=== PATIENT | female | born 1935 | race Caucasian/White ===

== ENCOUNTER 2017-11-23 08:30 | Emergency (ER) | payer OTHER ==
[2017-11-23] MEDS ORDERED: IBUPROFEN 400 MG TAB ONE (09:14)
[2017-11-23] MEDS ORDERED: ACETAMINOPHEN 500 MG TAB ONE (09:14)
[2017-11-23] MEDS ORDERED: DIAZEPAM 10 MG/2 ML INJ SYRINGE ONE (09:15)
--- NOTE | 2017-11-23 09:54 | RAD REPORT ---
EXAM DESCRIPTION: RAD - Lumbar Spine 3 Views - 11/23/2017 9:43 am CLINICAL HISTORY: Back pain FINDINGS: The alignment of the lumbar spine is satisfactory. No fracture or dislocation is seen. Mild scoliosis involves the spine. The bones are osteoporotic. Moderate disc space narrowing involves L4-5 and L5-S1 with small osteophy bhavana.
[2017-11-23 10:24] LABS: Urine Blood NEGATIVE (NEG); Urine Glucose TRACE (NEG); Urine Protein NEGATIVE (NEG); Urine Specific Gravity 1.025 (1.005-1.030)
[2017-11-23 10:32] LABS: Urine Amorphous Sediment 3+ /HPF (NONE SEEN); Urine Bacteria <20 /HPF (<20); Urine RBC <5 /HPF (NONE SEEN)
[2017-11-23 10:33] LABS: Urine Culture Reflex Order NOT NEEDED
--- NOTE | 2017-11-23 10:45 | EDPHYS ---
Physician Documentation [facility] Name: Trinh Severino Age: 82 yrs Sex: Female : 1935 Arrival Date: 11/23/2017 Time: 08:32 Bed 7 Private MD: Chiara Dumont C ED Physician Nicola Vasques HPI: 11/23 09:55 This 82 yrs old Female presents to ER via Wheelchair with complaints of Back wa Pain. 09:55 The patient presents with pain that is acute, with no known mechanism of injury. The wa symptoms are located in the low back. Onset: The symptoms/episode began/occurred 2 day(s) ago. The pain does not radiate. Associated signs and symptoms: Pertinent negatives: abdominal pain, dysuria, fever, hematuria, nausea, numbness, tingling, urinary retention, vomiting, weakness. The problem was sustained from unknown cause. Modifying factors: The patient symptoms are alleviated by nothing, the patient symptoms are aggravated by bending, movement. Severity of symptoms: At their worst the symptoms were moderate, in the emergency department the symptoms are unchanged. The patient has experienced similar episodes in the past, a few times. The patient has not recently seen a physician. Historical: - Allergies: 08:39 Codeine; sg - Home Meds: 08:39 allopurinol 300 mg Oral tab 1 tab once daily [Active]; alprazolam 0.5 mg Oral Tb24 1 sg tab once daily [Active]; amitriptyline 50 mg Oral tab 1 tab once daily [Active]; aspirin 81 mg Oral TbEC 1 tab once daily [Active]; lansoprazole 30 mg Oral cpDR 1 cap once daily [Active]; levothyroxine 100 mcg tab 1 tab once daily [Active]; Pentasa 500 mg Oral cpER twice a day [Active]; verapamil 240 mg Oral C24P 1 cap once daily [Active]; Vytorin 10-40 10-40 mg Oral tab 1 tab once daily [Active]; - PMHx: 08:39 Colitis; Hypertension; Hypothyroidism; mitral valve prolapse; sg - PSHx: 08:39 Hysterectomy; Cataracts; sg - Immunization history:: Adult Immunizations up to date. - Social history:: Smoking status: Patient/guardian denies using tobacco. - Family history:: not pertinent. - Hospitalizations: : No recent hospitalization is reported. ROS: 09:58 Constitutional: Negative for fever, chills, and weight loss, Eyes: Negative for injury, wa pain, redness, and discharge, ENT: Negative for injury, pain, and discharge, Neck: Negative for injury, pain, and swelling, Cardiovascular: Negative for chest pain, palpitations, and edema, Respiratory: Negative for shortness of breath, cough, wheezing, and pleuritic chest pain, Abdomen/GI: Negative for abdominal pain, nausea, vomiting, diarrhea, and constipation, : Negative for injury, bleeding, discharge, and swelling, MS/Extremity: Negative for injury and deformity, Skin: Negative for injury, rash, and discoloration, Neuro: Negative for headache, weakness, numbness, tingling, and seizure. 09:58 Back: Positive for pain with movement, of the lumbar area, left low back and right low back. 09:58 All other systems are negative. Exam: 09:58 Constitutional: This is a well developed, well nourished patient who is awake, alert, wa and in no acute distress. Head/Face: Normocephalic, atraumatic. Eyes: Pupils equal round and reactive to light, extra-ocular motions intact. Lids and lashes normal. Conjunctiva and sclera are non-icteric and not injected. Cornea within normal limits. Periorbital areas with no swelling, redness, or edema. ENT: Nares patent. No nasal discharge, no septal abnormalities noted. Tympanic membranes are normal and external auditory canals are clear. Oropharynx with no redness, swelling, or masses, exudates, or evidence of obstruction, uvula midline. Mucous membranes moist. Neck: Trachea midline, no thyromegaly or masses palpated, and no cervical lymphadenopathy. Supple, full range of motion without nuchal rigidity, or vertebral point tenderness. No Meningismus. Cardiovascular: Regular rate and rhythm with a normal S1 and S2. No gallops, murmurs, or rubs. Normal PMI, no JVD. No pulse deficits. Respiratory: Lungs have equal breath sounds bilaterally, clear to auscultation and percussion. No rales, rhonchi or wheezes noted. No increased work of breathing, no retractions or nasal flaring. Abdomen/GI: Soft, non-tender, with normal bowel sounds. No distension or tympany. No guarding or rebound. No evidence of tenderness throughout. Skin: Warm, dry with normal turgor. Normal color with no rashes, no lesions, and no evidence of cellulitis. MS/ Extremity: Pulses equal, no cyanosis. Neurovascular intact. Full, normal range of motion. Neuro: Awake and alert, GCS 15, oriented to person, place, time, and situation. Cranial nerves II-XII grossly intact. Motor strength 5/5 in all extremities. Sensory grossly intact. Cerebellar exam normal. Normal gait. Psych: Awake, alert, with orientation to person, place and time. Behavior, mood, and affect are within normal limits. 09:58 Back: pain, that is moderate, of the lumbar area, left low back and right low back. Vital Signs: 08:43 Pulse 85; Resp 18 S; Pulse Ox 98% on R/A; Pain 10/10; sg 08:55 BP 148 / 89; sg 08:55 Pulse Ox 98.0% ; sg 10:50 BP 138 / 72; Pulse 88; Resp 18 S; Temp 98.0; Pulse Ox 99% on R/A; Pain 3/10; sg MDM: 08:45 Patient medically screened. ky 09:59 Differential diagnosis: low back pain. reproducible with no warning flags. pain wa control. X-rays. UA. Data reviewed: vital signs, nurses notes. 10:41 Test interpretation: by ED physician or midlevel provider: lumbar x-ray: no acute fx. ky UA negative for pyuria. Response to treatment: the patient's symptoms have markedly improved after treatment. ED course: improved. will d/c with pain meds and advise close f/u. 11/23 09:04 Order name: Urine Microscopic Only; Complete Time: 10:37 ky 11/23 10:17 Order name: Urine Dipstick--Ancillary (enter results); Complete Time: 10:31 [facility] 11/23 09:04 Order name: Lumbar Spine (3 Views) XRAY; Complete Time: 09:55 ky 11/23 09:04 Order name: Urine Dipstick-Ancillary (obtain specimen); Complete Time: 10:23 ky Administered Medications: 09:45 Drug: Motrin 400 mg Route: PO; sg 09:50 Drug: Tylenol 1000 mg Route: PO; sg 09:53 Drug: Valium 5 mg Route: IM; Site: right deltoid; sg Disposition: 11/23/17 10:44 Discharged to Home. Impression: Low back pain. - Condition is Stable. - Discharge Instructions: Back Pain, Adult, [id number]. - Prescriptions for Valium 5 mg Oral Tablet - take 1 tablet by ORAL route Every night As needed; 3 tablet. - Medication Reconciliation Form, Thank You Letter, Antibiotic Education, Prescription Opioid Use form. - Follow up: Private Physician; When: 2 - 3 days; Reason: Recheck today's complaints. - Problem is new. - Symptoms have improved. - Notes: take 2 extra-strength tylenol in the morning and evening for your pain for 2 to 3 days. take a valium at night just before bed. do so for 3 days. see your doctor within 3 days if your pain does not improve on this regimen Signatures: Dispatcher [employer] Stefan Berry RN RN Nicola Vasques MD MD wa [place], Sharyn mw2
--- NOTE | 2017-11-23 10:45 | ER ---
Nurse's Notes [facility] Name: Trinh Severino Age: 82 yrs Sex: Female : 1935 Arrival Date: 11/23/2017 Time: 08:32 Bed 7 Private MD: Chiara Dumont C Diagnosis: Low back pain Presentation: 11/23 08:40 Presenting complaint: Patient states: lower back pain that started yesterday, radiates sg down into her legs pt reports a history of gout but this pain is different, pt denies trauma or recent injury, reports normal bowel and bladder habits. Transition of care: patient was not received from another setting of care. Onset of symptoms was November 23, 2017. Care prior to arrival: None. pt reports not taking any of her normal daily medications today, pt states unsure if she should have taken them d/t the pain. 08:40 Method Of Arrival: Wheelchair sg 08:40 Acuity: JONNIE 4 sg Historical: - Allergies: 08:39 Codeine; sg - Home Meds: 08:39 allopurinol 300 mg Oral tab 1 tab once daily [Active]; alprazolam 0.5 mg Oral Tb24 1 sg tab once daily [Active]; amitriptyline 50 mg Oral tab 1 tab once daily [Active]; aspirin 81 mg Oral TbEC 1 tab once daily [Active]; lansoprazole 30 mg Oral cpDR 1 cap once daily [Active]; levothyroxine 100 mcg tab 1 tab once daily [Active]; Pentasa 500 mg Oral cpER twice a day [Active]; verapamil 240 mg Oral C24P 1 cap once daily [Active]; Vytorin 10-40 10-40 mg Oral tab 1 tab once daily [Active]; - PMHx: 08:39 Colitis; Hypertension; Hypothyroidism; mitral valve prolapse; sg - PSHx: 08:39 Hysterectomy; Cataracts; sg - Immunization history:: Adult Immunizations up to date. - Social history:: Smoking status: Patient/guardian denies using tobacco. - Family history:: not pertinent. - Hospitalizations: : No recent hospitalization is reported. Screenin:45 Abuse screen: Denies threats or abuse. Denies injuries from another. Nutritional sg screening: No deficits noted. Tuberculosis screening: No symptoms or risk factors identified. Never had TB. Fall Risk None identified. Assessment: 08:45 Reassessment: pt taking her medications from home upon me walking into the room. sg 08:46 General: Appears in no apparent distress. comfortable, well groomed, well developed, sg well nourished, Behavior is calm, cooperative, appropriate for age. Pain: Complains of pain in back, right leg and left leg Pain currently is 10 out of 10 on a pain scale. Quality of pain is described as aching, sharp. Neuro: Level of Consciousness is awake, alert, obeys commands, Oriented to person, place, time, Business Management Manager are equal bilaterally Moves all extremities. Full function Speech is normal, Facial symmetry appears normal. Cardiovascular: Heart tones S1 S2 present Capillary refill is brisk in bilateral fingers toes Patient's skin is warm and dry. Chest pain is denied. Respiratory: Airway is patent Respiratory effort is even, unlabored, Respiratory pattern is regular, symmetrical, Breath sounds are clear. GI: No signs and/or symptoms were reported involving the gastrointestinal system. : No signs and/or symptoms were reported regarding the genitourinary system. EENT: No signs and/or symptoms were reported regarding the EENT system. Derm: Skin is pink, warm \T\ dry. Musculoskeletal: Circulation, motion, and sensation intact. Range of motion: intact in all extremities, Swelling absent Reports pain in back. Vital Signs: 08:43 Pulse 85; Resp 18 S; Pulse Ox 98% on R/A; Pain 10/10; sg 08:55 BP 148 / 89; sg 08:55 Pulse Ox 98.0% ; sg 10:50 BP 138 / 72; Pulse 88; Resp 18 S; Temp 98.0; Pulse Ox 99% on R/A; Pain 3/10; sg ED Course: 08:32 Patient arrived in ED. as 08:33 Chiara Dumont MD is Private Physician. as 08:36 Stefan Romo, NICHOL is Primary Nurse. sg 08:40 Arm band placed on. sg 08:43 Triage completed. sg 08:45 Nicola Vasques MD is Attending Physician. wa 08:45 Patient has correct armband on for positive identification. Bed in low position. Call sg light in reach. Pulse ox on. NIBP on. 09:16 Patient moved to radiology via wheelchair. sw 09:38 Lumbar Spine (3 Views) XRAY In Process Unspecified. EDMS 12:44 No provider procedures requiring assistance completed. Patient did not have IV access sg during this emergency room visit. Administered Medications: 09:45 Drug: Motrin 400 mg Route: PO; sg 09:50 Drug: Tylenol 1000 mg Route: PO; sg 09:53 Drug: Valium 5 mg Route: IM; Site: right deltoid; sg Outcome: 10:44 Discharge ordered by . estuardo 10:50 Discharged to home via wheelchair, with family. sg 10:50 Condition: good 10:50 Discharge instructions given to patient, Instructed on discharge instructions, follow up and referral plans. no drinking with medication, no driving heavy equipment, medication usage, safety practices, Demonstrated understanding of instructions, follow-up care, medications, Prescriptions given X 1. 10:59 Patient left the ED. mw2 Signatures: Dispatcher [employer] EDMS Stefan Romo, Lorin Lambert RN, Shannon sw Appiah, William, MD MD wa [place], MyKena mw2
[2017-11-23 11:03] VITALS: O2SAT 98
[2017-11-23 11:04] VITALS: BP 148/89
== END 2017-11-23 10:59 | disposition home or self-care (01) ==
LOC: ER 08:30
DX: M54.5 Low back pain (principal); I10 Essential (primary) hypertension; E03.9 Hypothyroidism, unspecified; I34.1 Nonrheumatic mitral (valve) prolapse; Z79.82 Long term (current) use of aspirin; Z88.5 Allergy status to narcotic agent
CPT/HCPCS: 72100; 96372; 99284; J3360; 81003; 81015

== ENCOUNTER 2017-12-27 09:00 | Inpatient (IN) | payer OTHER ==
[2017-12-27] MEDS ORDERED: NA CHLORIDE 0.9% 500 ML ONE (09:35)
[2017-12-27 09:54] LABS: Absolute Lymphocytes (CBC) 1.6 K/uL (0.7-4.9); Absolute Neutrophil 12.8 K/uL (1.8-8.0); Basophils % 1.4 % (0-1.3); Eosinophils % 1.2 % (0-4.4); Hematocrit 39.9 % (36.0-45.0); Lymphocytes % 10.2 % (15.3-44.8); MCH 30.7 pg (27.0-35.0); MCV 94.8 fL (80-100); Monocytes % 6.5 % (3.3-12.3); RBC Red Blood Cell Count 4.21 M/uL (3.86-4.86)
[2017-12-27 10:04] LABS: Potassium 3.9 mEq/L (3.6-5.0)
[2017-12-27 10:10] LABS: Albumin 3.7 g/dL (3.2-5.5); Bilirubin Direct 0.1 mg/dL (0-0.2); Bilirubin Total 0.4 mg/dL (0.3-1.2); Protein, Total 6.8 g/dL (6.0-8.3)
[2017-12-27 10:46] LABS: Urine Bacteria <20 /HPF (<20); Urine RBC <5 /HPF (NONE SEEN)
[2017-12-27 10:47] LABS: Urine Blood NEGATIVE (NEG); Urine Glucose NEGATIVE (NEG); Urine Protein NEGATIVE (NEG)
[2017-12-27 10:47] LABS: Urine Culture Reflex Order NOT NEEDED; Urine Mucus 1+ /HPF (NONE SEEN)
--- NOTE | 2017-12-27 10:55 | RAD REPORT ---
EXAM DESCRIPTION: CT - Abdomen Pelvis W Contrast - 12/27/2017 10:33 am CLINICAL HISTORY: Abdominal pain, diarrhea, blood in stool, history of colon infection COMPARISON: CT study November 2016 TECHNIQUE: Biphasic, helical CT imaging of the abdomen and pelvis was performed following 100 ml non -ionic IV contrast. No oral contrast. All CT scans are performed using dose optimization technique as appropriate and may include automated exposure control or mA/KV adjustment according to patient size. FINDINGS: No suspicious findings in the lung bases. No pericardial thickening or effusion. The liver, spleen, and pancreas show no suspicious findings. Gallbladder and biliary tree are also wi thout suspicious finding. Symmetric renal function is seen with no hydronephrosis or suspicious renal mass. No pyelonephritis o r acute renal parenchymal process. No urinary bladder abnormality. Uterus is absent. Ovaries are abse nt or atrophic. No gastric dilatation or wall thickening. No small bowel abnormality. From cecum to the left-side tra nsverse colon no significant findings seen. There is circumferential wall thickening and edema from t he splenic flexure to the proximal sigmoid colon. There is stranding in the adjacent fat. No air or e xtravasation of contrast. No free air or pneumatosis. No free fluid seen. No other area of inflammat ory stranding. No hernia, mass or bulky lymphadenopathy. The urinary bladder is without significant finding. Single punctate focus of air is present in the bladder presumed to be from a catheterization . No adrenal abnormality. No suspicious bony findings. IMPRESSION: Colitis pattern seen as prominent circumferential wall thickening and edema extending fr om splenic flexure of the colon to the proximal sigmoid colon. Colitis pattern is very similar to the November 2016 study. No abscess, free air or surgically emergent component.
[2017-12-27] MEDS ORDERED: ONDANSETRON 4 MG/2 ML VIAL IV PRN (11:33)
--- NOTE | 2017-12-27 11:39 | EDPHYS ---
Physician Documentation [facility] Name: Trinh Severino Age: 82 yrs Sex: Female : 1935 Arrival Date: 12/27/2017 Time: 09:03 Bed 5 Private MD: Chiara Dumont C ED Physician Lang Zamorano HPI: 12/27 10:14 This 82 yrs old Female presents to ER via Ambulatory with complaints of kdr Abdominal pain, Diarrhea, Bloody Stools, Abdominal Pain. 10:14 The patient presents to the emergency department with diarrhea, that is intermittent, kdr abdominal pain, of the right lower quadrant and left lower quadrant, described as achy, crampy, intermittent, vague,\E\ waxing and waning. Onset: The symptoms/episode began/occurred last night. Possible causes: flare up of bowel problem, colitis. The symptoms are aggravated by nothing. The symptoms are alleviated by nothing. Associated signs and symptoms: Pertinent positives: abdominal pain, diarrhea, GI bleeding, Pertinent negatives: anorexia, constipation, dysuria, fever, hematuria, nausea, vaginal discharge, vomiting. Severity of symptoms: At their worst the symptoms were mild moderate last night, in the emergency department the symptoms have improved moderately. The patient has experienced a previous episode, last year. The patient has not recently seen a physician. Historical: - Allergies: 09:18 Codeine; iw - Home Meds: 09:18 Pentasa 500 mg Oral cpER twice a day [Active]; levothyroxine 100 mcg tab 1 tab once iw daily [Active]; allopurinol 300 mg Oral tab 1 tab once daily [Active]; Vytorin 10-40 10-40 mg Oral tab 1 tab once daily [Active]; alprazolam 0.5 mg Oral Tb24 1 tab once daily [Active]; amitriptyline 50 mg Oral tab 1 tab once daily [Active]; aspirin oral once daily [Active]; verapamil 240 mg Oral C24P 1 cap once daily [Active]; valsartan 160 mg oral tab 1 tab once daily [Active]; 09:20 Fiorinal 50-325-40 mg oral cap as needed [Active]; iw - PMHx: 09:18 Colitis; Hypertension; Hypothyroidism; mitral valve prolapse; iw 09:20 hiatal hernia; iw - PSHx: 09:18 Hysterectomy; Cataracts; iw - Immunization history:: Flu vaccine is up to date. - Social history:: Smoking status: Patient/guardian denies using tobacco, never smoked. ROS: 10:14 Constitutional: Negative for fever, chills, and weight loss, Eyes: Negative for injury, kdr pain, redness, and discharge, ENT: Negative for injury, pain, and discharge, Neck: Negative for injury, pain, and swelling, Cardiovascular: Negative for chest pain, palpitations, and edema, Respiratory: Negative for shortness of breath, cough, wheezing, and pleuritic chest pain, Back: Negative for injury and pain, : Negative for injury, bleeding, discharge, and swelling, MS/Extremity: Negative for injury and deformity, Skin: Negative for injury, rash, and discoloration, Neuro: Negative for headache, weakness, numbness, tingling, and seizure activity. Psych: Negative for depression, anxiety, suicide ideation, homicidal ideation, and hallucinations, Allergy/Immunology: Negative for hives, rash, and allergies, Endocrine: Negative for neck swelling, polydipsia, polyuria, polyphagia, and marked weight changes, Hematologic/Lymphatic: Negative for swollen nodes, abnormal bleeding, and unusual bruising. 10:14 Abdomen/GI: Positive for abdominal pain, diarrhea, rectal bleeding, Negative for nausea and vomiting, abdominal distension, dysphagia, hematemesis, black/tarry stool, rectal pain, bowel incontinence. Exam: 10:14 Constitutional: This is a well developed, well nourished patient who is awake, alert, kdr and in no acute distress. Head/Face: Normocephalic, atraumatic. Eyes: Pupils equal round and reactive to light, extra-ocular motions intact. Lids and lashes normal. Conjunctiva and sclera are non-icteric and not injected. Cornea within normal limits. Periorbital areas with no swelling, redness, or edema. Neck: Trachea midline, no thyromegaly or masses palpated, and no cervical lymphadenopathy. Supple, full range of motion without nuchal rigidity, or vertebral point tenderness. No Meningismus. Chest/axilla: Normal chest wall appearance and motion. Nontender with no deformity. No lesions are appreciated. Cardiovascular: Regular rate and rhythm with a normal S1 and S2. No gallops, murmurs, or rubs. Normal PMI, no JVD. No pulse deficits. Respiratory: Lungs have equal breath sounds bilaterally, clear to auscultation and percussion. No rales, rhonchi or wheezes noted. No increased work of breathing, no retractions or nasal flaring. Back: No spinal tenderness. No costovertebral tenderness. Full range of motion. Skin: Warm, dry with normal turgor. Normal color with no rashes, no lesions, and no evidence of cellulitis. MS/ Extremity: Pulses equal, no cyanosis. Neurovascular intact. Full, normal range of motion. Neuro: Awake and alert, GCS 15, oriented to person, place, time, and situation. Cranial nerves II-XII grossly intact. Motor strength 5/5 in all extremities. Sensory grossly intact. Cerebellar exam normal. Normal gait. Psych: Awake, alert, with orientation to person, place and time. Behavior, mood, and affect are within normal limits. 10:14 Abdomen/GI: Inspection: abdomen appears normal, Bowel sounds: active, all quadrants, diminished, Palpation: soft, mild abdominal tenderness, in the right lower quadrant and left lower quadrant, Rectal exam: rectal tone normal, Stool: brown, guaiac positive, hemorrhoid(s), are not appreciated, mass, is not appreciated, swelling, is not appreciated, tenderness, is not appreciated, the exam is chaperoned by the nurse. Vital Signs: 09:20 BP 126 / 64; Pulse 93; Resp 18 S; Temp 98.2; Pulse Ox 97% ; Pain 0/10; iw 09:41 Weight 85.28 kg (R); ae1 09:56 BP 118 / 54; Pulse 71; Resp 17; Pulse Ox 96% on R/A; ae1 11:06 BP 142 / 51; Pulse 72; Resp 17; Pulse Ox 97% on R/A; ae1 12:15 BP 159 / 94; Pulse 75; Resp 19; Pulse Ox 97% on R/A; ae1 MDM: 10:14 Data reviewed: vital signs, nurses notes, lab test result(s), radiologic studies. kdr Counseling: I had a detailed discussion with the patient and/or guardian regarding: the historical points, exam findings, and any diagnostic results supporting the discharge/admit diagnosis, lab results, radiology results, the need for outpatient follow up. 11:38 Patient medically screened. kdr 12/27 09:27 Order name: Type And Screen; Complete Time: 10:47 [facility] 12/27 09:27 Order name: Basic Metabolic Panel; Complete Time: 10:47 [facility] 12/27 09:27 Order name: CBC with Diff; Complete Time: 10:47 [facility] 12/27 09:27 Order name: Creatinine for Radiology; Complete Time: 10:47 [facility] 12/27 09:27 Order name: Hepatic Function; Complete Time: 10:47 [facility] 12/27 09:27 Order name: Lipase; Complete Time: 10:47 [facility] 12/27 09:27 Order name: Urine Microscopic Only; Complete Time: 11:21 kdr 12/27 09:27 Order name: IV Saline Lock; Complete Time: 09:32 [facility] 12/27 09:27 Order name: CT Abd/Pelvis - W/Contrast; Complete Time: 11:21 [facility] 12/27 10:30 Order name: Urine Dipstick--Ancillary (enter results); Complete Time: 11:21 [facility] 12/27 11:03 Order name: EKG Electrocardiogram [facility] 12/27 09:27 Order name: Labs collected and sent; Complete Time: 09:41 [facility] 12/27 09:27 Order name: Urine Dipstick-Ancillary (obtain specimen); Complete Time: 10:29 kdr Administered Medications: 09:35 Drug: NS 0.9% 500 ml Route: IV; Rate: bolus; Site: right antecubital; ae1 10:19 Follow up: IV Status: Completed infusion ae1 12:06 Drug: Flagyl 500 mg Route: PO; ae1 12:06 Drug: LevaQUIN 500 mg Route: PO; ae1 Disposition: 18 11:38 Hospitalization ordered by Chiaar Dumont for Inpatient Admission. Preliminary diagnosis are Left sided colitis, Left sided colitis with rectal bleeding. - Bed requested for Telemetry/MedSurg (Inpatient). - Status is Inpatient Admission. ae1 - Condition is Fair. - Problem is an acute exacerbation. - Symptoms have improved. UTI on Admission? No Signatures: Dispatcher [employer] EDLA Lang Zamorano MD MD kdr Marlene Coello RN Marck Roberson em1 Durga Panda RN RN ae1 Corrections: (The following items were deleted from the chart) 14:17 11:38 Hospitalization Ordered by Chiara Dumont MD for Inpatient Admission. Preliminary em1 diagnosis is Left sided colitis; Left sided colitis with rectal bleeding. Bed requested for Telemetry/MedSurg (Inpatient). Status is Inpatient Admission. Condition is Fair. Problem is an acute exacerbation. Symptoms have improved. UTI on Admission? No. kdr 14:54 14:17 12/27/2017 11:38 Hospitalization Ordered by A Tim RIOS for Inpatient Admission. ae1 Preliminary diagnosis is Left sided colitis; Left sided colitis with rectal bleeding. Bed requested for Telemetry/MedSurg (Inpatient). Status is Inpatient Admission. Condition is Fair. Problem is an acute exacerbation. Symptoms have improved. UTI on Admission? No. em1
--- NOTE | 2017-12-27 11:39 | ER ---
Nurse's Notes [facility] Name: Trinh Severino Age: 82 yrs Sex: Female : 1935 Arrival Date: 12/27/2017 Time: 09:03 Bed 5 Private MD: Chiara Dumont C Diagnosis: Left sided colitis;Left sided colitis with rectal bleeding Presentation: 12/27 09:12 Presenting complaint: Patient states: had bad abd cramps at 7pm last night, then iw started having diarrhea at 8pm, then at 10 pm started having bright red blood in stool, was diagnosed with colon infection X 1 year ago, had same symptoms at that time, last BM was around 7 this morning with bright red blood. Transition of care: patient was not received from another setting of care. Onset of symptoms was December 26, 2017. Initial Sepsis Screen: Does the patient meet any 2 criteria? No. Patient's initial sepsis screen is negative. Does the patient have a suspected source of infection? No. Patient's initial sepsis screen is negative. Care prior to arrival: None. 09:12 Method Of Arrival: Ambulatory iw 09:12 Acuity: JONNIE 3 iw Historical: - Allergies: 09:18 Codeine; iw - Home Meds: 09:18 Pentasa 500 mg Oral cpER twice a day [Active]; levothyroxine 100 mcg tab 1 tab once iw daily [Active]; allopurinol 300 mg Oral tab 1 tab once daily [Active]; Vytorin 10-40 10-40 mg Oral tab 1 tab once daily [Active]; alprazolam 0.5 mg Oral Tb24 1 tab once daily [Active]; amitriptyline 50 mg Oral tab 1 tab once daily [Active]; aspirin oral once daily [Active]; verapamil 240 mg Oral C24P 1 cap once daily [Active]; valsartan 160 mg oral tab 1 tab once daily [Active]; 09:20 Fiorinal 50-325-40 mg oral cap as needed [Active]; iw - PMHx: 09:18 Colitis; Hypertension; Hypothyroidism; mitral valve prolapse; iw 09:20 hiatal hernia; iw - PSHx: 09:18 Hysterectomy; Cataracts; iw - Immunization history:: Flu vaccine is up to date. - Social history:: Smoking status: Patient/guardian denies using tobacco, never smoked. Screenin:31 Abuse screen: Denies threats or abuse. Nutritional screening: No deficits noted. ae1 Tuberculosis screening: No symptoms or risk factors identified. Fall Risk None identified. Assessment: 09:28 Reassessment: currently denies abdominal mariya but had abdominal pain yesterday and ae1 today. General: Appears in no apparent distress. comfortable, well groomed, Behavior is calm, cooperative. Pain: Complains of pain in abdomen. Neuro: Level of Consciousness is awake, alert, obeys commands, Oriented to person, place, time, situation. Cardiovascular: Heart tones S1 S2 present Patient's skin is warm and dry. Rhythm is regular. Respiratory: Airway is patent Respiratory effort is even, unlabored, Breath sounds are clear bilaterally. GI: Abdomen is round Bowel sounds present X 4 quads. Abd is soft Abdomen is tender to palpation in right upper quadrant, left upper quadrant, right lower quadrant and left lower quadrant Reports diarrhea, bloody stool, Patient currently denies nausea, vomiting. : No signs and/or symptoms were reported regarding the genitourinary system. Denies burning with urination. EENT: wears glasses. Derm: Skin is pink, warm \T\ dry. Musculoskeletal: No signs and/or symptoms reported regarding the musculoskeletal system. 09:56 Reassessment: Patient appears in no apparent distress at this time. No changes from ae1 previously documented assessment. Patient and/or family updated on plan of care and expected duration. Pain level reassessed. 12:05 Reassessment: Patient ambulated with a steady gait to the restroom to urinate. ae1 12:14 Reassessment: Patient appears in no apparent distress at this time. Patient and/or ae1 family updated on plan of care and expected duration. Pain level reassessed. Pillow provided. Patient denies pain at this time. 14:29 Reassessment: called 4th floor to give report to receiving report, spoke to carolina Valdez nurse just received a new patient and she will return call. Will continue to monitor. 14:39 Reassessment: called report to NICHOL Frances, via telephone. ae1 Vital Signs: 09:20 BP 126 / 64; Pulse 93; Resp 18 S; Temp 98.2; Pulse Ox 97% ; Pain 0/10; iw 09:41 Weight 85.28 kg (R); ae1 09:56 BP 118 / 54; Pulse 71; Resp 17; Pulse Ox 96% on R/A; ae1 11:06 BP 142 / 51; Pulse 72; Resp 17; Pulse Ox 97% on R/A; ae1 12:15 BP 159 / 94; Pulse 75; Resp 19; Pulse Ox 97% on R/A; ae1 ED Course: 09:03 Patient arrived in ED. mr 09:04 Chiara Dumont MD is Private Physician. mr 09:07 Durga Panda, NICHOL is Primary Nurse. ae1 09:12 Lang Zamorano MD is Attending Physician. kdr 09:15 Triage completed. iw 09:15 Served as a executive manager during rectal exam. ae1 09:20 Arm band placed on. iw 09:28 Inserted saline lock: 20 gauge in left antecubital area, using aseptic technique. Blood ae1 collected. 09:31 Placed in gown. Bed in low position. Call light in reach. Side rails up X 1. Cardiac ae1 monitor on. Pulse ox on. NIBP on. Warm blanket given. 09:37 EKG done, by cvt tech. reviewed by Lang Zamorano MD. tc 10:[address] vm2 10:33 CT Abd/Pelvis - W/Contrast In Process Unspecified. EDMS 11:38 Chiara Dumont MD is Hospitalizing Provider. kdr 14:43 Patient admitted, IV remains in place. ae1 Administered Medications: 09:35 Drug: NS 0.9% 500 ml Route: IV; Rate: bolus; Site: right antecubital; ae1 10:19 Follow up: IV Status: Completed infusion ae1 12:06 Drug: Flagyl 500 mg Route: PO; ae1 12:06 Drug: LevaQUIN 500 mg Route: PO; ae1 Outcome: 11:38 Decision to Hospitalize by Provider. kdr 14:40 Admitted to Tele accompanied by tech, family with patient, via wheelchair, room 411, ae1 with chart, Report called to NICHOL Frances 14:40 Condition: stable 14:40 Instructed on the need for admit, Demonstrated understanding of instructions. 14:54 Patient left the ED. ae1 Signatures: Dispatcher [employer] EDMS Lang Zamorano MD MD [facility] Huma Fernando Irene, NICHOL RN iw Birgit Gray, fitness centre manager EKG Ttc Durga Panda, RN RN ae1 [place], [place] [id number]
[2017-12-27] MEDS: Levofloxacin500mg IV 500 MG/100 ML BAG IV SCH (12:00)
[2017-12-27] MEDS: METRONIDAZOLE 500mg IVPB 500 MG/100 ML BAG IV SCH ×3 (12:00→23:51)
[2017-12-27] MEDS ORDERED: metroNIDAZOLE 500 MG TABLET ONE (12:02)
[2017-12-27] MEDS ORDERED: levoFLOXacin 500 MG TAB ONE (12:02)
--- NOTE | 2017-12-27 12:18 | EKG ---
Test Date: 2017-12-27 Test Time: 09:32:19 Billing Specialist: JOSE FRANCISCO MEASUREMENT RESULTS: Intervals: Rate: 80 NJ: 172 QRSD: 94 QT: 396 QTc: 456 [place]: P: 52 NJ: 172 QRS: 35 T: 82 INTERPRETIVE STATEMENTS: Normal sinus rhythm Normal ECG Compared to ECG 06/16/2015 09:43:09 No significant changes Electronically Signed On 12-27-17 12:17:53 CDT by Marcio Tatum
[2017-12-27 16:33] VITALS: BMI 28.1
[2017-12-27] MEDS: METHYLPREDNISOLONE 125 MG INJ IV SCH ×3 (17:57→23:51)
[2017-12-27] MEDS: D5 0.45 NS 1,000 ML IV SCH ×3 (17:59→23:51)
[2017-12-27] MEDS: ACETAMINOPHEN 500 MG TAB PO PRN (21:23)
[2017-12-28 04:17] LABS: Absolute Lymphocytes (CBC) 0.7 K/uL (0.7-4.9); Absolute Monocytes 0.1 K/uL (0.1-1.3); Absolute Neutrophil 10.6 K/uL (1.8-8.0); Basophils % 0.2 % (0-1.3); Hematocrit 37.6 % (36.0-45.0); Lymphocytes % 5.9 % (15.3-44.8); MCH 30.9 pg (27.0-35.0); MCV 93.2 fL (80-100); MPV 8.8 fL (7.6-11.3); Monocytes % 0.5 % (3.3-12.3); RBC Red Blood Cell Count 4.03 M/uL (3.86-4.86)
[2017-12-28 04:46] LABS: Albumin 3.4 g/dL (3.2-5.5); Bilirubin Direct 0.1 mg/dL (0-0.2); Bilirubin Total 0.5 mg/dL (0.3-1.2); Potassium 4.6 mEq/L (3.6-5.0); Protein, Total 6.5 g/dL (6.0-8.3)
[2017-12-28] MEDS: METRONIDAZOLE 500mg IVPB 500 MG/100 ML BAG IV SCH ×3 (05:16→17:42)
[2017-12-28] MEDS: METHYLPREDNISOLONE 125 MG INJ IV SCH ×3 (05:16→17:42)
[2017-12-28] MEDS: PANTOPRAZOLE 40MG TABLET PO SCH (05:17)
[2017-12-28] MEDS: LEVOTHYROXINE SOD 0.1 MG TAB PO SCH (05:17)
--- NOTE | 2017-12-28 06:27 | HP ---
Date of Admission: 12/27/2017 Chief Complaint: Diarrhea and bleeding. History Of Present Illness: An 82-year-old female patient who was doing fine until yesterday evening started to have some abdominal cramps then diarrhea and had multiple episodes of diarrhea last night and then started bright red blood per rectum last night. She came into the emergency room this morn ing. Denies any fever, chills, nausea, vomiting. After she was evaluated, she was admitted to the [facility]. I saw her this evening in the hospital. She also is having some neck pain, which is worse with any movement and better with heating pad. No fall, no injury. Allergies: HER ALLERGY TO AMOXICILLIN, CAUSING STOMACH UPSET; CODEINE, CAUSING HALLUCINATION; FENOFI BRATE, CAUSING MUSCLE SPASM; LEVAQUIN, CAUSING NAUSEA AND VOMITING; PROPOXYPHENE AND SULFA. Medications: List reviewed. Review of Systems: GI: As mentioned above. All other systems reviewed and negative. Past Medical History: Significant for hypertension, mild intermittent asthma, mixed hyperlipidemia, diverticulosis, NIDDM, gout, hypothyroidism, osteoarthritis at multiple sites, gastroesophageal reflu x disease, allergic rhinitis. Past Surgical History: Breast biopsy, hysterectomy. Family History: Significant for hypertension, breast cancer, emphysema. Social History: Negative for smoking and alcohol use. Physical Examination: Vital Signs: Height 5 feet 8 inches, weight 188 pounds. Last vital signs; temperature 98.2, pulse 8 4, respiratory rate 18, blood pressure 156/77. General: Awake, alert, oriented, not in distress. HEENT: Head atraumatic, normocephalic. Conjunctivae nonerythematous. Sclerae white. Mouth, no thr ush or edema noted. Ears/Nose, no mass, lesion, discharge noted. Neck: Supple. No JVD, lymph nodes, bruit, thyromegaly noted. Lungs: Bilateral good equal air entry. Clear to auscultation. No rhonchi. No rales. Heart: Normal heart sounds, no murmur or gallop. Abdomen: Soft, bowel sounds normal. No guarding, rigidity, tenderness, mass, hepatosplenomegaly, dis tention, or bruit noted. Extremities: No leg edema. No calf tenderness. Skin: No rash, ulcer, cellulitis. Lymphatics: No lymph node enlargement in neck, supraclavicular, infraclavicular region. Neuro: No focal neurological deficit. Chest: Unremarkable. External Genitalia: Deferred. Rectal: Deferred. Laboratory Data: White count 15.8, hemoglobin 12.9, platelets 211. Sodium 137, potassium 3.95, chlo ride 104, bicarb 24, BUN 19, creatinine 1.03. Glucose 163. Liver function tests unremarkable. Lipa se 18. Urinalysis unremarkable. CAT scan of abdomen and pelvis done in emergency room shows changes of colitis extending from splenic flexure of the colon to proximal sigmoid colon. No abscess or jenae e air. Impression: 1.Colitis. 2.Hypertension. 3.Mixed hyperlipidemia. 4.Mild intermittent asthma. 5.Type 2 diabetes mellitus. 6.Gastroesophageal reflux disease. 7.Diverticulosis. 8.Hypothyroidism. 9.Osteoarthritis, multiple sites. Plan: Admit the patient to hospital for further evaluation and management of this problem. The [place] [facility] is appropriate for inpatient and is expected to spend 2 midnights in hospital. We will continue home medications per order. Give Tylenol and clear liquid diet per order. SCD will be ordered for D VT prophylaxis. Consult organizational development consultant. We will go ahead and give her IV antibiotics. Order IV steroid and follow up with organizational development consultant. The patient was advised to continue to use heating p ad for her neck pain and Tylenol as needed. Steroid that we are going to use for colitis should help . We will get stool test for her. I will see her tomorrow for followup. SHARONDA/MARIELENA Voice ID: [id number]
[2017-12-28 07:08] LABS: Blood Morphology Comment NOT SEEN (NOT SEEN); Platelet Estimate ADEQ
[2017-12-28] MEDS ORDERED: D50W 25 GM/50 ML SYRINGE IV PRN (08:17)
[2017-12-28] MEDS ORDERED: GLUCAGON 1 MG/VIAL IM PRN (08:17)
[2017-12-28] MEDS: VALSARTAN 160 MG TAB PO SCH (09:00)
[2017-12-28] MEDS ORDERED: ALPRAZOLAM 0.5 MG TABLET PO SCH ×2 (09:00→21:00)
[2017-12-28] MEDS: ALLOPURINOL 300 MG TAB PO SCH (09:00)
[2017-12-28] MEDS ORDERED: EZETIMIBE PO SCH (09:00)
[2017-12-28] MEDS ORDERED: AMITRIPTYLINE 50 MG TAB PO SCH ×2 (09:00→21:00)
[2017-12-28] MEDS ORDERED: VERAPAMIL SR 240 MG TABLET PO SCH ×2 (09:00→21:00)
[2017-12-28] MEDS ORDERED: SIMVASTATIN PO SCH (09:00)
[2017-12-28] MEDS ORDERED: EZETIMIBE 10 MG TAB PO SCH ×2 (09:00→21:00)
[2017-12-28] MEDS: MESALAMINE 500 MG CAPSULE.ER PO SCH ×2 (09:59→21:46)
[2017-12-28] MEDS: ACETAMINOPHEN 500 MG TAB PO PRN ×2 (10:41→21:45)
[2017-12-28] MEDS: Levofloxacin500mg IV 500 MG/100 ML BAG IV SCH (11:55)
[2017-12-28] MEDS: INSULIN -REGULAR HUMAN 50 UNIT/0.5 ML ML SQ SCH ×3 (12:34→21:47)
[2017-12-28 14:53] VITALS: O2SAT 94
[2017-12-28] MEDS ORDERED: ATORVASTATIN 20 MG TAB PO SCH (21:00)
--- NOTE | 2017-12-29 01:00 | PN ---
Date of Progress Note: 12/28/2017 Subjective: The patient was seen this morning for followup. No new complaints or problems reported by the patient. Lying in bed, not in any distress. No bleeding problem reported overnight. No abdo tamara pain. No nausea. No vomiting. Objective: Vital signs: Reviewed. Neck: Her neck pain was much better this morning. HEENT: Examination unremarkable. Lungs: Clear to auscultation. Heart: Heart sounds are normal. Abdomen: Soft. Bowel sounds are normal. No guarding, rigidity, tenderness, or distention. Extremities: No leg edema. Laboratory Data: White count 11.4, hemoglobin 12.4, and platelet count 185. Sodium 136, potassium 4 .6, chloride 105, bicarb 24, BUN 13, creatinine 0.85, and glucose 278. Liver function tests unremark able. Impression: 1.Colitis. 2.Rectal bleeding. 3.Hypertension. 4.Type 2 diabetes mellitus. Plan: We will go ahead and consult chemical detection expert. Continue IV antibiotics and IV steroid. Dis continue IV fluid. Diet was advanced, and I will see her tomorrow for followup. Possible discharge to go home tomorrow depending on the patient's condition. Ambulation was encouraged. SHARONDA/MODL Voice ID: [id number] Report ID: [id number]
[2017-12-29] MEDS: METHYLPREDNISOLONE 125 MG INJ IV SCH ×2 (01:20→06:16)
[2017-12-29] MEDS: METRONIDAZOLE 500mg IVPB 500 MG/100 ML BAG IV SCH ×2 (01:21→06:16)
[2017-12-29] MEDS: PANTOPRAZOLE 40MG TABLET PO SCH (06:16)
[2017-12-29] MEDS: LEVOTHYROXINE SOD 0.1 MG TAB PO SCH (06:16)
[2017-12-29] MEDS: INSULIN -REGULAR HUMAN 50 UNIT/0.5 ML ML SQ SCH (08:48)
[2017-12-29] MEDS: VALSARTAN 160 MG TAB PO SCH (08:49)
[2017-12-29] MEDS: ALLOPURINOL 300 MG TAB PO SCH (08:50)
[2017-12-29 08:54] VITALS: BP 139/65
[2017-12-29] MEDS: MESALAMINE 500 MG CAPSULE.ER PO SCH (08:54)
[2017-12-29 12:40] VITALS: TEMP 97.1
--- NOTE | 2017-12-30 03:23 | DS ---
Date of Discharge: 12/29/2017 Disposition: Discharged to go home. Physical Examination: HEENT: Unremarkable. Lungs: Clear to auscultation. Heart: Sounds normal. Abdomen: Soft. Bowel sounds normal. No guarding, rigidity, tenderness, or distention. Extremities: No leg edema. Hospital Course: This is an 82-year-old female patient admitted to the hospital with complaints of d iarrhea and bleeding. Please see dictated H and P for more information. The patient started to have diarrhea and bright red blood per rectum the night before she was admitted to the hospital. After s he presented to emergency room, she was evaluated and admitted to the hospital. Her initial white co unt was 15.8. CAT scan of the abdomen and pelvis done in emergency room shows changes of colitis. N o perforation. No free air under diaphragm. The patient was admitted to the hospital. Initially, s he was started on clear liquid diet and subsequently advanced her diet as she tolerated. She was sta rted on Levaquin and metronidazole as well as IV Solu-Medrol 60 mg every 6 hours. Her blood sugar we nt up because of the steroid in range of 200 to 300 range and this was managed with sliding scale ins ulin. At home, she does not take any diabetes medication and I expect that her blood sugar should im prove once we taper off her steroid. GI consultation was obtained from Dr. Kowalski and he will plan to do outpatient elective colonoscopy in few weeks and the patient is aware of that. She is tolerat ing diet very well, ambulating well without any problem, and does not have any more bleeding problems since her admission to the hospital. She has not had any diarrhea also. We did order stool test bu t because of the fact that she has not had any diarrhea or any bleeding, we were not able to collect any stool specimen. She is being discharged in stable condition with following discharge medication and instructions. Final Diagnoses: 1.Colitis. 2.Hypertension. 3.Mixed hyperlipidemia. 4.Type 2 diabetes mellitus. 5.Mild intermittent asthma. 6.Gastroesophageal reflux disease. 7.Diverticulosis. 8.Hypothyroidism. 9.Osteoarthritis, multiple sites. Discharge Medications And Instructions: 1.Continue all prior home medications. 2.Levaquin 500 mg p.o. daily for 10 days, metronidazole 500 mg 3 times a day for 10 days. 3.Prednisone 10 mg tablet, the patient to take 2 tablets daily for 4 days, then 1 tablet daily for 4 days, then half tablet daily for 4 days, then stop. 4.Follow up with Dr. Hdez/Dr. Kowalski and follow up at my office in 2 weeks. SHARONDA/MARIELENA Voice ID: [id number] Report ID: [id number]
== END 2017-12-29 11:05 | disposition home or self-care (01) | DRG 392 ==
LOC: ER 09:00 → ERHOLD 11:29 → 4TH 14:48
PROVIDERS: ADMIT Internal Medicine; ATTEND Internal Medicine
DX: K52.9 Noninfective gastroenteritis and colitis, unspecified (principal); K62.5 Hemorrhage of anus and rectum; I10 Essential (primary) hypertension; E78.2 Mixed hyperlipidemia; E11.9 Type 2 diabetes mellitus without complications; J45.20 Mild intermittent asthma, uncomplicated; K21.9 Gastro-esophageal reflux disease without esophagitis; K57.90 Diverticulosis of intestine, part unspecified, without perforation or abscess without bleeding; E03.9 Hypothyroidism, unspecified; M19.90 Unspecified osteoarthritis, unspecified site; M10.9 Gout, unspecified; Z88.0 Allergy status to penicillin; Z88.2 Allergy status to sulfonamides
CPT/HCPCS: 36415; 74177; 80048; 80076; 81003; 81015; 82962; 83690; 85025; 86850; 86900; 86901; 93005; 96360; 99285; J2930; Q9967

== ENCOUNTER 2018-01-04 17:49 | Emergency (ER) | payer OTHER ==
--- NOTE | 2018-01-04 18:01 | ER ---
Nurse's Notes [facility] Name: Trinh Severino Age: 82 yrs Sex: Female : 1935 Arrival Date: 01/04/2018 Time: 17:52 Bed Waiting Private MD: Chiara Dumont C Diagnosis: Presentation: 01/04 17:59 Note "I feel better, I know my blood pressure has come up. I am going to go home and I aj will come back if it I need to." Ambulated with nayak, steady gait to triage. Vital Signs: 17:59 BP 139 / 97; Pulse 100; Resp 20; Temp 97.6; Pulse Ox 97% on R/A; aj ED Course: 17:52 Patient arrived in ED. mr 17:52 Chiara Dumont MD is Private Physician. mr 18:00 Lang Zamorano MD is Attending Physician. aj Administered Medications: No medications were administered Outcome: 18:00 Patient left the ED. aj Signatures: Michelle Toledo RN RN Huma Ragsdale mr Corrections: (The following items were deleted from the chart) 18:00 17:59 Note "I feel better, I know my blood pressure has come up. I am going to go home aj and I will come back if it I need to." aj
[2018-01-04 18:08] VITALS: BP 139/97; TEMP 97.6; O2SAT 97
== END 2018-01-04 18:00 | disposition left against medical advice (07) ==
LOC: ER 17:49
DX: Z02.9 Encounter for administrative examinations, unspecified (principal)
CPT/HCPCS: 99281

== ENCOUNTER 2018-02-27 17:43 | Inpatient (IN) | payer OTHER ==
[2018-02-27] MEDS ORDERED: ONDANSETRON 4 MG/2 ML VIAL IV PRN (18:24)
[2018-02-27] MEDS ORDERED: ALPRAZOLAM 0.25 MG TABLET PO PRN (18:27)
[2018-02-27] MEDS: MORPHINE 4 MG/ML SYR IV PRN ×2 (18:46→22:40)
[2018-02-27] MEDS: NA CHLORIDE 0.9% 1,000 ML IV SCH (18:46)
[2018-02-27 19:00] LABS: Absolute Lymphocytes (CBC) 1.2 K/uL (0.7-4.9); Absolute Monocytes 1.4 K/uL (0.1-1.3); Absolute Neutrophil 9.3 K/uL (1.8-8.0); Basophils % 0.6 % (0-1.3); Eosinophils % 0.1 % (0-4.4); Hematocrit 36.9 % (36.0-45.0); Lymphocytes % 10.1 % (15.3-44.8); MCH 30.7 pg (27.0-35.0); MCV 93.4 fL (80-100); MPV 8.8 fL (7.6-11.3); Monocytes % 11.4 % (3.3-12.3); RBC Red Blood Cell Count 3.95 M/uL (3.86-4.86)
[2018-02-27 19:15] LABS: Albumin 3.4 g/dL (3.4-5.0); Bilirubin Total 0.5 mg/dL (0.2-1.0); Potassium 3.9 mmol/L (3.5-5.1); Protein, Total 6.8 g/dL (6.4-8.2)
[2018-02-27 20:05] LABS: Urine Appearance CLEAR; Urine Bilirubin NEGATIVE (NEG); Urine Blood NEGATIVE (NEG); Urine Color YELLOW; Urine Glucose NEGATIVE (NEG); Urine Protein NEGATIVE (NEG); Urine Specific Gravity 1.015 (1.005-1.030); Urine Urobilinogen 0.2 mg/dL (0.2-1.0)
[2018-02-27 20:41] LABS: Urine Bacteria <20 /HPF (<20); Urine Culture Reflex Order NOT NEEDED; Urine RBC <5 /HPF (NONE SEEN)
--- NOTE | 2018-02-27 21:08 | RAD REPORT ---
EXAM DESCRIPTION: CT - Abdomen Pelvis W Contrast - 02/27/2018 9:00 pm CLINICAL HISTORY: Abdominal pain, back pain, fever COMPARISON: CT December 19, 2017 TECHNIQUE: Biphasic, helical CT imaging of the abdomen and pelvis was performed following 100 ml non -ionic IV contrast. Oral contrast was given. All CT scans are performed using dose optimization technique as appropriate and may include automated exposure control or mA/KV adjustment according to patient size. FINDINGS: No suspicious findings in the lung bases. The liver, spleen, and pancreas show no suspicious findings. The liver does demonstrate a mild diffus e fatty infiltration. No acute gallbladder finding. Biliary tree is normal size. Symmetric renal function is seen with no hydronephrosis or suspicious renal mass. No pyelonephritis o r acute renal parenchymal process. No urinary bladder abnormality seen. There is significant pelvic f andra laxity present. Uterus is absent. No ovarian or adnexal finding. No dilated bowel loops or bowel wall thickening. No acute GI process identifiable. No free air, free fluid or inflammatory stranding. No mass or bulky lymphadenopathy. The patient has a very small fat only umbilical hernia. No adrenal abnormality. No suspicious bony findings. Vascular calcifications are present. IMPRESSION: CT abdomen and pelvis imaging shows no abnormality to explain fever. Disc and bony degenerative changes are present. No acute findings seen to explain back pain symptoms. Mild fatty infiltration of the liver.
--- NOTE | 2018-02-27 21:27 | RAD REPORT ---
EXAM DESCRIPTION: RAD - Chest Pa And Lat (2 Views) - 02/27/2018 9:08 pm CLINICAL HISTORY: Fever COMPARISON: June 2015 TECHNIQUE: PA and lateral views of the chest were obtained. FINDINGS: The lungs are clear of infiltrate, mass or failure finding. Scattered fibrotic lung change s are present similar to comparison. Heart size is normal and central vasculature is within normal limits. No pleural effusion or pneumothorax seen. Bones are osteopenic. No acute bone findings seen . No aortic abnormality. IMPRESSION: No acute cardiopulmonary process. No significant change from comparison.
[2018-02-27] MEDS ORDERED: CEFTRIAXONE 1 GM/NS 50 ML 1 GM/50 ML BAG IV SCH (22:00)
[2018-02-27] MEDS ORDERED: CEFTRIAXONE/SWI 1gm 1 GM/10 ML SYR ONE (22:28)
[2018-02-28] MEDS: ACETAMINOPHEN 500 MG TAB PO PRN ×4 (02:07→18:48)
[2018-02-28] MEDS: MORPHINE 4 MG/ML SYR IV PRN ×5 (02:45→22:05)
--- NOTE | 2018-02-28 06:04 | HP ---
Date of Admission: 02/27/2018 Chief Complaint: Back pain. History Of Present Illness: This is an 82-year-old female patient, who came into office today with 3-day history of lower back pain. The patient says that her pain is continuous and is progressively getting worse. Denies any fall or injury. She describes her pain as very sharp and stabbing type of pain in nature, localized to lower back. No radiation. Pain is constant and gets worse with any change of positioning. As of today, she says that the pain is probably radiating from her back towards the right lower quadrant region. Denies any urinary complaints. No constipation. No diarrhea. No bleeding. The patient denies any fever, chills, but she was febrile when she came into office and her temperature was checked 3 different times including oral temperature 2 times and it was 101.5 degrees Fahrenheit. The patient did not know that she was having fever. After I evaluated her, decision was made to admit her to the hospital. She describes her back pain as 25/10 on pain scale. Allergies: SHE IS ALLERGIC TO AMOXICILLIN CAUSING STOMACH UPSET, CODEINE CAUSING HALLUCINATION, FENOFIBRATE CAUSING MUSCLE SPASM, LEVAQUIN CAUSING NAUSEA AND VOMITING, PROPOXYPHENE, AND SULFA. SHE IS ALLERGIC TO BETASONE. Medications: List reviewed. Review of Systems: Constitutional: As mentioned above. Musculoskeletal: As mentioned above. All other systems reviewed and negative. Past Medical History: Significant for hypertension, mild intermittent asthma, mixed hyperlipidemia, diverticulosis, NIDDM, gout, hypothyroidism, osteoarthritis at multiple sites, gastroesophageal reflux disease, and allergic rhinitis. Past Surgical History: Significant for breast biopsy and hysterectomy. Family History: Significant for hypertension, breast cancer, and emphysema. Social History: Negative for smoking or alcohol use. Physical Examination: Vital Signs: Height 5 feet 8 inches, weight 187 pounds, temperature 101.5 at office, at hospital it is 98.2, pulse 93, respiratory rate 20, blood pressure 165/64. General: The patient appears very uncomfortable, not in any respiratory distress. HEENT: Head atraumatic, normocephalic. Conjunctivae nonerythematous. Sclerae white. Mouth, no thrush or edema noted. Ears/Nose, no mass, lesion, discharge noted. Neck: Supple. No JVD, lymph nodes, bruit, thyromegaly noted. Lungs: Bilateral good equal air entry. Clear to auscultation. No rhonchi. No rales. Heart: Normal heart sounds, no murmur or gallop. Abdomen: Soft, bowel sounds normal. No guarding, rigidity, tenderness, mass, hepatosplenomegaly, distention, or bruit noted. Extremities: No leg edema. No calf tenderness. Skin: No rash, ulcer, cellulitis. Lymphatics: No lymph node enlargement in neck, supraclavicular, infraclavicular region. Neuro: No focal neurological deficit. Chest: Unremarkable. External Genitalia: Deferred. Rectal: Deferred. Laboratory Data: White count 11.9, hemoglobin 12.2, platelets 241. Sodium 139 , potassium 3.9, chloride 105, bicarb 26, BUN 15, creatinine 0.90, glucose 155. Liver function tests unremarkable. CAT scan of abdomen is pending. Chest x- ray pending. Urinalysis pending. Impression: 1. Fever. 2. Back pain. 3. Rule out diskitis. 4. Hypertension. 5. Mixed hyperlipidemia. 6. Type 2 diabetes mellitus. 7. Mild intermittent asthma. 8. Gastroesophageal reflux disease. 9. Diverticulosis. 10. Hypothyroidism. 11. Osteoarthritis, multiple sites. Plan: We will admit the patient to hospital for further evaluation and management of this problem. The patient is appropriate for inpatient and is expected to spend 2 midnights in hospital. We will go ahead and start her on an SCD for DVT prophylaxis. We will go ahead and follow up on urinalysis results and CAT scan, and then we will decide about empiric antibiotic. My biggest concern is if we are dealing with any diskitis problem or not. Blood culture has been ordered. Urine culture has been ordered and tomorrow after I see her in the morning we will go ahead and order MRI of the lumbosacral spine which will be done tomorrow. We will keep her n.p.o. after midnight and IV fluid will be given per order as well. Details and plan of treatment discussed with her. Home medications will be continued for her blood pressure. Diabetes management per order. Monitor fingerstick blood sugar with mild sliding scale and monitor blood pressure and adjust antihypertensive medication as it becomes necessary. Details and plan of treatment discussed with the patient. SHARONDA/MODJosefina Voice ID: [id number] ALLA
[2018-02-28] MEDS ORDERED: D50W 25 GM/50 ML SYRINGE IV PRN (08:06)
[2018-02-28] MEDS ORDERED: GLUCAGON 1 MG/VIAL IM PRN (08:06)
[2018-02-28] MEDS: CEFTRIAXONE/SWI 1gm 1 GM/10 ML SYR IV SCH ×2 (08:29→22:08)
[2018-02-28] MEDS: NA CHLORIDE 0.9% 1,000 ML IV SCH ×2 (08:29→22:08)
[2018-02-28] MEDS ORDERED: LEVOTHYROXINE SODIUM PO SCH (09:00)
[2018-02-28] MEDS ORDERED: [UNRECOGNIZED DRUG - REMARK] PO SCH (09:00)
[2018-02-28] MEDS ORDERED: BECLOMETHASONE DIPROPIONATE 10.6 GM IH SCH (09:00)
[2018-02-28] MEDS ORDERED: MESALAMINE PO SCH (09:00)
[2018-02-28] MEDS ORDERED: ALLOPURINOL PO SCH (09:00)
[2018-02-28] MEDS ORDERED: HOME MED 1 EA UNK (Dexlansoprazole [Dexilant] 60 MG) PO SCH (09:00)
[2018-02-28] MEDS: INSULIN -REGULAR HUMAN 50 UNIT/0.5 ML ML SQ SCH ×3 (11:30→21:00)
--- NOTE | 2018-02-28 14:40 | RAD REPORT ---
EXAM DESCRIPTION: MRI - Spine Lumbar W/Wo Cont - 02/28/2018 11:41 am CLINICAL HISTORY: Back pain, fever, possible diskitis COMPARISON: Lumbar spine plain films November 23, CT imaging February 27, 2018 TECHNIQUE: Sagittal T1-weighted, T2-weighted and T2-STIR weighted sequences were obtained. Axial T1- weighted and heavily T2-weighted sequences were obtained through the lumbar disc levels. Sagittal and axial post-contrast. T1-weighted images were obtained following 19ml on Gd contrast material. FINDINGS: Lumbar bodies are normal in height. Scattered fatty marrow degenerative changes are presen t. No marrow edema or marrow replacing process identifiable. There is slight retrolisthesis of L5 on S1, L3 on L4 and L2 on L3 all believed to be secondary to degenerative change. Disc desiccation is present throughout the lumbar spine. No edema signal in any of the disc spaces. P ostcontrast images show no evidence for disc enhancement or signal abnormality. No MRI findings for d iscitis or osteomyelitis. Conus is normal with no clumping or thickening of the cauda equina. T12-L1 level: No significant findings. L1-2 level: Minimal disc bulge. No canal or foramen stenosis. No significant facet degenerative boone e. L2-3 level: Disc is desiccated with minimal loss in disc height. Mild bulging of disc material in the central canal. Moderate foraminal disc bulge changes are present. No significant right foraminal enc roachment. Moderate left foraminal stenosis is present. Approximately 12 millimeter focal mass is pre sent along the anterior superior margin of the left facet joint at this level. This causes significan t mass effect on the left side thecal sac and causes stenosis of the left exit foramen. The mass is p redominantly hypointense along the periphery. There is the central T1/T2 hyperintensity. This is rela tively low in signal intensity on T2 stir sequencing. Post-contrast imaging shows some in enhancement along the periphery. On the February 27 CT study this mass appears partially mineralized. This may be an unusual presentation of degenerative facet joint hypertrophy. A partially mineralized synovial cyst would be a primary consideration. Enhancement related to an infectious process is not likely. Right-s ided facet joint at this level shows only mild degenerative change. L3-4 level: Disc is desiccated without loss in disc height. Minimal disc bulge in the central canal a nd exit foramina. Facet degenerative changes are mild. No central spinal stenosis or significant fora tamara encroachment. Midline canal is 10-11 mm L4-5 level: Disc is significantly thinned and desiccated. Mild broad-based bulging of disc material i s present along with endplate spurring. Mild facet degenerative change present. No central spinal nacho nosis. No significant foraminal encroachment. L5-S1 level: Disc is thinned and desiccated. Bulging of disc material across the central canal and in to each exit foramen noted. Facet degenerative change relatively moderate and contributes to moderate bilateral foraminal stenosis. No central spinal stenosis. Mildly prominent soft tissue surrounds the posterior margin of the spinous process at L3 and L4. This soft tissue does not enhance. Mild enhancement is seen in the surrounding soft tissues on the postco ntrast imaging. No abscess or drainable fluid collection. This is believed to be reactive degenerativ e change. Infectious etiology is not suspected. No aggressive or worrisome marrow pattern within the spinous processes. IMPRESSION: No discitis or osteomyelitis. No epidural abscess. No abnormality seen that is suspiciou s for an infectious process. Mass along the anterior superior margin of the left L2-3 facet joint causes significant mass effect o n the thecal sac and left exit foramen at this level. This creates spinal stenosis and significant le ft foraminal encroachment. The left L2-3 facet abnormality is favored to be a partially mineralized synovial cyst. Atypical face t joint hypertrophy is a lesser consideration. Infectious process is not suspected. Advanced disc degenerative change L4-5 and L5-S1. Disc, endplate and facet degenerative changes resul t in moderate foraminal stenosis at L5-S1.
[2018-02-28] MEDS ORDERED: VALSARTAN PO SCH (21:00)
[2018-02-28] MEDS: INDOMETHACIN 25 MG CAP PO SCH (21:00)
[2018-02-28] MEDS ORDERED: AMITRIPTYLINE HCL PO SCH (21:00)
--- NOTE | 2018-02-28 23:00 | PN ---
Date of Progress Note: 02/28/2018 Subjective: The patient was seen this morning for followup. Her back pain is not any better compare d to yesterday and she is also complaining of pain in her both thighs posteriorly. No nausea or vomi ting. She received morphine 2 mg dose which really did not help her pain at all. Objective: Vital Signs: Reviewed. HEENT Examination: Unremarkable. Lungs: Clear to auscultation. Heart: Heart sounds normal. Abdomen: Soft. Bowel sounds normal. No guarding, rigidity, tenderness, or distention. Extremities: No leg edema. Back Examination: No evidence of any rash or redness. Left paraspinal region lateral to the lumbar spine area has very minimum soft tissue swelling and that is the area where she has some tenderness t erika. Laboratory Data: The patient had MRI done today on lumbosacral spine and results reviewed with radio logist, Dr. Simmons, and he informed me there was no evidence of any diskitis but upon further revie w he does notice that the patient has evidence of myositis involving paraspinal muscles in the lumbar spine region. There is presence of synovial cyst and also there are myositis changes involving ilio psoas muscles. There was no evidence of any abscess or fluid collection. Impression: 1.Myositis. 2.Hypertension. 3.Type 2 diabetes mellitus. 4.Hypothyroidism. 5.Hyperlipidemia. Plan: We will go ahead and continue antibiotics IV per order. Follow up on culture results. Morphi ne dose was increased from 2 mg to 4 mg. ambulation was encouraged. Continue SCD for DVT prophylaxis. I will see her tomorrow for followup. SHARONDA/MODL Voice ID: [id number] Report ID: [id number]
[2018-03-01] MEDS: ACETAMINOPHEN 500 MG TAB PO PRN (00:16)
[2018-03-01] MEDS: MORPHINE 4 MG/ML SYR IV PRN ×3 (02:04→17:47)
[2018-03-01 05:12] LABS: Absolute Lymphocytes (CBC) 1.2 K/uL (0.7-4.9); Absolute Monocytes 1.7 K/uL (0.1-1.3); Absolute Neutrophil 7.8 K/uL (1.8-8.0); Basophils % 0.8 % (0-1.3); Eosinophils % 0.3 % (0-4.4); Hematocrit 33.1 % (36.0-45.0); Lymphocytes % 11.1 % (15.3-44.8); MCH 32.5 pg (27.0-35.0); MCV 93.4 fL (80-100); MPV 8.7 fL (7.6-11.3); RBC Red Blood Cell Count 3.54 M/uL (3.86-4.86)
[2018-03-01 05:35] LABS: Potassium 3.5 mmol/L (3.5-5.1); Uric Acid 2.1 mg/dL (2.6-6.0)
[2018-03-01 05:42] VITALS: BMI 28.4
[2018-03-01] MEDS: INSULIN -REGULAR HUMAN 50 UNIT/0.5 ML ML SQ SCH ×4 (07:30→21:00)
[2018-03-01] MEDS: INDOMETHACIN 25 MG CAP PO SCH ×2 (08:24→21:00)
[2018-03-01] MEDS: CEFTRIAXONE/SWI 1gm 1 GM/10 ML SYR IV SCH ×2 (08:25→21:00)
[2018-03-01] MEDS: ENOXAPARIN 40 MG/0.4 ML SQ SCH (08:25)
[2018-03-01 08:39] LABS: Potassium 3.6 mmol/L (3.5-5.1)
[2018-03-01 08:45] LABS: Platelet Estimate ADEQ
[2018-03-01 08:46] LABS: Blood Morphology Comment NOT SEEN (NOT SEEN)
[2018-03-01] MEDS ORDERED: POTASSIUM CL SA 10 MEQ TAB PO SCH (09:00)
[2018-03-01] MEDS ORDERED: POTASSIUM CL SA 10 MEQ TAB PO ONE (09:00)
--- NOTE | 2018-03-02 03:16 | PN ---
Date of Progress Note: 03/01/2018 Subjective: The patient was seen this morning for followup. No new complaints or problems reported by patient. Lying in bed, not in any distress. Her back pain is somewhat better after we started he r on indomethacin. Vital signs reviewed. She has some pain in her left knee and the pain from bilat eral posterior thigh has improved. Objective: HEENT: Unremarkable. Lungs: Clear to auscultation. Heart: Heart sounds normal. Abdomen: Soft. Bowel sounds normal. No guarding, rigidity, tenderness, or distention. Extremities: No leg edema. Neck Examination: Tenderness that she had in the left paraspinal region is better today. No redness , no rash. Laboratory Data: White count 10.8, hemoglobin 11.5, platelets 225, sodium 140, potassium 3.5, chlor mundo 106, bicarb 26, BUN 13, creatinine 0.80, glucose 171, magnesium 2. Impression: 1.Myositis. 2.Anemia. 3.Hypertension. 4.Type 2 diabetes mellitus. Plan: We will continue current medications. Uric acid level is normal. We will continue IV Rocephi n and oral indomethacin. Consult Physical Therapy to help ambulate the patient. Blood culture remai ns negative so far. Home medications will be continued per order. DVT prophylaxis using Lovenox. The patient will not require any neurosurgical intervention after looking at the MRI result. SHARONDA/MODL Voice ID: [id number] Report ID: [id number]
[2018-03-02] MEDS: INSULIN -REGULAR HUMAN 50 UNIT/0.5 ML ML SQ SCH ×4 (07:30→20:40)
[2018-03-02] MEDS: INDOMETHACIN 25 MG CAP PO SCH ×2 (09:00→20:27)
[2018-03-02] MEDS: ENOXAPARIN 40 MG/0.4 ML SQ SCH (09:23)
[2018-03-02] MEDS: COLCHICINE 0.6 MG TAB PO SCH ×2 (09:23→20:27)
[2018-03-02] MEDS: CEFTRIAXONE/SWI 1gm 1 GM/10 ML SYR IV SCH ×2 (09:24→20:28)
[2018-03-02] MEDS: MORPHINE 4 MG/ML SYR IV PRN ×2 (09:26→22:08)
--- NOTE | 2018-03-02 21:20 | PN ---
Date of Progress Note: 03/02/2018 Subjective: The patient was seen this morning for followup. No new complaints or problems reported by her. The patient reported her back pain is little better today than yesterday or more better comp ared to day before yesterday. She still has significant pain that limits her activity. She is able to turn in the bed from side to side, but she does have difficulty doing so. She did work with physi jatin therapy. Did not walk outside the room, but she was able to walk and take few steps in the room yesterday. Objective: Vital Signs: Reviewed. HEENT: Unremarkable. Lungs: clear to auscultation. Heart: Heart sounds normal. Abdomen: Soft, bowel sounds normal. No guarding, rigidity, tenderness, or distention. Extremities: No leg edema. Back: No evidence of any swelling or redness, rash. No tenderness today. Her bilateral buttocks an d posterior thigh examination are unremarkable. The patient has mild swelling in the left superior l ateral aspect of the left knee and this is the area where she has lot of pain also and she is concern ed about gout flare up causing this pain. Impression: 1.Myositis, infectious. 2.Hypertension. 3.Type 2 diabetes mellitus. Plan: We will go ahead and continue current medications, which is current antibiotic ceftriaxone. We will repeat blood work tomorrow. We will increase dose of indomethacin from 25 mg 2 times a day to 50 mg 2 times a day and add colchicine. I will see her tomorrow for followup. Physical therapy to cont inue to work with her. SHARONDA/MODL Voice ID: [id number] Report ID: [id number]
[2018-03-03 05:38] LABS: Potassium 3.6 mmol/L (3.5-5.1)
[2018-03-03] MEDS ORDERED: POTASSIUM CL SA 10 MEQ TAB PO ONE (07:00)
[2018-03-03] MEDS: INSULIN -REGULAR HUMAN 50 UNIT/0.5 ML ML SQ SCH ×4 (07:30→21:00)
[2018-03-03] MEDS: INDOMETHACIN 25 MG CAP PO SCH ×2 (09:48→21:21)
[2018-03-03] MEDS: COLCHICINE 0.6 MG TAB PO SCH ×2 (09:48→21:20)
[2018-03-03] MEDS: ENOXAPARIN 40 MG/0.4 ML SQ SCH (09:48)
[2018-03-03] MEDS: CEFTRIAXONE/SWI 1gm 1 GM/10 ML SYR IV SCH ×2 (09:49→21:21)
[2018-03-03] MEDS ORDERED: VANCOMYCIN/NS 1 gm 1 GM/250 ML BAG IVPB SCH (10:00)
[2018-03-03] MEDS: VANCOMYCIN 1.25 GM in NA CHLORIDE 0.9% 250 ML IVPB SCH (10:59)
--- NOTE | 2018-03-03 16:17 | PN ---
Date of Progress Note: 03/03/2018 Subjective: The patient was seen this morning for followup. She was lying in bed, not in distress. Reported that her back pain is better compared to yesterday. Left knee pain is better compared to yesterday, but now she has left ankle pain. No fall, no injury. The patient still has quite a bit difficulty getting out of bed and going to the bathroom. She uses walker and with walker, she is able to independently get to the bathroom. She still has difficulty turning in the bed because of the back pain, but she is able to do so and able to change positions. Little better compared to last 2-3 days. She started to have diarrhea today. So far, she had 2 loose bowel movement for today. No nausea, no vomiting. No abdominal pain. Objective: Vital Signs: Reviewed. She remains afebrile. HEENT: Unremarkable. Lungs: Clear to auscultation. Heart: Heart sounds normal. Abdomen: Soft, bowel sounds normal. No guarding, rigidity, tenderness, or distention. Extremities: No leg edema. Laboratory Data: Potassium 3.6, BUN 20, and creatinine 0.80. Assessment: 1. Myositis, infectious. 2. Probable gout with acute exacerbation. 3. Hypertension. 4. Diabetes mellitus. 5. Diarrhea. 6. Urinary tract infection. Plan: We will go ahead and continue ceftriaxone. Urine culture is growing Enterococcus sensitive to ampicillin, but the patient is listed as allergic to amoxicillin, so we will not use that. We will start her on vancomycin. Continue ceftriaxone. Pharmacy consult requested. We will order Imodium for p.r.n. use for diarrhea, which could be due to colchicine that was started yesterday and antibiotics. Ambulation was encouraged. We will continue current indomethacin and I have informed the patient that possible discharge might happen by Monday or very likely Monday of coming week. SHARONDA/MODL Voice ID: [id number] Report ID: [id number] ALLA
[2018-03-03] MEDS: MORPHINE 4 MG/ML SYR IV PRN (21:24)
[2018-03-04 05:04] LABS: Absolute Lymphocytes (CBC) 1.4 K/uL (0.7-4.9); Absolute Monocytes 0.5 K/uL (0.1-1.3); Absolute Neutrophil 1.5 K/uL (1.8-8.0); Eosinophils % 11.4 % (0-4.4); Hematocrit 32.7 % (36.0-45.0); Lymphocytes % 36.2 % (15.3-44.8); MCH 32.1 pg (27.0-35.0); MCV 92.3 fL (80-100); MPV 7.9 fL (7.6-11.3); Monocytes % 12.1 % (3.3-12.3); RBC Red Blood Cell Count 3.54 M/uL (3.86-4.86)
[2018-03-04 05:19] LABS: Magnesium 2.2 mg/dL (1.8-2.4); Potassium 4.1 mmol/L (3.5-5.1)
[2018-03-04] MEDS: INSULIN -REGULAR HUMAN 50 UNIT/0.5 ML ML SQ SCH ×4 (07:30→20:53)
[2018-03-04] MEDS: INDOMETHACIN 25 MG CAP PO SCH ×2 (11:11→20:53)
[2018-03-04] MEDS: COLCHICINE 0.6 MG TAB PO SCH ×2 (11:11→20:52)
[2018-03-04] MEDS: ENOXAPARIN 40 MG/0.4 ML SQ SCH (11:12)
[2018-03-04] MEDS: CEFTRIAXONE/SWI 1gm 1 GM/10 ML SYR IV SCH ×2 (11:12→20:52)
[2018-03-04] MEDS ORDERED: NA CHLORIDE 0.9% 100 ML ONE (11:58)
[2018-03-04] MEDS: VANCOMYCIN 1.25 GM in NA CHLORIDE 0.9% 250 ML IVPB SCH (12:31)
[2018-03-04] MEDS: LOPERAMIDE HCL 2 MG CAPSULE PO PRN ×2 (15:35→20:52)
--- NOTE | 2018-03-04 16:49 | PN ---
Date of Progress Note: 03/04/2018 Subjective: The patient was seen this morning for followup. She was sitting in chair, fixing her he ad. This morning when I saw her, was overall feeling much better, reported that her back pain, left knee and left ankle pain everything is much better. She still has pain. She is not back to her norm al self, but overall she is improving on a day-to-day basis. She still has difficulty getting out of bed, but she is able to do so independently and able to ambulate also in her room from bed to the [facility]. Her diarrhea stopped without using any Imodium yesterday. Objective: Vital Signs: Reviewed. HEENT: Unremarkable. Lungs: Clear to auscultation. No rhonchi or rales. Heart: Heart sounds normal. Abdomen: Soft. Bowel sounds normal. No guarding, rigidity, tenderness, or distention. Extremities: No leg edema. Laboratory Data: White count 3.9, hemoglobin 11.4, platelets 282. Sodium 142, potassium 4.1, chlori de 107, bicarb 29, BUN 19, creatinine 0.80, glucose 109, magnesium 2.2. Impression: 1.Myositis, infectious. 2.Urinary tract infection. 3.Hypertension. 4.Type 2 diabetes mellitus. 5.Anemia. Plan: We will continue current medications. Continue ceftriaxone and vancomycin, and she was encour aged to ambulate. We will continue indomethacin and colchicine and current diabetes and hypertension management. Possible discharge on Monday, which is day after tomorrow provided her condition contin ues to improve. SHARONDA/MODL Voice ID: [id number] Report ID: [id number]
[2018-03-04] MEDS: MORPHINE 4 MG/ML SYR IV PRN (21:51)
[2018-03-05] MEDS: INSULIN -REGULAR HUMAN 50 UNIT/0.5 ML ML SQ SCH ×4 (07:30→21:00)
[2018-03-05] MEDS: CEFTRIAXONE/SWI 1gm 1 GM/10 ML SYR IV SCH ×2 (10:08→22:00)
[2018-03-05] MEDS: ENOXAPARIN 40 MG/0.4 ML SQ SCH (10:08)
[2018-03-05] MEDS: COLCHICINE 0.6 MG TAB PO SCH ×2 (10:09→21:00)
[2018-03-05] MEDS: INDOMETHACIN 25 MG CAP PO SCH ×2 (10:09→21:00)
[2018-03-05] MEDS ORDERED: VANCOMYCIN 1.5 GM in NA CHLORIDE 0.9% 500 ML IVPB SCH (11:00)
[2018-03-05] MEDS: LOPERAMIDE HCL 2 MG CAPSULE PO PRN ×2 (16:59→22:12)
--- NOTE | 2018-03-05 20:46 | PN ---
Date of Progress Note: 03/05/2018 Subjective: The patient was seen this morning for followup. No new complaints or problems reported by the patient. Overall, her back pain, knee pain, and ankle pain is much better. She is ambulating very well and difficulty with ambulation is improving in the last 24-48 hours. She has not walked o utside her room and today I did advice her to start walking outside her room to start with using walk er and then if she is stable enough to walk without walker, then she should ambulate without walker. Objective: Vital signs: Reviewed. She is afebrile. HEENT: Unremarkable. Lungs: Clear to auscultation. Heart: Heart sounds normal. Abdomen: Soft. Bowel sounds normal. No guarding, rigidity, tenderness, or distention. Extremities: No leg edema. Swelling from the left knee area has improved. Laboratory Data: Potassium 4.1, chloride 107, bicarb 29, BUN 19, creatinine 0.80, and glucose 109. Fingerstick blood sugar readings reviewed. Impression: 1.Myositis, infectious. 2.Urinary tract infection. 3.Hypertension. 4.Type 2 diabetes mellitus. 5.Anemia, unspecified. 6.Gout. Plan: We will continue current medications, which are indomethacin, colchicine, Rocephin, and vancom ycin. Ambulation was encouraged. Possible discharge to go home tomorrow after I see her in the [facility]. If her condition is stable, we will plan to discharge her with oral antibiotic, which will be c efuroxime. Details and plan of treatment discussed with her. We will also discharge her with indomethacin and c olchicine. SHARONDA/MODL Voice ID: [id number] Report ID: [id number]
[2018-03-05] MEDS ORDERED: ATORVASTATIN 20 MG TAB PO SCH (21:00)
[2018-03-05] MEDS ORDERED: EZETIMIBE 10 MG TAB PO SCH (21:00)
[2018-03-05] MEDS: MORPHINE 4 MG/ML SYR IV PRN (22:24)
[2018-03-06 02:15] VITALS: O2SAT 95
[2018-03-06] MEDS: INSULIN -REGULAR HUMAN 50 UNIT/0.5 ML ML SQ SCH (07:30)
[2018-03-06] MEDS: INDOMETHACIN 25 MG CAP PO SCH (08:23)
[2018-03-06] MEDS: COLCHICINE 0.6 MG TAB PO SCH (08:23)
[2018-03-06] MEDS: ENOXAPARIN 40 MG/0.4 ML SQ SCH (08:23)
[2018-03-06] MEDS: CEFTRIAXONE/SWI 1gm 1 GM/10 ML SYR IV SCH (08:24)
[2018-03-06] MEDS ORDERED: ASPIRIN EC 81 MG TAB PO SCH (09:00)
[2018-03-06] MEDS ORDERED: VANCOMYCIN 1.5 GM in NA CHLORIDE 0.9% 500 ML IVPB SCH ×4 (10:00)
[2018-03-06 10:39] VITALS: BP 159/72; TEMP 96.9
--- NOTE | 2018-03-07 03:55 | DS ---
Date of Discharge: 03/06/2018 Disposition: Discharged to go home. Physical Examination: HEENT: Unremarkable. Lungs: Clear to auscultation. Heart: Sounds normal. Abdomen: Soft. Bowel sounds normoactive. No guarding, rigidity, tenderness, or distention. Extremities: No leg edema. Discharge Medications And Instructions: 1. Continue all prior home medications. 2. Cefuroxime 500 mg p.o. b.i.d. Patient to take both of these medications with food. She was also instructed to use Imodium 1 tablet p.o. q.i.d. p.r.n. for diarrhea. 3. Follow up with my office in 1 week. Hospital Course: An 82-year-old female patient, who was admitted to the hospital after she came into office with back pain and fever. Please see dictated H and P for more information. After the patient came into office, she was evaluated. I was concerned about possibility of diskitis and she was admitted to the hospital. Further evaluation revealed initially white count was 15.8, hemoglobin 12.9, platelets 211. Chemistry was unremarkable. BUN 19, creatinine 1.03. Liver function test was unremarkable. CAT scan of the abdomen done upon admission was negative for any acute changes. Chest x-ray was negative for pneumonia. The patient was started on empiric antibiotic, ceftriaxone. Blood culture was done which was negative. Day after admission, we did MRI of her lumbosacral spine and it did not show any evidence of diskitis , but it did show evidence of myositis involving her paraspinal muscles and iliopsoas muscles. Her IV antibiotics were continued. Urine culture grew Enterococcus and according to sensitivity result vancomycin was added. We also started her on anti-inflammatory medication, indomethacin, and slowly her condition was improving. Then, she had left knee pain and left ankle pain. She was concerned about possibility of this joint pain due to gout flare up. Uric acid level was normal but considering she was not improving with indomethacin we added colchicine. With combination of indomethacin and colchicine, her knee and ankle problem has improved significantly. Back pain has improved significantly with antibiotics and anti-inflammatory medication. Initially, she had lot of difficulty even turning in the bed from side to side and as she continued to improve she was able to easily turn in the bed and was able to get in and out of bed without much difficulty and started ambulating well without any problem. The patient was discharged to go home in stable condition with above-mentioned medication and instructions. She did have some diarrhea and responded well to Imodium on a p.r.n. basis. Final Diagnoses: 1. Myositis, infectious. 2. Urinary tract infection. 3. Anemia, unspecified. 4. Hypertension. 5. Mixed hyperlipidemia. 6. Type 2 diabetes mellitus. 7. Mild intermittent asthma. 8. Gastroesophageal reflux disease. 9. Diverticulosis. 10. Hypothyroidism. 11. Osteoarthritis, multiple sites. SHARONDA/MODL Voice ID: [id number] Report ID: [id number] ALLA
== END 2018-03-06 10:17 | disposition home or self-care (01) | DRG 558 ==
LOC: 2ND 17:58
PROVIDERS: ADMIT Internal Medicine; ATTEND Internal Medicine
DX: M60.08 Infective myositis, other site (principal); N39.0 Urinary tract infection, site not specified; J45.20 Mild intermittent asthma, uncomplicated; E78.2 Mixed hyperlipidemia; K57.90 Diverticulosis of intestine, part unspecified, without perforation or abscess without bleeding; E11.9 Type 2 diabetes mellitus without complications; M10.9 Gout, unspecified; E03.9 Hypothyroidism, unspecified; M60.88 Other myositis, other site; K21.9 Gastro-esophageal reflux disease without esophagitis; M15.9 Polyosteoarthritis, unspecified; R19.7 Diarrhea, unspecified; D64.9 Anemia, unspecified; B95.2 Enterococcus as the cause of diseases classified elsewhere; I10 Essential (primary) hypertension; Z88.1 Allergy status to other antibiotic agents; Z88.5 Allergy status to narcotic agent; Z88.2 Allergy status to sulfonamides; Z88.8 Allergy status to other drugs, medicaments and biological substances
CPT/HCPCS: 36415; 71046; 72158; 74177; 80048; 80053; 80202; 81001; 82962; 83605; 83735; 84145; 84550; 85025; 87040; 87077; 87086; 87088; 87186; 87493; 97163; A9577; J0696; J1650; J7030; Q9967

== ENCOUNTER 2018-04-16 09:49 | Emergency (ER) | payer OTHER ==
--- OUTSIDE RECORDS SUMMARY | 2018-04-16 09:51 | XMS REPORT ---
:1935 Author Organization [employer] Care Team Providers Name Role Phone Castaneda Lewis Provider Role Unavailable Allergies, Adverse Reactions, Alerts Substance Reaction Event Type codeine Info Not Available Drug Allergy Problems Problem Type Condition Code Onset Dates Condition Status Assessment Pain, joint, knee, left M25.562 Active Assessment Pain, joint, knee, right M25.561 Active Assessment History of acute gouty arthritis Z87.39 Active Medications Medication Code Code Instructions Start End Status Dosage System Date Date Alprazolam [facility] 58302610249 0.5 MG Oral Active (Schedule IV Drug) TAKE 1 TABLET BY MOUTH EVERYDAY AT BEDTIME aspirin NDC 0 Active not defined Verapamil HCl ER ND 90346553044 240 MG Orally Active 1 capsule Once a day Levothyroxine ND 13803980855 100 MCG Orally Active 1 tablet on Sodium Once a day an empty stomach in the morning Pentasa ND 68552228831 500 MG Orally Active 2 capsules Four times a day Amitriptyline ND 69545896633 50 MG Orally Active 1 tablet HCl Once a day Xyzal NDC 0 Active not defined Losartan ND 86607685459 100 MG Orally Active 1 tablet Potassium Once a day Allopurinol ND 84575694319 300 MG Orally Active 1 tablet Once a day Results No Known Results Summary Purpose [employer] Submission
[2018-04-16] MEDS ORDERED: COLCHICINE 0.6 MG TAB ONE ×2 (10:29)
[2018-04-16] MEDS ORDERED: KETOROLAC 30 MG/ML INJ ONE (10:29)
--- NOTE | 2018-04-16 11:24 | RAD REPORT ---
EXAM DESCRIPTION: RAD - Knee Right 3 View - 04/16/2018 10:51 am CLINICAL HISTORY: PAIN<Reason For Exam>PAIN COMPARISON: No comparisons<Comparisons> FINDINGS: No fracture, dislocation or periosteal reaction.Moderately large joint effusion is present . Slight narrowing of the medial compartment seen with large marginal spurs. There is extensive degen erative meniscal calcification present. Supra patella linear calcifications could be from tendon trau ma or possibly capsule calcification. There are mild spurring changes along the articular margin of t he patella. No foreign body seen. IMPRESSION: Advanced knee joint degenerative change as detailed with moderate joint effusion. No fracture or acute bone process.
--- NOTE | 2018-04-16 11:36 | EDPHYS ---
Physician Documentation [facility] Name: Trinh Severino Age: 82 yrs Sex: Female : 1935 Arrival Date: 04/16/2018 Time: 09:52 Bed 25 Private MD: Hamlet Dumont; Chiara Dumont C ED Physician Mikey Alicia HPI: 04/16 10:21 This 82 yrs old Female presents to ER via Ambulatory with complaints of GOUT. valeriy 10:21 The patient presents with pain, swelling. The complaints affect the posterior aspect of valeriy right knee. Context: The problem was sustained at an unknown site. Onset: The symptoms/episode began/occurred 2 day(s) ago. Modifying factors: The symptoms are alleviated by elevating leg, remaining still, the symptoms are aggravated by movement, weight bearing, bending knee. Associated signs and symptoms: The patient has no apparent associated signs or symptoms. Treatment prior to arrival includes: no previous treatment. Severity of symptoms: At their worst the symptoms were moderate, in the emergency department the symptoms are unchanged. The patient has experienced similar episodes in the past, several times. Historical: - Allergies: 10:02 Codeine; hj - Home Meds: 10:02 allopurinol 300 mg Oral tab 1 tab once daily [Active]; alprazolam 0.5 mg Oral Tb24 1 hj tab once daily [Active]; amitriptyline 50 mg Oral tab 1 tab once daily [Active]; Aspirin Oral once daily [Active]; Fiorinal 50-325-40 mg Oral cap as needed [Active]; levothyroxine 100 mcg tab 1 tab once daily [Active]; Pentasa 500 mg Oral cpER twice a day [Active]; valsartan 160 mg Oral tab 1 tab once daily [Active]; verapamil 240 mg Oral C24P 1 cap once daily [Active]; Vytorin 10-40 10-40 mg Oral tab 1 tab once daily [Active]; - PMHx: 10:02 Colitis; hiatal hernia; Hypertension; Hypothyroidism; mitral valve prolapse; hj - PSHx: 10:02 None; hj - Immunization history:: Adult Immunizations up to date. - Social history:: Smoking status: Patient/guardian denies using tobacco, Patient/guardian denies using alcohol. - Ebola Screening: : Patient negative for fever greater than or equal to 101.5 degrees Fahrenheit, and additional compatible Ebola Virus Disease symptoms Patient denies exposure to infectious person Patient denies travel to an Ebola-affected area in the 21 days before illness onset. - Family history:: not pertinent. ROS: 10:21 Constitutional: Negative for fever, chills, and weight loss, Eyes: Negative for injury, valeriy pain, redness, and discharge, ENT: Negative for injury, pain, and discharge, Neck: Negative for injury, pain, and swelling, Cardiovascular: Negative for chest pain, palpitations, and edema, Respiratory: Negative for shortness of breath, cough, wheezing, and pleuritic chest pain, Abdomen/GI: Negative for abdominal pain, nausea, vomiting, diarrhea, and constipation, Back: Negative for injury and pain, : Negative for injury, bleeding, discharge, and swelling, Skin: Negative for injury, rash, and discoloration, Neuro: Negative for headache, weakness, numbness, tingling, and seizure, Psych: Negative for depression, anxiety, suicide ideation, homicidal ideation, and hallucinations, Allergy/Immunology: Negative for hives, rash, and allergies, Endocrine: Negative for neck swelling, polydipsia, polyuria, polyphagia, and marked weight changes, Hematologic/Lymphatic: Negative for swollen nodes, abnormal bleeding, and unusual bruising. 10:21 MS/extremity: Positive for pain, swelling, of the posterior aspect of right knee. Exam: 10:21 Constitutional: This is a well developed, well nourished patient who is awake, alert, valeriy and in no acute distress. Head/Face: Normocephalic, atraumatic. Eyes: Pupils equal round and reactive to light, extra-ocular motions intact. Lids and lashes normal. Conjunctiva and sclera are non-icteric and not injected. Cornea within normal limits. Periorbital areas with no swelling, redness, or edema. ENT: Nares patent. No nasal discharge, no septal abnormalities noted. Tympanic membranes are normal and external auditory canals are clear. Oropharynx with no redness, swelling, or masses, exudates, or evidence of obstruction, uvula midline. Mucous membranes moist. Neck: Trachea midline, no thyromegaly or masses palpated, and no cervical lymphadenopathy. Supple, full range of motion without nuchal rigidity, or vertebral point tenderness. No Meningismus. Chest/axilla: Normal chest wall appearance and motion. Nontender with no deformity. No lesions are appreciated. Cardiovascular: Regular rate and rhythm with a normal S1 and S2. No gallops, murmurs, or rubs. Normal PMI, no JVD. No pulse deficits. Respiratory: Lungs have equal breath sounds bilaterally, clear to auscultation and percussion. No rales, rhonchi or wheezes noted. No increased work of breathing, no retractions or nasal flaring. Abdomen/GI: Soft, non-tender, with normal bowel sounds. No distension or tympany. No guarding or rebound. No evidence of tenderness throughout. Back: No spinal tenderness. No costovertebral tenderness. Full range of motion. Female : Normal external genitalia. Skin: Warm, dry with normal turgor. Normal color with no rashes, no lesions, and no evidence of cellulitis. Neuro: Awake and alert, GCS 15, oriented to person, place, time, and situation. Cranial nerves II-XII grossly intact. Motor strength 5/5 in all extremities. Sensory grossly intact. Cerebellar exam normal. Normal gait. Psych: Awake, alert, with orientation to person, place and time. Behavior, mood, and affect are within normal limits. 10:21 Musculoskeletal/extremity: ROM: limited active range of motion due to pain, limited passive range of motion due to pain, Circulation is intact in all extremities. Sensation intact. Compartment Syndrome exam of affected extremity: is normal. Joints: All joints are normal except the right knee displays limited range of motion, swelling, tenderness, DVT Exam: negative Homans' sign noted on exam, no appreciated bluish discoloration, no erythema, no increased warmth, pain, swelling, tenderness. Vital Signs: 10:03 BP 121 / 58; Pulse 88; Resp 18; Temp 98.1(TE); Pulse Ox 98% on R/A; Weight 80.74 kg; Height 5 ft. 8 in. (172.72 cm); Pain 1010; 11:32 BP 125 / 62; Pulse 76; Resp 18; Pulse Ox 96% on R/A; aj1 10:03 Body Mass Index 27.06 (80.74 kg, 172.72 cm) MDM: 10:06 Patient medically screened. [facility] 10:26 Data reviewed: vital signs, nurses notes, radiologic studies, plain films, ultrasound. [facility] 04/16 11:29 Order name: Urine Microscopic Only [facility] 04/16 11:29 Order name: Urine Dipstick--Ancillary (enter results) em1 04/16 11:31 Order name: Urine Culture [facility] 04/16 10:21 Order name: US Extremity Venous Unilateral Ltd [facility] 04/16 10:26 Order name: Knee Right 3 View XRAY; Complete Time: 11:29 [facility] 04/16 11:30 Order name: Knee Immobilizer; Complete Time: 11:50 [facility] 04/16 11:33 Order name: Urine Dipstick-Ancillary (obtain specimen); Complete Time: 11:34 em Administered Medications: 10:30 Drug: Colcrys 1.2 mg Route: PO; aj1 11:20 Follow up: Response: No adverse reaction aj1 10:30 Drug: TORadol 60 mg Route: IM; Site: left gluteus; aj1 11:20 Follow up: Response: No adverse reaction aj1 11:32 Drug: Colcrys 0.6 mg Route: PO; aj1 11:51 Follow up: Response: No adverse reaction aj1 11:39 Drug: Bactrim (160 mg-800 mg (DS) 1 tablet Route: PO; aj1 11:50 Follow up: Response: No adverse reaction aj1 Disposition: 04/16/18 11:35 Discharged to Home. Impression: Effusion, right knee, Osteoarthritis of knee, Gout, Synovial cyst of popliteal space [James], right knee. - Condition is Stable. - Discharge Instructions: James Cyst, Gout, Knee Effusion, Knee Effusion, [id number], Gout, [id number]. - Prescriptions for indomethacin 25 mg Oral capsule - take 1 capsule by ORAL route 3 times per day with food; 21 capsule. Tramadol 50 mg Oral Tablet - take 1 tablet by ORAL route every 8 hours as needed; 20 tablet. Bactrim DS 800- 160 mg Oral Tablet - take 1 tablet by ORAL route every 12 hours for 5 days; 10 tablet. - Medication Reconciliation Form, Thank You Letter, Antibiotic Education, Prescription Opioid Use form. - Follow up: Chiara Dumont MD; When: 2 - 3 days; Reason: Recheck today's complaints, Continuance of care, Re-evaluation by your physician. Follow up: Lewis Castnaeda MD; When: 2 - 3 days; Reason: Recheck today's complaints, Re-evaluation by your physician. - Problem is new. - Symptoms have improved. Signatures: Dispatcher [employer] EDBárbara Cho RN RN aj1 Mikey Alicia MD MD cha Martinez, Marck em1 Kamron Sandhu RN RN hj Corrections: (The following items were deleted from the chart) 11:59 11:35 04/16/2018 11:35 Discharged to Home. Impression: Effusion, right knee; aj1 Osteoarthritis of knee; Gout; Synovial cyst of popliteal space [James], right knee. Condition is Stable. Forms are Medication Reconciliation Form, Thank You Letter, Antibiotic Education, Prescription Opioid Use. Follow up: Chiara Dumont; When: 2 - 3 days; Reason: Recheck today's complaints, Continuance of care, Re-evaluation by your physician. Follow up: Lewis Castaneda; When: 2 - 3 days; Reason: Recheck today's complaints, Re-evaluation by your physician. Problem is new. Symptoms have improved. valeriy
--- NOTE | 2018-04-16 11:36 | ER ---
Nurse's Notes [facility] Name: Trinh Severino Age: 82 yrs Sex: Female : 1935 Arrival Date: 04/16/2018 Time: 09:52 Bed 25 Private MD: Hamlet Simpson; Chiara Simpson C Diagnosis: Effusion, right knee;Osteoarthritis of knee;Gout;Synovial cyst of popliteal space [James], right knee Presentation: 04/16 09:59 Presenting complaint: Patient states: it started behind the back of my R knee, hj pain of 05/23; denies numbness and tingling on the area; took allopurinol 300 mg once a day but not helping;. Transition of care: patient was not received from another setting of care. Onset of symptoms was April 16, 2018. Risk Assessment: Do you want to hurt yourself or someone else? Patient reports no desire to harm self or others. Initial Sepsis Screen: Does the patient meet any 2 criteria? No. Patient's initial sepsis screen is negative. Does the patient have a suspected source of infection? No. Patient's initial sepsis screen is negative. Care prior to arrival: None. 09:59 Method Of Arrival: Ambulatory 09:59 Acuity: JONNIE 4 hj Triage Assessment: 10:02 General: Appears in no apparent distress. uncomfortable, Behavior is calm, cooperative, hj appropriate for age. Pain: Complains of pain in posterior aspect of right knee. Historical: - Allergies: 10:02 Codeine; hj - Home Meds: 10:02 allopurinol 300 mg Oral tab 1 tab once daily [Active]; alprazolam 0.5 mg Oral Tb24 1 hj tab once daily [Active]; amitriptyline 50 mg Oral tab 1 tab once daily [Active]; Aspirin Oral once daily [Active]; Fiorinal 50-325-40 mg Oral cap as needed [Active]; levothyroxine 100 mcg tab 1 tab once daily [Active]; Pentasa 500 mg Oral cpER twice a day [Active]; valsartan 160 mg Oral tab 1 tab once daily [Active]; verapamil 240 mg Oral C24P 1 cap once daily [Active]; Vytorin 10-40 10-40 mg Oral tab 1 tab once daily [Active]; - PMHx: 10:02 Colitis; hiatal hernia; Hypertension; Hypothyroidism; mitral valve prolapse; hj - PSHx: 10:02 None; hj - Immunization history:: Adult Immunizations up to date. - Social history:: Smoking status: Patient/guardian denies using tobacco, Patient/guardian denies using alcohol. - Ebola Screening: : Patient negative for fever greater than or equal to 101.5 degrees Fahrenheit, and additional compatible Ebola Virus Disease symptoms Patient denies exposure to infectious person Patient denies travel to an Ebola-affected area in the 21 days before illness onset. - Family history:: not pertinent. Screenin:03 Abuse screen: Denies threats or abuse. Denies injuries from another. Nutritional hj screening: No deficits noted. Tuberculosis screening: No symptoms or risk factors identified. Fall Risk None identified. Assessment: 10:16 General: Appears in no apparent distress. uncomfortable, Behavior is calm, cooperative, aj1 appropriate for age. Pain: Complains of pain in posterior aspect of right knee Pain does not radiate. Pain currently is 10 out of 10 on a pain scale. Quality of pain is described as throbbing, Pain began 5 days Is continuous. Neuro: Level of Consciousness is awake, alert, obeys commands, Speech is normal, Facial symmetry appears normal. Cardiovascular: Patient's skin is warm and dry. Respiratory: Airway is patent Respiratory effort is even, unlabored, Respiratory pattern is regular, symmetrical. GI: No signs and/or symptoms were reported involving the gastrointestinal system. : No signs and/or symptoms were reported regarding the genitourinary system. EENT: No signs and/or symptoms were reported regarding the EENT system. Derm: Skin is pink, warm \T\ dry. normal. Musculoskeletal: Range of motion: limited in right knee. 11:32 Reassessment: Patient appears in no apparent distress at this time. No changes from aj1 previously documented assessment. Patient and/or family updated on plan of care and expected duration. Pain level reassessed. Patient is alert, oriented x 3, equal unlabored respirations, skin warm/dry/pink. Vital Signs: 10:03 BP 121 / 58; Pulse 88; Resp 18; Temp 98.1(TE); Pulse Ox 98% on R/A; Weight 80.74 kg; hj Height 5 ft. 8 in. (172.72 cm); Pain 10/10; 11:32 BP 125 / 62; Pulse 76; Resp 18; Pulse Ox 96% on R/A; aj1 10:03 Body Mass Index 27.06 (80.74 kg, 172.72 cm) hj ED Course: 09:52 Patient arrived in ED. sb2 09:52 Chiara Simpson MD is Private Physician. sb2 09:52 Hamlet Simpson MD is Private Physician. sb2 10:00 Triage completed. hj 10:03 Arm band placed on left wrist. hj 10:03 Patient has correct armband on for positive identification. Bed in low position. Call hj light in reach. Side rails up X 1. Adult w/ patient. 10:06 Mikey Alicia MD is Attending Physician. valeriy 10:06 Bárbara Black RN is Primary Nurse. aj1 10:16 No provider procedures requiring assistance completed. aj1 10:50 X-ray completed. Portable x-ray completed in exam room. Patient tolerated procedure la2 well. 10:51 Knee Right 3 View XRAY In Process Unspecified. EDMS 11:11 US Extremity Venous Unilateral Ltd In Process Unspecified. EDMS 11:12 Ultrasound completed. Patient tolerated well. Note: us done bedside in er. lc3 11:34 Chiara Simpson MD is Referral Physician. valeriy 11:34 Lewis Castaneda MD is Referral Physician. valeriy 11:45 Knee immobilizer applied on right knee. jp3 11:59 Patient did not have IV access during this emergency room visit. aj1 Administered Medications: 10:30 Drug: Colcrys 1.2 mg Route: PO; aj1 11:20 Follow up: Response: No adverse reaction aj1 10:30 Drug: TORadol 60 mg Route: IM; Site: left gluteus; aj1 11:20 Follow up: Response: No adverse reaction aj1 11:32 Drug: Colcrys 0.6 mg Route: PO; aj1 11:51 Follow up: Response: No adverse reaction aj1 11:39 Drug: Bactrim (160 mg-800 mg (DS) 1 tablet Route: PO; aj1 11:50 Follow up: Response: No adverse reaction aj1 Outcome: 11:35 Discharge ordered by . valeriy 11:58 Discharged to home ambulatory, with family. aj1 11:58 Condition: good 11:58 Discharge instructions given to patient, family, Instructed on discharge instructions, follow up and referral plans. medication usage, Demonstrated understanding of instructions, follow-up care, medications, Prescriptions given X 2. 11:59 Patient left the ED. aj1 Addendum: 04/21/2018 12:28 Addendum: Culture Results: Positive urine culture. Bacteria is resistant to, has i w intermediate sensitivity, or is not tested against prescribed antibiotics. Report given to LOLIS for further evaluation and then to cna pct for follow up with patient. Phone call Attempt #1 pt asymptomatic, has followed up with Dr. simpson. Signatures: Dispatcher [employer] EDMS Bárbara Black, RN RN aj1 Mikey Alicia MD MD cha Williams, Irene RN RN iw Kamron Sandhu, RN RN Nicole Padron Leslie la2 Billeau, Sheri sb2 Onel Santos jp3
[2018-04-16] MEDS ORDERED: SMZ./TMP. 800/160 MG TABLET ONE (11:39)
[2018-04-16 11:40] LABS: Urine Blood NEGATIVE (NEG); Urine Glucose NEGATIVE (NEG); Urine Specific Gravity 1.015 (1.005-1.030)
[2018-04-16 11:41] LABS: Urine Protein NEGATIVE (NEG)
[2018-04-16 11:57] LABS: Urine Bacteria >50 /HPF (<20); Urine Culture Reflex Order NOT NEEDED; Urine RBC <5 /HPF (NONE SEEN)
--- NOTE | 2018-04-16 12:02 | RAD REPORT ---
EXAM DESCRIPTION: US - Extremity Venous Uni Ltd - 04/16/2018 11:12 am CLINICAL HISTORY: PAIN<Reason For Exam>PAIN COMPARISON: EXT VENOUS W COMPRESSION SAILAJA dated 11/28/2014<Comparisons> None. TECHNIQUE: Real-time sonographic evaluation of the right lower extremity deep venous systems was per formed. FINDINGS: Normal compressibility, flow augmentation, phasic flow and spontaneous flow are identified in the right lower extremity common femoral, superficial femoral, popliteal and posterior tibial vei ns. No intraluminal filling defects seen. A large 7.5 centimeter long complex right popliteal fossa cyst is present extending into the upper ca lf. No sonographic findings to suspect cyst rupture or hemorrhage. IMPRESSION: No DVT in the right lower extremity. Large 7.5 cm popliteal fossa cyst. No cyst rupture or hemorrhage findings.
[2018-04-16 12:07] VITALS: TEMP 98.1
[2018-04-16 12:09] VITALS: BP 125/62; O2SAT 96
== END 2018-04-16 11:59 | disposition home or self-care (01) ==
LOC: ER 09:49
DX: M25.461 Effusion, right knee (principal); M10.9 Gout, unspecified; M17.0 Bilateral primary osteoarthritis of knee; M71.21 Synovial cyst of popliteal space [Baker], right knee; I34.1 Nonrheumatic mitral (valve) prolapse; I10 Essential (primary) hypertension; E03.9 Hypothyroidism, unspecified; K44.9 Diaphragmatic hernia without obstruction or gangrene; Z88.5 Allergy status to narcotic agent; Z79.82 Long term (current) use of aspirin
CPT/HCPCS: 81003; 81015; 87077; 87086; 87088; 87186; 93971; 96372; 99284

== ENCOUNTER 2020-12-24 11:58 | Inpatient (IN) | payer OTHER ==
--- OUTSIDE RECORDS SUMMARY | 2020-12-24 12:09 | XMS REPORT | Continuity of Care Document ---
:1935 Author Organization [facility] t Address [address] [place] [address] [address] [place] [address] Care Team Providers Name Role Phone POLO Primary Care Physician Unavailable Chidi CAMPA Attending Clinician Unavailable Payers Payer Name Policy Type Policy Number Effective Date Expiration Date S radha MEDICARE PART A [id number] 2002 AND B 00:00:00 GENERIC [id number] 2017 00:00:00 Problems Condition Condition Condition Status Onset Resolution Last Treating Co mments Source Name Details Category Date Date Treatment Clinician Date Pain, Pain, Diagnosis Active [facility] History of History of Diagnosis Active [facility] acute acute [facility] Allergies, Adverse Reactions, Alerts Allergy Allergy Status Severity Reaction(s) Onset Inactive Treating Comm ents Source Name Type Date Date Clinician codeine Adverse Active Info Not [facility] Reaction Available [facility] Medications Ordered Filled Start Stop Current Ordering Indication Dosage Frequency Signature Comments Components Source Medication Medication Date Date Medication? Clinician (SIG) Name Name Tramadol Tramadol Yes Lewis [address] [facility] HCl HCl 04-20 Castaneda as needed [facility] Indomethaci Indomethaci 2018- No Lewis [address] [facility] n ER n ER 04-20 Castaneda with food [facility] 00:[facility]: [facility]:00 or milk [facility] :[facility] Alprazolam Alprazolam Yes Lewis (Schedule [facility] Castaneda IV Drug) [facility] - TAKE 1 [facility] TABLET BY l MOUTH Outpati EVERYDAY ent AT BEDTIME Clinics aspirin aspirin Yes Lewis not [facility]aneda defined [facility] Verapamil Verapamil Yes Lewis [address] [facility] HCl ER HCl ER [facility] Levothyroxi Levothyroxi Yes Lewis [address] [facility] ne Sodium ne Sodium Castaneda on an Melanie kes - empty [facility] stomach in l the Outpati morning ent Clinics Pentasa Pentasa Yes Lewis [address] [facility]aneda [facility] Amitriptyli Amitriptyli Yes Lewis [address] [facility] ne HCl ne HCl [facility]aneda [facility] Xyzal Xyzal Yes Lewis not [facility] Castaneda defined [facility] Losartan Losartan Yes Lewis [address] [facility] Potassium Potassium [facility] Allopurinol Allopurinol Yes Lewis [address] [facility]aneda [facility] Vital Signs Vital Name Observation Time Observation Value Comments Source WEIGHT 2020-11-13 13:40:44 85 kg HEIGHT 2020-11-13 13:40:44 173 cm Procedures This patient has no known procedures. Encounters Start End Encounter Admission Attending Care Care Encounter Source Date/Time Date/Time Type Type Clinicians Facility Department ID 2020-11-13 2020-11-13 Outpatient ALEJANDRO CAMPA MDA MDA [id number] 13:06:17 14:29:34 RODRIGUEZ sandhu 2020-11-13 2020-11-13 Outpatient ALEJANDRO CAMPA MDA MDA [id number] 11:48:05 11:48:05 RODRIGUEZ sandhu 2020-06-22 2020-06-22 Outpatient ALEJANDRO CAMPA MDA MDA [id number] 00:00:00 00:00:00 RODRIGUEZ sandhu 2020-05-22 2020-05-22 Outpatient ALEJANDRO CAMPA MDA MDA [id number] 00:00:00 00:00:00 RODRIGUEZ sandhu 2018-05-01 2018-05-01 [facility] [id number] [facility] 14:00:00 14:[facility] 2018-04-20 2018-04-20 [facility] [id number] [facility] [address] 08:30:00 08:30:00 t [facility] 2018-04-05 2018-04-05 Outpatient Roselia Garza [id number] [facility] 09:00:00 09:00:00 t [facility] ent [facility] Results This patient has no known results.
[2020-12-24 12:31] VITALS: BMI 28.3
[2020-12-24 13:48] LABS: Absolute Lymphocytes (CBC) 1.5 K/uL (0.7-4.9); Basophils % 0.7 % (0-1.3); Hematocrit 38.4 % (36.0-45.0); Lymphocytes % 11.6 % (15.3-44.8); RBC Red Blood Cell Count 4.11 M/uL (3.86-4.86)
[2020-12-24 14:01] LABS: Albumin 3.6 g/dL (3.4-5.0); Bilirubin Total 0.4 mg/dL (0.2-1.0); Magnesium 1.9 mg/dL (1.8-2.4); Potassium 4.7 mmol/L (3.5-5.1); Protein, Total 6.5 g/dL (6.4-8.2)
[2020-12-24] MEDS: NA CHLORIDE 0.9% 1,000 ML IV SCH (14:23)
--- NOTE | 2020-12-24 14:27 | RAD REPORT ---
EXAM DESCRIPTION: RAD - Chest Pa And Lat (2 Views) - 12/24/2020 2:12 pm CLINICAL HISTORY: asthma Chest pain. COMPARISON: Chest Pa And Lat (2 Views) dated 05/14/2020; Chest Pa And Lat (2 Views) dated 11/04/2019; Chest Pa And Lat (2 Views) dated 10/14/2018; Chest Pa And Lat (2 Views) dated 10/12/2018 FINDINGS: The lungs are clear. The heart is normal in size. No displaced fractures. IMPRESSION: No acute or concerning finding suspected.
--- NOTE | 2020-12-24 15:41 | RAD REPORT ---
EXAM DESCRIPTION: CT - Abdomen Pelvis Wo Contrast - 12/24/2020 3:28 pm CLINICAL HISTORY: Abdominal pain. abd pain, bleeding, diarrhea COMPARISON: Abdomen Pelvis W Contrast dated 02/27/2018 TECHNIQUE: CT imaging of the abdomen and pelvis was performed without contrast. Solid organ and vasc ular assessment is limited due to lack of IV contrast. All CT scans are performed using dose optimization technique as appropriate and may include automated exposure control or mA/KV adjustment according to patient size. FINDINGS: The lower lung ken are clear.Small hiatal hernia. The liver, spleen, pancreas, adrenal glands and kidneys are within normal limits for a limited non-co ntrast examination. No bowel obstruction, free air, free fluid or abscess. Mild inflammation is seen splenic flexure desc ending colon which could indicate mild colitis. This colonic diverticulosis small fat containing umbi lical hernia. The appendix is not identified as a discrete structure, however, no secondary findings of appendicitis are identified. Moderate lumbar degenerative changes. Aortic atherosclerosis. IMPRESSION: A mild left-sided colitis pattern suspected. A limited non-contrast examination was performed as detailed.
[2020-12-24] MEDS: METRONIDAZOLE 500mg IVPB 500 MG/100 ML BAG IV SCH (18:38)
[2020-12-24] MEDS: CIPROFLOXACIN 400mg IV 400 MG/200 ML BAG IV SCH (18:38)
[2020-12-24] MEDS: ALPRAZOLAM 0.5 MG TABLET PO SCH (22:31)
[2020-12-25] MEDS: NA CHLORIDE 0.9% 1,000 ML IV SCH ×2 (03:20→05:46)
[2020-12-25] MEDS: PANTOPRAZOLE 40MG TABLET PO SCH (05:46)
[2020-12-25] MEDS ORDERED: D50W 25 GM/50 ML SYRINGE IV PRN (06:51)
[2020-12-25] MEDS ORDERED: GLUCAGON 1 MG/VIAL IM PRN (06:51)
--- NOTE | 2020-12-25 07:07 | HP ---
Date of Admission: 12/24/2020 Chief Complaint: Abdominal cramps, diarrhea and bleeding. History Of Present Illness: This is an 85-year-old very pleasant female patient who contacted my off ice today with above-mentioned problems and she was asked to come in to see me, soon after she was ev aluated, decision was made to admit her to the hospital for this problem. The patient reported that she was doing fine in her normal usual state of health until yesterday she started to have abdominal pain, describing as more like cramps associated with some diarrhea. She had about 4 bowel movement y esterday and bowel movement was described as loose watery stool and as of early this morning, she sta rted to have bleeding per rectum and she had 3 episodes of bleeding. Denies any fever, chills, nause a, vomiting. After she was evaluated, decision was made to admit her to the hospital. Allergies: TO CODEINE CAUSING HALLUCINATION AND HYDRALAZINE CAUSING RASH. Medications: List reviewed. Review of Systems: GI: As mentioned above Respiratory: Chronic cough. All other systems reviewed and negative. Past Medical History: Significant for hypothyroidism, type 2 diabetes mellitus, asthma, hypertension , hyperlipidemia, gastroesophageal reflux disease, diverticulosis, osteoarthritis, gout, anemia. Past Surgical History: Cataract surgery and hysterectomy. Family History: Father of emphysema. Mother , had a myocardial infarction, hypertension an d breast cancer. Sister , had aneurysm and CT. Social History: Negative for smoking and alcohol use. Physical Examination: Vital Signs: When she came into office, blood pressure was 130/77, pulse 96, respiratory rate 18, te mperature 96.8. Weight 187.2 pounds, height 68.5 inches. General: Awake, alert, oriented, not in distress. HEENT: Head atraumatic, normocephalic. Conjunctivae nonerythematous. Sclerae white. Mouth, no thr ush or edema noted. Ears/Nose, no mass, lesion, discharge noted. Neck: Supple. No JVD, lymph nodes, bruit, thyromegaly noted. Lungs: Bilateral good equal air entry. Clear to auscultation. No rhonchi. No rales. Heart: Normal heart sounds, no murmur or gallop. Abdomen: Presence of mild tenderness in left lower quadrant of abdomen. Otherwise, abdominal exam w as unremarkable. Abdomen was soft, bowel sounds normal active. No guarding, rigidity, distention. No hepatosplenomegaly. No bruit. Extremities: No leg edema. No calf tenderness. Skin: No rash, ulcer, cellulitis. Lymphatics: No lymph node enlargement in neck, supraclavicular, infraclavicular region. Neuro: No focal neurological deficit. Chest: Unremarkable. External Genitalia: Deferred. Rectal: Deferred. Laboratory Data: White count 12.5, hemoglobin 12.5, platelets 208. Sodium 139, potassium 4.7, chlor mundo 108, bicarb 27, BUN 20, creatinine 1, glucose 125. Liver function tests unremarkable. Chest x-r ay, no acute cardiopulmonary changes. CAT scan of the abdomen shows evidence of colitis. Impression: 1.Abdominal pain. 2.Rectal bleeding. 3.Colitis. 4.Type 2 diabetes mellitus. 5.Hypothyroidism. 6.Asthma. 7.Hypertension. 8.Hyperlipidemia. 9.Diverticulosis. 10.Gastroesophageal reflux disease. 11.Osteoarthritis, multiple sites. 12.Gout. Plan: Admit patient to hospital for further evaluation and management of this problem. The patient is appropriate for inpatient and is expected to spend 2 midnights in hospital. We will go ahead and continue home medications per order. SCD will be ordered for DVT prophylaxis. Empiric antibiotic, C ipro and Flagyl will be started. Stool culture and stool for C diff toxin was ordered. We will foll ow up on those results. We will consider possibly using a steroid medication depending on how she re sponds and depending on the stool test results. The patient did use some antibiotic and Medrol Dosep ak which [facility] within last 10-14 days. SHARONDA/MODL Voice ID: [id number]
[2020-12-25] MEDS: INSULIN -REGULAR HUMAN 50 UNIT/0.5 ML ML SQ SCH ×4 (07:30→20:23)
[2020-12-25] MEDS: VERAPAMIL SR 240 MG TABLET PO SCH ×3 (09:00→20:21)
[2020-12-25] MEDS: allopurinoL 300 MG TAB PO SCH (09:00)
[2020-12-25] MEDS: HOME MED 1 EA UNK (Umeclidinium Brm/Vilanterol Tr [Anoro Ellipta 62.5-25 Mcg Inh] Blst.W.D IH SCH (09:00)
[2020-12-25] MEDS: METFORMIN ER 500 MG TAB PO SCH (09:12)
[2020-12-25] MEDS: LEVOTHYROXINE SOD 0.1 MG TAB PO SCH (09:12)
[2020-12-25] MEDS: METHYLPREDNISOLONE 40 MG INJ IV SCH ×3 (09:12→20:21)
[2020-12-25] MEDS: METRONIDAZOLE 500mg IVPB 500 MG/100 ML BAG IV SCH ×2 (09:13→16:09)
[2020-12-25] MEDS: IRBESARTAN 150 MG TAB PO SCH (09:13)
[2020-12-25] MEDS: MONTELUKAST 10 MG TAB PO SCH (09:13)
[2020-12-25] MEDS: CIPROFLOXACIN 400mg IV 400 MG/200 ML BAG IV SCH ×2 (10:14→20:20)
[2020-12-25] MEDS: MESALAMINE 500 MG CAPSULE.ER PO SCH ×2 (10:14→20:21)
[2020-12-25 13:07] LABS: C.diff Antigen/Toxin Ag neg : Tox neg (NEG : NEG)
[2020-12-25] MEDS: ATORVASTATIN 20 MG TAB PO SCH (20:22)
[2020-12-25] MEDS: EZETIMIBE 10 MG TAB PO SCH (20:22)
[2020-12-25] MEDS ORDERED: EZETIMIBE PO SCH (21:00)
[2020-12-25] MEDS ORDERED: SIMVASTATIN PO SCH (21:00)
[2020-12-25] MEDS: ALPRAZOLAM 0.5 MG TABLET PO SCH (21:00)
[2020-12-26] MEDS: NA CHLORIDE 0.9% 1,000 ML IV SCH ×2 (00:30→19:20)
[2020-12-26] MEDS: METRONIDAZOLE 500mg IVPB 500 MG/100 ML BAG IV SCH ×3 (01:00→16:32)
[2020-12-26] MEDS: METHYLPREDNISOLONE 40 MG INJ IV SCH ×4 (02:19→20:44)
[2020-12-26 05:41] LABS: Absolute Lymphocytes (CBC) 1.2 K/uL (0.7-4.9); Basophils % 0.4 % (0-1.3); Hematocrit 36.1 % (36.0-45.0); Lymphocytes % 6.9 % (15.3-44.8); RBC Red Blood Cell Count 3.86 M/uL (3.86-4.86)
[2020-12-26 05:57] LABS: Potassium 4.6 mmol/L (3.5-5.1)
[2020-12-26] MEDS: PANTOPRAZOLE 40MG TABLET PO SCH (06:27)
[2020-12-26] MEDS: LEVOTHYROXINE SOD 0.1 MG TAB PO SCH (07:30)
[2020-12-26] MEDS: INSULIN -REGULAR HUMAN 50 UNIT/0.5 ML ML SQ SCH ×4 (07:30→20:44)
[2020-12-26] MEDS: IRBESARTAN 150 MG TAB PO SCH (08:32)
[2020-12-26] MEDS: CIPROFLOXACIN 400mg IV 400 MG/200 ML BAG IV SCH ×2 (08:33→20:42)
[2020-12-26] MEDS: MESALAMINE 500 MG CAPSULE.ER PO SCH ×2 (08:33→20:43)
[2020-12-26] MEDS: METFORMIN ER 500 MG TAB PO SCH (08:33)
[2020-12-26] MEDS: MONTELUKAST 10 MG TAB PO SCH (08:33)
[2020-12-26] MEDS: HOME MED 1 EA UNK (Umeclidinium Brm/Vilanterol Tr [Anoro Ellipta 62.5-25 Mcg Inh] Blst.W.D IH SCH (08:34)
[2020-12-26] MEDS: allopurinoL 300 MG TAB PO SCH (08:35)
[2020-12-26 09:56] LABS: Blood Morphology Comment NOT SEEN (NOT SEEN); Platelet Estimate ADEQ; White Blood Cell Scan OK (OK)
--- NOTE | 2020-12-26 13:05 | PN ---
Date of Progress Note: 12/25/2020 Subjective: The patient was seen this morning for followup, lying in bed, not in distress. She stil sammy continues to have bleeding per rectum and some abdominal cramps. No nausea, no vomiting. Objective: Vital Signs: Reviewed. HEENT: Unremarkable. Lungs: Clear to auscultation. Heart: Sounds normal. Abdomen: Soft. Bowel sounds normal. No guarding, rigidity, tenderness, or distention. Extremities: No leg edema. Impression: 1.Colitis. 2.Diabetes mellitus, type 2. 3.Hypertension. Plan: We will go ahead and continue on IV antibiotic, which is Cipro and metronidazole. We will go ahead and add IV steroid, Solu-Medrol per order. Monitor fingerstick blood sugar with sliding scale insulin for diabetes control and we will see her tomorrow for followup. We will go ahead and advance her diet from clear liquid diet to soft diet. Stool test is pending. SHARONDA/MODL Voice ID: [id number] Report ID: [id number]
--- NOTE | 2020-12-26 14:59 | PN ---
Date of Progress Note: 12/26/2020 SHARONDA/MODL Voice ID: [id number] Report ID: [id number] MTDShen
--- NOTE | 2020-12-26 15:07 | PN ---
Date of Progress Note: 12/26/2020 Subjective: The patient was seen this morning for followup. She is feeling better today than yester day. Last time she had episode of bleeding and diarrhea was yesterday around 1 p.m. After that, no more problems reported. No nausea, no vomiting. Abdominal pain has improved. She is tolerating sof t diet very well. Objective: Vital Signs: Reviewed. HEENT: Unremarkable. Lungs: Clear to auscultation. Heart: Sounds normal. Abdomen: Soft. Bowel sounds normal. No guarding, rigidity, tenderness, or distention. Extremities: No leg edema. Laboratory Data: White count 17.6, hemoglobin 11.7, platelets 191. Sodium 140, potassium 4.6, chlor mundo 109, bicarb 24, BUN 22, creatinine 0.88, glucose 193, magnesium 2. Impression: 1.Colitis. 2.Leukocytosis secondary to steroids. 3.Hypertension. 4.Type 2 diabetes mellitus. Plan: We will go ahead and continue current IV steroid. The patient's leukocytosis is due to IV nacho roid. We will continue on IV antibiotics. She has improved since steroid was started. Stool C diff came back negative. We will continue soft diet and continue sliding scale insulin for diabetes management. I will see her tomorrow for followup. Possible disch arge to go home tomorrow. SHARONDA/MODL Voice ID: [id number] Report ID: [id number]
[2020-12-26] MEDS: VERAPAMIL SR 240 MG TABLET PO SCH (20:43)
[2020-12-26] MEDS: EZETIMIBE 10 MG TAB PO SCH (20:43)
[2020-12-26] MEDS: ATORVASTATIN 20 MG TAB PO SCH (20:43)
[2020-12-26] MEDS: ALPRAZOLAM 0.5 MG TABLET PO SCH (22:06)
[2020-12-27 00:18] VITALS: O2SAT 97
[2020-12-27] MEDS: METHYLPREDNISOLONE 40 MG INJ IV SCH ×2 (02:23→08:40)
[2020-12-27] MEDS: METRONIDAZOLE 500mg IVPB 500 MG/100 ML BAG IV SCH ×2 (02:23→08:40)
[2020-12-27] MEDS: PANTOPRAZOLE 40MG TABLET PO SCH (06:02)
[2020-12-27] MEDS: INSULIN -REGULAR HUMAN 50 UNIT/0.5 ML ML SQ SCH (07:30)
[2020-12-27 08:26] VITALS: BP 135/61; TEMP 98.2
[2020-12-27] MEDS: MESALAMINE 500 MG CAPSULE.ER PO SCH (08:40)
[2020-12-27] MEDS: MONTELUKAST 10 MG TAB PO SCH (08:40)
[2020-12-27] MEDS: LEVOTHYROXINE SOD 0.1 MG TAB PO SCH (08:40)
[2020-12-27] MEDS: CIPROFLOXACIN 400mg IV 400 MG/200 ML BAG IV SCH (08:40)
[2020-12-27] MEDS: allopurinoL 300 MG TAB PO SCH (08:41)
[2020-12-27] MEDS: METFORMIN ER 500 MG TAB PO SCH (08:41)
[2020-12-27] MEDS: IRBESARTAN 150 MG TAB PO SCH (08:41)
[2020-12-27] MEDS: HOME MED 1 EA UNK (Umeclidinium Brm/Vilanterol Tr [Anoro Ellipta 62.5-25 Mcg Inh] Blst.W.D IH SCH (09:00)
--- NOTE | 2020-12-27 19:57 | DS ---
Date of Discharge: 12/27/2020 Disposition: Discharged to go home. Physical Examination: HEENT: Unremarkable. Lungs: Clear to auscultation. Heart: Sounds normal. Abdomen: Soft. Bowel sounds normal. No guarding, rigidity, tenderness, or distention. Extremity: No leg edema. Laboratory Data: Upon admission on 12/24/2020; white count 12.5, hemoglobin 12.5, platelets 208. Yesterday; white count 17.6 which is due to IV steroid use, hemoglobin 11.7, platelets 190. Yesterday; sodium 140, potassium 4.6, chloride 109, bicarb 24, BUN 22, creatinine 0.88, glucose 193. Her stool for C diff came back negative. COVID-19 test was negative. Discharge Medications And Instructions: Continue all prior home medications and the patient to start following medication as of tomorrow. 1. Cipro 500 mg 2 times a day for 1 week. 2. Metronidazole 500 mg 3 times a day for 1 week. 3. Prednisone 10 mg, take 2 tablets daily for 4 days, then 1 tablet daily for 4 days, then 1/2 tablet daily for 4 days, then stop, take it with food. 4. Follow up at my office on 12/31/2020 at 9 a.m. 5. Follow up with Dr. Hdez/Dex 2-3 weeks. Hospital Course: This is an 85-year-old female patient, admitted to the hospital with abdominal cramps, diarrhea and bleeding per rectum. Please see dictated H and P for more information. After the patient was evaluated in the office, she was admitted to the hospital and after she was admitted, she was started on IV fluid, IV antibiotic which was Cipro and metronidazole. CAT scan of the abdomen revealed presence of changes of colitis, there was no complication noted. Her stool C diff was sent which came back negative and the patient was started on IV steroid. With combination of treatment, she has improved. Her diarrhea problem has resolved. She has not had any more bleeding per rectum. Last episode of blood in stool was day before yesterday. She has not had any diarrhea in almost 2 days. Initially, she was on clear liquid diet and subsequently we advanced it to soft diet. She is tolerating that very well. She is ambulating well. Overall, she feels a lot better. She has been discharged in stable condition with outpatient followup instruction as outlined above. The patient was instructed to follow up with her stave cutter to see what changes that they would suggest since she is taking Pentasa and now having this flare-up with her colitis. She will need to sit down and talk to her stave cutter regarding different treatment plan. Final Diagnoses: 1. Colitis. 2. Type 2 diabetes mellitus. 3. Anemia, unspecified. 4. Hypothyroidism. 5. Hypertension. 6. Hyperlipidemia. 7. Diverticulosis. 8. Asthma. 9. Gastroesophageal reflux disease. 10. Osteoarthritis, multiple sites. 11. Gout. SHARONDA/MODL Voice ID: [id number] Report ID: [id number] MTDD
== END 2020-12-27 11:14 | disposition home or self-care (01) | DRG 392 ==
LOC: 2ND 12:07
PROVIDERS: ADMIT Internal Medicine; ATTEND Internal Medicine
DX: K52.9 Noninfective gastroenteritis and colitis, unspecified (principal); K62.5 Hemorrhage of anus and rectum; E11.9 Type 2 diabetes mellitus without complications; I10 Essential (primary) hypertension; E78.5 Hyperlipidemia, unspecified; K21.9 Gastro-esophageal reflux disease without esophagitis; M10.9 Gout, unspecified; D64.9 Anemia, unspecified; E03.9 Hypothyroidism, unspecified; K57.90 Diverticulosis of intestine, part unspecified, without perforation or abscess without bleeding; M19.90 Unspecified osteoarthritis, unspecified site; J45.909 Unspecified asthma, uncomplicated; D72.829 Elevated white blood cell count, unspecified; T38.0X5A Adverse effect of glucocorticoids and synthetic analogues, initial encounter; Z90.710 Acquired absence of both cervix and uterus; Z88.5 Allergy status to narcotic agent; Z20.822 Contact with and (suspected) exposure to COVID-19
CPT/HCPCS: 36415; 71046; 74176; 80048; 80053; 82947; 83735; 85025; 87324; 87449; J0744; J2920; J7030; U0003

== ENCOUNTER 2021-04-15 04:19 | Emergency (ER) | payer OTHER ==
--- OUTSIDE RECORDS SUMMARY | 2021-04-15 04:21 | XMS REPORT | Continuity of Care Document ---
:1935 Author Organization [facility] t Address [address] [place] [address] [address] [place] [address] Care Team Providers Name Role Phone POLO Primary Care Physician Unavailable Chidi CAMPA Attending Clinician Unavailable Payers Payer Name Policy Type Policy Number Effective Date Expiration Date S radha MEDICARE PART A [id number] 2002 AND B 00:00:00 GENERIC [id number] 2017 00:00:00 Problems Condition Condition Condition Status [...] tablet [facility] ne HCl ne HCl [facility] [...] 2020-11-13 2020-11-13 Outpatient ALEJANDRO CAMPA MDA MDA [id number] 13:06:17 14:29:34 RODRIGUEZ sandhu 2020-11-13 2020-11-13 Outpatient ALEJANDRO CAMPA MDA MDA [id number] 11:48:05 11:48:05 RODRIGUEZ sandhu 2020-06-22 2020-06-22 Outpatient ALEJANDRO CAMPA MDA MDA [id number] 00:00:00 00:00:00 RODRIGUEZ sandhu 2020-05-22 2020-05-22 Outpatient ALEJANDRO CAMPA MDA MDA [id number] 00:00:00 00:00:00 RODRIGUEZ sandhu 2018-05-01 2018-05-01 [facility] [id number] [facility] 14:00:00 14:00:00 [facility] 2018-04-20 2018-04-20 [facility] [id number] [facility] [address] 08:30:00 08:30:00 [facility] 2018-04-05 2018-04-05 Outpatient Roselia Garza [id number] [facility] 09:00:00 09:00:00 [facility] [place] [facility] Results This patient has no known results.
[2021-04-15 04:47] LABS: Absolute Lymphocytes (CBC) 2.4 K/uL (0.7-4.9); Basophils % 0.7 % (0-1.3); Hematocrit 34.5 % (36.0-45.0); Lymphocytes % 28.3 % (15.3-44.8); MPV 8.5 fL (7.6-11.3); RBC Red Blood Cell Count 3.66 M/uL (3.86-4.86)
[2021-04-15] MEDS ORDERED: FENTANYL CITR 100 MCG/2 ML ONE ×5 (04:51→09:23)
[2021-04-15] MEDS ORDERED: ONDANSETRON 4 MG/2 ML VIAL ONE (04:51)
[2021-04-15 05:03] LABS: Protime INR 1.05
--- NOTE | 2021-04-15 05:03 | ER ---
Nurse's Notes [facility] Name: Trinh Severino Age: 85 yrs Sex: Female : 1935 Arrival Date: 04/15/2021 Time: 04:20 Bed 4 Private MD: Diagnosis: Fall (on)(from) incline;Displaced intertrochanteric fracture of right femur Presentation: 04/15 04:21 Chief complaint: Patient states: fell while walking dog. denies LOC. pain to right hip. ch4 Coronavirus screen: At this time, the client does not indicate any symptoms associated with coronavirus-19. Ebola Screen: No symptoms or risks identified at this time. Onset of symptoms was April 15, 2021. 04:21 Method Of Arrival: EMS: [facility] 04:21 Acuity: JONNIE 3 ch4 04:22 Ebola Screen: No symptoms or risks identified at this time. ea 04:38 Care prior to arrival: None. Mechanism of Injury: No Mechanism of Injury. Trauma event ea details: Injury occurred in the [facility], Injury occurred: at home. Injury occurred: April 15, 2021. 04:39 Initial Sepsis Screen: Does the patient meet any 2 criteria? No. Patient's initial ea sepsis screen is negative. Does the patient have a suspected source of infection? No. Patient's initial sepsis screen is negative. Risk Assessment: Do you want to hurt yourself or someone else? Patient reports no desire to harm self or others. Triage Assessment: 04:21 General: Appears uncomfortable, Behavior is cooperative. Pain: Complains of pain in ch4 pelvis. EENT: No deficits noted. Neuro: No deficits noted. Cardiovascular: No deficits noted. Respiratory: No deficits noted. GI: No deficits noted. : No deficits noted. Derm: No deficits noted. Musculoskeletal: Reports weakness in pelvis and right leg. Trauma Activation: Alert Physician: ED Physician; Name: ; Notified At: ; Arrived At: Physician: General Surgeon; Name: ; Notified At: ; Arrived At: Physician: Radiology; Name: ; Notified At: ; Arrived At: Physician: Respiratory; Name: ; Notified At: ; Arrived At: Physician: Lab; Name: ; Notified At: ; Arrived At: Historical: - Allergies: 04:23 Codeine; ea - Home Meds: 04:23 Vytorin 10-40 10-40 mg Oral tab 1 tab once daily [Active]; verapamil 240 mg Oral C24P 1 ea cap once daily [Active]; Pentasa 500 mg Oral cpER twice a day [Active]; levothyroxine 100 mcg tab 1 tab once daily [Active]; allopurinol 300 mg Oral tab 1 tab once daily [Active]; 04:37 alprazolam 1 mg oral tab 1 tab daily [Active]; ch4 04:39 Metformin Oral [Active]; Dexilant 60 mg oral CpDB once daily [Active]; montelukast 10 ch4 mg oral tab once daily [Active]; Irvesartan 300mg daily [Active]; anoro ellipta 1 puff daily [Active]; - PMHx: 04:23 mitral valve prolapse; Hypothyroidism; Hypertension; hiatal hernia; Colitis; ea - Immunization history:: Adult Immunizations up to date, Adult Immunizations up to date. - Social history:: Smoking status: unknown Smoking status: Patient denies any tobacco usage or history of. - Immunization history: Last tetanus immunization: unknown. Screenin:20 Abuse screen: Denies threats or abuse. Nutritional screening: No deficits noted. ea Tuberculosis screening: No symptoms or risk factors identified. Fall Risk Fall in past 12 months (25 points). Primary Survey: 04:21 NO uncontrolled hemorrhage observed. A: The patient is alert. Airway: patent. ea Breathing/Chest: Respiratory pattern: regular, Respiratory effort: spontaneous, unlabored. Circulation: Skin color: pink, Skin temperature: warm. Disability Alert. Exposure/Environment: Obvious injury(ies) are noted at this time: right hip pain A warming method has been applied: A warm blanket has been provided to the patient. 04:48 Reassessment Breathing/Chest Respiratory pattern Regular Respiratory effort Spontaneous ch4 Unlabored Breath sounds Clear Chest inspection Symmetrical Circulation Heart rhythm Sinus rhythm Heart tones Present Pulses Palpable Color [place] Temperature Warm Dry. 07:10 Reassessment Airway Airway Patent Oxygen No O2 Oral cavity Clear Trachea Midline sv Breathing/Chest Respiratory pattern Regular Respiratory effort Spontaneous Unlabored Chest inspection Symmetrical Circulation Heart tones Present Pulses Palpable Color [place] Temperature Warm Dry Disability Alert. Secondary Survey: 05:37 HEENT: No deficits noted. Gastrointestinal: No deficits noted. : No deficits noted. ch4 Musculoskeletal: Range of motion: limited in right hip and right leg Tenderness present in pelvis and right leg and right inner thigh and right hip Reports pain in right inner thigh and right hip and right leg. Injury Description: fall from standing. pain to right hip. Assessment: 04:25 General: Appears uncomfortable. ch4 05:24 General: Behavior is calm, appropriate for age. Pain: Complains of pain in right hip. ch4 Neuro: No deficits noted. EENT: No deficits noted. Cardiovascular: No deficits noted. Respiratory: No deficits noted. Breath sounds are clear bilaterally. GI: No deficits noted. : No deficits noted. Derm: No deficits noted. Musculoskeletal: Tenderness present in pelvis and right leg and right inner thigh and right hip Reports pain in pelvis and right hip. Injury Description: fall from standing. 05:38 Reassessment: Patient and/or family updated on plan of care and expected duration. Pain ch4 level reassessed. Patient is alert, oriented x 3, equal unlabored respirations, skin warm/dry/pink. Patient states feeling better. 07:05 Reassessment: Attempted to call report, nurse to call back. sv 07:10 General: Appears in no apparent distress. uncomfortable, Behavior is calm, cooperative, sv appropriate for age. Pain: Complains of pain in right leg. Neuro: Level of Consciousness is awake, alert, obeys commands, Oriented to person, place, time, situation. Respiratory: Airway is patent Respiratory effort is even, unlabored, Respiratory pattern is regular, symmetrical. Derm: Skin is normal. 08:04 Reassessment: Patient appears in no apparent distress at this time. Patient and/or sv family updated on plan of care and expected duration. Pain level reassessed. Patient is alert, oriented x 3, equal unlabored respirations, skin warm/dry/pink. 08:48 Reassessment: Patient appears in no apparent distress at this time. Patient and/or sv family updated on plan of care and expected duration. Pain level reassessed. Patient is alert, oriented x 3, equal unlabored respirations, skin warm/dry/pink. 09:02 Reassessment: Patient appears in no apparent distress at this time. Patient and/or sv family updated on plan of care and expected duration. Pain level reassessed. Patient is alert, oriented x 3, equal unlabored respirations, skin warm/dry/pink. 09:44 Reassessment: Report given to [facility]. sv Vital Signs: 04:21 BP 122 / 57; Pulse 81; Resp 19; Temp 97.2; Pulse Ox 96% on R/A; ch4 05:24 BP 118 / 59; Pulse 76; Resp 16; Temp 97.4; Pulse Ox 100% on 2 lpm NC; ch4 05:44 BP 119 / 57; Pulse 66; Resp 10; Pulse Ox 100% on 2 lpm NC; ch4 06:32 BP 141 / 66; Pulse 65; Resp 17; Temp 97.6; Pulse Ox 100% on R/A; ch4 06:47 BP 134 / 62; Pulse 65; Resp 15; Pulse Ox 99% on 2 lpm NC; ch4 07:24 BP 126 / 66; Pulse 64; Resp 16; Temp 97.8; Pulse Ox 100% ; sv 08:00 BP 117 / 63; Pulse 70; Resp 16; Temp 98; Pulse Ox 100% ; sv 09:00 BP 125 / 63; Pulse 72; Resp 18; Temp 98; Pulse Ox 100% on R/A; sv Vitals: 06:32 Cardiac Rhythm Assessment Regular. ch4 [place] Coma Score: 04:23 Eye Response: spontaneous(4). Verbal Response: oriented(5). Motor Response: obeys ea commands(6). Total: 15. Trauma Score (Adult): 04:23 Eye Response: spontaneous(1); Verbal Response: oriented(1); Motor Response: obeys ea commands(2); Systolic BP: > 89 mm Hg(4); Respiratory Rate: 10 to 29 per min(4); Sara Score: 15; Trauma Score: 12 07:24 Eye Response: spontaneous(1); Verbal Response: oriented(1); Motor Response: obeys sv commands(2); Systolic BP: > 89 mm Hg(4); Respiratory Rate: 10 to 29 per min(4); Sara Score: 15; Trauma Score: 12 08:00 Eye Response: spontaneous(1); Verbal Response: oriented(1); Motor Response: obeys sv commands(2); Systolic BP: > 89 mm Hg(4); Respiratory Rate: 10 to 29 per min(4); Sara Score: 15; Trauma Score: 12 09:00 Eye Response: spontaneous(1); Verbal Response: oriented(1); Motor Response: obeys sv commands(2); Systolic BP: > 89 mm Hg(4); Respiratory Rate: 10 to 29 per min(4); Sara Score: 15; Trauma Score: 12 ED Course: 04:20 Patient arrived in ED. ea 04:21 Kiara Talley, NICHOL is Primary Nurse. ch4 04:22 Patient has correct armband on for positive identification. Placed in gown. Bed in low ea position. Call light in reach. Side rails up X2. multimedia specialist on. Pulse ox on. NIBP on. 04:23 Triage completed. ch4 04:26 Patient maintains SpO2 saturation greater than 95% on room air. Thermoregulation: warm ea blanket given to patient. 04:37 Mikey Alicia MD is Attending Physician. valeriy 04:38 Arm band placed on right wrist. Patient placed in an exam room, on a stretcher, on ea pulse oximetry. 04:47 Inserted saline lock: 18 gauge in right antecubital area, using aseptic technique. ch4 04:55 XRAY Pelvis In Process Unspecified. EDMS 04:55 XRAY Hip RIGHT 2 view In Process Unspecified. EDMS 05:05 XRAY Chest (1 view) In Process Unspecified. EDMS 05:05 initiated a transfer with Simran Frances from [facility]. mw2 05:10 Radha Severino [phone] patients daughter. mw2 05:14 [facility] will need the covid test result before proceeding. mw2 05:26 Oxygen administration via nasal cannula \T\ 2L/min. ch4 05:26 Assist provider with fracture care of pelvis and right hip Immobilized with preformed ch4 splint. 06:[address] Alicia with Dr. Chappell from [facility]. mw2 06:19 Orthoglass splint: Posterior Long Leg. tt3 06:43 informed Simran Frances of patients covid test result. mw2 06:48 administrative approval given by Simran Frances/ patient has been accepted to [place] [id number] bed 1650/ Dr. Chappell accepted the patient in transfer/ report to be called to [phone]. 07:25 Patient transferred, IV remains in place. intact. sv Administered Medications: 04:30 Drug: fentaNYL (PF) 25 mcg Route: IVP; Site: right antecubital; bs2 04:33 Drug: Zofran (Ondansetron) 4 mg Route: IVP; Site: right antecubital; ch4 04:34 Drug: fentaNYL (PF) 50 mcg Route: IVP; Site: right antecubital; ch4 05:12 Drug: NS 0.9% 1000 ml Route: IV; Rate: 125 ml/hr; Site: right antecubital; ch4 05:50 Drug: fentaNYL (PF) 50 mcg Route: IVP; Site: right antecubital; bs2 07:00 Follow up: Response: Medication administered at discharge. hb 08:04 Drug: fentaNYL (PF) 25 mcg {Note: rass2.} Route: IVP; Site: right antecubital; sv 08:54 Follow up: Response: No adverse reaction; RASS: Agitated (+2) sv 08:48 Drug: Valium (diazepam) 2 mg Route: IVP; Site: right antecubital; sv 09:04 Follow up: Response: No adverse reaction sv 09:02 Drug: fentaNYL (PF) 50 mcg Route: IVP; Site: right antecubital; hb 09:48 Follow up: Response: No adverse reaction; No change in condition; RASS: Agitated (+2) sv 09:46 Drug: fentaNYL (PF) 50 mcg Route: IVP; Site: right antecubital; hb 09:48 Follow up: Response: Medication administered at discharge. sv Intake: 05:23 PO: 0ml; Total: 0ml. ch4 07:24 PO: 0ml; Total: 0ml. sv 08:00 PO: 0ml; Total: 0ml. sv 09:00 PO: 0ml; Total: 0ml. sv Output: 05:23 Urine: 800ml (Sheth); Total: 800ml. ch4 05:43 Urine: 600ml (Sheth); Total: 1400ml. ch4 07:24 Urine: 0ml; Total: 1400ml. sv 08:00 Urine: 0ml; Total: 1400ml. sv 09:00 Urine: 0ml; Total: 1400ml. sv Outcome: 05:03 ER care complete, transfer ordered by . valeriy 05:23 Condition: stable ch4 05:23 Instructed on the need for transfer, Demonstrated understanding of splint care. 07:25 d/t receiving facility unable to take report.Patient's length of stay extended due to sv 08:58 Transferred by ground EMS to [facility], Transfer form completed. sv X-rays sent w/ patient. Note: Report given to Caryn GANDARA. 09:58 Patient left the ED. sv Signatures: Dispatcher [employer] Autumn Keith, RN RN Mikey Patel MD MD cha Baxter, Heather, RN RN Maegan Queen RN RN ea [place] [employer]etta mw2 Samuel, Dalton tt3 Indigo Munoz RN RN bs2 Kiara Talley RN RN ch4 Corrections: (The following items were deleted from the chart) 04:46 04:23 Home Meds: valsartan 160 mg Oral tab 1 tab once daily; ea ch4 46 04:23 Home Meds: Fiorinal 50-325-40 mg Oral cap as needed; ea ch4 04:23 Home Meds: Aspirin Oral once daily; ea ch4 04:23 Home Meds: amitriptyline 50 mg Oral tab 1 tab once daily; ea ch4 46 04:23 Home Meds: alprazolam 0.5 mg Oral Tb24 1 tab once daily; ea ch4
--- NOTE | 2021-04-15 05:03 | EDPHYS ---
Physician Documentation [facility] Name: Trinh Severino Age: 85 yrs Sex: Female : 1935 Arrival Date: 04/15/2021 Time: 04:20 Bed 4 Private MD: ED Physician Mikey Alicia HPI: 04/15 04:56 This 85 yrs old Female presents to ER via EMS with complaints of Fall Injury. valeriy 04:56 Details of fall: The patient fell from an upright position, while walking. Onset: The valeriy symptoms/episode began/occurred this morning. Associated injuries: The patient sustained right hip and right upper thigh, decreased range of motion. Severity of symptoms: At their worst the symptoms were moderate, in the emergency department the symptoms are unchanged. The patient has not experienced similar symptoms in the past. Historical: - Allergies: 04:23 Codeine; ea - Home Meds: 04:23 Vytorin 10-40 10-40 mg Oral tab 1 tab once daily [Active]; verapamil 240 mg Oral C24P 1 ea cap once daily [Active]; Pentasa 500 mg Oral cpER twice a day [Active]; levothyroxine 100 mcg tab 1 tab once daily [Active]; allopurinol 300 mg Oral tab 1 tab once daily [Active]; 04:37 alprazolam 1 mg oral tab 1 tab daily [Active]; ch4 04:39 Metformin Oral [Active]; Dexilant 60 mg oral CpDB once daily [Active]; montelukast 10 ch4 mg oral tab once daily [Active]; Irvesartan 300mg daily [Active]; anoro ellipta 1 puff daily [Active]; - PMHx: 04:23 mitral valve prolapse; Hypothyroidism; Hypertension; hiatal hernia; Colitis; ea - Immunization history:: Adult Immunizations up to date, Adult Immunizations up to date. - Social history:: Smoking status: unknown Smoking status: Patient denies any tobacco usage or history of. - Immunization history: Last tetanus immunization: unknown. ROS: 04:58 Constitutional: Negative for fever, chills, and weight loss, Eyes: Negative for injury, valeriy pain, redness, and discharge, ENT: Negative for injury, pain, and discharge, Neck: Negative for injury, pain, and swelling, Cardiovascular: Negative for chest pain, palpitations, and edema, Respiratory: Negative for shortness of breath, cough, wheezing, and pleuritic chest pain, Abdomen/GI: Negative for abdominal pain, nausea, vomiting, diarrhea, and constipation, Back: Negative for injury and pain, : Negative for injury, bleeding, discharge, and swelling, Skin: Negative for injury, rash, and discoloration, Neuro: Negative for headache, weakness, numbness, tingling, and seizure, Psych: Negative for depression, anxiety, suicide ideation, homicidal ideation, and hallucinations, Allergy/Immunology: Negative for hives, rash, and allergies, Endocrine: Negative for neck swelling, polydipsia, polyuria, polyphagia, and marked weight changes, Hematologic/Lymphatic: Negative for swollen nodes, abnormal bleeding, and unusual bruising. 04:58 MS/extremity: Positive for decreased range of motion, pain, of the right hip and right upper thigh. Exam: 04:58 Constitutional: This is a well developed, well nourished patient who is awake, alert, valeriy and in no acute distress. Head/Face: Normocephalic, atraumatic. Eyes: Pupils equal round and reactive to light, extra-ocular motions intact. Lids and lashes normal. Conjunctiva and sclera are non-icteric and not injected. Cornea within normal limits. Periorbital areas with no swelling, redness, or edema. ENT: Nares patent. No nasal discharge, no septal abnormalities noted. Tympanic membranes are normal and external auditory canals are clear. Oropharynx with no redness, swelling, or masses, exudates, or evidence of obstruction, uvula midline. Mucous membranes moist. Neck: Trachea midline, no thyromegaly or masses palpated, and no cervical lymphadenopathy. Supple, full range of motion without nuchal rigidity, or vertebral point tenderness. No Meningismus. Chest/axilla: Normal chest wall appearance and motion. Nontender with no deformity. No lesions are appreciated. Cardiovascular: Regular rate and rhythm with a normal S1 and S2. No gallops, murmurs, or rubs. Normal PMI, no JVD. No pulse deficits. Respiratory: Lungs have equal breath sounds bilaterally, clear to auscultation and percussion. No rales, rhonchi or wheezes noted. No increased work of breathing, no retractions or nasal flaring. Abdomen/GI: Soft, non-tender, with normal bowel sounds. No distension or tympany. No guarding or rebound. No evidence of tenderness throughout. Back: No spinal tenderness. No costovertebral tenderness. Full range of motion. Female : Normal external genitalia. Skin: Warm, dry with normal turgor. Normal color with no rashes, no lesions, and no evidence of cellulitis. Neuro: Awake and alert, GCS 15, oriented to person, place, time, and situation. Cranial nerves II-XII grossly intact. Motor strength 5/5 in all extremities. Sensory grossly intact. Cerebellar exam normal. Normal gait. Psych: Awake, alert, with orientation to person, place and time. Behavior, mood, and affect are within normal limits. 04:58 Musculoskeletal/extremity: ROM: limited active range of motion, limited passive range of motion, in the right hip, right gluteal fold, right inner thigh and right upper thigh, limited active range of motion due to pain, limited passive range of motion due to pain, Circulation is intact in all extremities. 05:26 ECG was reviewed by the Attending Physician. valeriy Vital Signs: 04:21 BP 122 / 57; Pulse 81; Resp 19; Temp 97.2; Pulse Ox 96% on R/A; ch4 05:24 BP 118 / 59; Pulse 76; Resp 16; Temp 97.4; Pulse Ox 100% on 2 lpm NC; ch4 05:44 BP 119 / 57; Pulse 66; Resp 10; Pulse Ox 100% on 2 lpm NC; ch4 06:32 BP 141 / 66; Pulse 65; Resp 17; Temp 97.6; Pulse Ox 100% on R/A; ch4 06:47 BP 134 / 62; Pulse 65; Resp 15; Pulse Ox 99% on 2 lpm NC; ch4 07:24 BP 126 / 66; Pulse 64; Resp 16; Temp 97.8; Pulse Ox 100% ; sv 08:00 BP 117 / 63; Pulse 70; Resp 16; Temp 98; Pulse Ox 100% ; sv 09:00 BP 125 / 63; Pulse 72; Resp 18; Temp 98; Pulse Ox 100% on R/A; sv Sara Coma Score: 04:23 Eye Response: spontaneous(4). Verbal Response: oriented(5). Motor Response: obeys ea commands(6). Total: 15. Trauma Score (Adult): 04:23 Eye Response: spontaneous(1); Verbal Response: oriented(1); Motor Response: obeys ea commands(2); Systolic BP: > 89 mm Hg(4); Respiratory Rate: 10 to 29 per min(4); Sara Score: 15; Trauma Score: 12 07:24 Eye Response: spontaneous(1); Verbal Response: oriented(1); Motor Response: obeys sv commands(2); Systolic BP: > 89 mm Hg(4); Respiratory Rate: 10 to 29 per min(4); [place] Score: 15; Trauma Score: 12 08:00 Eye Response: spontaneous(1); Verbal Response: oriented(1); Motor Response: obeys sv commands(2); Systolic BP: > 89 mm Hg(4); Respiratory Rate: 10 to 29 per min(4); [place] Score: 15; Trauma Score: 12 09:00 Eye Response: spontaneous(1); Verbal Response: oriented(1); Motor Response: obeys sv commands(2); Systolic BP: > 89 mm Hg(4); Respiratory Rate: 10 to 29 per min(4); Sara Score: 15; Trauma Score: 12 MDM: 04:38 Patient medically screened. valeriy 04:58 Differential diagnosis: hip fracture, intertrochanteric fracture, femoral neck valeriy fracture, femoral shaft fracture. Differential diagnosis: contusion, fracture, multiple trauma, sprain, strain. Data reviewed: vital signs, nurses notes, lab test result(s), EKG, radiologic studies, plain films. Data interpreted: campus monitor: rate is 81 beats/min, rhythm is regular, Pulse oximetry: on room air is 96 %. Test interpretation: by ED physician or midlevel provider: ECG, plain radiologic studies. Counseling: I had a detailed discussion with the patient and/or guardian regarding: the historical points, exam findings, and any diagnostic results supporting the discharge/admit diagnosis, radiology results, the need to transfer to another facility, for higher level of care, [facility] does not immediately have the required specialist. 04/15 04:24 Order name: Basic Metabolic Panel; Complete Time: 05:25 ea 04/15 04:24 Order name: CBC with Diff; Complete Time: 05:25 04/15 04:24 Order name: Type And Screen 04/15 04:54 Order name: PT-INR; Complete Time: 05:25 [facility] [place] [facility] 04/15 04:58 Order name: Liver (Hepatic) Function; Complete Time: 05:25 EDMS 04/15 04:58 Order name: Troponin (Emerg Dept Use Only); Complete Time: 05:25 EDMS 04/15 04:58 Order name: NT PRO-BNP; Complete Time: 05:25 EDMS 04/15 04:58 Order name: Magnesium; Complete Time: 05:25 EDCO 04/15 06:40 Order name: SARS-COV-2 RT PCR; Complete Time: 07:32 EDCO 04/15 04:24 Order name: XRAY Pelvis 04/15 04:24 Order name: Labs collected and sent; Complete Time: 04:34 04/15 04:26 Order name: XRAY Hip RIGHT 2 view 04/15 04:54 Order name: XRAY Chest (1 view) [facility] [place] [facility] 04/15 04:54 Order name: EKG; Complete Time: 04:54 [facility] 04/15 04:54 Order name: Cardiac monitoring; Complete Time: 04:55 [facility] 04/15 04:54 Order name: EKG - Nurse/Tech; Complete Time: 05:22 [facility] 04/15 04:54 Order name: IV Saline Lock; Complete Time: 04:54 [facility] 04/15 04:54 Order name: O2 Per Protocol; Complete Time: 04:54 [facility] 04/15 04:54 Order name: O2 Sat Monitoring; Complete Time: 04:55 [facility] 04/15 04:54 Order name: Sheth; Complete Time: 04:59 [facility] 04/15 05:03 Order name: Splint - Posterior Leg; Complete Time: 05:55 [facility] EC:26 Rate is 64 beats/min. Rhythm is regular. QRS [place] is Normal. LA interval is normal. QRS valeriy interval is normal. QT interval is normal. No Q waves. T waves are Normal. No ST changes noted. Clinical impression: NSR w/ Non-specific ST/T Changes and No evidence of ischemia. Interpreted by me. Reviewed by me. Administered Medications: 04:30 Drug: fentaNYL (PF) 25 mcg Route: IVP; Site: right antecubital; bs2 04:33 Drug: Zofran (Ondansetron) 4 mg Route: IVP; Site: right antecubital; ch4 04:34 Drug: fentaNYL (PF) 50 mcg Route: IVP; Site: right antecubital; ch4 05:12 Drug: NS 0.9% 1000 ml Route: IV; Rate: 125 ml/hr; Site: right antecubital; ch4 05:50 Drug: fentaNYL (PF) 50 mcg Route: IVP; Site: right antecubital; bs2 07:00 Follow up: Response: Medication administered at discharge. hb 08:04 Drug: fentaNYL (PF) 25 mcg {Note: rass2.} Route: IVP; Site: right antecubital; sv 08:54 Follow up: Response: No adverse reaction; RASS: Agitated (+2) sv 08:48 Drug: Valium (diazepam) 2 mg Route: IVP; Site: right antecubital; sv 09:04 Follow up: Response: No adverse reaction sv 09:02 Drug: fentaNYL (PF) 50 mcg Route: IVP; Site: right antecubital; hb 09:48 Follow up: Response: No adverse reaction; No change in condition; RASS: Agitated (+2) sv 09:46 Drug: fentaNYL (PF) 50 mcg Route: IVP; Site: right antecubital; hb 09:48 Follow up: Response: Medication administered at discharge. sv Disposition Summary: 04/15/21 05:03 Transfer Ordered Transfer Location: [facility] valeriy Reason: Higher level of care valeriy Condition: Stable valeriy Problem: new valeriy Symptoms: have improved valeriy Accepting Physician: to [facility](04/15/21 09:58) sv Diagnosis - Fall (on)(from) incline valeriy - Displaced intertrochanteric fracture of right femur valeriy Forms: - Medication Reconciliation Form valeriy - SBAR form valeriy Signatures: Dispatcher [employer] Autumn Keith RN RN Mikey Patel MD MD cha Baxter, Heather RN RN Maegan Estrada RN RN ea Smith, Bridget RN RN bs2 Kiara Talley RN RN ch4 Corrections: (The following items were deleted from the chart) 04:46 04:23 Home Meds: valsartan 160 mg Oral tab 1 tab once daily; ea ch4 04:46 04:23 Home Meds: Fiorinal 50-325-40 mg Oral cap as needed; ea ch4 04:46 04:23 Home Meds: Aspirin Oral once daily; ea ch4 04:46 04:23 Home Meds: amitriptyline 50 mg Oral tab 1 tab once daily; ch4 04:46 04:23 Home Meds: alprazolam 0.5 mg Oral Tb24 1 tab once daily; ch4 04:58 04:54 HEPATIC FUNCTION+C.LAB.BRZ ordered. EDMS EDMS 04:58 04:54 MAGNESIUM+C.LAB.BRZ ordered. EDMS EDMS 04:58 04:54 PROBNP+C.LAB.BRZ ordered. EDMS EDMS 04:58 04:54 TROPONIN (EMERG DEPT USE ONLY)+C.LAB.BRZ ordered. EDMS EDMS 05:46 04:55 CORONAVIRUS+MR.LAB.BRZ ordered. EDMS EDMS 09:58 05:03 to [facility] valeriy acosta
[2021-04-15 05:16] LABS: ALT/SGPT 21 U/L (12-78); AST/SGOT 14 U/L (15-37); Albumin 3.2 g/dL (3.4-5.0); Alkaline Phosphatase 89 U/L (45-117); BUN Blood Urea Nitrogen 23 mg/dL (7-18); Bicarbonate 26 mmol/L (21-32); Bilirubin Direct 0.1 mg/dL (0-0.2); Bilirubin Total 0.4 mg/dL (0.2-1.0); Glucose Level 134 mg/dL (74-106); Magnesium 1.9 mg/dL (1.8-2.4); NT PRO-BNP 402 pg/mL (<450); Protein, Total 6.6 g/dL (6.4-8.2); Sodium Level 139 mmol/L (136-145); Troponin (Emerg Dept Use Only) < 0.02 ng/mL (0.0-0.045)
[2021-04-15] MEDS ORDERED: NA CHLORIDE 0.9% 1,000 ML ONE (05:34)
--- NOTE | 2021-04-15 08:26 | RAD REPORT ---
EXAM DESCRIPTION: RAD - Chest Single View - 04/15/2021 5:05 am CLINICAL HISTORY: COUGH COMPARISON: Chest Pa And Lat (2 Views) dated 12/24/2020; Chest Pa And Lat (2 Views) dated 05/14/2020; Chest Pa And Lat (2 Views) dated 11/04/2019; Chest Pa And Lat (2 Views) dated 10/14/2018 FINDINGS: Lines: None. Lungs: No evidence of edema or pneumonia. Pleural: No significant pleural effusions or pneumothorax. Cardiac: The heart size is within normal limits. Bones: No acute fractures. Other: IMPRESSION: No acute cardiopulmonary disease.
--- NOTE | 2021-04-15 08:29 | RAD REPORT ---
EXAM DESCRIPTION: RAD - Hip Right 2 View - 04/15/2021 4:55 am CLINICAL HISTORY: PAIN COMPARISON: Hip Right 2 View dated 11/07/2017; Pelvis dated 04/15/2021 FINDINGS: Displaced right proximal femur fracture which is difficult to completely characterize as t he fragments override each other. There is probably intertrochanteric. IMPRESSION: Right hip fracture, difficult to classify, but probably an intertrochanteric hip fractur e. CT could better delineate the fracture pattern. No dislocation.
--- NOTE | 2021-04-15 08:31 | RAD REPORT ---
EXAM DESCRIPTION: RAD - Pelvis - 04/15/2021 4:55 am CLINICAL HISTORY: PAIN COMPARISON: HIP BILATERAL WITH PEL dated 12/11/2008 FINDINGS: Right proximal femur fracture. There does appear to be fracture involving the neck of the right femur as well as the subtrochanteric portion with involvement into the lesser trochanter. No ot her pelvic fracture is seen. Moderate bilateral acetabular degenerative changes. No IMPRESSION: Right hip fracture which is difficult to characterize but that involves the subtrochante anna region, lesser trochanter, and femoral neck.
[2021-04-15] MEDS ORDERED: DIAZEPAM 10 MG/2 ML INJ SYRINGE ONE (09:05)
[2021-04-15 10:12] VITALS: O2SAT 100
[2021-04-15 10:14] VITALS: TEMP 98
[2021-04-15 10:15] VITALS: BP 125/63
== END 2021-04-15 09:58 | disposition short-term general hospital (02) ==
LOC: ER 04:19
PROC: 2W3LX1Z Immobilization of Right Lower Extremity using Splint (ICD-10-PCS; principal; 2021-04-15)
DX: S72.141A Displaced intertrochanteric fracture of right femur, initial encounter for closed fracture (principal); W19.XXXA Unspecified fall, initial encounter; Y93.01 Activity, walking, marching and hiking; I10 Essential (primary) hypertension; E03.9 Hypothyroidism, unspecified; Z88.5 Allergy status to narcotic agent; Z20.822 Contact with and (suspected) exposure to COVID-19
CPT/HCPCS: 93005; 85025; 80048; 36415; 86900; 83735; 86850; 85610; 86901; 80076; 84484; 83880; 71045; 72170; 73502; 96375; 96374; 99285; 29505; U0003; J3360; J3010 ×5; J7030; J2405; G0390

== ENCOUNTER 2021-04-20 12:00 | Inpatient (IN) | payer OTHER ==
--- NOTE | 2021-04-20 14:51 | R.PREADM ---
PRE-ADMISSION SCREENING FORM SCREENING DATE AND TIME 04/20/2021 12:20 (CDT) ANTICIPATED REHAB ADMISSION DATE 04/22/[address] [facility] REFERRAL DATE AND TIME 04/20/2021 12:21 (CDT) REFERRAL OFFICE PHONE [phone] ACUTE ADMIT DATE 04/15/2021 Previous Rehabilitation(s): No. ACUTE CENTRAL OFFICE EQUIPMENT INSTALLER/DC CHEESE MAKER Guy Armas ATTENDING PHYSICIAN Ruchi Milton MD REFERRING PHYSICIAN Ruchi Milton MD REHAB FACILITY [facility] CLINICAL LIAISON DIONNE HERNANDEZ PHYSICIAN REVIEWER Dr. Brennan Potter M.D. MR# [id number] NAME SAEID SEVERINO ADDRESS [address] [facility] [id number] DATE OF 1935 AGE 85 SSN# [id number] GENDER female MARITAL STATUS PREF. LANGUAGE (IF NON-SETSWANA) Macedonian ADMIT FROM 02 - [facility] PRE-HOSPITAL LIVING SETTING 01 - Home (private home/apt. board/care, assisted living, penitentiary, transitional living) HOME TYPE AND DETAILS Type of home: single family house # of steps within the residence: 0 # of steps to enter the residence: 0 PRE-HOSPITAL LIVING WITH Family/Relatives FAMILY SUPPORT Yes PRIMARY FAMILY CONTACT NAME Jose Francisco Severino PRIMARY FAMILY CONTACT PHONE PRIMARY FAMILY CONTACT RELATIONSHIP Son PHONE PRIMARY FAMILY CONTACT ON ADM.? no IS PRIMARY FAMILY CONTACT AUTH. REP.? no 1ST EMERGENCY CONTACT Jose Francisco Severino 1ST CONTACT PHONE 1ST CONTACT RELATIONSHIP Son PHONE 1ST CONTACT ON ADM. no IS 1ST CONTACT AUTH. REP.? no 2ND EMERGENCY CONTACT Stna Severino 2ND CONTACT PHONE 2ND CONTACT RELATIONSHIP Spouse PHONE 2ND CONTACT ON ADM.? no PATIENT EMPLOYMENT STATUS Retired (for age) PATIENT EMPLOYER No Employer PAYOR INFORMATION: 1ST PAYOR NAME Medicare 1ST PAYOR PHONE 1ST PAYOR INJURY/ILLNESS DUE TO ACCIDENT? No ANOTHER [employer] RESPONSIBLE? No PRIMARY REHAB/ACUTE DIAGNOSIS: R Intertrochanteric Femur fx ONSET DATE 04/15/2021 REHAB IMPAIRMENT CATEGORY (GIOVANNA): 07 Fracture of LE (FracLE) MEETS 60% rule AFFECTED EXTREMITIES: RLE PRIMARY DIAGNOSIS-RELATED SURGERIES: Osteosynthesis of Right Intertrochanteric hip fracture using a long cephalomedullary nail RISK FOR COMPLICATIONS: - Fx R foot fx sustained a week ago. No surgical intervention recommended - Asthma Hypoxia - Diabetes Diabetes - Hypothyroid Hypothyroid Normocytic Anemia - Hypertension Hypertension - N/A Fall Risk Pneumonia Skin Breakdown DVT - Wound Complications Wound Complications SUMMARY OF ACUTE HOSPITALIZATION: Pt. is a 85 yo Right-handed female. On 04/15/[address] to [facility] with diagnosis R Intertrochanteric Femur fx. Her impairment category is Orthopaedic Disorders 08 - Unilateral Hip Fracture (08.11). Pre-morbidly, Pt. was independent/mod-I in Locomotion, Safety Awareness, Balance, and Social Cognitio n; and she had good Transfers Control, Sphincter Control, Self-Care, Communication, and Endurance. Currently, she has deficits of Locomotion, Safety Awareness, Transfers Control, Self-Care, Endurance, Sphincter Control, and Balance. Pt. is now referred to [facility] for acute in-patient rehabilitation in order to maximize patient's functional independence in activities of daily living, strength, ROM, and mobi lity. Patient has realistic goal of being discharged at assistance level 7-Ind to reside at Home with Fami ly/Relatives. PAST MEDICAL HISTORY HTN Hypothyroidism, unspecified (E03.9) Type 2 diabetes mellitus with unspecified complications (E11.8) Chronic respiratory failure with hypoxia (J96.11) Normocytic Anemia anxiety disorder falls Dizziness and giddiness (R42) chest pain mvp HIATAL HERNIA PAST SURGICAL HISTORY: HYSTERECTOMY 1967 MEDICATION ALLERGIES: CODEINE ENVIRONMENTAL ALLERGIES: - Substance Allergies None Known - Other Allergies None Known CODE STATUS: Full code WEIGHT/HEIGHT/BMI: WEIGHT 185 lbs HEIGHT 5' 8" BMI 28.1 DIET: - Diet Type Regular - Diet - Solid Texture Regular - Diet - Liquid Texture Regular - Tube Feed N/A SKIN DIAGRAM: Aching Right hip pain; level - 1. Aching Right upper leg pain; level - 1. Aching Right foot pain; level - 1. REVIEW OF SYSTEMS: - Gen Alert and awake Lying in bed No apparent distress Oriented to: person, time, and place - Vital Signs Temperature: 98.7 F SBP/DBP: 139/65 Pulse: 92 Resp: 18 Vital signs stable, afebrile - Skin No open wound or evidence of breakdown. Edamatous R leg, leg held in external rotation and midly shor tened - CVS RRR VITAL SIGNS Temperature: 97 F (Oral) Resp: 18 SBP/DBP: 139/65 Pulse: 92 Vital signs stable, afebrile MEDICATIONS/TREATMENT: Other- See attached MAR (Medication Administration Record). CURRENT SPHINCTER CONTROL: Pre-hospital bladder status: unspecified # of bladder accidents in the last 7 days prior to screenin Pre-hospital bowel status: unspecified # of bowel accidents in the last 7 days prior to screenin Last Bowel Movement Date: 04/20/2021 CURRENT LOCOMOTION STATUS: distance walked 30 feet with RW DETAILED CURRENT FUNCTIONAL STATUS: - Bladder accident frequency: 7-Ind - No accidents in the past 7 days - Bowel accident frequency: 7-Ind - No accidents in the past 7 days - Walking score based on distance walked: 0(N/A) score based on distance walked: 1(<=50ft) - Wheelchair score based on distance traveled: 0(N/A) QI SCORES: - Self-Care A. Eating 05-Setup or clean-up assistance B. Oral hygiene 03-Partial/moderate assistance C. Toileting hygiene 03-Partial/moderate assistance E. Shower/bathe self 03-Partial/moderate assistance F. Upper body dressing 03-Partial/moderate assistance G. Lower body dressing 03-Partial/moderate assistance H. Putting on/taking off footwear 03-Partial/moderate assistance - Mobility A. Roll left and right 03-Partial/moderate assistance B. Sit to lying 03-Partial/moderate assistance C. Lying to sitting on side of bed 03-Partial/moderate assistance D. Sit to stand 03-Partial/moderate assistance E. Chair/fkz-ru-sfrve transfer 03-Partial/moderate assistance F. Toilet transfer 03-Partial/moderate assistance G. Car transfer 88-Not attempted due to medical condition or safety concerns I. Walk 10 feet 04-Supervision or touching assistance J. Walk 50 feet with two turns 88-Not attempted due to medical condition or safety concerns K. Walk 150 feet 88-Not attempted due to medical condition or safety concerns L. Walking 10 feet on uneven surfaces 88-Not attempted due to medical condition or safety concerns N. 4 steps 88-Not attempted due to medical condition or safety concerns O. 12 steps 88-Not attempted due to medical condition or safety concerns P. Picking up object 88-Not attempted due to medical condition or safety concerns R. Wheel 50 feet with two turns 88-Not attempted due to medical condition or safety concerns S. Wheel 150 feet 88-Not attempted due to medical condition or safety concerns - Bladder and Bowel Bladder continence Bowel continence - Endurance Fair - Balance Fair - Safety Awareness Fair CURRENT FUNC. DEFICITS: Self-Care, Mobility, Endurance, Balance, and Safety Awareness CURRENT / PREVIOUS ASSISTIVE DEVICES: Rolling Walker Shower Chair CURRENT USE ASSISTIVE DEVICES: SCDs TEDs HISTORY OF FALLS. HAS THE PATIENT HAD TWO OR MORE FALLS IN THE PAST YEAR OR ANY FALL WITH INJURY IN T HE PAST YEAR?: Yes PRIOR SURGERY. DID THE PATIENT HAVE MAJOR SURGERY DURING THE 100 DAYS PRIOR TO ADMISSION?: No THERAPY NOTES FROM ACUTE CARE: Attached. SPECIAL NEEDS: - Safety Concerns Skin breakdown precautions needed due to skin breakdown risk PRECAUTIONS: - Weight Bearing Precaution WBAT right LE WITH THE SHOE PATIENT NEEDS ACTIVE AND ONGOING THERAPEUTIC INTERVENTION OF MULTIPLE THERAPY DISCIPLINES, INCLUDING: - Dietary and Nutrition Adequate Nutrition. Nutritional Education. Nutritional Supplements. - Occupational Therapy Cognitive Retraining. Evaluate and Treat. Visual Perceptual Training. Adaptive Equipment. ADL Trainin g. Transfer Training. UE Strengthening. Safety Awareness. - Speech Therapy Cognitive Training. Expressive Language Skills. Memory Strategies. Receptive Language Skills. Speech Intelligibility Training. - Physical Therapy Gait Training. Transfer Training. Balance Training. Evaluate and Treat. Mobility Training. LE Strengt hening. LE ROM. Safety Awareness. PATIENT NEEDS CLOSE MEDICAL SUPERVISION BY A REHABILITATION PHYSICIAN FOR: Coordination of Treatment Team Wound Care Diabetes Management Medical and Co-Morbidity Management PATIENT REQUIRES 24X7 REHAB NURSING FOR MEDICAL AND FUNCTIONAL MGT. OF THE FOLLOWING DEFICITS: Disease Management Medication Management Patient/Family Education Providing Safe Environment Skin Integrity PATIENT REQUIRES INTENSIVE, COORDINATED INTERDISCIPLINARY APPROACH TO REHAB: Arranging Home Equipment/Services Discharge Planning Family Intervention/Training Manager Federal/Case Management PATIENT REHAB POTENTIAL: Luci SEVERINO is able and expected to receive 3 hours of individualized therapy daily on at least 5 of ev manuel 7 days Luci SEVERINO's prognosis for significant practical improvement within a reasonable period of time appear s Good Expected level of measurable improvement will be of a practical value to Luci SEVERINO's functional capac ity or adaptations to impairments Has a viable Discharge Plan Medically appropriate; condition is sufficiently stable to participate in intensive rehab program DISCHARGE PLAN: - Estimated Length of Stay (days) 14. - Consensus on plan Discharge plan has been discussed with primary caregiver. Patient/Family is in agreement with the bina n. Primary caregiver is in agreement with the plan. - Patient/Family Goals Return home independently. - Planned Living Setting Upon Discharge Home, to live with Family/Relatives. Transitional Living. RECOMMENDED CARE LEVEL: IRF RECOMMENDATION DETAILS: Recommended Admission to Comprehensive Rehabilitation Program to Increase Functional Cass SCREENER'S COMPLETENESS CONFIRMATION: - Screening Confirmation The patient data collection on this preadmission screening form is finished PHYSICIANS REVIEW AND ADMISSION DETERMINATION Admit - Based on my review of the Pre-Admission Screening results, in my medical judgment and experie nce, I concur with the findings and recommend admission to [facility], as this patient requires an IRF level of care. SIGNATURE PANEL: Pool Lifeguard - [electronically] signed by Bella Miller on 04/20/2021 at 14:11 (CDT) Pool Lifeguard - [electronically] signed by Jonathan Lopez PT on 04/20/2021 at 14:37 (CDT) Physician Reviewer - [electronically] signed by Dr. Brennan Potter M.D. on 04/20/2021 at 14:51 (CDT )
--- OUTSIDE RECORDS SUMMARY | 2021-04-21 14:55 | XMS REPORT | Continuity of Care Document ---
:1935 Author Organization [facility] t Address [address] [place] [address] [address]. [address] [place] [address] Care Team Providers Name Role Phone EVERETT Primary Care Physician Unavailable Wendy Chappell MD Attending Clinician Yoan RIOS Attending Clinician Thi Aburto MD Attending Clinician Fatmata Mccabe MD Attending Clinician Anthony Gudino MD Attending Clinician Tiara QUIROZ Attending Clinician Tommy Page MD Attending Clinician WENDY CHAPPELL Attending Clinician Unavailable Chidi CAMPA Attending Clinician Unavailable YOAN Admitting Clinician Unavailable Payers Payer Name Policy Type Policy Number Effective Date Expiration Date S [facility] MEDICARE PART A [id number] 2002 AND B 00:00:00 GENERIC [id number] 2017 00:00:00 Problems Condition Condition Condition Status Onset Resolution Last Treating Co mments Source Name Details Category Date Date Treatment Clinician Date Leg Leg Disease Active [facility] Closed Closed Disease Active [facility] right hip right hip 04-15 [facility] - fracture fracture 00:00: Medica l 00 Center Pain, Pain, Diagnosis Active [facility] joint, joint, [facility] - knee, knee, [facility] right right l [facility] ent Clinics History of History of Diagnosis Active [facility] acute acute [facility] - gouty gouty [facility] arthritis arthritis l [facility] ent [facility] Allergies, Adverse Reactions, Alerts Allergy Allergy Status Severity Reaction(s) Onset Inactive Treating Comm ents Source Name Type Date Date Clinician Angelo Drug Active [facility] Allergy 04-15 [facility]: Medical 00 Center codeine Adverse Active Info Not [facility] Reaction Available [facility] ent [facility] Social History Social Habit Start Date Stop Date Quantity Comments Source Sex Assigned At [facility] Exposure to Not sure [facility] SARS-CoV-2 (event) Medica [facility] Tobacco use and 2021-04-20 2021-04-20 Never used [facility] - exposure 00:00:00 00:00:00 [facility] Smoking Status Start Date Stop Date Source Never smoker [facility] Medications Ordered Filled Start Stop Current Ordering Indication Dosage Frequency Signature Comments Components Source Medication Medication Date Date Medication? Clinician (SIG) Name Name mesalamine Yes 250mg Q.5D Take [address] (PENTASA) 9-08 mg by [facility] - 250 mg CR 13:38: mouth 2 Medic al capsule 24 (two) Center times daily. levothyroxi Yes 100ug Take [address] ne 9-08 mcg by [facility] - (SYNTHROID, 13:38: mouth Medic al LEVOTHROID) 24 Every Center 100 MCG morning on tablet an empty stomach. allopurinoL Yes 300mg QD Take [address] (ZYLOPRIM) 9-08 mg by [facility] - 300 MG 13:38: mouth Medical tablet 24 daily. [place] ezetimibe-s Yes 1{tbl} QD Take [address] imvastatin 9-08 tablet by Luke s - (VYTORIN) 13:38: mouth Medical 10-40 mg 24 nightly. [place] per tablet ALPRAZolam Yes 1mg QD Take [address] (XANAX XR) 9-08 by mouth [facility] - 1 MG 24 hr 13:38: every Medica l tablet 24 morning. [place] dexlansopra Yes 60mg QD Take [address] zole 60 mg 9-08 by mouth [facility] - capsule 13:38: daily. Medical 24 [place] irbesartan Yes 300mg QD Take [address] (AVAPRO) 9-08 mg by [facility] - 300 MG 13:38: mouth Medical tablet 24 daily. [place] metFORMIN Yes 500mg QD Take [address] (GLUCOPHAGE 9-08 mg by [facility] - ) 500 MG 13:38: mouth Medical tablet 24 daily. [place] verapamiL Yes 240mg QD Take [address] (VERELAN 9-08 mg by [facility] - PM) 240 MG 13:38: mouth Medica l 24 hr 24 daily. [place] capsule montelukast Yes 10mg QD Take [address] [address] (SINGULAIR) 9-08 by mouth Luke s - 10 mg 13:38: daily. Medical tablet 24 [place] butalbital- Yes 1{tbl} Take [address] acetaminoph 9-08 tablet by Rhett es - en-caffeine 13:38: mouth Medic al (FIORICET, 24 every 6 Center ESGIC) (six) 50-325-40 hours as mg per needed for tablet Headaches. oxyCODONE Yes 1-[address] [address] (ROXICODONE -08 every 4hrs Melanie kes - ) 5 MG 00:00: as needed Medica l immediate 00 for pain. Cente r release tablet senna-docus 2021- Yes 1{tbl} Q.5D Take [address] ate 04-21 tablet by [facility] - (SENOKOT S) 00:00: 23:59 mouth 2 Me dical 8.6-50 mg 00 :00 (two) Center per tablet times daily. acetaminoph 2020- Yes 1000mg Q.[id number] Take [address] en 04-21- [id number] tablets [facility] - (TYLENOL) 00:00: 23:59 3D (1,000 mg Me dical 500 MG 00 :00 total) by Center tablet mouth 3 (three) times daily for 10 days. methocarbam 2020- Yes 750mg Take [address] oL 04-21 tablet [facility] - (ROBAXIN) 00:00: 23:59 (750 mg Medi jatin 750 MG 00 :00 total) by Center tablet mouth 4 (four) times daily as needed for up to 10 days. polyethylen 2020- Yes 17g Take [address] e glycol 04-21 by mouth 2 Luke s - (GLYCOLAX) 00:00: 23:59 (two) Medic al 17 gram 00 :00 times Center packet daily as needed (constipat ion) for up to 3 days. Tramadol Tramadol Yes Lewis [address] [facility] HCl HCl 04-20 Castaneda as needed [facility] - 00:00: Memoria 00 l [facility]pat[facility] ent Clinics Indomethaci Indomethaci 2017- No Lewis [address] n [...] 85 kg HEIGHT 2020-11-13 13:40:44 173 cm Systolic blood 2021-04-21 11:05:00 95 mm[Hg] [facility] Diastolic blood 2021-04-21 11:05:00 50 mm[Hg] [facility] Heart rate 2021-04-21 11:05:00 86 /min [facility] Body temperature 2021-04-21 11:05:00 35.72 Lauren [facility] Respiratory rate 2021-04-21 11:05:00 18 /min [facility] Oxygen saturation in 2021-04-21 11:05:00 93 /min [facility] Arterial blood by Medical Ce nter Pulse oximetry Body height 2021-04-15 11:32:00 174 cm [facility] Body weight 2021-04-15 11:32:00 83.915 kg [facility] BMI 2021-04-15 11:32:00 27.72 kg/m2 [facility] Procedures Procedure Date / Time Performed Performing Clinician [facility] e POCT-GLUCOSE METER 2021-04-21 11:39:00 Lulu Mccabe [facility] POCT-GLUCOSE METER 2021-04-21 07:57:00 Lulu Mccabe [facility] POCT-GLUCOSE METER 2021-04-20 21:46:[address] [facility] POCT-GLUCOSE METER 2021-04-20 16:33:[address] [facility] SARS-COV2/RT-PCR ([facility] & 2021-04-20 14:10:00 Criselda, [facility] - REF LABS) [facility] POCT-GLUCOSE METER 2021-04-20 11:30:[address] [facility] POCT-GLUCOSE METER 2021-04-20 07:57:00 Criselda, [facility] POCT-GLUCOSE METER 2021-04-19 21:10:[address] [facility] POCT-GLUCOSE METER 2021-04-19 16:28:00 Criselda, [facility] POCT-GLUCOSE METER 2021-04-19 11:02:00 Criselda, [facility] POCT-GLUCOSE METER 2021-04-19 07:12:00 Criselda, [facility] POCT-GLUCOSE METER 2021-04-18 21:38:00 Criselda, [facility] POCT-GLUCOSE METER 2021-04-18 15:55:00 Criselda, [facility] POCT-GLUCOSE METER 2021-04-18 11:39:00 Criselda, [facility] POCT-GLUCOSE METER 2021-04-18 08:12:00 Criselda, [facility] POCT-GLUCOSE METER 2021-04-17 21:19:00 Criselda, [facility] POCT-GLUCOSE METER 2021-04-17 15:49:00 Criselda, [facility] POCT-GLUCOSE METER 2021-04-17 11:26:00 Criselda, [facility] POCT-GLUCOSE METER 2021-04-17 07:21:00 Criselda, [facility] BASIC METABOLIC PANEL 2021-04-17 03:24:00 Piponov Justin Alexy [address] CBC W/PLT COUNT & AUTO 2021-04-17 03:24:00 Piponov, Justin Ivano v [facility] POCT-GLUCOSE METER 2021-04-16 21:34:00 Criselda, [facility] POCT-GLUCOSE METER 2021-04-16 17:06:00 Criselda, [facility] FL FLUORO NON-SPECIFIC 2021-04-16 15:55:00 Damaris Page [facility] UP TO 1 HOUR [facility] BLOOD GAS, ARTERIAL 2021-04-16 15:10:15 Shahab [facility] CALCIUM, IONIZED 2021-04-16 15:10:15 Shahab [facility] SODIUM NA-STAT LAB 2021-04-16 15:10:15 Shahab [facility] POTASSIUM-STAT LAB 2021-04-16 15:10:15 Shahab [facility] GLUCOSE-STAT LAB 2021-04-16 15:10:15 Shahab [facility] HGB/HCT (H&H) - STAT LAB 2021-04-16 15:10:15 Shahab [facility] IM RODDING,FEMUR 2021-04-16 13:17:00 [facility] PROCEDURE W/ C-ARM 2021-04-16 13:17:00 [facility] POCT-GLUCOSE METER 2021-04-16 11:42:00 Kong Aburto [facility] POCT-GLUCOSE METER 2021-04-16 06:33:00 [facility] BASIC METABOLIC PANEL 2021-04-16 04:34:00 Piponov, Justin Alexy [facility] () [facility] CBC W/PLT COUNT & AUTO 2021-04-16 04:33:00 Piponov, Justin Ivano v [facility] POCT-GLUCOSE METER 2021-04-15 21:08:00 [facility] TYPE AND SCREEN, 2021-04-15 20:21:00 [facility] TSH/FREE T4 IF INDICATED 2021-04-15 17:43:00 [facility] IRON, TIBC, % SAT. 2021-04-15 17:43:00 [facility] (WITHOUT FERRITIN) [facility] FERRITIN 2021-04-15 17:43:00 [facility] VITAMIN B12 AND FOLATE 2021-04-15 17:43:00 [facility] ABORH, MANUAL 2021-04-15 17:43:00 Rola Alex [facility] POCT-GLUCOSE METER 2021-04-15 16:46:00 [facility] XR FEMUR 2 VIEWS RIGHT 2021-04-15 15:48:00 [facility] XR FOOT 3 VIEWS RIGHT 2021-04-15 15:48:00 [facility] XR HIP 2 VIEWS RIGHT 2021-04-15 15:48:00 [facility] 2D ECHO MODE W/O DOPPLER 2021-04-15 14:06:00 [facility] ECG 12-LEAD 2021-04-15 13:33:37 [facility] BASIC METABOLIC PANEL 2021-04-15 12:32:00 Piponov, Justin Alexy [facility] () [facility] CBC W/PLT COUNT & AUTO 2021-04-15 12:32:00 Piponov, Justin Ivano v [facility] HEMOGLOBIN A1C 2021-04-15 12:32:00 [facility] MAGNESIUM 2021-04-15 12:32:00 [facility] PROTHROMBIN TIME/INR 2021-04-15 12:32:00 [facility] ALBUMIN 2021-04-15 12:32:00 [facility] LIPID PANEL 2021-04-15 12:32:[address] [facility] TYPE AND SCREEN, 2021-04-15 12:32:[address] [facility] - AUTOMATED [facility] Plan of Care Planned Activity Planned Date Details Comments Source Future Scheduled 2021-04-14 INFLUENZA VACCINE (#1) [facility] 00:00:00 [code = INFLUENZA Medical Ce nter VACCINE (#1)] Future Scheduled 2020-08-[address] [facility] - Test 00:00:00 (12+) [code = Medical Center DEPRESSION SCREENING (12+)] Future Scheduled 2020-08-14 FALLS RISK SCREENING [facility] - Test 00:00:00 [code = FALLS RISK Medical C enter SCREENING] Future Scheduled 2003-07-[address] [facility] - Test 00:00:00 WELLNESS (YEAR 2 or Medical Center FIRST YEAR if no IPPE) [code = MEDICARE ANNUAL WELLNESS (YEAR 2 or FIRST YEAR if no IPPE)] Future Scheduled 2002 PNEUMOCOCCAL 65+ YRS [facility] - Test 00:00:00 (1 of 1 - [facility] [id number] PCV13) [code = PNEUMOCOCCAL 65+ YRS (1 of 1 - [id number] PCV13)] Future Scheduled 1987 SHINGLES VACCINES ([address] [facility] - Test 00:00:00 of 2) [code = SHINGLES Medic sd Center VACCINES (1 of 2)] Future Scheduled 1956 DTAP/TDAP/TD VACCINES [facility] Test 00:00:00 (1 - Tdap) [code = Medical C enter DTAP/TDAP/TD VACCINES (1 - Tdap)] Medication 2021-04-22 fluticasone propionate [facility] (FLONASE) [address] [place] [address] mcg/actuation nasal spray [code = 8969079] Encounters Start End Encounter Admission Attending Care Care Encounter Source Date/Time Date/Time Type Type Clinicians Facility Department ID 2021-04-15 2021-04-21 [facility]ina Chapp[facility] [id number] [facility] 11:06:00 13:38:00 Encounter Ruchi Milton - [facility] 2021-04-16 2021-04-[address] [facility] [id number] [facility] [facility] 13:27:00 16:40:00 Event Stefan Menjivar [facility] 2021-04-16 2021-04-16 Surgery Camilo, [facility] [id number] 13:00:00 16:20:00 Damaris [facility] 2021-04-15 2021-04-15 Travel [facility] [id number] [facility] 00[facility]00 [facility] 2020-11-13 2020-11-13 Outpatient ALEJANDRO CAMPA MDA MDA [id number] 13:06:17 14:29:34 RODRIGUEZ sandhu 2020-11-13 2020-11-13 Outpatient ALEJANDRO CAMPA MDA MDA [id number] 11:48:05 11:48:05 RODRIGUEZ sandhu 2020-06-22 2020-06-22 Outpatient ALEJANDRO CAMPA MDA MDA [id number] 00:00:00 00:00:00 RODRIGUEZ sandhu 2020-05-22 2020-05-22 Outpatient ALEJANDRO CAMPA MDA MDA [id number] 00:00:00 00:00:00 RODRIGUEZ sandhu 2018-05-01 2018-05-01 [facility] [id number] [facility] 14:00:00 14:00:00 [facility] ent Clinics 2018-04-20 2018-04-20 [facility] [id number] 08:30:00 08:30:00 [facility] 2018-04-05 2018-04-05 [facility] [id number] 09:00:00 09:00:00 [facility] Results Test Description Test Time Test Comments Results Result Comments Source POC-Glucose meter 2021-04-21 11:51:00 Test Item Value Reference Range Interpretation Comme nts POC-Glucose Meter (test code = 162 mg/dL 70-110 H : TESTED AT [facility] [address] [facility] 1538) [place], [address]: [employer] Chief/Techni ac ID = [id number] for Susy Landa Lab Interpretation (test code = Abnormal 66252-5) [facility] [id number] 11:51:00 Test Item Value Reference Range Interpretation Comments POC-GLUCOSE METER 162 mg/dL 70-110 H : TESTED A T [facility] [address] (BEAKER) (test code = [facility], 1538) [address]: [employer] Chief/Techni ac ID = [id number] for Susy Elena POCT-GLUCOSE [id number] 08:09:00 Test Item Value Reference Range Interpretation Comments POC-GLUCOSE METER 104 mg/dL 70-110 : TESTED A T [facility] [address] (BEAKER) (test code = [facility], 1538) [address]: [employer] Chief/Techni ac ID = [id number] for ELBA PEREIRA SARS-CoV2/RT-PCR (Asymptomatic ONLY)2021-04-20 23:44:00 Test Item Value Reference Range Interpretation Comments SARS-COV2/RT-PCR (test Negative Negative code = 71608-5) CHUYITA (test code = CHUYITA) Negative result for this test determines that SARS-CoV-2 RNA was not present in the specimen above the Limit of Detection (LOD). However, Negative results do not preclude SARS-CoV-2 infection and should not be used as the sole basis for treatment or patient management decisions. Negative results must be combined with clinical observations, patient history, and epidemiological information. A false negative result may occur if a specimen is improperly collected, transported, or handled. A false negative result should be considered if patient's recent exposures or clinical presentation indicate that COVID-19 (SARS-CoV-2) is likely and diagnostic tests for other causes of illness are negative. Re-testing should be considered in cases of suspected false negatives. The limit of detection for this assay is 100 copies/mL. This SARS-CoV-2 test is a real-time RT_PCR test intended for the qualitative detection of nucleic acid from SARS-CoV-2 in a nasopharyngeal swab specimen collected from individuals suspected of COVID-19 by their healthcare provider. This test has not been Food and Drug Administration (FDA) cleared or approved. This is a modified version of an approved Emergency Use Authorization (EUA) and is in the process of review by the FDA. Once authorized by the FDA, the issued EUA will be effective until the declaration that circumstances exist justifying the authorization of the emergency use of in vitro diagnostic tests for detection and/or diagnosis of COVID-19 is terminated under Section 564(b)(2) of the Act or the EUA is revoked under Section 564(g) of the Act. Testing was performed using the [employer] SARS-CoV-2 assay. Fact Sheet for Healthcare Providers:https://www.dinah barone[employer]ents [employer]eugenio/RT SARS-CoV-2 HCP Fact Sheet 51-576695.pdf Fact Sheet for Healthcare Patients:https://www.madeline josueBenefitter/eugenio/RT SARS-CoV-2 Patient Fact Sheet EN 51-925622B6.pdf Lab Interpretation Normal (test code = 48676-3) [facility] ([facility] & REF LABS)2021-04-20 23:44:00 Test Item Value Reference Range Interpretation Comments SARS-COV2/RT-PCR (test code = Negative Negative [id number]) Negative result for this test determines that SARS-CoV-2 RNA was not present in the specimen above the Limit of Detection (LOD). However, Negative results do not preclude SARS-CoV-2 infection and should not be used as the sole basis for treatment or patient management decisions. Negative results must be combined with clinical observations, patient history, and epidemiological information. A false negative result may occur if a specimen is improperly collected, transported, or handled. A false negative result should be considered if patient's recent exposures or clinical presentation indicate that COVID-19 (SARS-CoV-2) is likely and diagnostic tests for other causes of illness are negative. Re-testing should be considered in cases of suspected false negatives.The limit of detection for this assay is 100 copies/mL.This SARS-CoV-2 test is a real-time RT_PCR test intended for the qualitative detection of nucleic acid from SARS-CoV-2 in a nasopharyngeal swab specimen collected from individuals suspected of COVID-19 by their healthcare provider.This test has not been Food and Drug Administration (FDA) cleared or approved. This is a modified version of an approved Emergency Use Authorization (EUA) and is in the process of review by the FDA. Once authorized by the FDA, the issued EUA will be e ffective until the declaration that circumstances exist justifying the authorization of the emergency use of in vitro diagnostic tests for detection and/or diagnosis of COVID-19 is terminated under Section 564(b)(2) of the Act or the EUA is revoked under Section 564(g) of the Act.Testing was performedusing the [employer] SARS-CoV-2 assay.Fact Sheet for Healthcare Providers:https://www.molecular.guerrero/eugenio/RT SARS-CoV-2 HCP Fact Sheet 51- 291425.pdfFact Sheet for Healthcare Patients:https://www.Wowboard.[employer]eugenio/RT SARS-CoV-2 Patient Fact Sheet EN 51-450294G0.pdfPOCT-GLUCOSE [id number] 21:58:00 Test Item Value Reference Range Interpretation Comments POC-GLUCOSE METER 134 mg/dL 70-110 H : TESTED A T [facility] [address] (BEAKER) (test code = [facility], 1538) [address]: [employer] Chief/Techni ac ID = [id number] for ON UOHA, LUIS POCT-GLUCOSE [id number] 16:44:00 Test Item Value Reference Range Interpretation Comments POC-GLUCOSE METER 120 mg/dL 70-110 H : TESTED A T [facility] [address] (BEAKER) (test code = [facility], 1538) [address]: [employer] Chief/Techni ac ID = [id number] for ME PAUL SEOREUNKA JENNIFE R POCT-GLUCOSE [id number] 11:44:00 Test Item Value Reference Range Interpretation Comments POC-GLUCOSE METER 152 mg/dL 70-110 H : TESTED A T [facility] [address] (BEAKER) (test code = [facility], 1538) [address]: [employer] Chief/Techni ac ID = [id number] for ME TINOEZ BAEZ, JENNIFE R POCT-GLUCOSE [id number] 08:11:00 Test Item Value Reference Range Interpretation Comments POC-GLUCOSE METER 133 mg/dL 70-110 H : TESTED A T [facility] [address] (BEAKER) (test code = [facility], 153) [address]: [employer] Chief/Techni ac ID = [id number] for KRIS ALBARRANFE R POCT-GLUCOSE [id number] 21:22:00 Test Item Value Reference Range Interpretation Comments POC-GLUCOSE METER 109 mg/dL 70-110 : TESTED A T [facility] [address] (BEAKER) (test code = [facility], 153) [address]: [employer] Chief/Techni ac ID = [id number] for ON UOHA, LUIS POCT-GLUCOSE [id number] 16:40:00 Test Item Value Reference Range Interpretation Comments POC-GLUCOSE METER 110 mg/dL 70-110 : TESTED A T [facility] [address] (BEAKER) (test code = [facility], 153) [address]: [employer] Chief/Techni ac ID = [id number] for KRIS ALBARRANFE R POCT-GLUCOSE [id number] 11:18:00 Test Item Value Reference Range Interpretation Comments POC-GLUCOSE METER 91 mg/dL 70-110 : TESTED A T [facility] [address] (BEAKER) (test code = [facility], 153) [address]: [employer] Battalion Chief/Techni ac ID = [id number] for CHARLES PSON, KEN POCT-GLUCOSE [id number] 07:45:00 Test Item Value Reference Range Interpretation Comments POC-GLUCOSE METER 93 mg/dL 70-110 : TESTED A T [facility] [address] (BEAKER) (test code = [facility], 153) [address]: [employer] Chief/Techni ac ID = [id number] for CHARLES PSON, KEN POCT-GLUCOSE [id number] 21:49:00 Test Item Value Reference Range Interpretation Comments POC-GLUCOSE METER 138 mg/dL 70-110 H : TESTED A T [facility] [address] (BEAKER) (test code = [facility], 153) [address]: [employer] Chief/Techni ac ID = [id number] for Xochilt Burrows POCT-GLUCOSE [id number] 16:16:00 Test Item Value Reference Range Interpretation Comments POC-GLUCOSE METER 151 mg/dL 70-110 H : TESTED A T [facility] [address] (BEAKER) (test code = [facility], 1538) [address]127: [employer] Chief/Techni ac ID = [id number] for SE MIEN, HENRY POCT-GLUCOSE [id number] 12:04:00 Test Item Value Reference Range Interpretation Comments POC-GLUCOSE METER 108 mg/dL 70-110 : TESTED A T [facility] [address] (BEAKER) (test code = [facility], 1538) [address]: Fire Battalion Chief/Techni ac ID = [id number] for SE MIEN, HENRY POCT-GLUCOSE [id number] 08:44:00 Test Item Value Reference Range Interpretation Comments POC-GLUCOSE METER 132 mg/dL 70-110 H : TESTED A T [facility] [address] (BEAKER) (test code = [facility], 1538) [address]: [employer] Chief/Techni ac ID = [id number] for SE MITERESA, HENRY POCT-GLUCOSE [id number] 21:30:00 Test Item Value Reference Range Interpretation Comments POC-GLUCOSE METER 153 mg/dL 70-110 H : TESTED A T [facility] [address] (BEAKER) (test code = [facility], 1538) [address]: [employer] Chief/Techni ac ID = [id number] for Sue olvera Xochilt POCT-GLUCOSE [id number] 16:16:00 Test Item Value Reference Range Interpretation Comments POC-GLUCOSE METER 151 mg/dL 70-110 H : TESTED A T [facility] [address] (BEAKER) (test code = [facility], 1538) 78[address]: [employer] Chief/Techni ac ID = [id number] for SE HANNA, HENRY POCT-GLUCOSE [id number] 11:38:00 Test Item Value Reference Range Interpretation Comments POC-GLUCOSE METER 179 mg/dL 70-110 H : TESTED A T [facility] [address] (BEAKER) (test code = [facility], 1538) 165[address]: [employer] Chief/Techni ac ID = [id number] for SE MITERESA, HENRY POCT-GLUCOSE [id number] 07:49:00 Test Item Value Reference Range Interpretation Comments POC-GLUCOSE METER 160 mg/dL 70-110 H : TESTED A T [facility] [address]20 (BEAKER) (test code = [facility], 1538) [address]: Fire Battalion Chief/Techni ac ID = [id number] for HENRY HILL Basic metabolic [id number] 04:44:00 Test Item Value Reference Range Interpretation Comments Sodium (test code = 136 meq/L 025-649 6862-2) Potassium (test code = 4.9 meq/L 3.5-5.1 2823-3) Chloride (test code = 106 meq/L 98-107 2075-0) CO2 (test code = 23 meq/L 22-29 2028-9) BUN (test code = 23 mg/dL 7-21 H 3094-0) Creatinine (test code 0.81 mg/dL 0.57-1.25 = 2160-0) Glucose (test code = 184 mg/dL 70-105 H 2345-7) Calcium (test code = 7.7 mg/dL 8.4-10.2 L 98178-3) EGFR (test code = 68 mL/min/1.73 [place] [address]-4) NOT ACCURATE CREATININE CLEARANCE IN PREDICTING GLOMERULAR FILTRATION RATE . ESTIMATED GFR I S NOT APPLICABLE FOR DIALYSIS PATIENTS. CHUYITA (test code = CHUYITA) Fire Battalion Chief ID - RENUKA M Lab Interpretation Abnormal (test code = 99660-1) [facility] METABOLIC [id number] 04:44:00 Test Item Value Reference Range Interpretation Comments SODIUM (BEAKER) 136 meq/L 136-145 (test code = 381) POTASSIUM (BEAKER) 4.9 meq/L 3.5-5.1 (test code = 379) CHLORIDE (BEAKER) 106 meq/L 98-107 (test code = 382) CO2 (BEAKER) (test 23 meq/L 22-29 code = 355) BLOOD UREA NITROGEN 23 mg/dL 7-21 H (BEAKER) (test code = 354) CREATININE (BEAKER) 0.81 mg/dL 0.57-1.25 (test code = 358) GLUCOSE RANDOM 184 mg/dL 70-105 H (BEAKER) (test code = 652) CALCIUM (BEAKER) 7.7 mg/dL 8.4-10.2 L (test code = 697) EGFR (BEAKER) (test 68 mL/min/1.73 ESTIMA JASVIR GFR IS code = 1092) sq m NOT ACCURATE CREATININE CLEARANCE IN PREDICTING GLOMERULAR FILTRATION RATE . ESTIMATED GFR I S NOT APPLICABLE FOR DIALYSIS PATIEN TS. Fire Battalion Chief ID - RENUKA MCBC with platelet count + automated [id number] 04:12:00 Test Item Value Reference Range Interpretation Comments WBC (test code = 6690-2) 10.6 See_Comment H [A utomated message] The system [employer] generated this result transmitted ref erence range: 3.5 - 10 .5 K/L. The refe rence range was not u sed to interpret this result as normal/abnor mal. RBC (test code = 789-8) 2.78 See_Comment L [Au tomated message] The system [employer] generated this result transmitted ref erence range: 3.93 - 5 .22 M/L. The refe rence range was not u sed to interpret this result as normal/abnor mal. MCHC (test code = 786-4) 31.4 See_Comment L [A utomated message] The system [employer] generated this result transmitted ref erence range: 32.2 - 3 5.5 GM/DL. The refe rence range was not u sed to interpret this result as normal/abnor mal. Hematocrit (test code = 27.1 % 34.1-44.9 L 4544-3) MCV (test code = 787-2) 97.5 fL 79.4-94.8 H MCH (test code = 785-6) 30.6 pg 25.6-32.2 RDW (test code = 788-0) 13.7 % 11.7-14.4 Platelets (test code = 189 See_Comment [Aut omated message] 777-3) The system [employer] generated this result transmitted ref erence range: 150 - 45 0 K/CU MM. The referen ce range was not u sed to interpret this result as normal/abnor mal. MPV (test code = 10.1 fL 9.4-12.3 11940-3) nRBC (test code = 413) 0 See_Comment [Aut omated message] The system [employer] generated this result transmitted ref erence range: 0 - 0 /1 00 WBC. The refere nce range was not u sed to interpret this result as normal/abnor mal. % Neutros (test code = 87 % 429) % Lymphs (test code = 5 % 430) % Monos (test code = 8 % 431) % Eos (test code = 432) 0 % % Baso (test code = 437) 0 % # Neutros (test code = 9.18 See_Comment H [Aut omated message] 670) The system [employer] generated this result transmitted ref erence range: 1.56 - 6 .13 K/L. The refe rence range was not u sed to interpret this result as normal/abnor mal. # Lymphs (test code = 0.47 See_Comment L [Auto mated message] 414) The system [employer] generated this result transmitted ref erence range: 1.18 - 3 .74 K/L. The refe rence range was not u sed to interpret this result as normal/abnor mal. # Monos (test code = 0.86 See_Comment H [Autom ated message] 415) The system [employer] generated this result transmitted ref erence range: 0.24 - 0 .36 K/L. The refe rence range was not u sed to interpret this result as normal/abnor mal. # Eos (test code = 416) 0.00 See_Comment L [Au tomated message] The system [employer] generated this result transmitted ref erence range: 0.04 - 0 .36 K/L. The refe rence range was not u sed to interpret this result as normal/abnor mal. # Baso (test code = 417) 0.01 See_Comment [A utomated message] The system [employer] generated this result transmitted ref erence range: 0.01 - 0 .08 K/L. The refe rence range was not u sed to interpret this result as normal/abnor mal. Immature 0 % 0-1 Granulocytes-Relative (test code = 2801) Lab Interpretation (test Abnormal code = 93210-6) [facility] W/PLT COUNT & AUTO [id number] 04:12:00 Test Item Value Reference Range Interpretation Comments WHITE BLOOD CELL COUNT (BEAKER) 10.6 K/ L 3.5-10.5 H (test code = 775) RED BLOOD CELL COUNT (BEAKER) 2.78 M/ L 3.93-5.22 L (test code = 761) HEMOGLOBIN (BEAKER) (test code = 8.5 GM/DL 11.2-15.7 L 410) HEMATOCRIT (BEAKER) (test code = 27.1 % 34.1-44.9 L 411) MEAN CORPUSCULAR VOLUME (BEAKER) 97.5 fL 79.4-94.8 H (test code = 753) MEAN CORPUSCULAR HEMOGLOBIN 30.6 pg 25.6-32.2 (BEAKER) (test code = 751) MEAN CORPUSCULAR HEMOGLOBIN CONC 31.4 GM/DL 32.2-35.5 L (BEAKER) (test code = 752) RED CELL DISTRIBUTION WIDTH 13.7 % 11.7-14.4 (BEAKER) (test code = 412) PLATELET COUNT (BEAKER) (test 189 K/CU MM 150-450 code = 756) MEAN PLATELET VOLUME (BEAKER) 10.1 fL 9.4-12.3 (test code = 754) NUCLEATED RED BLOOD CELLS 0 /100 WBC 0-0 (BEAKER) (test code = 413) NEUTROPHILS RELATIVE PERCENT 87 % (BEAKER) (test code = 429) LYMPHOCYTES RELATIVE PERCENT 5 % (BEAKER) (test code = 430) MONOCYTES RELATIVE PERCENT 8 % (BEAKER) (test code = 431) EOSINOPHILS RELATIVE PERCENT 0 % (BEAKER) (test code = 432) BASOPHILS RELATIVE PERCENT 0 % (BEAKER) (test code = 437) NEUTROPHILS ABSOLUTE COUNT 9.18 K/ L 1.56-6.13 H (BEAKER) (test code = 670) LYMPHOCYTES ABSOLUTE COUNT 0.47 K/ L 1.18-3.74 L (BEAKER) (test code = 414) MONOCYTES ABSOLUTE COUNT (BEAKER) 0.86 K/ L 0.24-0.36 H (test code = 415) EOSINOPHILS ABSOLUTE COUNT 0.00 K/ L 0.04-0.36 L (BEAKER) (test code = 416) BASOPHILS ABSOLUTE COUNT (BEAKER) 0.01 K/ L 0.01-0.08 (test code = 417) IMMATURE GRANULOCYTES-RELATIVE 0 % 0-1 PERCENT (BEAKER) (test code = 2801) POCT-GLUCOSE [id number] 21:45:00 Test Item Value Reference Range Interpretation Comments POC-GLUCOSE METER 188 mg/dL 70-110 H : TESTED A T [facility] 6720 (SALVADOR) (test code = VIELKA Perez [facility], 1538) [address]: Fire Battalion Chief/Techni ac ID = [id number] for Xochilt Burrows POCT-GLUCOSE [id number] 17:17:00 Test Item Value Reference Range Interpretation Comments POC-GLUCOSE METER 129 mg/dL 70-110 H : Notified RN/MD: (SALVADOR) (test code = TESTED AT [facility] 6720 1538) [place] [facility], [address]: Fire Battalion Chief/Techni ac ID = [id number] for Lucy Arredondo [place], FLUORO, NON-SPECIFIC, UP TO 1 [id number] 15:55:00Reason for exam:- >RIGHT HIP IM NAIL PLACEMENT VS HIP REPL[facility] : 1935 Sex: FFluoroscopic unit utilized for a procedure performed in the OR. No interpretation was requested. Refer to the operative report for findings. Refer to PACS for patient radiation dose information.FL fluoro non-specific up to 1 [id number] 15:55:00 Interface, External Ris In - 04/16/2021 5:29 PM CDTFluoroscopic unit utilized for a procedure performed in the OR. No interpretation was requested. Refer to the operative report for findings. Referto PACS for patient radiation dose information.[facility] HospitalCalcium, [id number] 15:23:00 Test Item Value Reference Range Interpretation Comments Calcium, Ion (test code = 1993-3) 1.03 mmol/L 1.12-1.27 L pH, Blood (test code = 51147-6) 7.43 Lab Interpretation (test code = Abnormal 90970-2) [facility] HospitalHGB/HCT (H&H)-Stat [id number] 15:23:00 Test Item Value Reference Range Interpretation Comments Hemoglobin (test code = 9.9 See_Comment L [Au tomated message] 786-4) The system [employer] generated this result transmitted ref erence range: 12.0 - 1 5.0 GM/DL. The refe rence range was not u sed to interpret this result as normal/abnor mal. Hematocrit (test code = 29.0 % 36-45 L 4544-3) Lab Interpretation (test Abnormal code = 29483-6) [facility] HospitalGlucose-Stat [id number] 15:23:00 Test Item Value Reference Range Interpretation Comments Glucose (test code = 2345-7) 130 mg/dL 70-110 H Lab Interpretation (test code = Abnormal 14933-2) [facility] Na[facility]Stat [id number] 15:23:00 Test Item Value Reference Range Interpretation Comments Sodium (test code = 2951-2) 134 meq/L 136-145 L Lab Interpretation (test code = Abnormal 13496-8) [facility] HospitalBlood gas, [id number] 15:23:00 Test Item Value Reference Range Interpretation Comments pH, Arterial (test code 7.43 7.35-7.45 = 2744-1) pCO2, Arterial (test 33 See_Comment L [Autom ated code = 2019-8) message] The system which generated this result transmitted reference range : 35 - 45 mm Hg. The reference range was not used to interpret this result as normal/abnormal . pO2, Arterial (test 123 See_Comment H [Automa jasvir code = 2703-7) message] The system which generated this result transmitted reference range : 80 - 90 mm Hg. The reference range was not used to interpret this result as normal/abnormal . O2 Sat, Arterial (test 98.5 % 96-97 H code = 2708-6) HCO3, Arterial (test 22 mmol/L 21-29 code = 1960-4) Base Excess, Arterial -2.2 mmol/L -2-3 L (test code = 1925-7) Patient Temperature 37.1 (test code = 8310-5) FIO2 (test code = 1819) 50 Lab Interpretation Abnormal (test code = 93503-6) [facility] HospitalCALCIUM, [id number] 15:23:00 Test Item Value Reference Range Interpretation Comments CALCIUM IONIZED (BEAKER) (test 1.03 mmol/L 1.12-1.27 L code = 698) PH, BLOOD (BEAKER) (test code = 7.43 1810) BLOOD GAS, [id number] 15:23:00 Test Item Value Reference Range Interpretation Comments PH ARTERIAL (BEAKER) (test code = 7.43 7.35-7.45 383) PCO2 ARTERIAL (BEAKER) (test code 33 mm Hg 35-45 L = 384) PO2 ARTERIAL (BEAKER) (test code 123 mm Hg 80-90 H = 385) O2 SATURATION ARTERIAL (BEAKER) 98.5 % 96.0-97.0 H (test code = 386) HCO3 ARTERIAL (BEAKER) (test code 22 mmol/L 21-29 = 388) BASE EXCESS ARTERIAL (BEAKER) -2.2 mmol/L -2.0-3.0 L (test code = 387) PATIENT TEMPERATURE (BEAKER) 37.1 (test code = 1818) FIO2 (BEAKER) (test code = 1819) 50.0 SODIUM NA-STAT [id number] 15:23:00 Test Item Value Reference Range Interpretation Comments SODIUM (BEAKER) (test code = 381) 134 meq/L 136-145 L GLUCOSE-STAT [id number] 15:23:00 Test Item Value Reference Range Interpretation Comments GLUCOSE RANDOM (BEAKER) (test code 130 mg/dL 70-110 H = 652) HGB/HCT (H&H) - STAT [id number] 15:23:00 Test Item Value Reference Range Interpretation Comments HEMOGLOBIN (BEAKER) (test code = 9.9 GM/DL 12.0-15.0 L 410) HEMATOCRIT (BEAKER) (test code = 29.0 % 36.0-45.0 L 411) Potassium-Stat [id number] 15:21:00 Test Item Value Reference Range Interpretation Comments Potassium (test code = 2823-3) 3.9 meq/L 3.6-5.5 Lab Interpretation (test code = Normal 93605-8) [facility] HospitalPOTASSIUM-STAT [id number] 15:21:00 Test Item Value Reference Range Interpretation Comments POTASSIUM (BEAKER) (test code = 3.9 meq/L 3.6-5.5 379) POCT-GLUCOSE [id number] 11:53:00 Test Item Value Reference Range Interpretation Comments POC-GLUCOSE METER 90 mg/dL 70-110 : TESTED A T [facility] 6720 (BEAKER) (test code = [facility], 1538) [address]: Fire Battalion Chief/Techni ac ID = [id number] for Dianna Jimenez POCT-GLUCOSE [id number] 06:45:00 Test Item Value Reference Range Interpretation Comments POC-GLUCOSE METER 127 mg/dL 70-110 H : TESTED A T [facility] 6720 (BEAKER) (test code = [facility], 1538) [address]: Fire Battalion Chief/Techni ac ID = [id number] for Odessa Gutierrez BASIC METABOLIC [id number] 05:36:00 Test Item Value Reference Range Interpretation Comments SODIUM (BEAKER) (test 134 meq/L 136-145 L code = 381) POTASSIUM (BEAKER) 4.4 meq/L 3.5-5.1 (test code = 379) CHLORIDE (BEAKER) 101 meq/L 98-107 (test code = 382) CO2 (BEAKER) (test 26 meq/L 22-29 code = 355) BLOOD UREA NITROGEN 20 mg/dL 7-21 (BEAKER) (test code = 354) CREATININE (BEAKER) 0.89 mg/dL 0.57-1.25 (test code = 358) GLUCOSE RANDOM 133 mg/dL 70-105 H (BEAKER) (test code = 652) CALCIUM (BEAKER) 8.8 mg/dL 8.4-10.2 (test code = 697) EGFR (BEAKER) (test INSUFFIC IENT CLINICAL code = 1092) DATA TO CALCULA TE ESTIMATED GFR. Fire Battalion Chief ID - DBCBC W/PLT COUNT & AUTO [id number] 05:08:00 Test Item Value Reference Range Interpretation Comments WHITE BLOOD CELL COUNT (BEAKER) 9.8 K/ L 3.5-10.5 (test code = 775) RED BLOOD CELL COUNT (BEAKER) 3.39 M/ L 3.93-5.22 L (test code = 761) HEMOGLOBIN (BEAKER) (test code = 10.6 GM/DL 11.2-15.7 L 410) HEMATOCRIT (BEAKER) (test code = 32.3 % 34.1-44.9 L 411) MEAN CORPUSCULAR VOLUME (BEAKER) 95.3 fL 79.4-94.8 H (test code = 753) MEAN CORPUSCULAR HEMOGLOBIN 31.3 pg 25.6-32.2 (BEAKER) (test code = 751) MEAN CORPUSCULAR HEMOGLOBIN CONC 32.8 GM/DL 32.2-35.5 (BEAKER) (test code = 752) RED CELL DISTRIBUTION WIDTH 13.9 % 11.7-14.4 (BEAKER) (test code = 412) PLATELET COUNT (BEAKER) (test 211 K/CU MM 150-450 code = 756) MEAN PLATELET VOLUME (BEAKER) 10.2 fL 9.4-12.3 (test code = 754) NUCLEATED RED BLOOD CELLS 0 /100 WBC 0-0 (BEAKER) (test code = 413) NEUTROPHILS RELATIVE PERCENT 73 % (BEAKER) (test code = 429) LYMPHOCYTES RELATIVE PERCENT 13 % (BEAKER) (test code = 430) MONOCYTES RELATIVE PERCENT 12 % (BEAKER) (test code = 431) EOSINOPHILS RELATIVE PERCENT 1 % (BEAKER) (test code = 432) BASOPHILS RELATIVE PERCENT 0 % (BEAKER) (test code = 437) NEUTROPHILS ABSOLUTE COUNT 7.11 K/ L 1.56-6.13 H (BEAKER) (test code = 670) LYMPHOCYTES ABSOLUTE COUNT 1.31 K/ L 1.18-3.74 (BEAKER) (test code = 414) MONOCYTES ABSOLUTE COUNT (BEAKER) 1.22 K/ L 0.24-0.36 H (test code = 415) EOSINOPHILS ABSOLUTE COUNT 0.11 K/ L 0.04-0.36 (BEAKER) (test code = 416) BASOPHILS ABSOLUTE COUNT (BEAKER) 0.02 K/ L 0.01-0.08 (test code = 417) IMMATURE GRANULOCYTES-RELATIVE 0 % 0-1 PERCENT (BEAKER) (test code = 2801) Type and screen, [id number] 21:58:00 Test Item Value Reference Range Interpretation Comments ABO/RH AUTOMATED (BEAKER) (test O POSITIVE code = 2260) Ab Scrn (test code = 890-4) NEGATIVE [facility] HospitalPOCT-GLUCOSE [id number] 21:20:00 Test Item Value Reference Range Interpretation Comments POC-GLUCOSE METER 142 mg/dL 70-110 H : TESTED A T [facility] 6720 (BEAKER) (test code = VIELKA nAa [facility], 1538) [address]: Fire Battalion Chief/Techni ac ID = [id number] for GR AHAM, LINH TSH/Free T4 If [id number] 18:48:00 Test Item Value Reference Range Interpretation Comments TSH (test code = 1.577 See_Comment [Automated 74191-3) message] The system which generated this result transmit jasvir reference range : 0.350 - 4.940 uIU/mL. The reference range was not used to interpret this result as normal/abnormal . CHUYITA (test code = CHUYITA) Fire Battalion Chief ID - DB Lab Interpretation Normal (test code = 68387-1) [facility] HospitalVitamin B12 and [id number] 18:48:00 Test Item Value Reference Range Interpretation Comments Vitamin B12 (test 202 pg/mL 213-816 L code = 2132-9) Folate (test code = 14.20 ng/mL See_Comment [Automa jasvir 2284-8) message] The system which generated this result transmit jasvir reference range : >=7.00. The reference range was not used to interpret this result as normal/abnormal . CHUYITA (test code = CHUYITA) Fire Battalion Chief ID - DB Lab Interpretation Abnormal (test code = 22996-7) [facility] HospitalFerritin2021-09-02 18:48:00 Test Item Value Reference Range Interpretation Comments Ferritin (test code = 141.85 ng/mL 5-275 2276-4) CHUYITA (test code = CHUYITA) Fire Battalion Chief ID - DB Lab Interpretation (test Normal code = 25359-8) [facility] HospitalFERRITIN2021-09-02 18:48:00 Test Item Value Reference Range Interpretation Comments FERRITIN (BEAKER) (test code = 141.85 ng/mL 5.00-275.00 361) Fire Battalion Chief ID - DBTSH/FREE T4 IF [id number] 18:48:00 Test Item Value Reference Range Interpretation Comments THYROID STIMULATING HORMONE 1.577 uIU/mL 0.350-4.940 (BEAKER) (test code = 772) Fire Battalion Chief ID - DBVITAMIN B12 AND [id number] 18:48:00 Test Item Value Reference Range Interpretation Comments VITAMIN B12 202 pg/mL 213-816 L (BEAKER) (test code = 774) FOLATE (BEAKER) 14.20 ng/mL See_Comment [Automated message] (test code = 362) The system which generated this result transmitted ref erence range: >=7.00. The reference range was not used to interpr et this result as normal/abnormal . Fire Battalion Chief ID - DBIron, TIBC, % sat. (without ferritin)2021-04-15 18:12:00 Test Item Value Reference Range Interpretation Comments Iron (test code = 2498-4) 15.0 ug/dL 40-160 L TIBC (test code = 2500-7) 301 ug/dL 250-450 Iron % Saturation (test code 5 % 20-55 L = 2502-3) CHUYITA (test code = CHUYITA) Fire Battalion Chief ID - DB Lab Interpretation (test Abnormal code = 38579-7) [facility] HospitalIRON, TIBC, % SAT. (WITHOUT FERRITIN)2021-04-15 18:12:00 Test Item Value Reference Range Interpretation Comments IRON (BEAKER) (test code = 547) 15.0 ug/dL 40.0-160.0 L TOTAL IRON BINDING CAPACITY 301 ug/dL 250-450 (BEAKER) (test code = 769) IRON % SATURATION (2) (BEAKER) 5 % 20-55 L (test code = 2590) Fire Battalion Chief ID - DBABORH, [id number] 18:09:00 Test Item Value Reference Range Interpretation Comments ABO Grouping (test code = 2588) O Rh Factor (test code = 2589) POS [facility]2D Echo W/O Doppler(No Doppler)2021-04-15 18:05:37 Ejection FractionSLEH ECHO HEARTLAB MKCKESSON CPACSInterface, External Ris In - 04/15/2021 6:05 PM TTransthoraclinton [facility] Echocardi[facility] Report (TTE) Demographics Patient Name SAEID LAST Date ofStudy 04/15/2021 MARGO Gender Female Visit Number [id number] Race Number [id number] Number Date of 1935 Referring Ruchi Milton MD Physician Age 85 year(s) 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 Normal left ventricular chamber size. Normal wall thickness, except for mild basal septal hypertrophy. No apparent segmental wall motion abnormalities. LVEF by Rinaldi's method of disk assessment is normal (>60%) . Grade 1 diastolic dysfunction (impaired relaxation and low-normal LA pressure). LA size is normal . 2. The right ventricular cavity size is normal . Normal right ventricular systolic function. RA size is normal. Estimated peak systolic PA pressure is 25-30 mmHg (normal range) . 3. Mild tricuspid regurgitation. Previous Study No prior studies available for comparison. Signature Findings Left Ventricle Normal left ventricular chamber size. Normal wall thickness. No apparent segmental wall motion abnormalities. LVEF by Rinaldi's method of disk assessment is normal (>60%) . Grade 1 diastolic dysfunction (impaired relaxation and low-normal LA pressure). Left Atrium LA size is normal . Right Ventricle The right ventricular cavity size is normal . Normal right ventricular systolic function. Right Atrium RA size is normal. Atrial Septum Normal intera trial septum by available views. Aortic Valve Mild AoV cusp thickening. There is trace aortic regurgitation. Mitral Valve Mild MV leaflet thickening. Trace mitral regurgitation. Tricuspid Valve Mild tricuspid regurgitation. Estimated peak systolic PA pressure is 25-30 mmHg (normal range) . Pulmonic Valve Normal PV structure and function by limited views and Doppler. Aorta Aortic root size (SInus of Valsalva diameter) is normal . Pericardium No pericardial effusion is visualized. IVC/SVC/PA/PV/Pleural The estimated RA pressure by IVC dynamics 0-5mmHg . Chambers/Structures Left Atrium LA Dimen clint: 3.4 cm LA Area: 19.94 cm^2 LA Volume: 47.58 ml LA Vol. Index: 24 ml/m^2 Left Ventricle LVIDd: 4.86 cm LVEDV:115 ml LV Septum Diastolic: 0.78 cm LV PW Diastolic: 1.01 cm LVEDV Rinaldi's:77.34 ml LVESV Rinaldi's:30.2 ml LVEF Rinaldi's: 67 % LVEDVI: 39 ml/m^2 LVESVI: 15 ml/m^2 LVOT Diameter: 1.95 cm Right Atrium RA Area: 15.52 cm^2 Right Ventricle RV Diast Dim.: 2.86 cm TAPSE: 2.48 cm RVOT VTI: 17.4 cm Aorta AoRoot S of Ysabel.: 3.01 cm Doppler/Quantitative Measurements Mitral Valve MV Peak E-Wave: 0.45 m/s MV Peak A-Wave: 0.65 m/s P1/2t: 55 msec E/A Ratio: 0.69 Peak Gradient: 0.8 mmHg Deceleration Time: 195.8 msec MV Area (PHT): 4 cm^2 MV Mika. Peak: Tissue Doppler E' Septal Velocity: 0.06 m/s E/E': 7.44 E' Lateral Velocity: 0.07 m/s Aortic Valve Peak Velocity: 1.3 m/s Mean Velocity: 0.94 m/s Peak Gradient: 6.74 mmHg Mean Gradient: 3.98 mmHg AV Area (continuity): 3.27 cm^2 AV VTI: 26.5 cm AV DVI: 1.09 LVOT Peak Velocity: 1.2 m/s Peak Gradient: 6 mmHg Mean Velocity: 0.88 m/s Mean Gradient: 3 mmHg LVOT Diameter: 1.95 cm LVOT VTI: 29 cm LVOT Area: 2.99 cm^2 LVOT SV:86.56 ml LVOT CO: 6.75 l/min LVOT CI: 3.39 l/min/m^2 RVOT RVOT VTI (PW): 15.07 cm Tricuspid Valve TR Velocity: 2.48 m/s TR Gradient: 24.69 mmHgCHI Children'S Hospital And Health CenterPOCT- GLUCOSE [id number] 16:58:00 Test Item Value Reference Range Interpretation Comments POC-GLUCOSE METER 144 mg/dL 70-110 H : TESTED A T [facility] 6720 (SALVADOR) (test code = VIELKA DANG [place], 1538) [address]: Fire Battalion Chief/Techni ac ID = [id number] for CA PAUL BAEZ, KRISNOBLE R RAD, FEMUR, MIN. 2 VIEWS, [id number] 16:42:00AP and lateral of right femurReason for exam:->righrt femur fracture [facility] 1935 Sex: FFINAL REPORT History: Right foot and hip pain. FINDINGS: Right foot series, three views: Multiple views of the right foot show mildly displaced obliquely oriented fracture through the fifth metatarsal. Other visible bones appear intact without fractures. Moderate degenerative changes of the first metatarsal-phalangeal joint are present. Mild metatarsus primus varus hallux valgus deformity of the great toe is present. Bones are diffusely osteopenic. Moderate soft tissue swelling is seen dorsally and surrounding the fracture site. Right hip series, two views: AP and lateral views of the right hip show moderately displaced intertrochanteric fracture of the proximal right femur with varus angulation. Bones are diffusely osteopenic. Surrounding soft tissues are swollen but otherwise unremarkable. Pelvis, single view: Single AP view of the pelvis shows the moderately displaced and angulated intertrochanteric fracture the proximal right femur. Other visible bones of the pelvis including the left hip appear intact. Mild degenerative changes of the hip joints are noted. Surrounding soft tissues are unremarkable. Right femur series, two views: AP and lateral views of the right femur show moderately displaced angulated trochanteric fracture of the proximal right femur.There are no other visible fractures or acute bone abnormalities. No lytic or blastic bone lesions. Bones are diffusely osteopenic. Alignment appears normal. 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 Surrounding soft tissues are unremarkable. IMPRESSION: 1. Moderately displaced and angulated intertrochanteric fracture of the proximal right femur. 2. Diffuse osteopenia. 3. Mildly displaced obliquely oriented fracture of the right fifth metatarsal. 4. Moderate degenerative changes of the first metatarsal-phalangeal joint with a mild metatarsus primus varus/hallux valgus deformity of the right great toe. Signed: Azael Isaac MDReport Verified Date/Time: 04/15/2021 16:42:38 Reading Location: [facility] Diagnostic Imaging Reading Room [place] [address] 1.310.12 Electronicallysigned by: AZAEL ISAAC M.D. on 04/15/2021 04:42 PMRAD, FOOT, MIN 3 VIEWS, [id number] 16:42:00Reason for exam:->right foot fracture [facility]ST : 1935 Sex: FFINAL REPORT History: Right foot and hip pain. FINDINGS: Right foot series, three views: Multiple views of the right foot show mildly displaced obliquely oriented fracture through the fifth metatarsal. Other visible bones appear intact without fractures. Moderate degenerative changes of the first metatarsal-phalangeal joint are present. Mild metatarsus primus varus hallux valgus deformity of the great toe is present. Bones are diffusely osteopenic. Moderate soft tissue swelling is seen dorsally and surrounding the fracture site. Right hip series, two views: AP and lateral views of the right hip show moderately displaced intertrochanteric fracture of the proximal right femur with varus angulation. Bones are diffusely osteopenic. Surrounding soft tissues are swollen but otherwise unremarkable. Pelvis, single view: Single AP view of the pelvis shows the moderately displaced and angulated intertrochanteric fracture the proximal right femur. Other visible bones of the pelvis including the left hip appear intact. Mild degenerative changes of the hip joints are noted. Surrounding soft tissues are unremarkable. Right femur series, two views: AP and lateral views of the right femur show moderately displaced angulated trochanteric fracture of the proximal right femur.There are no other visible fractures or acute bone abnormalities. No lytic or blastic bone lesions. Bones are diffusely osteopenic. Alignment appears normal. 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 Surrounding soft tissues are unremarkable. IMPRESSION: 1. Moderately displaced and angulated intertrochanteric fracture of the proximal right femur. 2. Diffuse osteopenia. 3. Mildly displaced obliquely oriented fracture of the right fifth metatarsal. 4. Moderate degenerative changes of the first metatarsal-phalangeal joint with a mild metatarsus primus varus/hallux valgus deformity of the right great toe. Signed: Azael Isaac MDReport Verified Date/Time: 04/15/2021 16:42:38 Reading Location: [facility] Diagnostic Imaging [place] [address] 1.310.12 Electronicallysigned by: AZAEL ISAAC M.D. on 04/15/2021 04:42 PMRAD, HIP, 2- 3 VIEWS, RIGHT, TO INCL PELVIS WHEN [id number] 16:42:00AP and cross lateral of right hipReason for exam:->right femur fracture [facility] 1935 Sex: FFINAL REPORT History: Right foot and hip pain. FINDINGS: Right foot series, three views: Multiple views of the right foot show mildly displaced obliquely oriented fracture through the fifth metatarsal. Other visible bones appear intact without fractures. Moderate degenerative changes of the first metatarsal-phalangeal joint are present. Mild metatarsus primus varus hallux valgus deformity of the great toe is present. Bones are diffusely osteopenic. Moderate soft tissue swelling is seen dorsally and surrounding the fracture site. Right hip series, two views: AP and lateral views of the right hip show moderately displaced intertrochanteric fracture of the proximal right femur with varus angulation. Bones are diffusely osteopenic. Surrounding soft tissues are swollen but otherwise unremarkable. Pelvis, single view: Single AP view of the pelvis shows the moderately displaced and angulated intertrochanteric fracture the proximal right femur. Other visible bones of the pelvis including the left hip appear intact. Mild degenerative changes of the hip joints are noted. Surrounding soft tissues are unremarkable. Right femur series, two views: AP and lateral views of the right femur show moderately displaced angulated trochanteric fracture of the proximal right femur.There are no other visible fractures or acute bone abnormalities. No lytic or blastic bone lesions. Bones are diffusely osteopenic. Alignment appears normal. 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 Surrounding soft tissues are unremarkable. IMPRESSION: 1. Moderately displaced and angulated intertrochanteric fracture of the proximal right femur. 2. Diffuse osteopenia. 3. Mildly displaced obliquely oriented fracture of the right fifth metatarsal. 4. Moderate degenerative changes of the first metatarsal-phalangeal joint with a mild metatarsus primus varus/hallux valgus deformity of the right great toe. Signed: Azael Isaac MDReport Verified Date/Time: 04/15/2021 16:42:38 Reading Location: [facility] Diagnostic Imaging Reading Room - [facility] 1.310.12 Electronicallysigned by: AZAEL ISAAC M.D. on 04/15/2021 04:42 PMXR hip 2 views [id number] 16:42:00Interface, External Ris In - 04/15/2021 4:44 PM CDTFINAL REPORT History: Right foot and hip pain. FINDINGS: Right foot series, three views: Multiple views of the right foot show mildly displaced obliquely oriented fracture through the fifth metatarsal. Other visible bones appear intact without fractures. Moderate degenerative changes of the first metatarsal-phalangeal joint are present. Mild metatarsus primus varus hallux valgus deformity of the great toe is present. Bones are diffusely osteopenic. Moderate soft tissue swelling is seen dorsally and surrounding the fracture site. Right hip series, two views: AP and lateral views of the right hip show moderately displaced intertrochanteric fracture of the proximal right femur with varus angulation. Bones are diffusely osteopenic. Surrounding soft tissues are swollen but otherwise unremarkable. Pelvis, single view: Single AP view of the pelvis shows the moderately displaced and angulated intertrochanteric fracture the proximal right femur. Other visible bones of the pelvis including the left hip appear intact. Mild degenerative changes of the hip joints are noted. Surrounding soft tissues are unremarkable. Right femur series, two views: AP and lateral views of the right femur show moderately displaced angulated trochanteric fracture of the proximal right femur. There are no other visible fractures or acute bone abnormalities. No lytic or blastic bone lesions. Bones are diffusely osteopenic. Alignment appears normal. Moderate degenerative osteoarthritis of the right knee joint is also seen. Surrounding soft tissues areunremarkable. IMPRESSION: 1. Moderately displaced and angulated intertrochanteric fracture of the proximal right femur. 2. Diffuse osteopenia. 3. Mildly displaced obliquely oriented fracture of the right fifth metatarsal. 4. Moderate degenerative changes of the first metatarsal-phalangeal joint with a mild metatarsus primus varus/hallux valgus deformity of the right great toe. Signed: Azael Isaaceport Verified Date/Time: 04/15/2021 16:42:38 Reading Location: [facility] Diagnostic Imaging Reading Room - [facility] 1.310.12 [facility] [id number] 16:42:00Interface, External Ris In - 04/15/2021 4:44 PM CDTFINAL REPORT History: Right foot and hip pain. FINDINGS: Right foot series, three views: Multiple views of the right foot showmildly displaced obliquely oriented fracture through the fifth metatarsal. Other visible bones appear intact without fractures. Moderate degenerative changes of the first metatarsal-phalangeal joint are present. Mild metatarsus primus varus hallux valgus deformity of the great toe is present. Bones are diffusely osteopenic. Moderate soft tissue swelling is seen dorsally and surrounding the fracture site. Right hip series, two views: AP and lateral views of the right hip show moderately displaced inte rtrochanteric fracture of the proximal right femur with varus angulation. Bones are diffusely osteopenic. Surrounding soft tissues are swollen but otherwise unremarkable. Pelvis, single view: Single APview of the pelvis shows the moderately displaced and angulated intertrochanteric fracture the proximal right femur. Other visible bones of the pelvis including the left hip appear intact. Mild degenerative changes of the hip joints are noted. Surrounding soft tissues are unremarkable. Right femur series, two views: AP and lateral views of the right femur show moderately displaced angulated trochanteric fracture of the proximal right femur. There are no other visible fractures or acute bone abnormalities. No lytic or blastic bone lesions. Bones are diffusely osteopenic. Alignment appears normal. Moderate degenerative osteoarthritis of the right knee joint is also seen. Surrounding soft tissues areunremarkable. IMPRESSION: 1. Moderately displaced and angulated intertrochanteric fracture of the proximal right femur. 2. Diffuse osteopenia. 3. Mildly displaced obliquely oriented fracture of the right fifth metatarsal. 4. Moderate degenerative changes of the first metatarsal-phalangeal joint with amild metatarsus primus varus/hallux valgus deformity of the right great toe. Signed: Azael Isaacluz Verified Date/Time: 04/15/2021 16:42:38 Reading Location: [facility] Diagnostic Imaging Reading Room - [facility] 1.310.12 [facility] right 2021-04-15 16:42:00Interface, External Ris In - 04/15/2021 4:44 PM CDTFINAL REPORT History: Right foot and hip pain. FINDINGS: Right foot series, three views: Multiple views of the right foot showmildly displaced obliquely oriented fracture through the fifth metatarsal. Other visible bones appear intact without fractures. Moderate degenerative changes of the first metatarsal-phalangeal joint are present. Mild metatarsus primus varus hallux valgus deformity of the great toe is present. Bones are diffusely osteopenic. Moderate soft tissue swelling is seen dorsally and surrounding the fracture si te. Right hip series, two views: AP and lateral views of the right hip show moderately displaced intertrochanteric fracture of the proximal right femur with varus angulation. Bones are diffusely osteopenic. Surrounding soft tissues are swollen but otherwise unremarkable. Pelvis, single view: Single APview of the pelvis shows the moderately displaced and angulated intertrochanteric fracture the proximal right femur. Other visible bones of the pelvis including the left hip appear intact. Mild degenerative changes of the hip joints are noted. Surrounding soft tissues are unremarkable. Right femur series, two views: AP and lateral views of the right femur show moderately displaced angulated trochanter ic fracture of the proximal right femur. There are no other visible fractures or acute bone abnormalities. No lytic or blastic bone lesions. Bones are diffusely osteopenic. Alignment appears normal. Moderate degenerative osteoarthritis of the right knee joint is also seen. Surrounding soft tissues areunremarkable. IMPRESSION: 1. Moderately displaced and angulated intertrochanteric fracture of the proximal right femur. 2. Diffuse osteopenia. 3. Mildly displaced obliquely oriented fracture of the right fifth metatarsal. 4. Moderate degenerative changes of the first metatarsal-phalangeal joint with amild metatarsus primus varus/hallux valgus deformity of the right great toe. Signed: Azael Isaac MD Report Verified Date/Time: 04/15/2021 16:42:38 Reading Location: [facility] Diagnostic Imaging Reading Room - [facility] 1.310.12 [facility]EC[facility] [id number] 16:02:22Interface, External Ris In - 04/15/2021 4:02 PM CDTVentricular Rate 77 BPMAtrial Rate 77 BPMP-R Interval 182 msQRS Duration 92 msQ-T Interval 400 msQTC Calculation(Bazett) 452 msP [place] 69 degreesR [place] 25 degreesT [place] 75 degreesNormal sinus rhythmNormal ECGNo previous ECGs availableConfirmed by MD Gillespie Roberto ([id number]) on 04/15/2021 4:02:19 PM [facility] HospitalLipid [id number] 13:28:00 Test Item Value Reference Range Interpretation Comments Triglycerides (test 67 mg/dL code = 2571-8) Cholesterol (test code 130 mg/dL = 2093-3) HDL (test code = 63 mg/dL 5-9) LDL Calculated (test 54 mg/dL code = 36795-1) CHUYITA (test code = CHUYITA) Triglyceride Reference Range: Low Risk <150 Borderline 150-199 High Risk 200-499 Very High Risk >=500 Cholesterol Reference Range: Low Risk <200 Borderline 200-239 High Risk >240 HDL Cholesterol Reference Range: Low Risk >=60 High Risk <40 LDL Cholesterol Reference Range: Optimal <100 Near Optimal 100-129 Borderline 130-159 High 160-189 Very High >=190 [employer] ID - AAHAMID [facility] HospitalLIPID [id number] 13:28:00 Test Item Value Reference Range Interpretation Comments TRIGLYCERIDES (BEAKER) (test code = 67 mg/dL 540) CHOLESTEROL (BEAKER) (test code = 130 mg/dL 631) HDL CHOLESTEROL (BEAKER) (test code 63 mg/dL = 976) LDL CHOLESTEROL CALCULATED (BEAKER) 54 mg/dL (test code = 633) Triglyceride Reference Range: Low Risk <150 Borderline 150-199 High Risk 200-499 Very High Risk >=500Cholesterol Reference Range: Low Risk <200 Borderline 200-239 High Risk >240HDL Cholesterol Reference Range: Low Risk >=60 High Risk <40LDL Cholesterol Reference Range: Optimal <100 Near Optimal 100-129 Borderline 130-159 High 160-189 Very High >=190 [employer] Chief ID - AAHAMIDHemoglobin [id number] 13:19:00 Test Item Value Reference Range Interpretation Comments Hemoglobin A1C (test code = 4548-4) 6.2 % 4.3-6.1 H Lab Interpretation (test code = Abnormal 03029-6) [facility] HospitalHEMOGLOBIN [id number] 13:19:00 Test Item Value Reference Range Interpretation Comments HEMOGLOBIN A1C (BEAKER) (test code = 6.2 % 4.3-6.1 H 368) BASIC METABOLIC [id number] 13:08:00 Test Item Value Reference Range Interpretation Comments SODIUM (BEAKER) (test 135 meq/L 136-145 L code = 381) POTASSIUM (BEAKER) 4.6 meq/L 3.5-5.1 (test code = 379) CHLORIDE (BEAKER) 102 meq/L 98-107 (test code = 382) CO2 (BEAKER) (test 25 meq/L 22-29 code = 355) BLOOD UREA NITROGEN 20 mg/dL 7-21 (BEAKER) (test code = 354) CREATININE (BEAKER) 0.85 mg/dL 0.57-1.25 (test code = 358) GLUCOSE RANDOM 161 mg/dL 70-105 H (BEAKER) (test code = 652) CALCIUM (BEAKER) 8.8 mg/dL 8.4-10.2 (test code = 697) EGFR (BEAKER) (test INSUFFIC IENT CLINICAL code = 1092) DATA TO CALCULA TE ESTIMATED GFR. [employer] Chief ID - [id number] 13:06:00 Test Item Value Reference Range Interpretation Comments Magnesium (test code = 1.5 mg/dL 1.6-2.6 L 66102-1) CHUYITA (test code = CHUYITA) [employer] Chief ID - AAMAYID Lab Interpretation (test Abnormal code = 41685-5) [facility] HospitalAlbumin2021-09-02 13:06:00 Test Item Value Reference Range Interpretation Comments Albumin (test code = 3.6 g/dL 3.5-5 13239-8) CHUYITA (test code = CHUYITA) [employer] Chief ID - NEDA Lab Interpretation (test Normal code = 83475-1) [facility] HospitalMAGNESIUM2021-09-02 13:06:00 Test Item Value Reference Range Interpretation Comments MAGNESIUM (BEAKER) (test code = 1.5 mg/dL 1.6-2.6 L 627) [employer] Chief ID - [id number] 13:06:00 Test Item Value Reference Range Interpretation Comments ALBUMIN (BEAKER) (test code = 1145) 3.6 g/dL 3.5-5.0 [employer] Chief ID - NEDAProthrombin time/[id number] 12:49:00 Test Item Value Reference Interpretation Comments Range Protime (test code = 13.6 See_Comment [Autom ated 6140-2) message] The system which generated this result transmitted reference range : 11.9 - 14.2 seconds. The reference range was not used to interpret this result as normal/abnormal . INR (test code = 1.06 See_Comment [Automated 8600-6) message] The system which generated this result transmitted reference range : <=5.90. The reference range was not used to interpret this result as normal/abnormal . CHUYITA (test code = RECOMMENDED CHUYITA) COUMADIN/WARFARIN INR THERAPY RANGESSTANDARD DOSE: 2.0 - 3.0 Includes: PROPHYLAXIS for venous thrombosis, systemic embolization; TREATMENT for venous thrombosis and/or pulmonary embolus.HIGH RISK: Target INR is 2.5-3.5 for patients with mechanical heart valves. Lab Interpretation Normal (test code = 20887-8) [facility] HospitalPROTHROMBIN TIME/[id number] 12:49:00 Test Item Value Reference Range Interpretation Comments PROTIME (BEAKER) 13.6 seconds 11.9-14.2 (test code = 759) INR (BEAKER) (test 1.06 See_Comment [Automat ed message] code = 370) The system [employer] h generated this result transmitted ref erence range: <=5.90. The reference range was not used to int erpret this result as normal/abnormal . RECOMMENDED COUMADIN/WARFARIN INR THERAPY RANGESSTANDARD DOSE: 2.0 - 3.0 Includes: PROPHYLAXIS forvenous thrombosis, systemic embolization; TREATMENT for venous thrombosis and/or pulmonary embolus.HIGH RISK: Target INR is 2.5-3.5 for patients with mechanical heart valves.CBC W/PLT COUNT & AUTO DIFFERENTIAL 2021-04-15 12:49:00 Test Item Value Reference Range Interpretation Comments WHITE BLOOD CELL COUNT (BEAKER) 10.0 K/ L 3.5-10.5 (test code = 775) RED BLOOD CELL COUNT (BEAKER) 3.51 M/ L 3.93-5.22 L (test code = 761) HEMOGLOBIN (BEAKER) (test code = 10.8 GM/DL 11.2-15.7 L 410) HEMATOCRIT (BEAKER) (test code = 33.9 % 34.1-44.9 L 411) MEAN CORPUSCULAR VOLUME (BEAKER) 96.6 fL 79.4-94.8 H (test code = 753) MEAN CORPUSCULAR HEMOGLOBIN 30.8 pg 25.6-32.2 (BEAKER) (test code = 751) MEAN CORPUSCULAR HEMOGLOBIN CONC 31.9 GM/DL 32.2-35.5 L (BEAKER) (test code = 752) RED CELL DISTRIBUTION WIDTH 13.8 % 11.7-14.4 (BEAKER) (test code = 412) PLATELET COUNT (BEAKER) (test 193 K/CU MM 150-450 code = 756) MEAN PLATELET VOLUME (BEAKER) 10.2 fL 9.4-12.3 (test code = 754) NUCLEATED RED BLOOD CELLS 0 /100 WBC 0-0 (BEAKER) (test code = 413) NEUTROPHILS RELATIVE PERCENT 86 % (BEAKER) (test code = 429) LYMPHOCYTES RELATIVE PERCENT 5 % (BEAKER) (test code = 430) MONOCYTES RELATIVE PERCENT 9 % (BEAKER) (test code = 431) EOSINOPHILS RELATIVE PERCENT 0 % (BEAKER) (test code = 432) BASOPHILS RELATIVE PERCENT 0 % (BEAKER) (test code = 437) NEUTROPHILS ABSOLUTE COUNT 8.55 K/ L 1.56-6.13 H (BEAKER) (test code = 670) LYMPHOCYTES ABSOLUTE COUNT 0.50 K/ L 1.18-3.74 L (BEAKER) (test code = 414) MONOCYTES ABSOLUTE COUNT (BEAKER) 0.86 K/ L 0.24-0.36 H (test code = 415) EOSINOPHILS ABSOLUTE COUNT 0.01 K/ L 0.04-0.36 L (BEAKER) (test code = 416) BASOPHILS ABSOLUTE COUNT (BEAKER) 0.01 K/ L 0.01-0.08 (test code = 417) IMMATURE GRANULOCYTES-RELATIVE 0 % 0-1 PERCENT (BEAKER) (test code = 2801)
[2021-04-21] MEDS ORDERED: POLYETHYL GLY 3350 17 GM/DOSE PO PRN (15:14)
[2021-04-21] MEDS ORDERED: ACETAMIN/CAFFEINE/BUTALB TAB PO PRN (15:19)
[2021-04-21] MEDS ORDERED: D50W 25 GM/50 ML SYRINGE IV PRN (15:33)
[2021-04-21] MEDS ORDERED: GLUCAGON 1 MG/VIAL IM PRN (15:33)
[2021-04-21] MEDS: OXYCODONE HCL 5 MG TAB PO PRN ×2 (15:59→22:15)
[2021-04-21] MEDS: INSULIN -REGULAR HUMAN 50 UNIT/0.5 ML ML SQ SCH ×2 (16:30→19:37)
[2021-04-21] MEDS: methocarbamoL 750 MG TAB PO PRN (18:52)
[2021-04-21] MEDS: ACETAMINOPHEN 500 MG TAB PO SCH (18:53)
[2021-04-21] MEDS: DOCUSATE NA/SENNA CONC 1 TAB PO SCH (18:56)
[2021-04-21] MEDS: APIXABAN 2.5 MG TABLET PO SCH (19:24)
[2021-04-21] MEDS: MESALAMINE 500 MG CAPSULE.ER PO SCH (19:25)
[2021-04-21] MEDS: MELATONIN 3 MG TABLET PO PRN (19:36)
[2021-04-21] MEDS: EZETIMIBE 10 MG TAB PO SCH (19:36)
[2021-04-21] MEDS: ATORVASTATIN 20 MG TAB PO SCH (19:37)
[2021-04-21] MEDS: VERAPAMIL SR 240 MG TABLET PO SCH (20:01)
[2021-04-21 22:42] LABS: Urine Appearance CLOUDY (Clear); Urine Bilirubin NEGATIVE (Negative); Urine Blood NEGATIVE (Negative); Urine Color YELLOW (Yellow); Urine Glucose NEGATIVE (Negative); Urine Protein NEGATIVE (Negative); Urine Specific Gravity 1.015 (1.005-1.030); Urine Urobilinogen 0.2 mg/dL (0.2-1.0)
--- NOTE | 2021-04-21 23:13 | CON ---
Date of consultation: 04/21/2021 Reason For Consultation: Medical management. History Of Present Illness: Ms. Severino is a very pleasant 85-year-old patient of mine who fell down at home and was brought into emergency room, had fracture of the right femur and we did not have any orthopedic surgeon on-call, so she was transferred to [facility] in [place] past week on . Patient had surgery done and postoperatively she did very well. No complications reported and she was brought in to our inpatient rehab for rehab therapy and was admitted under care of Dr. Potter and I was consulted for medical management. I saw her this evening. Allergies: CODEINE, CAUSING HALLUCINATION AND HYDRALAZINE, CAUSING RASH. Medications: Current medication list reviewed. Outpatient medication list includes ProAir inhaler 2 puffs 4 times a day as needed, albuterol/Atrovent nebulizer treatment 4 times a day as needed, allopurinol 300 mg daily, alprazolam 1 mg at bedtime as needed for sleep, amitriptyline 50 mg at bedtime, azelastine nasal spray, diclofenac 50 mg daily with food as needed for arthritis pain, indomethacin 75 mg daily as needed for gout, Vytorin 10/40 mg 1 tablet by mouth daily, irbesartan 300 mg p.o. daily, lansoprazole 30 mg p.o. daily, levothyroxine 112 mcg p.o. daily, Xyzal 5 mg p.o. daily, Pentasa 500 mg extended release capsule 2 times a day, metformin 500 mg extended release tablet daily in evening with evening meal, montelukast 10 mg p.o. daily, tramadol 50 mg 4 times a day as needed for pain, Anoro Ellipta inhaler 1 puff daily, and verapamil 240 mg extended release tablet daily. Review of Systems: Musculoskeletal: Right hip pain, right knee pain, and right foot pain. All other systems reviewed and negative. Past Medical History: Significant for type 2 diabetes mellitus, mild persistent asthma, hypertension, hyperlipidemia, gastroesophageal reflux disease, diverticulosis, osteoarthritis at multiple sites, gout, and anemia. Past Surgical History: Cataract surgery, hysterectomy, and recent surgery for right femur fracture. Family History: Father , had emphysema. Mother , had myocardial infarction, hypertension, and breast cancer. Sister , had DE and aneurysm. Social History: Negative for smoking, alcohol use. Physical Examination: Vital Signs: Upon admission, temperature 97.2, pulse 75, respiratory rate 16, blood pressure 136/52, oxygen saturation 99%, height 5 feet 8 inches, weight 187 pounds. General: Awake, alert, oriented, not in distress. HEENT: Head atraumatic, normocephalic. Conjunctivae nonerythematous. Sclerae white. Mouth, no thrush or edema noted. Ears/Nose, no mass, lesion, discharge noted. Neck: Supple. No JVD, lymph nodes, bruit, thyromegaly noted. Lungs: Bilateral good equal air entry. Clear to auscultation. No rhonchi. No rales. Heart: Normal heart sounds, no murmur or gallop. Abdomen: Soft, bowel sounds normal. No guarding, rigidity, tenderness, mass, hepatosplenomegaly, distention, or bruit noted. Extremities: Right lower extremity has grade 1 pedal edema and surgical dressing present over the right lateral hip. Skin: No rash, ulcer, cellulitis. Lymphatics: No lymph node enlargement in neck, supraclavicular, infraclavicular region. Neuro: No focal neurological deficit. Chest: Unremarkable. External Genitalia: Deferred. Rectal: Deferred. Laboratory Data: Available lab results from outside hospital reviewed. Impression: 1. Right hip intertrochanteric fracture, s/p surgery. 2. Acute blood loss anemia. 3. Mild persistent asthma. 4. Hypertension. 5. Type 2 diabetes mellitus. 6. Hyperlipidemia. 7. Osteoarthritis, multiple sites. 8. Gastroesophageal reflux disease. 9. Diverticulosis. Plan: Patient was admitted to rehab floor today and she will receive physical therapy under guidance of Dr. Potter. I have reviewed her current medications. She is on DVT prophylaxis with Eliquis. We will continue that. Home medications will be continued per order. Will order venous doppler of lower extremity to be done tomorrow. Patient will have fasting blood work tomorrow morning and I will see her tomorrow for followup. Stool softener will be continued per order. Plan of treatment discussed with her. We will continue her inhaler per order for asthma. SHARONDA/MODL Voice ID: [id number] Report ID: [id number] MTDD
[2021-04-22 00:36] LABS: Urine Bacteria >50 /HPF (<20); Urine RBC NONE SEEN /HPF (NONE SEEN)
[2021-04-22 04:49] LABS: Basophils % 1.1 % (0-1.3); Hematocrit 25.7 % (36.0-45.0); Lymphocytes % 25.4 % (15.3-44.8); MPV 7.8 fL (7.6-11.3); RBC Red Blood Cell Count 2.75 M/uL (3.86-4.86)
[2021-04-22 05:12] LABS: Albumin 2.2 g/dL (3.4-5.0); Magnesium 1.8 mg/dL (1.8-2.4); Potassium 4.6 mmol/L (3.5-5.1); Prealbumin 11.4 mg/dL (20-40)
[2021-04-22] MEDS ORDERED: PANTOPRAZOLE 40MG TABLET PO SCH (06:30)
[2021-04-22] MEDS: LEVOTHYROXINE SOD 0.1 MG TAB PO SCH (06:30)
[2021-04-22] MEDS: INSULIN -REGULAR HUMAN 50 UNIT/0.5 ML ML SQ SCH ×4 (07:22→19:37)
[2021-04-22] MEDS: FLUTICASONE 50MCG NASAL SPRAY NAS SCH (07:59)
[2021-04-22] MEDS ORDERED: VERAPAMIL SR 240 MG TABLET PO SCH (08:00)
[2021-04-22] MEDS: MESALAMINE 500 MG CAPSULE.ER PO SCH (08:00)
[2021-04-22] MEDS ORDERED: DEXLANSOPRAZOLE 60 MG PO SCH (08:00)
[2021-04-22] MEDS: allopurinoL 300 MG TAB PO SCH (08:00)
[2021-04-22] MEDS: METFORMIN HCL 500 MG TAB PO SCH (08:01)
[2021-04-22] MEDS: DOCUSATE NA/SENNA CONC 1 TAB PO SCH ×2 (08:01→19:36)
[2021-04-22] MEDS: MONTELUKAST 10 MG TAB PO SCH (08:02)
[2021-04-22] MEDS: IRBESARTAN 150 MG TAB PO SCH (08:02)
[2021-04-22] MEDS: ACETAMINOPHEN 500 MG TAB PO SCH ×3 (08:02→19:35)
[2021-04-22] MEDS: APIXABAN 2.5 MG TABLET PO SCH ×2 (08:03→19:36)
[2021-04-22] MEDS: ALPRAZOLAM 1 MG TABLET PO SCH (08:03)
[2021-04-22] MEDS: OXYCODONE HCL 5 MG TAB PO PRN ×3 (08:03→15:49)
[2021-04-22] MEDS ORDERED: MESALAMINE 250 MG PO SCH (09:00)
[2021-04-22] MEDS: methocarbamoL 750 MG TAB PO PRN (10:24)
[2021-04-22] MEDS: LIDOCAINE 4% PATCH TOP SCH (14:13)
[2021-04-22] MEDS: MAGNESIUM OXIDE 400 MG TAB PO SCH ×2 (14:15→19:37)
[2021-04-22] MEDS: GABAPENTIN 100 MG CAP PO SCH (14:15)
[2021-04-22] MEDS: CRANBERRY FRUIT EXTRACT 400 MG CAP PO SCH ×2 (15:42→19:33)
[2021-04-22] MEDS ORDERED: ACETAMIN/CAFFEINE/BUTALB TAB PO PRN (15:59)
--- NOTE | 2021-04-22 17:22 | R.HP ---
HISTORY AND PHYSICAL FACILITY: [facility] ENCOUNTER DATE AND TIME: 04/22/2021 17:13 (CDT) MR#: [id number] NAME SAEID LAST ADDRESS: [address] [place] [address]: [place] STATE: [place] ZIP [id number] PHONE: DATE OF : 1935 AGE: 85 SSN# [id number] GENDER: Female MARITAL STATUS PRE-HOSPITAL LIVING SETTING 01 - Home (private home/apt. board/care, assisted living, alf, transitional living) PRE-HOSPITAL LIVING WITH Family/Relatives ENCOUNTER PHYSICIAN: Dr. Brennan Potter M.D. REFERRING DOCTOR: Ruchi Milton MD DATE OF ADMISSION: 04/21/2021 14:51 (CDT) REFERRING FACILITY [facility] HOME TYPE AND DETAILS: Type of home: single family house # of steps within the residence: 0 # of steps to enter the residence: 0 ONSET DATE: 04/15/2021 PRIMARY DIAGNOSIS-RELATED SURGERIES: Osteosynthesis of Right Intertrochanteric hip fracture using a long cephalomedullary nail HISTORY OF PRESENT ILLNESS (HPI): Pt. is a 85 yo Right-handed female. On 04/15/2021 she was admitted to [facility] with diagnosis R Intertrochanteric Femur fx. Her impairment category is Orthopaedic Disorders 08 - Unilateral Hip Fracture (08.11). Pre-morbidly, Pt. was independent/mod-I in Locomotion, Safety Awareness, Balance, and Social Cognitio n; and she had good Transfers Control, Sphincter Control, Self-Care, Communication, and Endurance. Currently, she has deficits of Locomotion, Safety Awareness, Transfers Control, Self-Care, Endurance, Sphincter Control, and Balance. Pt. is now referred to [facility] for acute in-patient rehabilitation in order to maximize patient's functional independence in activities of daily living, strength, ROM, and mobi lity. Patient has realistic goal of being discharged at assistance level 7-Ind to reside at Home with Fami ly/Relatives. MEDICATION ALLERGIES: CODEINE ENVIRONMENTAL ALLERGIES: - Substance Allergies None Known - Other Allergies None Known PAST MEDICAL HISTORY: HTN Hypothyroidism, unspecified (E03.9) Type 2 diabetes mellitus with unspecified complications (E11.8) Chronic respiratory failure with hypoxia (J96.11) Normocytic Anemia anxiety disorder falls Dizziness and giddiness (R42) chest pain mvp HIATAL HERNIA PAST SURGICAL HISTORY: HYSTERECTOMY 1967 SOCIAL HISTORY: - Home Living Family/Relatives REVIEW OF SYSTEMS: - Gen No Chills No Fatigue No Fever - Eyes No Double Vision No itchiness - ENMT No Difficulty Swallowing - CVS No Chest Discomfort No Chest Pain No Fatigue No Weight Gain - Resp No Cough No Shortness of Breath - GI Continent No Abdominal Pain No Constipation No Diarrhea - Continent No Kidney Pain No Painful Urination No Urinary Urgency - MSK No Joint Pain Muscle Cramps Stiffness - Skin No Itching No Rash No Suspicious Lesions - Neuro Coordination Difficulty No Difficulty with Concentration No Memory Loss No Seizures Weakness - Psych No Anxiety No Depression No HIV Exposure No Persistent Infections No Seasonal Allergies - Endo No Cold/Heat Intolerance No Excessive Hunger No Excessive Thirst No Excessive Urination PHYSICAL EXAM - Gen Alert and awake Lying in bed No apparent distress Oriented to: person, time, and place - Skin No open wound or evidence of breakdown. Edamatous R leg, leg held in external rotation and midly shor tened Normacephalic - Eyes No abnormalities - ENMT No abnormalities - Neck No abnormalities - CVS RRR - Chest No abnormalities - Abd Soft - No abnormalities - Ext Right hip surgical site has good hemostasis. - MSK 4+/5 weakness in right lower extremity - Neuro 4/5 strength right lower extremity. - Psych No abnormalities VITAL SIGNS Temperature: 97.0 F (Oral) Resp: 16 SBP/DBP: 147/54 Pulse: 67 NURSING: - Shower allowing shower - Skin care per protocol PRECAUTIONS: - Weight Bearing Precaution WBAT right LE WITH THE SHOE ACTIVITIES OOB only with supervision QI SCORES: - Self-Care A. Eating 05-Setup or clean-up assistance B. Oral hygiene 03-Partial/moderate assistance C. Toileting hygiene 03-Partial/moderate assistance E. Shower/bathe self 03-Partial/moderate assistance F. Upper body dressing 03-Partial/moderate assistance G. Lower body dressing 03-Partial/moderate assistance H. Putting on/taking off footwear 03-Partial/moderate assistance - Mobility A. Roll left and right 03-Partial/moderate assistance B. Sit to lying 03-Partial/moderate assistance C. Lying to sitting on side of bed 03-Partial/moderate assistance D. Sit to stand 03-Partial/moderate assistance E. Chair/mgi-bv-usryt transfer 03-Partial/moderate assistance F. Toilet transfer 03-Partial/moderate assistance G. Car transfer 88-Not attempted due to medical condition or safety concerns I. Walk 10 feet 04-Supervision or touching assistance J. Walk 50 feet with two turns 88-Not attempted due to medical condition or safety concerns K. Walk 150 feet 88-Not attempted due to medical condition or safety concerns L. Walking 10 feet on uneven surfaces 88-Not attempted due to medical condition or safety concerns N. 4 steps 88-Not attempted due to medical condition or safety concerns O. 12 steps 88-Not attempted due to medical condition or safety concerns P. Picking up object 88-Not attempted due to medical condition or safety concerns R. Wheel 50 feet with two turns 88-Not attempted due to medical condition or safety concerns S. Wheel 150 feet 88-Not attempted due to medical condition or safety concerns - Bladder and Bowel Bladder continence Bowel continence - Endurance Fair - Balance Fair - Safety Awareness Fair CURRENT FUNC. DEFICITS: Self-Care, Mobility, Endurance, Balance, and Safety Awareness MEDICATIONS: - Other See attached MAR (Medication Administration Record) ASSESSMENT: Pt. is a 85 yo Right-handed female.On 04/15/2021 she was admitted to [facility] with diagnosis R Inte rtrochanteric Femur fx.Her impairment category is Orthopaedic Disorders 08 - Unilateral Hip Fracture (08.11).Pre-morbidly, Pt. was independent/mod-I in Locomotion, Safety Awareness, Balance, and Social Cognition; and she had good Transfers Control, Sphincter Control, Self-Care, Communication, and Endu guilherme.Currently, she has deficits of Locomotion, Safety Awareness, Transfers Control, Self-Care, Endu guilherme, Sphincter Control, and Balance.Pt. is now referred to [facility] for the rehabilitation institutee in-patient rehabilitation in order to maximize patient's functional independence in activities of daily living, strength, ROM, and mobility.- Rehab Goal Patient has realistic goal of being discharged at assistance level 7-Ind to reside at Home with Fami ly/Relatives. - Physical Therapy Decreased range of motion - to improve, our physical therapists will perform initial evaluation of pt 's status upon admission and devise an individualized program for increasing patient's Range of Motio n. Gait dysfunction - to improve, our physical therapists will perform initial evaluation of pt's status upon admission and devise an individualized program for Gait Training, and Wheel Chair mobility Having wound - to improve, our physical therapists will perform initial evaluation of pt's status upo n admission and devise an individualized program for Wound Care Inability to transfer - to improve, our physical therapists will perform initial evaluation of pt's s tatus upon admission and devise an individualized program for Bed mobility Need for home safety evaluation - to improve, our physical therapists will perform initial evaluation of pt's status upon admission and devise an individualized program for Home Evaluation Need in caregiver upon discharge - to improve, our physical therapists will perform initial evaluatio n of pt's status upon admission and devise an individualized program for Caregiver Training New precaution - to improve, our physical therapists will perform initial evaluation of pt's status u luis alberto admission and devise an individualized program for Patient precaution education Poor balance - to improve, our physical therapists will perform initial evaluation of pt's status upo n admission and devise an individualized program for Balance Training Poor endurance - to improve, our physical therapists will perform initial evaluation of pt's status u luis alberto admission and devise an individualized program for Endurance Training Weakness - to improve, our physical therapists will perform initial evaluation of pt's status upon ad mission and devise an individualized program for Aquatic Therapy, Neuromuscular Reeducation, and Stre ngthening Achieving independence - to improve, our physical therapists will perform initial evaluation of pt's status upon admission and devise an individualized program for Community Reintegration Activities - Occupational Therapy ADL deficits - to improve, our occupation therapists will perform initial evaluation of pt's status u luis alberto admission and devise an individualized program for Bathing, Bed mobility, Community Reintegration , Cooking, Dressing, Eating, Fine Motor Skills, Grooming, Homemaking, Kitchen Mobility, Laundry, Elizabeth ent Education, Safety Awareness, Splinting - Positioning, Transfers(Toilet, Tub, Shower), and Wheel C hair Management Need for skin care instructor - to improve, our occupation therapists will perform initial evaluation of pt's s tatus upon admission and devise an individualized program for Caregiver Training Weakness - to improve, our occupation therapists will perform initial evaluation of pt's status upon admission and devise an individualized program for Aquatic Therapy, Balance, Endurance, UE ROM, and U E strengthening MEDICAL PLAN: - Anterior Hip Precaution No abduction No active extension No adduction across midline No external rotation No hip flexion >90 degrees No internal rotation - Diet - Liquid Texture Start Regular - Tube Feed Start N/A - Diet Type Start Regular - Posterior Hip Precaution No adduction across midline No external rotation No hip flexion >90 degrees No internal rotation No wheel chair propulsion - Weight Bearing Precaution WBAT right LE WITH THE SHOE - Skin care per protocol - Other See attached MAR (Medication Administration Record) - Diet - Solid Texture Regular - Shower shower DISCHARGE PLAN: - Estimated Length of Stay (days) 14. - Consensus on plan Discharge plan has been discussed with primary caregiver. Patient/Family is in agreement with the bina n. Primary caregiver is in agreement with the plan. - Patient/Family Goals Return home independently. - Planned Living Setting Upon Discharge Home, to live with Family/Relatives. Transitional Living. SIGNATURE PANEL: (CDT)
--- NOTE | 2021-04-22 17:23 | PAPE ---
POST ADMISSION PHYSICIAN EVALUATION PATIENT: [facility] MR# [id number] REFERRING DOCTOR Ruchi Milton MD EVALUATION DATE AND TIME 04/22/2021 17:22 (CDT) NAME SAEID LAST DATE OF 1935 AGE 85 PHONE N# [id number] GENDER female EVALUATING PHYSICIAN Dr. Brennan Potter M.D. ADMISSION DIAGNOSIS: R Intertrochanteric Femur fx ONSET DATE 04/15/2021 POST-ADMISSION FUNCTIONAL/MEDICAL STATUS: - Bladder Same accident frequency: 7-Ind - No accidents in the past 7 days - Bowel Same accident frequency: 7-Ind - No accidents in the past 7 days - Walking Same score based on distance walked: 0(N/A) Same score based on distance walked: 1(<=50ft) - Wheelchair Same score based on distance traveled: 0(N/A) STATUS CHANGE EVALUATION: No change in Functional or Medical Status is identified compared with Pre-Admission screening. PATIENT NEEDS CLOSE MEDICAL SUPERVISION BY A REHABILITATION PHYSICIAN FOR: Coordination of Treatment Team Wound Care Diabetes Management Medical and Co-Morbidity Management PATIENT REQUIRES 24X7 REHAB NURSING FOR MEDICAL AND FUNCTIONAL MGT. OF THE FOLLOWING DEFICITS: Disease Management Medication Management Patient/Family Education Providing Safe Environment Skin Integrity PATIENT REQUIRES INTENSIVE, COORDINATED INTERDISCIPLINARY APPROACH TO REHAB: Arranging Home Equipment/Services Discharge Planning Family Intervention/Training [employer]achute [employer] Supervisor/Case Management LIST OF IDENTIFIED AND POTENTIAL PROBLEMS: Alteration in leisure activities Bladder, Incontinence Bowel, Incontinence Infection, Actual or Potential Mobility Impaired Pain, Alteration in Comfort Self Care Deficit Skin Integrity, Actual or Potential Urinary Tract Infection (UTI), Actual or Potential RISK FOR COMPLICATIONS - Fx R foot fx sustained a week ago. No surgical intervention recommended. - Asthma Hypoxia. - Diabetes Diabetes. - Hypothyroid Hypothyroid. Normocytic Anemia. - Hypertension Hypertension. - N/A Fall Risk. Pneumonia. Skin Breakdown. DVT. - Wound Complications Wound Complications. PATIENT COULD BE AT RISK FOR COMPLICATIONS FROM ADVERSE MEDICAL CONDITIONS DUE TO HIS/HER COMORBIDITI ES AND THE RIGORS OF THE INTENSIVE REHABILLITATION PROGRAM. METHODS OR INTERVENTIONS TO AVOID COMPLIC ATIONS INCLUDE: - Bleeding Assess lab values and manage abnormalities. Nursing to teach precautions for anti-coagulation therapy . Wound to be assessed every shift. - Infection Clinical staff to assess and manage the signs and symptoms of infection including fever, redness, war mth, etc. - Urinary Tract Infection - Falls Patient will be evaluated for Fall Precautions and will be placed on Fall Precautions as indicated pe r protocol. - Skin Breakdown Nursing will assess skin daily using assessment tool and will place on Skin Breakdown Precautions as indicated per protocol. - Pain Clinical staff may employ non-medication methods such as massage, distraction, decrease stimulus, etc . as needed. Clinical staff will assess patient's pain level every shift per protocol to assess and e nsure pain management effectiveness. Medications will be given and the pain level re-assessed. PRELIMINARY PLAN OF CARE: - Physical Therapy Patient needs Physical Therapy for a daily minimum of 1.5 hours at least 5 out of 7 days, to improve: Mobility, Strengthening, Transfers, Stretching, ROM, Endurance, Ability to manage stairs, Gait, and Balance. - Rehabilitation Nursing Patient requires 24x7 Rehabilitation Nursing for: Pain Issues, Identifying and preventing risk factor s, Monitoring and reporting current medical conditions, Assisting with ambulation and transfer, Romulo ting with all ADL-s, Teaching patients about disease process and medications, Family teaching, Provid ing safe environment, Bowel and Bladder Issues, Skin Integrity, and Medication Management. Patient needs Parachute [employer] Supervisor and/or Case Management for: Discharge Planning, Arranging Home Equipmen t or Services, and Family Interventions. - Dietary and Nutrition Services Patient needs Dietary and Nutrition Services for: Adequate Nutrition, Nutritional Supplements, and Nu tritional Education. - Occupational Therapy Patient needs Occupational Therapy for a daily minimum of 1.5 hours at least 5 out of 7 days, to impr ove Activities of Daily Living, including: Eating, Grooming, Bathing, Dressing, Toileting, Toilet Tra nsfers, Community Reintegration, Higher functional activities, Adaptive Equipment, Splinting, Househo ld Tasks, and Other activities as determined. QI SCORES: - Self-Care A. Eating 05-Setup or clean-up assistance B. Oral hygiene 03-Partial/moderate assistance C. Toileting hygiene 03-Partial/moderate assistance E. Shower/bathe self 03-Partial/moderate assistance F. Upper body dressing 03-Partial/moderate assistance G. Lower body dressing 03-Partial/moderate assistance H. Putting on/taking off footwear 03-Partial/moderate assistance - Mobility A. Roll left and right 03-Partial/moderate assistance B. Sit to lying 03-Partial/moderate assistance C. Lying to sitting on side of bed 03-Partial/moderate assistance D. Sit to stand 03-Partial/moderate assistance E. Chair/bfy-qg-nlohv transfer 03-Partial/moderate assistance F. Toilet transfer 03-Partial/moderate assistance G. Car transfer 88-Not attempted due to medical condition or safety concerns I. Walk 10 feet 04-Supervision or touching assistance J. Walk 50 feet with two turns 88-Not attempted due to medical condition or safety concerns K. Walk 150 feet 88-Not attempted due to medical condition or safety concerns L. Walking 10 feet on uneven surfaces 88-Not attempted due to medical condition or safety concerns N. 4 steps 88-Not attempted due to medical condition or safety concerns O. 12 steps 88-Not attempted due to medical condition or safety concerns P. Picking up object 88-Not attempted due to medical condition or safety concerns R. Wheel 50 feet with two turns 88-Not attempted due to medical condition or safety concerns S. Wheel 150 feet 88-Not attempted due to medical condition or safety concerns - Bladder and Bowel Bladder continence Bowel continence - Endurance Fair - Balance Fair - Safety Awareness Fair POTENTIAL FUNCTIONAL GOALS FOR PATIENT TO ACHIEVE BY DISCHARGE: - Safety Precaution Patient will remain free from falls or injury at time of discharge. - Bed Mobility Patient will perform bed mobility at 4-Terri level of assistance. - Transfers Patient will complete transfers from bed to chair at 4-Terri level of assistance. - Mobility Patient will ambulate 150 ft with 4-Terri level of assistance with RW. PATIENT REHAB POTENTIAL Luci LAST is able and expected to receive 3 hours of individualized therapy daily on at least 5 of ev manuel 7 days Luci LAST's prognosis for significant practical improvement within a reasonable period of time appear s Good Expected level of measurable improvement will be of a practical value to Luci LAST's functional capac ity or adaptations to impairments Has a viable Discharge Plan Medically appropriate; condition is sufficiently stable to participate in intensive rehab program DISCHARGE PLAN: - Estimated Length of Stay (days) 14. - Consensus on plan Discharge plan has been discussed with primary caregiver. Patient/Family is in agreement with the bina n. Primary caregiver is in agreement with the plan. - Patient/Family Goals Return home independently. - Planned Living Setting Upon Discharge Home, to live with Family/Relatives. Transitional Living. CONCLUSION ON REHABILITATION NECESSITY: I have evaluated patient's pre-admission functional status and, comparing it to the patient's post-ad mission functional status now, I conclude that the pre-admission assessment was accurate. Patient's c ondition on admission supports the medical necessity of admission to IR[facility]. It is safe to proceed with patient's therapy program. SIGNATURE PANEL: (CDT)
[2021-04-22] MEDS: ATORVASTATIN 20 MG TAB PO SCH (19:35)
[2021-04-22] MEDS: EZETIMIBE 10 MG TAB PO SCH (19:36)
[2021-04-22] MEDS: MESALAMINE 500 MG CAPSULE PO SCH (19:37)
[2021-04-22] MEDS: MELATONIN 3 MG TABLET PO PRN (19:39)
[2021-04-22] MEDS ORDERED: MESALAMINE 500 MG CAPSULE.ER PO SCH (20:00)
[2021-04-22] MEDS: VERAPAMIL SR 240 MG TABLET PO SCH (20:26)
[2021-04-23] MEDS: OXYCODONE HCL 5 MG TAB PO PRN ×4 (04:13→22:26)
--- NOTE | 2021-04-23 06:10 | PN ---
Date of Progress Note: 04/22/2021 Subjective: Patient was seen this morning for followup. No new complaints or problems reported by brian gonzalez. Lying in bed, not in any distress. Objective: Vital Signs: Reviewed. HEENT: Unremarkable. Lungs: Clear to auscultation. Heart: Heart sounds normal. Abdomen: Soft. Bowel sounds normal. No guarding, rigidity, tenderness, or distention. Extremities: No leg edema. Laboratory Data: White count 8, hemoglobin 8.5, platelets 332. Sodium 139, potassium 4.6, chloride 106, bicarb 31, BUN 22, creatinine 0.71, glucose 118. Albumin level 2.2. Impression: 1.Right femur fracture. 2.Acute blood loss anemia. 3.Hypertension. 4.Asthma. 5.Malnutrition, severe. Plan: We will go ahead and continue current medications. Continue current DVT prophylaxis. Nutriti onal supplement like Ensure was encouraged. The patient was also encouraged to eat her meals regular ly and use supplement to help improve her nutritional status. Continue physical therapy under majo turpin of Dr. Potter and continue current pain medications. We will see her tomorrow for followup. SHARONDA/MODL Voice ID: [id number] Report ID: [id number]
[2021-04-23] MEDS: LEVOTHYROXINE SOD 0.1 MG TAB PO SCH (07:25)
[2021-04-23] MEDS: PANTOPRAZOLE 40MG TABLET PO SCH (07:26)
[2021-04-23] MEDS: INSULIN -REGULAR HUMAN 50 UNIT/0.5 ML ML SQ SCH ×4 (07:26→20:00)
[2021-04-23] MEDS: LIDOCAINE 4% PATCH TOP SCH (07:46)
[2021-04-23] MEDS: DOCUSATE NA/SENNA CONC 1 TAB PO SCH ×3 (07:47→19:49)
[2021-04-23] MEDS: CRANBERRY FRUIT EXTRACT 400 MG CAP PO SCH ×2 (07:47→19:49)
[2021-04-23] MEDS: allopurinoL 300 MG TAB PO SCH (07:47)
[2021-04-23] MEDS: GABAPENTIN 100 MG CAP PO SCH (07:47)
[2021-04-23] MEDS: ALPRAZOLAM 1 MG TABLET PO SCH (07:47)
[2021-04-23] MEDS: IRBESARTAN 150 MG TAB PO SCH (07:48)
[2021-04-23] MEDS: APIXABAN 2.5 MG TABLET PO SCH ×2 (07:48→19:49)
[2021-04-23] MEDS: METFORMIN HCL 500 MG TAB PO SCH (07:48)
[2021-04-23] MEDS: MAGNESIUM OXIDE 400 MG TAB PO SCH ×2 (07:48→19:49)
[2021-04-23] MEDS: ACETAMINOPHEN 500 MG TAB PO SCH ×3 (07:49→20:00)
[2021-04-23] MEDS: MONTELUKAST 10 MG TAB PO SCH (07:49)
[2021-04-23] MEDS: FLUTICASONE 50MCG NASAL SPRAY NAS SCH (07:50)
[2021-04-23] MEDS: MESALAMINE 500 MG CAPSULE PO SCH ×2 (07:51→20:13)
[2021-04-23] MEDS ORDERED: GABAPENTIN 100 MG CAP PO SCH (08:00)
--- NOTE | 2021-04-23 09:57 | P.RH.PN ---
Estimated Length of Stay: 14 Expected Discharge Date: 05/04/21 Discharge Disposition Plan: Home Family Support: Yes Intermediate Goal: Mobility, Transfers, Self Care Vital Signs: Last Vital Signs Temp 97.5 F 04/23/21 07:24 Pulse 70 04/23/21 07:48 Resp 18 04/23/21 07:24 BP 149/51 H 04/23/21 07:48 Pulse Ox 95 04/23/21 07:24 Laboratory: Laboratory Last Values WBC 8.00 K/uL (4.3-10.9) 04/22/21 04:31 RBC 2.75 M/uL (3.86-4.86) L D 04/22/21 04:31 Hgb 8.5 g/dL (12.0-15.0) L D 04/22/21 04:31 Hct 25.7 % (36.0-45.0) L D 04/22/21 04:31 MCV 93.3 fL (80-100) 04/22/21 04:31 MCH 30.9 pg (27.0-35.0) 04/22/21 04:31 MCHC 33.1 g/dL (32.0-36.0) 04/22/21 04:31 RDW 14.4 % (12.1-15.2) 04/22/21 04:31 Plt Count 332 K/uL (152-406) D 04/22/21 04:31 MPV 7.8 fL (7.6-11.3) 04/22/21 04:31 Neutrophils % 57.3 % (41.7-73.7) 04/22/21 04:31 Lymphocytes % 25.4 % (15.3-44.8) 04/22/21 04:31 Monocytes % 12.7 % (3.3-12.3) H 04/22/21 04:31 Eosinophils % 3.5 % (0-4.4) 04/22/21 04:31 Basophils % 1.1 % (0-1.3) 04/22/21 04:31 Absolute Neutrophils 4.6 K/uL (1.8-8.0) 04/22/21 04:31 Absolute Lymphocytes 2.0 K/uL (0.7-4.9) 04/22/21 04:31 Absolute Monocytes 1.0 K/uL (0.1-1.3) 04/22/21 04:31 Absolute Eosinophils 0.3 K/uL (0-0.5) 04/22/21 04:31 Absolute Basophils 0.1 K/uL (0-0.5) 04/22/21 04:31 Sodium 139 mmol/L (136-145) 04/22/21 04:31 Potassium 4.6 mmol/L (3.5-5.1) 04/22/21 04:31 Chloride 106 mmol/L (98-107) 04/22/21 04:31 Carbon Dioxide 31 mmol/L (21-32) 04/22/21 04:31 BUN 22 mg/dL (7-18) H 04/22/21 04:31 Creatinine 0.71 mg/dL (0.55-1.3) 04/22/21 04:31 Estimated GFR 79 mL/min (=/>90) L 04/22/21 04:31 Glucose 118 mg/dL (74-106) H 04/22/21 04:31 POC Glucose 104 mg/dL (65-120) 04/23/21 07:08 Calcium 8.4 mg/dL (8.5-10.1) L 04/22/21 04:31 Magnesium 1.8 mg/dL (1.8-2.4) 04/22/21 04:31 Albumin 2.2 g/dL (3.4-5.0) L D 04/22/21 04:31 Prealbumin 11.4 mg/dL (20-40) L 04/22/21 04:31 Urine Color Yellow (Yellow) 04/21/21 22:00 Urine Appearance Cloudy (Clear) 04/21/21 22:00 Urine pH 6.0 (5.0-7.0) 04/21/21 22:00 Ur Specific [place] 1.015 (1.005-1.030) 04/21/21 22:00 Glucose (UA)(Auto) Negative (Negative) 04/21/21 22:00 Urine Ketones Negative (Negative) 04/21/21 22:00 Urine Blood Negative (Negative) 04/21/21 22:00 Urine Nitrite Negative (Negative) 04/21/21 22:00 Urine Bilirubin Negative (Negative) 04/21/21 22:00 Urine Urobilinogen 0.2 mg/dL (0.2-1.0) 04/21/21 22:00 Ur Leukocyte Esterase 1+ (Negative) H 04/21/21 22:00 Urine RBC None seen /HPF (NONE SEEN) 04/21/21 22:00 Urine WBC <5 /HPF (<5) 04/21/21 22:00 Ur Squamous Epith Cells <5 /HPF (NONE SEEN) 04/21/21 22:00 Urine Bacteria >50 /HPF (<20) H 04/21/21 22:00 Urine Culture Reflexed Not needed 04/21/21 22:00 Urine Total Protein Negative (Negative) 04/21/21 22:00 SARS-CoV-2 Rap RNA(RT-PCR) Negative (NEGATIVE) 04/21/21 16:05 Weight: 187 lb Wound Present: Yes Closed Surgical Incision Present: Yes Physician Update: Labs show low Hgb and prealbumin. Start ferrous sulfate and hemocyte plus. UA suggests a UTI cranberry 400 mg twice daily. Walking 75' with standby assistance using a rolling walker. Summary: Patient's care plan and long-term goals have been reviewed and revised as necessary. Please see the Rehabilitation Signature page for all necessary signatures.
--- NOTE | 2021-04-23 14:40 | RAD REPORT ---
EXAM DESCRIPTION: US - Extrem Venous W Compress Ted - 04/23/2021 2:22 pm CLINICAL HISTORY: leg edema COMPARISON: None. TECHNIQUE: Real-time sonographic evaluation of the bilateral lower extremity common femoral, superfi cial femoral, popliteal and posterior tibial veins was performed. FINDINGS: Normal compressibility, flow augmentation, phasic flow and spontaneous flow are identified in the left and right lower extremity common femoral, superficial femoral, popliteal and posterior t ibial veins. No intraluminal filling defects seen. Edema is evident in the subcutaneous fatty tissues of the distal right lower extremity. No abscess or drainable fluid collection. IMPRESSION: No DVT in either lower extremity.
[2021-04-23] MEDS: JUVEN PACKET PO SCH (19:49)
[2021-04-23] MEDS: VERAPAMIL SR 240 MG TABLET PO SCH (19:59)
[2021-04-23] MEDS: ATORVASTATIN 20 MG TAB PO SCH (20:00)
[2021-04-23] MEDS: MELATONIN 3 MG TABLET PO PRN (20:01)
[2021-04-23] MEDS: EZETIMIBE 10 MG TAB PO SCH (20:01)
[2021-04-24] MEDS: LEVOTHYROXINE SOD 0.1 MG TAB PO SCH (06:54)
[2021-04-24] MEDS: INSULIN -REGULAR HUMAN 50 UNIT/0.5 ML ML SQ SCH (07:30)
[2021-04-24] MEDS: LIDOCAINE 4% PATCH TOP SCH (08:17)
[2021-04-24] MEDS: DOCUSATE NA/SENNA CONC 1 TAB PO SCH ×3 (08:18→19:22)
[2021-04-24] MEDS: IRBESARTAN 150 MG TAB PO SCH (08:18)
[2021-04-24] MEDS: FE SULF/FA/VIT B COMP & C TAB PO SCH (08:19)
[2021-04-24] MEDS: CRANBERRY FRUIT EXTRACT 400 MG CAP PO SCH ×2 (08:19→19:09)
[2021-04-24] MEDS: MONTELUKAST 10 MG TAB PO SCH (08:19)
[2021-04-24] MEDS: allopurinoL 300 MG TAB PO SCH (08:20)
[2021-04-24] MEDS: PANTOPRAZOLE 40MG TABLET PO SCH (08:20)
[2021-04-24] MEDS: APIXABAN 2.5 MG TABLET PO SCH ×2 (08:20→19:10)
[2021-04-24] MEDS: FERROUS SULFATE 325 MG TAB PO SCH (08:20)
[2021-04-24] MEDS: METFORMIN HCL 500 MG TAB PO SCH (08:21)
[2021-04-24] MEDS: GABAPENTIN 100 MG CAP PO SCH (08:21)
[2021-04-24] MEDS: ALPRAZOLAM 1 MG TABLET PO SCH ×2 (08:21→19:10)
[2021-04-24] MEDS: ACETAMINOPHEN 500 MG TAB PO SCH ×2 (08:22→14:00)
[2021-04-24] MEDS: FLUTICASONE 50MCG NASAL SPRAY NAS SCH (08:23)
[2021-04-24] MEDS: MESALAMINE 500 MG CAPSULE PO SCH ×2 (08:25→19:10)
[2021-04-24] MEDS: MAGNESIUM OXIDE 400 MG TAB PO SCH ×2 (08:53→19:12)
[2021-04-24] MEDS: JUVEN PACKET PO SCH ×3 (08:56→19:21)
[2021-04-24] MEDS: methocarbamoL 750 MG TAB PO PRN (10:30)
--- NOTE | 2021-04-24 12:25 | PN ---
Date of Progress Note: 04/23/2021 Subjective: The patient was seen this morning. No new complaints or problems reported by her, lying in bed, not in any distress. Objective: Vital Signs: Reviewed. HEENT: Unremarkable. Lungs: Clear to auscultation. Heart: Heart sounds normal. Abdomen: Soft. Bowel sounds normal. No guarding, rigidity, tenderness, or distention. Extremities: No leg edema. Impression: 1.Acute blood loss anemia. 2.Right femur fracture. 3.Hypertension. 4.Asthma. 5.Type 2 diabetes mellitus. Plan: We will continue current medications. Continue to monitor fingerstick blood sugar per order. We will continue current anticoagulation therapy with Eliquis. The patient has leg edema on the rig ht leg likely due to recent surgery, but we will order venous Doppler to rule out DVT. Details of pl an of treatment discussed with her. Leg edema is unchanged from yesterday. SHARONDA/MODL Voice ID: [id number] Report ID: [id number]
--- NOTE | 2021-04-24 12:40 | PN ---
Date of Progress Note: 04/24/2021 Subjective: The patient was seen this morning for followup. No new complaints or problems reported by the patient. She was sitting in wheelchair. Overall, her pain is much better now. She describes her pain in the right lower extremity more like ache. She had a bowel movement yesterday. Objective: Vital Signs: Reviewed. HEENT: Unremarkable. Lungs: Clear to auscultation. Heart: Heart sounds normal. Abdomen: Soft. Bowel sounds normal. No guarding, rigidity, tenderness, or distention. Extremities: No edema on the left leg. Right leg, trace leg edema. Overall, it is better compared to what it was when she first came in. Laboratory Data: Fingerstick blood sugar readings reviewed and they are within normal range and her venous Doppler of lower extremity was negative for DVT. Impression: 1.Right femur fracture. 2.Right leg edema, improved. 3.Acute blood loss anemia. 4.Hypertension. Plan: We will go ahead and continue current pain medications. We will continue current anticoagulat ion and antihypertensive medication. We will see her tomorrow for followup. The patient will contin ue to receive physical therapy under guidance of Dr. Potter. SHARONDA/MODL Voice ID: [id number] Report ID: [id number]
[2021-04-24] MEDS: ACETAMINOPHEN 500 MG TAB PO PRN (15:14)
[2021-04-24] MEDS: MELATONIN 3 MG TABLET PO PRN (19:09)
[2021-04-24] MEDS: EZETIMIBE 10 MG TAB PO SCH (19:09)
[2021-04-24] MEDS: ATORVASTATIN 20 MG TAB PO SCH (19:10)
[2021-04-24] MEDS: VERAPAMIL SR 240 MG TABLET PO SCH (19:12)
[2021-04-25] MEDS: methocarbamoL 750 MG TAB PO PRN ×3 (00:35→22:23)
[2021-04-25] MEDS: ACETAMINOPHEN 500 MG TAB PO PRN ×3 (05:41→12:40)
[2021-04-25] MEDS: LEVOTHYROXINE SOD 0.1 MG TAB PO SCH (06:48)
[2021-04-25] MEDS: DOCUSATE NA/SENNA CONC 1 TAB PO SCH (08:00)
[2021-04-25] MEDS: JUVEN PACKET PO SCH ×2 (08:00→19:50)
[2021-04-25] MEDS: MESALAMINE 500 MG CAPSULE PO SCH ×2 (08:00→19:48)
[2021-04-25] MEDS: METFORMIN HCL 500 MG TAB PO SCH (08:25)
[2021-04-25] MEDS: LIDOCAINE 4% PATCH TOP SCH ×3 (08:25→10:46)
[2021-04-25] MEDS: CRANBERRY FRUIT EXTRACT 400 MG CAP PO SCH ×2 (08:25→19:49)
[2021-04-25] MEDS: FERROUS SULFATE 325 MG TAB PO SCH (08:25)
[2021-04-25] MEDS: MONTELUKAST 10 MG TAB PO SCH (08:26)
[2021-04-25] MEDS: GABAPENTIN 100 MG CAP PO SCH (08:26)
[2021-04-25] MEDS: PANTOPRAZOLE 40MG TABLET PO SCH (08:26)
[2021-04-25] MEDS: APIXABAN 2.5 MG TABLET PO SCH ×2 (08:26→19:52)
[2021-04-25] MEDS: allopurinoL 300 MG TAB PO SCH (08:26)
[2021-04-25] MEDS: FE SULF/FA/VIT B COMP & C TAB PO SCH (08:27)
[2021-04-25] MEDS: FLUTICASONE 50MCG NASAL SPRAY NAS SCH (08:27)
[2021-04-25] MEDS: MAGNESIUM OXIDE 400 MG TAB PO SCH ×2 (08:27→19:49)
[2021-04-25] MEDS: IRBESARTAN 150 MG TAB PO SCH (08:29)
[2021-04-25] MEDS ORDERED: ACETAMINOPHEN 500 MG TAB PO PRN (12:36)
[2021-04-25] MEDS: TRAMADOL HCL 50 MG TAB PO PRN ×2 (17:28→23:09)
--- NOTE | 2021-04-25 18:24 | PN ---
Date of Progress Note: 04/25/2021 Subjective: The patient was seen this morning for followup. No new complaints or problems reported by her. She was sitting in wheelchair. She was little discouraged today just like the way she feels , but otherwise no other specific complaints reported by her. She slept okay last night. Objective: Vital Signs: Reviewed. HEENT: Unremarkable. Lungs: Clear to auscultation. Heart: Sounds normal. Abdomen: Soft. Bowel sounds normal. No guarding, rigidity, tenderness, or distention. Extremities: Grade 1 right leg edema present. Impression: 1.Right femur fracture. 2.Acute blood loss anemia. 3.Right leg edema. 4.Hypertension. 5.Type 2 diabetes mellitus. Plan: We will go ahead and continue current medication. The patient was advised to move her feet wh ile sitting down in the chair or wheelchair and while she is in the bed to keep her leg elevated. Co ntinue current anticoagulation therapy with Eliquis 2 times a day. Continue current antihypertensive medication and pain medication per order. The patient remains on iron supplement. Physical therapy to be provided by guidance of Dr. Potter. I will see her tomorrow for followup. SHARONDA/MODL Voice ID: [id number] Report ID: [id number]
[2021-04-25] MEDS: ATORVASTATIN 20 MG TAB PO SCH (19:48)
[2021-04-25] MEDS: VERAPAMIL SR 240 MG TABLET PO SCH (19:48)
[2021-04-25] MEDS: AMITRIPTYLINE 50 MG TAB PO SCH (19:49)
[2021-04-25] MEDS: MELATONIN 3 MG TABLET PO PRN (19:49)
[2021-04-25] MEDS: ALPRAZOLAM 1 MG TABLET PO SCH (19:49)
[2021-04-25] MEDS: EZETIMIBE 10 MG TAB PO SCH (19:49)
[2021-04-26] MEDS: OXYCODONE HCL 5 MG TAB PO PRN ×4 (03:18→22:05)
[2021-04-26 05:00] LABS: Absolute Lymphocytes (CBC) 2.2 K/uL (0.7-4.9); Basophils % 0.8 % (0-1.3); Hematocrit 27.4 % (36.0-45.0); Lymphocytes % 24.2 % (15.3-44.8); MPV 8.1 fL (7.6-11.3); RBC Red Blood Cell Count 2.91 M/uL (3.86-4.86)
[2021-04-26 05:07] LABS: Potassium 3.9 mmol/L (3.5-5.1)
[2021-04-26] MEDS: LEVOTHYROXINE SOD 0.1 MG TAB PO SCH (06:24)
[2021-04-26] MEDS: PANTOPRAZOLE 40MG TABLET PO SCH (07:26)
[2021-04-26] MEDS: JUVEN PACKET PO SCH ×2 (08:00→19:20)
[2021-04-26] MEDS: MAGNESIUM OXIDE 400 MG TAB PO SCH ×2 (08:06→19:20)
[2021-04-26] MEDS: GABAPENTIN 100 MG CAP PO SCH (08:06)
[2021-04-26] MEDS: METFORMIN HCL 500 MG TAB PO SCH (08:06)
[2021-04-26] MEDS: CRANBERRY FRUIT EXTRACT 400 MG CAP PO SCH ×2 (08:06→19:19)
[2021-04-26] MEDS: FE SULF/FA/VIT B COMP & C TAB PO SCH (08:06)
[2021-04-26] MEDS: APIXABAN 2.5 MG TABLET PO SCH ×2 (08:06→19:19)
[2021-04-26] MEDS: IRBESARTAN 150 MG TAB PO SCH (08:06)
[2021-04-26] MEDS: allopurinoL 300 MG TAB PO SCH (08:07)
[2021-04-26] MEDS: FLUTICASONE 50MCG NASAL SPRAY NAS SCH (08:07)
[2021-04-26] MEDS: MONTELUKAST 10 MG TAB PO SCH (08:07)
[2021-04-26] MEDS: MESALAMINE 500 MG CAPSULE PO SCH ×2 (08:08→19:19)
[2021-04-26] MEDS: TRAMADOL HCL 50 MG TAB PO PRN ×2 (08:09→19:22)
[2021-04-26] MEDS: LIDOCAINE 4% PATCH TOP SCH (09:07)
[2021-04-26] MEDS: methocarbamoL 750 MG TAB PO PRN (12:01)
--- NOTE | 2021-04-26 18:57 | R.PN ---
PROGRESS NOTES ENCOUNTER DATE AND TIME: 04/26/2021 18:47 (CDT) NAME SAEID LAST DATE OF : 1935 DATE OF ADMISSION: 04/21/2021 14:51 (CDT) R Intertrochanteric Femur fxCHIEF COMPLAINT: Right femur fracture, debility SUBJECTIVE: Pt denied any depression. Pt denied any Shortness of Breath. WBC 9.2, Ca 8.4, Glucose 92 to 168. She is doing very well with all ADLs and ambulation with a walker and contact guard to supervision. H er pain is well-managed. VITAL SIGNS Temperature: 97.8 F Resp: 16 SBP/DBP: 133/57 Pulse: 66 MEDICATION ALLERGIES: CODEINE ENVIRONMENTAL ALLERGIES: - Substance Allergies None Known - Other Allergies None Known NURSING: - Shower allowing shower - Skin care per protocol PRECAUTIONS: - Weight Bearing Precaution WBAT right LE WITH THE SHOE ACTIVITIES OOB only with supervision THERAPIES: - Dietary and Nutrition Adequate Nutrition. Nutritional Education. Nutritional Supplements. - Occupational Therapy Cognitive Retraining. Evaluate and Treat. Visual Perceptual Training. Adaptive Equipment. ADL Trainin g. Transfer Training. UE Strengthening. Safety Awareness. - Speech Therapy Cognitive Training. Expressive Language Skills. Memory Strategies. Receptive Language Skills. Speech Intelligibility Training. - Physical Therapy Gait Training. Transfer Training. Balance Training. Evaluate and Treat. Mobility Training. LE Strengt hening. LE ROM. Safety Awareness. PHYSICAL EXAM - Gen Alert and awake Lying in bed No apparent distress Oriented to: person, time, and place - Skin No open wound or evidence of breakdown. Edamatous R leg, leg held in external rotation and midly shor tened Normacephalic - Eyes No abnormalities - ENMT No abnormalities - Neck No abnormalities - CVS RRR - Chest No abnormalities - Abd Soft - No abnormalities - Ext Right hip surgical site has good hemostasis. - MSK 4+/5 weakness in right lower extremity - Neuro 4/5 strength right lower extremity. - Psych No abnormalities ASSESSMENT: Pt. is a 85 yo Right-handed female.On 04/15/2021 she was admitted to [facility] with diagnosis R Inte rtrochanteric Femur fx.Her impairment category is Orthopaedic Disorders 08 - Unilateral Hip Fracture (.11).Pre-morbidly, Pt. was independent/mod-I in Locomotion, Safety Awareness, Balance, and Social Cognition; and she had good Transfers Control, Sphincter Control, Self-Care, Communication, and Endu guilherme.Currently, she has deficits of Locomotion, Safety Awareness, Transfers Control, Self-Care, Endu guilherme, Sphincter Control, and Balance.Pt. is now referred to [facility] for [place] in-patient rehabilitation in order to maximize patient's functional independence in activities of daily living, strength, ROM, and mobility.- Rehab Goal Patient has realistic goal of being discharged at assistance level 7-Ind to reside at Home with Fami ly/Relatives. MDM/PLAN: - Physical Therapy Decreased range of motion - to improve, our physical therapists will perform initial evaluation of p t's status upon admission and devise an individualized program for increasing patient's Range of Tien on. Gait dysfunction - to improve, our physical therapists will perform initial evaluation of pt's statu s upon admission and devise an individualized program for Gait Training, and Wheel Chair mobility Having wound - to improve, our physical therapists will perform initial evaluation of pt's status up on admission and devise an individualized program for Wound Care Inability to transfer - to improve, our physical therapists will perform initial evaluation of pt's status upon admission and devise an individualized program for Bed mobility Need for home safety evaluation - to improve, our physical therapists will perform initial evaluatio n of pt's status upon admission and devise an individualized program for Home Evaluation Need in caregiver upon discharge - to improve, our physical therapists will perform initial evaluati on of pt's status upon admission and devise an individualized program for Caregiver Training New precaution - to improve, our physical therapists will perform initial evaluation of pt's status upon admission and devise an individualized program for Patient precaution education Poor balance - to improve, our physical therapists will perform initial evaluation of pt's status up on admission and devise an individualized program for Balance Training Poor endurance - to improve, our physical therapists will perform initial evaluation of pt's status upon admission and devise an individualized program for Endurance Training Weakness - to improve, our physical therapists will perform initial evaluation of pt's status upon a dmission and devise an individualized program for Aquatic Therapy, Neuromuscular Reeducation, and Str engthening Achieving independence - to improve, our physical therapists will perform initial evaluation of pt's status upon admission and devise an individualized program for Community Reintegration Activities - Occupational Therapy ADL deficits - to improve, our occupation therapists will perform initial evaluation of pt's status upon admission and devise an individualized program for Bathing, Bed mobility, Community Reintegratio n, Cooking, Dressing, Eating, Fine Motor Skills, Grooming, Homemaking, Kitchen Mobility, Laundry, Pat ient Education, Safety Awareness, Splinting - Positioning, Transfers(Toilet, Tub, Shower), and Wheel Chair Management Need for managed care director - to improve, our occupation therapists will perform initial evaluation of pt's status upon admission and devise an individualized program for Caregiver Training Weakness - to improve, our occupation therapists will perform initial evaluation of pt's status upon admission and devise an individualized program for Aquatic Therapy, Balance, Endurance, UE ROM, and UE strengthening - Other See attached MAR (Medication Administration Record) - Anterior Hip Precaution No abduction No active extension No adduction across midline No external rotation No hip flexion >90 degrees No internal rotation - Diet - Liquid Texture Continue Regular - Tube Feed Continue N/A - Diet Type Continue Regular - Posterior Hip Precaution No adduction across midline No external rotation No hip flexion >90 degrees No internal rotation No wheel chair propulsion - Weight Bearing Precaution WBAT right LE WITH THE SHOE - Skin care per protocol - Diet - Solid Texture Continue Regular - Shower allowing shower FUNCTIONAL STATUS: UPDATED AT WEEKLY TEAM CONFERENCE - Bladder Same accident frequency: 7-Ind - No accidents in the past 7 days - Bowel Same accident frequency: 7-Ind - No accidents in the past 7 days - Walking Same score based on distance walked: 0(N/A) Same score based on distance walked: 1(<=50ft) - Wheelchair Same score based on distance traveled: 0(N/A) FUNCTIONAL STATUS: - Self-Care A. Eating Ind B. Grooming Dennis C. Bathing sup D. Dressing - Upper sup E. Dressing - Lower Terri F. Toileting sup - Sphincter Control G. Bladder control Dennis H. Bowel control Dennis - Transfers Control I. Bed/Chair/Wheelchair sup J. Toilet sup K. Tub/Shower Terri - Locomotion L. Walk/Wheelchair (B) Terri M. Stairs ADNO - Communication N. Comprehension (B) Dennis O. Expression (B) Dennis - Social Cognition P. Social Interaction Dennis Q. Problem Solving sup R. Memory Dennis - Endurance Fair - Balance Good - Safety Awareness Good QI SCORES: - Self-Care A. Eating 05-Setup or clean-up assistance B. Oral hygiene 03-Partial/moderate assistance C. Toileting hygiene 03-Partial/moderate assistance E. Shower/bathe self 03-Partial/moderate assistance F. Upper body dressing 03-Partial/moderate assistance G. Lower body dressing 03-Partial/moderate assistance H. Putting on/taking off footwear 03-Partial/moderate assistance - Mobility A. Roll left and right 03-Partial/moderate assistance B. Sit to lying 03-Partial/moderate assistance C. Lying to sitting on side of bed 03-Partial/moderate assistance D. Sit to stand 03-Partial/moderate assistance E. Chair/fxl-bm-[id number] transfer 03-Partial/moderate assistance F. Toilet transfer 03-Partial/moderate assistance G. Car transfer 88-Not attempted due to medical condition or safety concerns I. Walk 10 feet 04-Supervision or touching assistance J. Walk 50 feet with two turns 88-Not attempted due to medical condition or safety concerns K. Walk 150 feet 88-Not attempted due to medical condition or safety concerns L. Walking 10 feet on uneven surfaces 88-Not attempted due to medical condition or safety concerns N. 4 steps 88-Not attempted due to medical condition or safety concerns O. 12 steps 88-Not attempted due to medical condition or safety concerns P. Picking up object 88-Not attempted due to medical condition or safety concerns R. Wheel 50 feet with two turns 88-Not attempted due to medical condition or safety concerns S. Wheel 150 feet 88-Not attempted due to medical condition or safety concerns - Bladder and Bowel Bladder continence Bowel continence - Endurance Fair - Balance Fair - Safety Awareness Fair CURRENT FUNC. DEFICITS: Self-Care, Mobility, Endurance, Balance, and Safety Awareness SIGNATURE PANEL: (CDT)
[2021-04-26] MEDS: VERAPAMIL SR 240 MG TABLET PO SCH (19:21)
[2021-04-26] MEDS: DOCUSATE NA/SENNA CONC 1 TAB PO PRN (19:22)
[2021-04-26] MEDS: EZETIMIBE 10 MG TAB PO SCH (19:22)
[2021-04-26] MEDS: ATORVASTATIN 20 MG TAB PO SCH (19:22)
[2021-04-26] MEDS: ALPRAZOLAM 1 MG TABLET PO SCH (19:22)
[2021-04-26] MEDS: AMITRIPTYLINE 50 MG TAB PO SCH (19:22)
[2021-04-26] MEDS: MELATONIN 3 MG TABLET PO PRN (19:23)
[2021-04-27] MEDS: TRAMADOL HCL 50 MG TAB PO PRN ×2 (06:22→20:13)
[2021-04-27] MEDS: LEVOTHYROXINE SOD 0.1 MG TAB PO SCH (06:22)
[2021-04-27] MEDS: LIDOCAINE 4% PATCH TOP SCH (06:24)
[2021-04-27] MEDS: PANTOPRAZOLE 40MG TABLET PO SCH (06:54)
[2021-04-27] MEDS: JUVEN PACKET PO SCH ×2 (08:00→18:30)
[2021-04-27] MEDS: GABAPENTIN 100 MG CAP PO SCH (08:14)
[2021-04-27] MEDS: IRBESARTAN 150 MG TAB PO SCH (08:14)
[2021-04-27] MEDS: MONTELUKAST 10 MG TAB PO SCH (08:14)
[2021-04-27] MEDS: allopurinoL 300 MG TAB PO SCH (08:15)
[2021-04-27] MEDS: APIXABAN 2.5 MG TABLET PO SCH ×2 (08:15→18:28)
[2021-04-27] MEDS: FE SULF/FA/VIT B COMP & C TAB PO SCH (08:15)
[2021-04-27] MEDS: MAGNESIUM OXIDE 400 MG TAB PO SCH ×2 (08:15→18:30)
[2021-04-27] MEDS: CRANBERRY FRUIT EXTRACT 400 MG CAP PO SCH ×2 (08:15→18:28)
[2021-04-27] MEDS: FLUTICASONE 50MCG NASAL SPRAY NAS SCH (08:17)
[2021-04-27] MEDS: MESALAMINE 500 MG CAPSULE PO SCH ×2 (08:17→18:28)
[2021-04-27] MEDS: METFORMIN HCL 500 MG TAB PO SCH (08:17)
[2021-04-27] MEDS: OXYCODONE HCL 5 MG TAB PO PRN ×3 (08:35→18:29)
[2021-04-27] MEDS: methocarbamoL 750 MG TAB PO PRN ×2 (10:26→20:11)
--- NOTE | 2021-04-27 18:19 | PN ---
Date of Progress Note: 04/26/2021 Subjective: The patient was seen this morning for followup. No new complaints or problems reported by the patient. Lying in bed, not in distress. Objective: Vital Signs: Reviewed. HEENT: Unremarkable. Lungs: Clear to auscultation. Heart: Sounds normal. Abdomen: Soft. Bowel sounds normal. No guarding, rigidity, tenderness, distention. Extremities: Trace right leg edema. Laboratory Data: White count 9.2, hemoglobin 9, platelets 417. Sodium 139, potassium 3.9, chloride 106, bicarb 29, BUN 18, creatinine 0.66, glucose 120. Impression: 1.Right femur fracture. 2.Anemia due to acute blood loss. 3.Hypertension. 4.Diarrhea. Plan: The patient reported that last night she had really severe diarrhea after taking iron tablet a nd she really would like to stop it. Upon review of her medication, Dr. Potter has her on ferrous sulfate 325 mg daily and also Hemocyte Plus 1 tablet daily, so I will discontinue ferrous sulfate and continue to give her Hemocyte and we will reassess her tomorrow to see how she tolerates this. Mean while, continue other current medications. Continue current anticoagulation therapy for DVT prophylaxis and current pain medications. I will see her tomorrow for followup. SHARONDA/MODL Voice ID: [id number] Report ID: [id number]
--- NOTE | 2021-04-27 18:20 | PN ---
Date of Progress Note: 04/27/2021 Subjective: The patient was seen this morning for followup. No new complaints or problems reported by the patient. Lying in bed, not in distress. Objective: Vital Signs: Reviewed. HEENT: Unremarkable. Lungs: Clear to auscultation. Heart: Sounds normal. Abdomen: Soft. Bowel sounds normal. No guarding, rigidity, tenderness, or distention. Extremities: No leg edema. Impression: 1.Diarrhea, resolved. 2.Hypertension. 3.Acute blood loss anemia. 4.Type 2 diabetes mellitus. Plan: The patient was complaining of some soreness inside her mouth and I did examine that she has i rritation of mucosa with some redness on the left inner cheeks, buccal mucosa area. She gets this fr om time to time. There is no evidence of any white spots. This started while she was in [place] and it is bothering her a little more today. Her diarrhea problem has resolved. She is tolerating Hemo cyte without any problem. We will continue other current medications and I will go ahead and try to use some Mycelex to see if that helps her with her mouth problem. I will see her tomorrow for follow up. SHARONDA/MODL Voice ID: [id number] Report ID: [id number]
[2021-04-27] MEDS: EZETIMIBE 10 MG TAB PO SCH (18:28)
[2021-04-27] MEDS: ATORVASTATIN 20 MG TAB PO SCH (18:29)
[2021-04-27] MEDS: AMITRIPTYLINE 50 MG TAB PO SCH (18:30)
[2021-04-27] MEDS: VERAPAMIL SR 240 MG TABLET PO SCH (19:56)
[2021-04-27] MEDS: ALPRAZOLAM 1 MG TABLET PO SCH (21:39)
[2021-04-27] MEDS: MELATONIN 3 MG TABLET PO PRN (21:39)
[2021-04-28] MEDS: OXYCODONE HCL 5 MG TAB PO PRN ×3 (03:28→12:57)
[2021-04-28] MEDS: TRAMADOL HCL 50 MG TAB PO PRN ×2 (04:23→22:21)
[2021-04-28] MEDS: methocarbamoL 750 MG TAB PO PRN (05:19)
[2021-04-28] MEDS: PANTOPRAZOLE 40MG TABLET PO SCH (06:58)
[2021-04-28] MEDS: LEVOTHYROXINE SOD 0.1 MG TAB PO SCH (06:58)
[2021-04-28] MEDS ORDERED: ACETAMINOPHEN 500 MG TAB PO ONE (07:13)
[2021-04-28] MEDS: JUVEN PACKET PO SCH ×2 (08:00→20:00)
[2021-04-28] MEDS: IRBESARTAN 150 MG TAB PO SCH (08:00)
[2021-04-28] MEDS: LIDOCAINE 4% PATCH TOP SCH (08:29)
[2021-04-28] MEDS: CRANBERRY FRUIT EXTRACT 400 MG CAP PO SCH ×2 (08:29→19:59)
[2021-04-28] MEDS: MAGNESIUM OXIDE 400 MG TAB PO SCH ×2 (08:30→20:00)
[2021-04-28] MEDS: FE SULF/FA/VIT B COMP & C TAB PO SCH (08:30)
[2021-04-28] MEDS: APIXABAN 2.5 MG TABLET PO SCH ×2 (08:30→19:59)
[2021-04-28] MEDS: MONTELUKAST 10 MG TAB PO SCH (08:30)
[2021-04-28] MEDS: allopurinoL 300 MG TAB PO SCH (08:31)
[2021-04-28] MEDS: GABAPENTIN 100 MG CAP PO SCH (08:31)
[2021-04-28] MEDS: METFORMIN HCL 500 MG TAB PO SCH (08:32)
[2021-04-28] MEDS: MESALAMINE 500 MG CAPSULE PO SCH ×2 (08:32→19:59)
[2021-04-28] MEDS: FLUTICASONE 50MCG NASAL SPRAY NAS SCH (08:32)
[2021-04-28] MEDS ORDERED: IBUPROFEN 400 MG TAB PO ONE (09:36)
--- NOTE | 2021-04-28 10:05 | RAD REPORT ---
EXAM DESCRIPTION: RAD - Hip Left 2 View - 04/28/2021 9:52 am CLINICAL HISTORY: increase pain COMPARISON: Hip Left 2 View dated 03/25/2000 FINDINGS: No acute fracture. No malalignment. Moderate left acetabular degenerative changes. IMPRESSION: No acute osseous abnormality involving the left hip.
--- NOTE | 2021-04-28 10:05 | RAD REPORT ---
EXAM DESCRIPTION: RAD - Lumbar Spine - Single View - 04/28/2021 9:52 am CLINICAL HISTORY: increase pain COMPARISON: Lumbar Spine 3 Views dated 11/23/2017 FINDINGS: Single lateral view of the lumbar spine. No compression fractures identified. Scattered de generative changes are noted. Atherosclerosis. IMPRESSION: No compression fracture identified in the lumbar spine.
--- NOTE | 2021-04-28 13:56 | RAD REPORT ---
EXAM DESCRIPTION: RAD - Foot Right 2 View - 04/28/2021 1:47 pm CLINICAL HISTORY: increase swelling and pain COMPARISON: FOOT W OBLIQUES dated 09/20/2007 FINDINGS: Mild hallux valgus deformity is seen. Small calcaneal spurs. Lucency is present in the sha ft and base of the fifth metatarsal most likely representing fracture.
--- NOTE | 2021-04-28 17:47 | R.PN ---
PROGRESS NOTES ENCOUNTER DATE AND TIME: 04/28/2021 17:42 (CDT) NAME SAEID LAST DATE OF : 1935 DATE OF ADMISSION: 04/21/2021 14:51 (CDT) R Intertrochanteric Femur fxCHIEF COMPLAINT: Right femur fracture, debility SUBJECTIVE: Pt denied any depression. Pt denied any Shortness of Breath. WBC 9.2, Ca 8.4, Glucose 102 to 132. UA show E. Faecalis. She is doing very well with all ADLs and ambulated 50' with a walker and contact guard assistance. He r pain level was increased today. Increased gabapentin dosage to 300 mg twice daily. VITAL SIGNS Temperature: 97.6 F Resp: 16 SBP/DBP: 110/60 Pulse: 90 MEDICATION ALLERGIES: CODEINE ENVIRONMENTAL ALLERGIES: - Substance Allergies None Known - Other Allergies None Known NURSING: - Shower allowing shower - Skin care per protocol PRECAUTIONS: - Weight Bearing Precaution WBAT right LE WITH THE SHOE ACTIVITIES OOB only with supervision THERAPIES: - Dietary and Nutrition Adequate Nutrition. Nutritional Education. Nutritional Supplements. - Occupational Therapy Cognitive Retraining. Evaluate and Treat. Visual Perceptual Training. Adaptive Equipment. ADL Trainin g. Transfer Training. UE Strengthening. Safety Awareness. - Speech Therapy Cognitive Training. Expressive Language Skills. Memory Strategies. Receptive Language Skills. Speech Intelligibility Training. - Physical Therapy Gait Training. Transfer Training. Balance Training. Evaluate and Treat. Mobility Training. LE Strengt hening. LE ROM. Safety Awareness. PHYSICAL EXAM - Gen Alert and awake Lying in bed No apparent distress Oriented to: person, time, and place - Skin No open wound or evidence of breakdown. Edamatous R leg, leg held in external rotation and midly shor tened Normacephalic - Eyes No abnormalities - ENMT No abnormalities - Neck No abnormalities - CVS RRR - Chest No abnormalities - Abd Soft - No abnormalities - Ext Right hip surgical site has good hemostasis. - MSK 4+/5 weakness in right lower extremity - Neuro 4/5 strength right lower extremity. - Psych No abnormalities ASSESSMENT: Pt. is a 85 yo Right-handed female.On 04/15/2021 she was admitted to [facility] with diagnosis R Inte rtrochanteric Femur fx.Her impairment category is Orthopaedic Disorders 08 - Unilateral Hip Fracture (03.24).Pre-morbidly, Pt. was independent/mod-I in Locomotion, Safety Awareness, Balance, and Social Cognition; and she had good Transfers Control, Sphincter Control, Self-Care, Communication, and Endu guilherme.Currently, she has deficits of Locomotion, Safety Awareness, Transfers Control, Self-Care, Endu guilherme, Sphincter Control, and Balance.Pt. is now referred to [facility] for ac deng in-patient rehabilitation in order to maximize patient's functional independence in activities of daily living, strength, ROM, and mobility.- Rehab Goal Patient has realistic goal of being discharged at assistance level 7-Ind to reside at Home with Fami ly/Relatives. MDM/PLAN: - Physical Therapy Decreased range of motion - to improve, our physical therapists will perform initial evaluation of p t's status upon admission and devise an individualized program for increasing patient's Range of Tien on. Gait dysfunction - to improve, our physical therapists will perform initial evaluation of pt's statu s upon admission and devise an individualized program for Gait Training, and Wheel Chair mobility Having wound - to improve, our physical therapists will perform initial evaluation of pt's status up on admission and devise an individualized program for Wound Care Inability to transfer - to improve, our physical therapists will perform initial evaluation of pt's status upon admission and devise an individualized program for Bed mobility Need for home safety evaluation - to improve, our physical therapists will perform initial evaluatio n of pt's status upon admission and devise an individualized program for Home Evaluation Need in caregiver upon discharge - to improve, our physical therapists will perform initial evaluati on of pt's status upon admission and devise an individualized program for Caregiver Training New precaution - to improve, our physical therapists will perform initial evaluation of pt's status upon admission and devise an individualized program for Patient precaution education Poor balance - to improve, our physical therapists will perform initial evaluation of pt's status up on admission and devise an individualized program for Balance Training Poor endurance - to improve, our physical therapists will perform initial evaluation of pt's status upon admission and devise an individualized program for Endurance Training Weakness - to improve, our physical therapists will perform initial evaluation of pt's status upon a dmission and devise an individualized program for Aquatic Therapy, Neuromuscular Reeducation, and Str engthening Achieving independence - to improve, our physical therapists will perform initial evaluation of pt's status upon admission and devise an individualized program for Community Reintegration Activities - Occupational Therapy ADL deficits - to improve, our occupation therapists will perform initial evaluation of pt's status upon admission and devise an individualized program for Bathing, Bed mobility, Community Reintegratio n, Cooking, Dressing, Eating, Fine Motor Skills, Grooming, Homemaking, Kitchen Mobility, Laundry, Pat ient Education, Safety Awareness, Splinting - Positioning, Transfers(Toilet, Tub, Shower), and Wheel Chair Management Need for reservoir caretaker - to improve, our occupation therapists will perform initial evaluation of pt's status upon admission and devise an individualized program for Caregiver Training Weakness - to improve, our occupation therapists will perform initial evaluation of pt's status upon admission and devise an individualized program for Aquatic Therapy, Balance, Endurance, UE ROM, and UE strengthening - Other See attached MAR (Medication Administration Record) - Anterior Hip Precaution No abduction No active extension No adduction across midline No external rotation No hip flexion >90 degrees No internal rotation - Diet - Liquid Texture Continue Regular - Tube Feed Continue N/A - Diet Type Continue Regular - Posterior Hip Precaution No adduction across midline No external rotation No hip flexion >90 degrees No internal rotation No wheel chair propulsion - Weight Bearing Precaution WBAT right LE WITH THE SHOE - Skin care per protocol - Diet - Solid Texture Continue Regular - Shower allowing shower FUNCTIONAL STATUS: UPDATED AT WEEKLY TEAM CONFERENCE - Bladder Same accident frequency: 7-Ind - No accidents in the past 7 days - Bowel Same accident frequency: 7-Ind - No accidents in the past 7 days - Walking Same score based on distance walked: 0(N/A) Same score based on distance walked: 1(<=50ft) - Wheelchair Same score based on distance traveled: 0(N/A) FUNCTIONAL STATUS: - Self-Care A. Eating Ind B. Grooming Dennis C. Bathing sup D. Dressing - Upper sup E. Dressing - Lower Terri F. Toileting sup - Sphincter Control G. Bladder control Dennis H. Bowel control Dennis - Transfers Control I. Bed/Chair/Wheelchair sup J. Toilet sup K. Tub/Shower Terir - Locomotion L. Walk/Wheelchair (B) Terri M. Stairs ADNO - Communication N. Comprehension (B) Dennis O. Expression (B) Dennis - Social Cognition P. Social Interaction Dennis Q. Problem Solving sup R. Memory Dennis - Endurance Fair - Balance Good - Safety Awareness Good QI SCORES: - Self-Care A. Eating 05-Setup or clean-up assistance B. Oral hygiene 03-Partial/moderate assistance C. Toileting hygiene 03-Partial/moderate assistance E. Shower/bathe self 03-Partial/moderate assistance F. Upper body dressing 03-Partial/moderate assistance G. Lower body dressing 03-Partial/moderate assistance H. Putting on/taking off footwear 03-Partial/moderate assistance - Mobility A. Roll left and right 03-Partial/moderate assistance B. Sit to lying 03-Partial/moderate assistance C. Lying to sitting on side of bed 03-Partial/moderate assistance D. Sit to stand 03-Partial/moderate assistance E. Chair/[id number] transfer 03-Partial/moderate assistance F. Toilet transfer 03-Partial/moderate assistance G. Car transfer 88-Not attempted due to medical condition or safety concerns I. Walk 10 feet 04-Supervision or touching assistance J. Walk 50 feet with two turns 88-Not attempted due to medical condition or safety concerns K. Walk 150 feet 88-Not attempted due to medical condition or safety concerns L. Walking 10 feet on uneven surfaces 88-Not attempted due to medical condition or safety concerns N. 4 steps 88-Not attempted due to medical condition or safety concerns O. 12 steps 88-Not attempted due to medical condition or safety concerns P. Picking up object 88-Not attempted due to medical condition or safety concerns R. Wheel 50 feet with two turns 88-Not attempted due to medical condition or safety concerns S. Wheel 150 feet 88-Not attempted due to medical condition or safety concerns - Bladder and Bowel Bladder continence Bowel continence - Endurance Fair - Balance Fair - Safety Awareness Fair [facility] DEFICITS: Self-Care, Mobility, Endurance, Balance, and Safety Awareness SIGNATURE PANEL: (CDT)
[2021-04-28] MEDS: ATORVASTATIN 20 MG TAB PO SCH (19:59)
[2021-04-28] MEDS: EZETIMIBE 10 MG TAB PO SCH (19:59)
[2021-04-28] MEDS: ALPRAZOLAM 1 MG TABLET PO SCH (19:59)
[2021-04-28] MEDS: GABAPENTIN 300 MG CAP PO SCH (19:59)
[2021-04-28] MEDS: AMITRIPTYLINE 50 MG TAB PO SCH (19:59)
[2021-04-28] MEDS: VERAPAMIL SR 240 MG TABLET PO SCH (20:00)
[2021-04-28] MEDS: DOCUSATE NA/SENNA CONC 1 TAB PO PRN (20:02)
[2021-04-28] MEDS: MELATONIN 3 MG TABLET PO PRN (20:02)
[2021-04-29 05:46] LABS: Absolute Lymphocytes (CBC) 1.5 K/uL (0.7-4.9); Basophils % 0.6 % (0-1.3); Hematocrit 25.7 % (36.0-45.0); Lymphocytes % 13.2 % (15.3-44.8); MPV 8.1 fL (7.6-11.3); RBC Red Blood Cell Count 2.75 M/uL (3.86-4.86)
[2021-04-29 06:04] LABS: Albumin 2.4 g/dL (3.4-5.0); Magnesium 2.1 mg/dL (1.8-2.4); Potassium 4.4 mmol/L (3.5-5.1); Prealbumin 10.6 mg/dL (20-40)
[2021-04-29] MEDS: PANTOPRAZOLE 40MG TABLET PO SCH (06:37)
[2021-04-29] MEDS: LEVOTHYROXINE SOD 0.1 MG TAB PO SCH (06:37)
--- NOTE | 2021-04-29 06:43 | PN ---
Date of Progress Note: 04/28/2021 Subjective: The patient was seen this morning for followup. She was lying in bed, not in distress, but was complaining of lot of pain in her left groin and lower back area. She took oxycodone around 3 o'clock and then Robaxin around 4 o'clock in this morning. When I saw her early this morning, she was still complaining of pain, so manual blood pressure was around 110 systolic. Prior to my arrival , nursing staff did try cold packs and that did not help. I advised her to give her 2 extra Strength Tylenol and start applying heating pad to her lower back area. Objective: Vital Signs: Reviewed. HEENT: Unremarkable. Lungs: Clear to auscultation. Heart: Sounds normal. Abdomen: Soft. Bowel sounds normal. No guarding, rigidity, tenderness, or distention. Extremities: No leg edema. Left groin exam remains unremarkable. The patient's femoral pulses norm al. She is able to move her lower extremity with some discomfort in her lower back and left groin ar ea. Movements at left ankle, left foot is normal. Impression: 1.Osteoarthritis, multiple sites. 2.Hypertension. 3.Acute blood loss anemia. Plan: We will go ahead and get an x-ray done of lumbar spine and left hip. We will see how she resp onds to Tylenol and I have ordered Motrin to be given if her pain does not improve after Tylenol and heating pad. We will follow up on her x-ray and I will see her tomorrow for followup. SHARONDA/MODL Voice ID: [id number] Report ID: [id number]
[2021-04-29] MEDS ORDERED: AMPICILLIN TRIHYDRATE 250 MG CAP PO SCH (08:00)
[2021-04-29] MEDS: IRBESARTAN 150 MG TAB PO SCH (08:00)
[2021-04-29] MEDS: GABAPENTIN 300 MG CAP PO SCH ×2 (08:20→19:36)
[2021-04-29] MEDS: APIXABAN 2.5 MG TABLET PO SCH ×2 (08:20→19:38)
[2021-04-29] MEDS: ACETAMINOPHEN 500 MG TAB PO PRN ×2 (08:20→18:28)
[2021-04-29] MEDS: MONTELUKAST 10 MG TAB PO SCH (08:20)
[2021-04-29] MEDS: MAGNESIUM OXIDE 400 MG TAB PO SCH ×2 (08:21→19:37)
[2021-04-29] MEDS: MESALAMINE 500 MG CAPSULE PO SCH ×2 (08:24→19:36)
[2021-04-29] MEDS: METFORMIN HCL 500 MG TAB PO SCH (08:24)
[2021-04-29] MEDS: FLUTICASONE 50MCG NASAL SPRAY NAS SCH (08:25)
[2021-04-29] MEDS: LIDOCAINE 4% PATCH TOP SCH (08:26)
[2021-04-29] MEDS: CRANBERRY FRUIT EXTRACT 400 MG CAP PO SCH ×2 (08:27→19:38)
[2021-04-29] MEDS: allopurinoL 300 MG TAB PO SCH (08:27)
[2021-04-29] MEDS: FE SULF/FA/VIT B COMP & C TAB PO SCH (08:27)
[2021-04-29] MEDS: JUVEN PACKET PO SCH ×2 (08:29→19:47)
[2021-04-29] MEDS: AMPICILLIN TRIHYDRATE 500 MG CAP PO SCH ×4 (08:31→23:32)
[2021-04-29] MEDS: methocarbamoL 750 MG TAB PO PRN (08:44)
[2021-04-29 09:05] LABS: White Blood Cell Scan OK (OK)
[2021-04-29 09:06] LABS: Anisocytosis 1+; Blood Morphology Comment NOTED (NOT SEEN); Platelet Estimate INCR; Polychromasia 1+
[2021-04-29] MEDS: OXYCODONE HCL 5 MG TAB PO PRN (10:27)
[2021-04-29] MEDS: TRAMADOL HCL 50 MG TAB PO PRN (14:54)
--- NOTE | 2021-04-29 17:35 | R.PN ---
PROGRESS NOTES ENCOUNTER DATE AND TIME: 04/29/2021 17:21 (CDT) NAME SAEID LAST DATE OF : 1935 DATE OF ADMISSION: 04/21/2021 14:51 (CDT) R Intertrochanteric Femur fxCHIEF COMPLAINT: Right femur fracture, debility SUBJECTIVE: Pt denied any depression. Pt denied any Shortness of Breath. WBC 11.5, Hgb 8.7, prealbumin 10.6, Na 134, Ca 8.4, Glucose 102 to 132. UA show E. Faecalis. She is doing very well with all ADLs and wheelchair mobility 160' with standby assistance Her pain l evel decreased slightly today. She slept better last night. Increased gabapentin dosage to 300 mg t wice daily. VITAL SIGNS Temperature: 98.9 F Resp: 156 SBP/DBP: 120/54 Pulse: 87 MEDICATION ALLERGIES: CODEINE ENVIRONMENTAL ALLERGIES: - Substance Allergies None Known - Other Allergies None Known NURSING: - Shower allowing shower - Skin care per protocol PRECAUTIONS: - Weight Bearing Precaution WBAT right LE WITH THE SHOE ACTIVITIES OOB only with supervision THERAPIES: - Dietary and Nutrition Adequate Nutrition. Nutritional Education. Nutritional Supplements. - Occupational Therapy Cognitive Retraining. Evaluate and Treat. Visual Perceptual Training. Adaptive Equipment. ADL Trainin g. Transfer Training. UE Strengthening. Safety Awareness. - Speech Therapy Cognitive Training. Expressive Language Skills. Memory Strategies. Receptive Language Skills. Speech Intelligibility Training. - Physical Therapy Gait Training. Transfer Training. Balance Training. Evaluate and Treat. Mobility Training. LE Strengt hening. LE ROM. Safety Awareness. PHYSICAL EXAM - Gen Alert and awake Lying in bed No apparent distress Oriented to: person, time, and place - Skin No open wound or evidence of breakdown. Edamatous R leg, leg held in external rotation and midly shor tened Normacephalic - Eyes No abnormalities - ENMT No abnormalities - Neck No abnormalities - CVS RRR - Chest No abnormalities - Abd Soft - No abnormalities - Ext Right hip surgical site has good hemostasis. - MSK 4+/5 weakness in right lower extremity - Neuro 4/5 strength right lower extremity. - Psych No abnormalities ASSESSMENT: Pt. is a 85 yo Right-handed female.On 04/15/2021 she was admitted to [facility] with diagnosis R Inte rtrochanteric Femur fx.Her impairment category is Orthopaedic Disorders 08 - Unilateral Hip Fracture (08.11).Pre-morbidly, Pt. was independent/mod-I in Locomotion, Safety Awareness, Balance, and Social Cognition; and she had good Transfers Control, Sphincter Control, Self-Care, Communication, and Endu guilherme.Currently, she has deficits of Locomotion, Safety Awareness, Transfers Control, Self-Care, Endu guilherme, Sphincter Control, and Balance.Pt. is now referred [facility] in order to maximize patient's functional independence in activities of daily living, strength, ROM, and mobility.- Rehab Goal Patient has realistic goal of being discharged at assistance level 7-Ind to reside at Home with Fami ly/Relatives. MDM/PLAN: - Physical Therapy Decreased range of motion - to improve, our physical therapists will perform initial evaluation of p t's status upon admission and devise an individualized program for increasing patient's Range of Tien on. Gait dysfunction - to improve, our physical therapists will perform initial evaluation of pt's statu s upon admission and devise an individualized program for Gait Training, and Wheel Chair mobility Having wound - to improve, our physical therapists will perform initial evaluation of pt's status up on admission and devise an individualized program for Wound Care Inability to transfer - to improve, our physical therapists will perform initial evaluation of pt's status upon admission and devise an individualized program for Bed mobility Need for home safety evaluation - to improve, our physical therapists will perform initial evaluatio n of pt's status upon admission and devise an individualized program for Home Evaluation Need in caregiver upon discharge - to improve, our physical therapists will perform initial evaluati on of pt's status upon admission and devise an individualized program for Caregiver Training New precaution - to improve, our physical therapists will perform initial evaluation of pt's status upon admission and devise an individualized program for Patient precaution education Poor balance - to improve, our physical therapists will perform initial evaluation of pt's status up on admission and devise an individualized program for Balance Training Poor endurance - to improve, our physical therapists will perform initial evaluation of pt's status upon admission and devise an individualized program for Endurance Training Weakness - to improve, our physical therapists will perform initial evaluation of pt's status upon a dmission and devise an individualized program for Aquatic Therapy, Neuromuscular Reeducation, and Str engthening Achieving independence - to improve, our physical therapists will perform initial evaluation of pt's status upon admission and devise an individualized program for Community Reintegration Activities - Occupational Therapy ADL deficits - to improve, our occupation therapists will perform initial evaluation of pt's status upon admission and devise an individualized program for Bathing, Bed mobility, Community Reintegratio n, Cooking, Dressing, Eating, Fine Motor Skills, Grooming, Homemaking, Kitchen Mobility, Laundry, Pat ient Education, Safety Awareness, Splinting - Positioning, Transfers(Toilet, Tub, Shower), and Wheel Chair Management Need for women's health care nurse practitioner - to improve, our occupation therapists will perform initial evaluation of pt's status upon admission and devise an individualized program for Caregiver Training Weakness - to improve, our occupation therapists will perform initial evaluation of pt's status upon admission and devise an individualized program for Aquatic Therapy, Balance, Endurance, UE ROM, and UE strengthening - Other See attached MAR (Medication Administration Record) - Anterior Hip Precaution No abduction No active extension No adduction across midline No external rotation No hip flexion >90 degrees No internal rotation - Diet - Liquid Texture Continue Regular - Tube Feed Continue N/A - Diet Type Continue Regular - Posterior Hip Precaution No adduction across midline No external rotation No hip flexion >90 degrees No internal rotation No wheel chair propulsion - Weight Bearing Precaution WBAT right LE WITH THE SHOE - Skin care per protocol - Diet - Solid Texture Continue Regular - Shower allowing shower FUNCTIONAL STATUS: UPDATED AT WEEKLY TEAM CONFERENCE - Bladder Same accident frequency: 7-Ind - No accidents in the past 7 days - Bowel Same accident frequency: 7-Ind - No accidents in the past 7 days - Walking Same score based on distance walked: 0(N/A) Same score based on distance walked: 1(<=50ft) - Wheelchair Same score based on distance traveled: 0(N/A) FUNCTIONAL STATUS: - Self-Care A. Eating Ind B. Grooming Dennis C. Bathing sup D. Dressing - Upper sup E. Dressing - Lower Terri F. Toileting sup - Sphincter Control G. Bladder control Dennis H. Bowel control Dennis - Transfers Control I. Bed/Chair/Wheelchair sup J. Toilet sup K. Tub/Shower Terri - Locomotion L. Walk/Wheelchair (B) Terri M. Stairs ADNO - Communication N. Comprehension (B) Dennis O. Expression (B) Dennis - Social Cognition P. Social Interaction Dennis Q. Problem Solving sup R. Memory Dennis - Endurance Fair - Balance Good - Safety Awareness Good QI SCORES: - Self-Care A. Eating 05-Setup or clean-up assistance B. Oral hygiene 03-Partial/moderate assistance C. Toileting hygiene 03-Partial/moderate assistance E. Shower/bathe self 03-Partial/moderate assistance F. Upper body dressing 03-Partial/moderate assistance G. Lower body dressing 03-Partial/moderate assistance H. Putting on/taking off footwear 03-Partial/moderate assistance - Mobility A. Roll left and right 03-Partial/moderate assistance B. Sit to lying 03-Partial/moderate assistance C. Lying to sitting on side of bed 03-Partial/moderate assistance D. Sit to stand 03-Partial/moderate assistance E. Chair/[id number] transfer 03-Partial/moderate assistance F. Toilet transfer 03-Partial/moderate assistance G. Car transfer 88-Not attempted due to medical condition or safety concerns I. Walk 10 feet 04-Supervision or touching assistance J. Walk 50 feet with two turns 88-Not attempted due to medical condition or safety concerns K. Walk 150 feet 88-Not attempted due to medical condition or safety concerns L. Walking 10 feet on uneven surfaces 88-Not attempted due to medical condition or safety concerns N. 4 steps 88-Not attempted due to medical condition or safety concerns O. 12 steps 88-Not attempted due to medical condition or safety concerns P. Picking up object 88-Not attempted due to medical condition or safety concerns R. Wheel 50 feet with two turns 88-Not attempted due to medical condition or safety concerns S. Wheel 150 feet 88-Not attempted due to medical condition or safety concerns - Bladder and Bowel Bladder continence Bowel continence - Endurance Fair - Balance Fair - Safety Awareness Fair [facility] DEFICITS: Self-Care, Mobility, Endurance, Balance, and Safety Awareness SIGNATURE PANEL: (CDT)
[2021-04-29] MEDS ORDERED: BISACODYL 10 MG RECTAL SUPP PR PRN (17:39)
[2021-04-29] MEDS: ATORVASTATIN 20 MG TAB PO SCH (19:36)
[2021-04-29] MEDS: EZETIMIBE 10 MG TAB PO SCH (19:37)
[2021-04-29] MEDS: VERAPAMIL SR 240 MG TABLET PO SCH (19:37)
[2021-04-29] MEDS: ALPRAZOLAM 1 MG TABLET PO SCH (19:38)
[2021-04-29] MEDS: AMITRIPTYLINE 50 MG TAB PO SCH (19:38)
[2021-04-29] MEDS: DOCUSATE NA/SENNA CONC 1 TAB PO PRN (19:38)
[2021-04-29] MEDS: MELATONIN 3 MG TABLET PO PRN (19:38)
[2021-04-30] MEDS: AMPICILLIN TRIHYDRATE 500 MG CAP PO SCH ×4 (05:16→23:49)
--- NOTE | 2021-04-30 06:58 | PN ---
Date of Progress Note: 04/29/2021 Subjective: The patient was seen this morning for followup. She was lying in bed, not in distress. Overall, her pain from her back and left thigh was much better. Objective: Vital Signs: Reviewed. HEENT: Unremarkable. Lungs: Clear to auscultation. Heart: Sounds normal. Abdomen: Soft. Bowel sounds normal. No guarding, rigidity, tenderness, or distention. Extremities: No leg edema. Laboratory Data: White count 11.5, hemoglobin 8.7, platelets 484. Sodium 134, potassium 4.4, chlori de 101, bicarb 28, BUN 28, creatinine 0.89, glucose 129, albumin 2.4. Urine culture has grown Entero coccus faecalis. Impression: 1.Osteoarthritis, multiple sites. 2.Hypertension. 3.Urinary tract infection. 4.Anemia due to acute blood loss. Plan: We will continue current iron supplement, which is Hemocyte. Start the patient on antibiotic, ampicillin. Urine culture results. Continue current pain medications and current DVT prophylaxis. We will continue physical therapy under guidance of Dr. Potter. SHARONDA/MODL Voice ID: [id number] Report ID: [id number]
[2021-04-30] MEDS: LEVOTHYROXINE SOD 0.1 MG TAB PO SCH (07:06)
[2021-04-30] MEDS: IRBESARTAN 150 MG TAB PO SCH (07:37)
[2021-04-30] MEDS: FE SULF/FA/VIT B COMP & C TAB PO SCH ×2 (08:00→08:27)
[2021-04-30] MEDS: MONTELUKAST 10 MG TAB PO SCH (08:26)
[2021-04-30] MEDS: APIXABAN 2.5 MG TABLET PO SCH ×2 (08:26→19:53)
[2021-04-30] MEDS: CRANBERRY FRUIT EXTRACT 400 MG CAP PO SCH ×2 (08:26→19:52)
[2021-04-30] MEDS: PANTOPRAZOLE 40MG TABLET PO SCH (08:26)
[2021-04-30] MEDS: METFORMIN HCL 500 MG TAB PO SCH (08:26)
[2021-04-30] MEDS: GABAPENTIN 300 MG CAP PO SCH ×2 (08:26→19:53)
[2021-04-30] MEDS: allopurinoL 300 MG TAB PO SCH (08:26)
[2021-04-30] MEDS: FLUTICASONE 50MCG NASAL SPRAY NAS SCH (08:27)
[2021-04-30] MEDS: MAGNESIUM OXIDE 400 MG TAB PO SCH ×2 (08:27→19:54)
[2021-04-30] MEDS: JUVEN PACKET PO SCH ×2 (08:28→19:53)
[2021-04-30] MEDS: MESALAMINE 500 MG CAPSULE PO SCH ×2 (08:28→19:53)
[2021-04-30] MEDS: LIDOCAINE 4% PATCH TOP SCH (09:01)
--- NOTE | 2021-04-30 09:59 | P.RH.PN ---
Estimated Length of Stay: 14 Expected Discharge Date: 05/04/21 Discharge Disposition Plan: Home Family Support: Yes Fdc Goal: Mobility, Transfers, Self Care Vital Signs: Last Vital Signs Temp 97 F 04/30/21 07:32 Pulse 80 04/30/21 07:37 Resp 18 04/30/21 07:32 BP 125/48 L 04/30/21 07:37 Pulse Ox 98 04/30/21 07:32 Laboratory: Laboratory Last Values WBC 11.50 K/uL (4.3-10.9) H D 04/29/21 05:04 RBC 2.75 M/uL (3.86-4.86) L 04/29/21 05:04 Hgb 8.7 g/dL (12.0-15.0) L 04/29/21 05:04 Hct 25.7 % (36.0-45.0) L 04/29/21 05:04 MCV 93.3 fL (80-100) 04/29/21 05:04 MCH 31.5 pg (27.0-35.0) 04/29/21 05:04 MCHC 33.7 g/dL (32.0-36.0) 04/29/21 05:04 RDW 15.0 % (12.1-15.2) 04/29/21 05:04 Plt Count 484 K/uL (152-406) H 04/29/21 05:04 MPV 8.1 fL (7.6-11.3) 04/29/21 05:04 Neutrophils % 72.8 % (41.7-73.7) 04/29/21 05:04 Lymphocytes % 13.2 % (15.3-44.8) L 04/29/21 05:04 Monocytes % 12.1 % (3.3-12.3) 04/29/21 05:04 Eosinophils % 1.3 % (0-4.4) 04/29/21 05:04 Basophils % 0.6 % (0-1.3) 04/29/21 05:04 Absolute Neutrophils 8.4 K/uL (1.8-8.0) H 04/29/21 05:04 Absolute Lymphocytes 1.5 K/uL (0.7-4.9) 04/29/21 05:04 Absolute Monocytes 1.4 K/uL (0.1-1.3) H 04/29/21 05:04 Absolute Eosinophils 0.1 K/uL (0-0.5) 04/29/21 05:04 Absolute Basophils 0.1 K/uL (0-0.5) 04/29/21 05:04 Platelet Estimate Incr 04/29/21 05:04 Polychromasia 1+ 04/29/21 05:04 Anisocytosis 1+ 04/29/21 05:04 Morphology Comment Noted (NOT SEEN) 04/29/21 05:04 Sodium 134 mmol/L (136-145) L 04/29/21 05:04 Potassium 4.4 mmol/L (3.5-5.1) 04/29/21 05:04 Chloride 101 mmol/L (98-107) 04/29/21 05:04 Carbon Dioxide 28 mmol/L (21-32) 04/29/21 05:04 BUN 28 mg/dL (7-18) H 04/29/21 05:04 Creatinine 0.89 mg/dL (0.55-1.3) 04/29/21 05:04 Estimated GFR 61 mL/min (=/>90) L 04/29/21 05:04 Glucose 129 mg/dL (74-106) H 04/29/21 05:04 POC Glucose 105 mg/dL (65-120) 04/30/21 07:17 Calcium 8.5 mg/dL (8.5-10.1) 04/29/21 05:04 Magnesium 2.1 mg/dL (1.8-2.4) 04/29/21 05:04 Albumin 2.4 g/dL (3.4-5.0) L 04/29/21 05:04 Prealbumin 10.6 mg/dL (20-40) L 04/29/21 05:04 Urine Color Yellow (Yellow) 04/21/21 22:00 Urine Appearance Cloudy (Clear) 04/21/21 22:00 Urine pH 6.0 (5.0-7.0) 04/21/21 22:00 Ur Specific [place] 1.015 (1.005-1.030) 04/21/21 22:00 Glucose (UA)(Auto) Negative (Negative) 04/21/21 22:00 Urine Ketones Negative (Negative) 04/21/21 22:00 Urine Blood Negative (Negative) 04/21/21 22:00 Urine Nitrite Negative (Negative) 04/21/21 22:00 Urine Bilirubin Negative (Negative) 04/21/21 22:00 Urine Urobilinogen 0.2 mg/dL (0.2-1.0) 04/21/21 22:00 Ur Leukocyte Esterase 1+ (Negative) H 04/21/21 22:00 Urine RBC None seen /HPF (NONE SEEN) 04/21/21 22:00 Urine WBC <5 /HPF (<5) 04/21/21 22:00 Ur Squamous Epith Cells <5 /HPF (NONE SEEN) 04/21/21 22:00 Urine Bacteria >50 /HPF (<20) H 04/21/21 22:00 Urine Culture Reflexed Not needed 04/21/21 22:00 Urine Total Protein Negative (Negative) 04/21/21 22:00 SARS-CoV-2 Rap RNA(RT-PCR) Negative (NEGATIVE) 04/28/21 14:00 Smear Scan Ok (OK) 04/29/21 05:04 Weight: 181 lb 9.6 oz Wound Present: Yes Closed Surgical Incision Present: Yes Negative Pressure Wound Therapy Present: No Physician Update: She is doing fairly well with all therapy. She has a fracture in the right lateral foot with severe pain when wearing the witt. Will ask the ortho physician is the witt is necessary. She is otherwise doing very well with physical and occupational therpy. Summary: Patient's care plan and senior living goals have been reviewed and revised as necessary. Please see the Rehabilitation Signature page for all necessary signatures.
[2021-04-30] MEDS: ACETAMINOPHEN 500 MG TAB PO PRN (13:01)
[2021-04-30] MEDS: OXYCODONE HCL 5 MG TAB PO PRN ×2 (18:18→22:38)
[2021-04-30] MEDS: EZETIMIBE 10 MG TAB PO SCH (19:52)
[2021-04-30] MEDS: ATORVASTATIN 20 MG TAB PO SCH (19:52)
[2021-04-30] MEDS: AMITRIPTYLINE 50 MG TAB PO SCH (19:52)
[2021-04-30] MEDS: VERAPAMIL SR 240 MG TABLET PO SCH (19:54)
[2021-04-30] MEDS: methocarbamoL 750 MG TAB PO PRN (20:08)
[2021-04-30] MEDS: TRAMADOL HCL 50 MG TAB PO PRN (20:09)
[2021-04-30] MEDS: MELATONIN 3 MG TABLET PO PRN (21:26)
[2021-04-30] MEDS: ALPRAZOLAM 1 MG TABLET PO SCH (21:26)
--- NOTE | 2021-04-30 22:58 | PN ---
Date of Progress Note: 04/30/2021 Subjective: The patient was seen this morning for followup. No new complaints or problems reported by her. Objective: VITAL SIGNS: Reviewed. HEENT: Examination unremarkable. LUNGS: Clear to auscultation. HEART: Sounds normal. ABDOMEN: Soft. Bowel sounds normal. No guarding, rigidity, tenderness, or distention. EXTREMITIES: No leg edema. Impression: 1.Urinary tract infection. 2.Hypertension. 3.Right femur fracture. 4.Diabetes mellitus, type 2. Plan: We will go ahead and continue current medications. Continue current iron supplement. She is tolerating that very well. We will continue current antibiotics for urinary tract infection. The arti tejeda will continue to receive her pain medication per order and physical therapy under guidance of Shen Potter. SHARONDA/MODL Voice ID: [id number] Report ID: [id number]
[2021-05-01] MEDS: AMPICILLIN TRIHYDRATE 500 MG CAP PO SCH ×3 (04:58→17:16)
[2021-05-01] MEDS: LEVOTHYROXINE SOD 0.1 MG TAB PO SCH (06:45)
[2021-05-01] MEDS: PANTOPRAZOLE 40MG TABLET PO SCH (07:22)
[2021-05-01] MEDS: OXYCODONE HCL 5 MG TAB PO PRN ×3 (07:22→18:44)
[2021-05-01] MEDS: LIDOCAINE 4% PATCH TOP SCH (07:23)
[2021-05-01] MEDS: FLUTICASONE 50MCG NASAL SPRAY NAS SCH (07:24)
[2021-05-01] MEDS: MESALAMINE 500 MG CAPSULE PO SCH ×2 (07:54→18:45)
[2021-05-01] MEDS: GABAPENTIN 300 MG CAP PO SCH ×2 (07:54→18:45)
[2021-05-01] MEDS: CRANBERRY FRUIT EXTRACT 400 MG CAP PO SCH ×2 (07:55→18:43)
[2021-05-01] MEDS: allopurinoL 300 MG TAB PO SCH (07:55)
[2021-05-01] MEDS: IRBESARTAN 150 MG TAB PO SCH (07:55)
[2021-05-01] MEDS: METFORMIN HCL 500 MG TAB PO SCH (07:55)
[2021-05-01] MEDS: APIXABAN 2.5 MG TABLET PO SCH ×2 (07:56→18:44)
[2021-05-01] MEDS: MAGNESIUM OXIDE 400 MG TAB PO SCH ×2 (07:56→18:45)
[2021-05-01] MEDS: JUVEN PACKET PO SCH ×2 (07:56→18:45)
[2021-05-01] MEDS: MONTELUKAST 10 MG TAB PO SCH (07:56)
[2021-05-01] MEDS: FE SULF/FA/VIT B COMP & C TAB PO SCH (07:56)
[2021-05-01] MEDS: methocarbamoL 750 MG TAB PO PRN ×2 (09:55→17:16)
[2021-05-01] MEDS: TRAMADOL HCL 50 MG TAB PO PRN (12:03)
--- NOTE | 2021-05-01 12:20 | PN ---
Date of Progress Note: 05/01/2021 Subjective: The patient was seen for followup in the morning. No new complaints or problems reporte d by patient. She was sitting in wheelchair. Overall, feels a little better today than yesterday. Objective: Vital Signs: Reviewed. HEENT: Unremarkable. Lungs: Clear to auscultation. Heart: Sounds normal. Abdomen: Soft. Bowel sounds normal. No guarding, rigidity, tenderness, distention. Extremities: Grade 1 right leg edema. Impression: 1.Right femur fracture. 2.Hypertension. 3.Anemia due to acute blood loss. 4.Type 2 diabetes mellitus. Plan: We will continue current medication. Continue current anticoagulation therapy and pain medica tion. The patient feels better today than yesterday. She was advised to keep moving her feet and le gs to reduce chances of DVT as well as to help reduce the leg swelling problem. Continue physical th erapy under guidance of Dr. Potter. I will see her tomorrow for followup. SHARONDA/MODL Voice ID: [id number] Report ID: [id number]
--- NOTE | 2021-05-01 17:23 | R.PN ---
PROGRESS NOTES ENCOUNTER DATE AND TIME: 05/01/2021 17:18 (CDT) NAME SAEID LAST DATE OF : 1935 DATE OF ADMISSION: 04/21/2021 14:51 (CDT) R Intertrochanteric Femur fxCHIEF COMPLAINT: Right femur fracture, debility SUBJECTIVE: Pt denied any depression. Pt denied any Shortness of Breath. WBC 11.5, Hgb 8.7, prealbumin 10.6, Na 134, Ca 8.4, Glucose 102 to 132. UA show E. Faecalis. She is doing very well with all ADLs and wheelchair mobility with standby assistance Her pain level decreased slightly today. She slept better last night. Gabapentin dosage to 300 mg twice daily. VITAL SIGNS Temperature: 97.5 F Resp: 16 SBP/DBP: 113/49 Pulse: 85 MEDICATION ALLERGIES: CODEINE ENVIRONMENTAL ALLERGIES: - Substance Allergies None Known - Other Allergies None Known NURSING: - Shower allowing shower - Skin care per protocol PRECAUTIONS: - Weight Bearing Precaution WBAT right LE WITH THE SHOE ACTIVITIES OOB only with supervision THERAPIES: - Dietary and Nutrition Adequate Nutrition. Nutritional Education. Nutritional Supplements. - Occupational Therapy Cognitive Retraining. Evaluate and Treat. Visual Perceptual Training. Adaptive Equipment. ADL Trainin g. Transfer Training. UE Strengthening. Safety Awareness. - Speech Therapy Cognitive Training. Expressive Language Skills. Memory Strategies. Receptive Language Skills. Speech Intelligibility Training. - Physical Therapy Gait Training. Transfer Training. Balance Training. Evaluate and Treat. Mobility Training. LE Strengt hening. LE ROM. Safety Awareness. PHYSICAL EXAM - Gen Alert and awake Lying in bed No apparent distress Oriented to: person, time, and place - Skin No open wound or evidence of breakdown. Edamatous R leg, leg held in external rotation and midly shor tened Normacephalic - Eyes No abnormalities - ENMT No abnormalities - Neck No abnormalities - CVS RRR - Chest No abnormalities - Abd Soft - No abnormalities - Ext Right hip surgical site has good hemostasis. - MSK 4+/5 weakness in right lower extremity - Neuro 4/5 strength right lower extremity. - Psych No abnormalities ASSESSMENT: Pt. is a 85 yo Right-handed female.On 04/15/2021 she was admitted to [facility] with diagnosis R Inte rtrochanteric Femur fx.Her impairment category is Orthopaedic Disorders 08 - Unilateral Hip Fracture (08.11).Pre-morbidly, Pt. was independent/mod-I in Locomotion, Safety Awareness, Balance, and Social Cognition; and she had good Transfers Control, Sphincter Control, Self-Care, Communication, and Endu guilherme.Currently, she has deficits of Locomotion, Safety Awareness, Transfers Control, Self-Care, Endu guilherme, Sphincter Control, and Balance.Pt. is now [facility] in order to maximize patient's functional independence in activities of daily living, strength, ROM, and mobility.- Rehab Goal Patient has realistic goal of being discharged at assistance level 7-Ind to reside at Home with Fami ly/Relatives. MDM/PLAN: - Physical Therapy Decreased range of motion - to improve, our physical therapists will perform initial evaluation of p t's status upon admission and devise an individualized program for increasing patient's Range of Tien on. Gait dysfunction - to improve, our physical therapists will perform initial evaluation of pt's statu s upon admission and devise an individualized program for Gait Training, and Wheel Chair mobility Having wound - to improve, our physical therapists will perform initial evaluation of pt's status up on admission and devise an individualized program for Wound Care Inability to transfer - to improve, our physical therapists will perform initial evaluation of pt's status upon admission and devise an individualized program for Bed mobility Need for home safety evaluation - to improve, our physical therapists will perform initial evaluatio n of pt's status upon admission and devise an individualized program for Home Evaluation Need in caregiver upon discharge - to improve, our physical therapists will perform initial evaluati on of pt's status upon admission and devise an individualized program for Caregiver Training New precaution - to improve, our physical therapists will perform initial evaluation of pt's status upon admission and devise an individualized program for Patient precaution education Poor balance - to improve, our physical therapists will perform initial evaluation of pt's status up on admission and devise an individualized program for Balance Training Poor endurance - to improve, our physical therapists will perform initial evaluation of pt's status upon admission and devise an individualized program for Endurance Training Weakness - to improve, our physical therapists will perform initial evaluation of pt's status upon a dmission and devise an individualized program for Aquatic Therapy, Neuromuscular Reeducation, and Str engthening Achieving independence - to improve, our physical therapists will perform initial evaluation of pt's status upon admission and devise an individualized program for Community Reintegration Activities - Occupational Therapy ADL deficits - to improve, our occupation therapists will perform initial evaluation of pt's status upon admission and devise an individualized program for Bathing, Bed mobility, Community Reintegratio n, Cooking, Dressing, Eating, Fine Motor Skills, Grooming, Homemaking, Kitchen Mobility, Laundry, Pat ient Education, Safety Awareness, Splinting - Positioning, Transfers(Toilet, Tub, Shower), and Wheel Chair Management Need for behavioral health care manager - to improve, our occupation therapists will perform initial evaluation of pt's status upon admission and devise an individualized program for Caregiver Training Weakness - to improve, our occupation therapists will perform initial evaluation of pt's status upon admission and devise an individualized program for Aquatic Therapy, Balance, Endurance, UE ROM, and UE strengthening - Other See attached MAR (Medication Administration Record) - Anterior Hip Precaution No abduction No active extension No adduction across midline No external rotation No hip flexion >90 degrees No internal rotation - Diet - Liquid Texture Continue Regular - Tube Feed Continue N/A - Diet Type Continue Regular - Posterior Hip Precaution No adduction across midline No external rotation No hip flexion >90 degrees No internal rotation No wheel chair propulsion - Weight Bearing Precaution WBAT right LE WITH THE SHOE - Skin care per protocol - Diet - Solid Texture Continue Regular - Shower allowing shower FUNCTIONAL STATUS: UPDATED AT WEEKLY TEAM CONFERENCE - Bladder Same accident frequency: 7-Ind - No accidents in the past 7 days - Bowel Same accident frequency: 7-Ind - No accidents in the past 7 days - Walking Same score based on distance walked: 0(N/A) Same score based on distance walked: 1(<=50ft) - Wheelchair Same score based on distance traveled: 0(N/A) FUNCTIONAL STATUS: - Self-Care A. Eating Ind B. Grooming Dennis C. Bathing sup D. Dressing - Upper sup E. Dressing - Lower Terri F. Toileting sup - Sphincter Control G. Bladder control Dennis H. Bowel control Dennis - Transfers Control I. Bed/Chair/Wheelchair sup J. Toilet sup K. Tub/Shower Terri - Locomotion L. Walk/Wheelchair (B) Terri M. Stairs ADNO - Communication N. Comprehension (B) Dennis O. Expression (B) Dennis - Social Cognition P. Social Interaction Dennis Q. Problem Solving sup R. Memory Dennis - Endurance Fair - Balance Good - Safety Awareness Good QI SCORES: - Self-Care A. Eating 05-Setup or clean-up assistance B. Oral hygiene 03-Partial/moderate assistance C. Toileting hygiene 03-Partial/moderate assistance E. Shower/bathe self 03-Partial/moderate assistance F. Upper body dressing 03-Partial/moderate assistance G. Lower body dressing 03-Partial/moderate assistance H. Putting on/taking off footwear 03-Partial/moderate assistance - Mobility A. Roll left and right 03-Partial/moderate assistance B. Sit to lying 03-Partial/moderate assistance C. Lying to sitting on side of bed 03-Partial/moderate assistance D. Sit to stand 03-Partial/moderate assistance E. Chair/rcp-bm-[id number] transfer 03-Partial/moderate assistance F. Toilet transfer 03-Partial/moderate assistance G. Car transfer 88-Not attempted due to medical condition or safety concerns I. Walk 10 feet 04-Supervision or touching assistance J. Walk 50 feet with two turns 88-Not attempted due to medical condition or safety concerns K. Walk 150 feet 88-Not attempted due to medical condition or safety concerns L. Walking 10 feet on uneven surfaces 88-Not attempted due to medical condition or safety concerns N. 4 steps 88-Not attempted due to medical condition or safety concerns O. 12 steps 88-Not attempted due to medical condition or safety concerns P. Picking up object 88-Not attempted due to medical condition or safety concerns R. Wheel 50 feet with two turns 88-Not attempted due to medical condition or safety concerns S. Wheel 150 feet 88-Not attempted due to medical condition or safety concerns - Bladder and Bowel Bladder continence Bowel continence - Endurance Fair - Balance Fair - Safety Awareness Fair CURRENT [facility] DEFICITS: Self-Care, Mobility, Endurance, Balance, and Safety Awareness SIGNATURE PANEL: (CDT)
[2021-05-01] MEDS: AMITRIPTYLINE 50 MG TAB PO SCH (18:44)
[2021-05-01] MEDS: EZETIMIBE 10 MG TAB PO SCH (18:44)
[2021-05-01] MEDS: ATORVASTATIN 20 MG TAB PO SCH (18:45)
[2021-05-01] MEDS: MELATONIN 3 MG TABLET PO PRN (19:54)
[2021-05-01] MEDS: ALPRAZOLAM 1 MG TABLET PO SCH (19:54)
[2021-05-01] MEDS: VERAPAMIL SR 240 MG TABLET PO SCH (20:38)
[2021-05-02] MEDS: TRAMADOL HCL 50 MG TAB PO PRN ×2 (04:52→12:14)
[2021-05-02] MEDS: AMPICILLIN TRIHYDRATE 500 MG CAP PO SCH ×4 (04:52→16:56)
[2021-05-02] MEDS: LEVOTHYROXINE SOD 0.1 MG TAB PO SCH (06:23)
[2021-05-02] MEDS: PANTOPRAZOLE 40MG TABLET PO SCH (07:20)
[2021-05-02] MEDS: LIDOCAINE 4% PATCH TOP SCH (07:20)
[2021-05-02] MEDS: OXYCODONE HCL 5 MG TAB PO PRN ×2 (07:37→17:48)
[2021-05-02] MEDS: FLUTICASONE 50MCG NASAL SPRAY NAS SCH (07:38)
[2021-05-02] MEDS: CRANBERRY FRUIT EXTRACT 400 MG CAP PO SCH ×2 (08:08→19:44)
[2021-05-02] MEDS: MAGNESIUM OXIDE 400 MG TAB PO SCH ×2 (08:09→19:45)
[2021-05-02] MEDS: FE SULF/FA/VIT B COMP & C TAB PO SCH (08:09)
[2021-05-02] MEDS: GABAPENTIN 300 MG CAP PO SCH ×2 (08:09→19:44)
[2021-05-02] MEDS: allopurinoL 300 MG TAB PO SCH (08:09)
[2021-05-02] MEDS: IRBESARTAN 150 MG TAB PO SCH (08:10)
[2021-05-02] MEDS: MONTELUKAST 10 MG TAB PO SCH (08:10)
[2021-05-02] MEDS: APIXABAN 2.5 MG TABLET PO SCH ×2 (08:10→19:45)
[2021-05-02] MEDS: METFORMIN HCL 500 MG TAB PO SCH (08:10)
[2021-05-02] MEDS: JUVEN PACKET PO SCH ×2 (08:11→19:45)
[2021-05-02] MEDS: MESALAMINE 500 MG CAPSULE PO SCH ×2 (08:11→19:45)
--- NOTE | 2021-05-02 09:46 | PN ---
Date of Progress Note: 05/02/2021 Subjective: The patient was seen this morning for followup. No new complaints or problems reported by the patient except complaining of more pain in her right leg from right upper lateral thigh all th e way down to her right upper leg area just below the knee. Objective: Vital Signs: Reviewed. HEENT: Unremarkable. Lungs: Clear to auscultation. Heart: Sounds normal. Abdomen: Soft. Bowel sounds normal. No guarding, rigidity, tenderness, distention. Extremities: Leg edema on the right leg unchanged from before. Right lateral thigh has surgical sca r well-healed. No evidence of any swelling around the surgical scar. No discharge. No bleeding. N o redness. Impression: 1.Right femur fracture. 2.Right foot fracture. 3.Hypertension. 4.Type 2 diabetes mellitus. 5.Anemia due to acute blood loss. Plan: We will go ahead and continue current medication. The patient was lying in the bed when I saw her, leaning on the left side, and I will have nursing staff reposition her in the bed to see if steven t helps her with her pain. Continue current pain medications, iron supplement, and I will see her to [facility] for followup. SHARONDA/MODL Voice ID: [id number] Report ID: [id number]
[2021-05-02] MEDS: EZETIMIBE 10 MG TAB PO SCH (19:44)
[2021-05-02] MEDS: ATORVASTATIN 20 MG TAB PO SCH (19:44)
[2021-05-02] MEDS: AMITRIPTYLINE 50 MG TAB PO SCH (19:44)
[2021-05-02] MEDS: VERAPAMIL SR 240 MG TABLET PO SCH (19:45)
[2021-05-02] MEDS: ALPRAZOLAM 1 MG TABLET PO SCH (19:45)
[2021-05-03] MEDS: AMPICILLIN TRIHYDRATE 500 MG CAP PO SCH ×2 (05:11)
[2021-05-03] MEDS: LEVOTHYROXINE SOD 0.1 MG TAB PO SCH (06:55)
[2021-05-03] MEDS: PANTOPRAZOLE 40MG TABLET PO SCH (06:55)
[2021-05-03 07:32] LABS: Potassium 5.5 mmol/L (3.5-5.1)
[2021-05-03] MEDS: IRBESARTAN 150 MG TAB PO SCH (07:41)
[2021-05-03 07:48] LABS: Absolute Lymphocytes (CBC) 1.5 K/uL (0.7-4.9); Lymphocytes % 13.3 % (15.3-44.8); MPV 7.5 fL (7.6-11.3)
[2021-05-03] MEDS: METFORMIN HCL 500 MG TAB PO SCH (08:00)
[2021-05-03] MEDS: JUVEN PACKET PO SCH ×2 (08:00→20:00)
[2021-05-03] MEDS: GABAPENTIN 300 MG CAP PO SCH ×2 (08:00→20:36)
[2021-05-03] MEDS ORDERED: SOD POLYSTYREN SUL 15 GM/60 ML UCUP PO ONE ×2 (08:08→20:21)
[2021-05-03] MEDS: NA CHLORIDE 0.9% 1,000 ML IV SCH ×2 (08:19→16:31)
--- NOTE | 2021-05-03 09:15 | RAD REPORT ---
EXAM DESCRIPTION: RAD - Chest Single View - 05/03/2021 8:50 am CLINICAL HISTORY: inncrease cough Chest pain. COMPARISON: Chest Single View dated 04/15/2021; Chest Pa And Lat (2 Views) dated 12/24/2020; Chest Pa A nd Lat (2 Views) dated 05/14/2020; Chest Pa And Lat (2 Views) dated 11/04/2019 FINDINGS: Portable technique limits examination quality. The lungs are emphysematous but grossly clear. The heart is normal in size. No displaced fractures. IMPRESSION: Mild COPD.
[2021-05-03 09:20] LABS: Albumin 2.3 g/dL (3.4-5.0); Bilirubin Direct 0.2 mg/dL (0-0.2); Bilirubin Total 0.5 mg/dL (0.2-1.0); Protein, Total 6.4 g/dL (6.4-8.2)
[2021-05-03] MEDS: MONTELUKAST 10 MG TAB PO SCH (09:35)
[2021-05-03] MEDS: allopurinoL 300 MG TAB PO SCH (09:35)
[2021-05-03] MEDS: MAGNESIUM OXIDE 400 MG TAB PO SCH ×2 (09:35→20:00)
[2021-05-03] MEDS: LIDOCAINE 4% PATCH TOP SCH (09:35)
[2021-05-03] MEDS: APIXABAN 2.5 MG TABLET PO SCH ×2 (09:36→20:37)
[2021-05-03] MEDS: CRANBERRY FRUIT EXTRACT 400 MG CAP PO SCH ×2 (09:36→20:37)
[2021-05-03] MEDS: FE SULF/FA/VIT B COMP & C TAB PO SCH (09:36)
[2021-05-03] MEDS: FLUTICASONE 50MCG NASAL SPRAY NAS SCH (09:37)
[2021-05-03] MEDS: Levofloxacin 250mg IV 250 MG/50 ML BAG IV SCH (09:38)
[2021-05-03] MEDS: MESALAMINE 500 MG CAPSULE PO SCH ×2 (10:10→20:36)
--- NOTE | 2021-05-03 10:10 | RAD REPORT ---
EXAM DESCRIPTION: US - Renal Ultrasound-Complete - 05/03/2021 9:16 am CLINICAL HISTORY: ARF Flank pain COMPARISON: RP EXAM COMPLETE dated 08/21/2013 FINDINGS: Both kidneys are normal in size, shape and echotexture. The right kidney measures 8.6 x 4.4 x 4.1 cm. No hydronephrosis, focal mass or perinephric fluid. The left kidney measures 9.8 x 5.5 x 5.5 cm. No hydronephrosis, focal mass or perinephric fluid. Jeovanny gn 10 mm renal cyst along the cortex of the kidney. The urinary bladder is incompletely distended without gross abnormality seen. IMPRESSION: Small benign left renal cyst, otherwise negative study.
[2021-05-03 11:55] LABS: Urine Appearance CLOUDY (Clear); Urine Bilirubin NEGATIVE (Negative); Urine Blood NEGATIVE (Negative); Urine Color DK YELLOW (Yellow); Urine Glucose NEGATIVE (Negative); Urine Protein NEGATIVE (Negative); Urine Specific Gravity 1.025 (1.005-1.030); Urine Urobilinogen 0.2 mg/dL (0.2-1.0)
[2021-05-03 12:13] LABS: Urine Bacteria <20 /HPF (<20); Urine RBC <5 /HPF (NONE SEEN)
[2021-05-03 12:14] LABS: Urine Mucus 1+ /HPF (NONE SEEN)
--- NOTE | 2021-05-03 16:50 | RAD REPORT ---
EXAM DESCRIPTION: RAD - Hip Right 2 View - 05/03/2021 4:03 pm CLINICAL HISTORY: increase pain COMPARISON: Hip Right 2 View dated 04/15/2021; Hip Right 2 View dated 11/07/2017 FINDINGS: Intramedullary [place] in the right femur with cephalomedullary screw. The intertrochanteric f racture lines are still evident. No evidence of hardware complications. No dislocation. IMPRESSION: Status post ORIF of the right hip without evidence of hardware complications or new acut e fracture.
--- NOTE | 2021-05-03 16:51 | RAD REPORT ---
EXAM DESCRIPTION: RAD - Knee Right 2 View - 05/03/2021 4:03 pm CLINICAL HISTORY: increase pain COMPARISON: Knee Right 3 View dated 04/16/2018 FINDINGS: Intact distal stem of the intramedullary wellington within the right femur. No hardware complicat ions. Degenerative changes are present in the right knee involving all 3 compartments. No acute fract ure. IMPRESSION: No acute osseous abnormality involving the right knee. Partially imaged intramedullary r od is intact.
[2021-05-03] MEDS: ACETAMINOPHEN 500 MG TAB PO PRN ×2 (17:14→22:00)
--- NOTE | 2021-05-03 17:43 | R.PN ---
PROGRESS NOTES ENCOUNTER DATE AND TIME: 05/03/2021 17:33 (CDT) NAME SAEID LAST DATE OF : 1935 DATE OF ADMISSION: 04/21/2021 14:51 (CDT) R Intertrochanteric Femur fxCHIEF COMPLAINT: Right femur fracture, debility SUBJECTIVE: Pt denied any depression. Pt denied any Shortness of Breath. 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 UA shows 1+ esterase, 5-10 WBC.. Bed mobility and transfers done with max assistance. Therapy only done in bed due to somnolence with hypotension. VITAL SIGNS Temperature: 99.7 F Resp: 16 SBP/DBP: 103/59 Pulse: 118 MEDICATION ALLERGIES: CODEINE ENVIRONMENTAL ALLERGIES: - Substance Allergies None Known - Other Allergies None Known NURSING: - Shower allowing shower - Skin care per protocol PRECAUTIONS: - Weight Bearing Precaution WBAT right LE WITH THE SHOE ACTIVITIES OOB only with supervision THERAPIES: - Dietary and Nutrition Adequate Nutrition. Nutritional Education. Nutritional Supplements. - Occupational Therapy Cognitive Retraining. Evaluate and Treat. Visual Perceptual Training. Adaptive Equipment. ADL Trainin g. Transfer Training. UE Strengthening. Safety Awareness. - Speech Therapy Cognitive Training. Expressive Language Skills. Memory Strategies. Receptive Language Skills. Speech Intelligibility Training. - Physical Therapy Gait Training. Transfer Training. Balance Training. Evaluate and Treat. Mobility Training. LE Strengt hening. LE ROM. Safety Awareness. PHYSICAL EXAM - Gen Alert and awake Lying in bed No apparent distress Oriented to: person, time, and place - Skin No open wound or evidence of breakdown. Edamatous R leg, leg held in external rotation and midly shor tened Normacephalic - Eyes No abnormalities - ENMT No abnormalities - Neck No abnormalities - CVS RRR - Chest No abnormalities - Abd Soft - No abnormalities - Ext Right hip surgical site has good hemostasis. - MSK 4+/5 weakness in right lower extremity - Neuro 4/5 strength right lower extremity. - Psych No abnormalities ASSESSMENT: Pt. is a 85 yo Right-handed female.On 04/15/2021 she was admitted to [facility] with diagnosis R Inte rtrochanteric Femur fx.Her impairment category is Orthopaedic Disorders 08 - Unilateral Hip Fracture (08.11).Pre-morbidly, Pt. was independent/mod-I in Locomotion, Safety Awareness, Balance, and Social Cognition; and she had good Transfers Control, Sphincter Control, Self-Care, Communication, and Endu guilherme.Currently, she has deficits of Locomotion, Safety Awareness, Transfers Control, Self-Care, Endu guilherme, Sphincter Control, and Balance.Pt. is now referred to [facility] for [facility] in-patient rehabilitation in order to maximize patient's functional independence in activities of daily living, strength, ROM, and mobility.- Rehab Goal Patient has realistic goal of being discharged at assistance level 7-Ind to reside at Home with Fami ly/Relatives. MDM/PLAN: - Physical Therapy Decreased range of motion - to improve, our physical therapists will perform initial evaluation of p t's status upon admission and devise an individualized program for increasing patient's Range of Tien on. Gait dysfunction - to improve, our physical therapists will perform initial evaluation of pt's statu s upon admission and devise an individualized program for Gait Training, and Wheel Chair mobility Having wound - to improve, our physical therapists will perform initial evaluation of pt's status up on admission and devise an individualized program for Wound Care Inability to transfer - to improve, our physical therapists will perform initial evaluation of pt's status upon admission and devise an individualized program for Bed mobility Need for home safety evaluation - to improve, our physical therapists will perform initial evaluatio n of pt's status upon admission and devise an individualized program for Home Evaluation Need in caregiver upon discharge - to improve, our physical therapists will perform initial evaluati on of pt's status upon admission and devise an individualized program for Caregiver Training New precaution - to improve, our physical therapists will perform initial evaluation of pt's status upon admission and devise an individualized program for Patient precaution education Poor balance - to improve, our physical therapists will perform initial evaluation of pt's status up on admission and devise an individualized program for Balance Training Poor endurance - to improve, our physical therapists will perform initial evaluation of pt's status upon admission and devise an individualized program for Endurance Training Weakness - to improve, our physical therapists will perform initial evaluation of pt's status upon a dmission and devise an individualized program for Aquatic Therapy, Neuromuscular Reeducation, and Str engthening Achieving independence - to improve, our physical therapists will perform initial evaluation of pt's status upon admission and devise an individualized program for Community Reintegration Activities - Occupational Therapy ADL deficits - to improve, our occupation therapists will perform initial evaluation of pt's status upon admission and devise an individualized program for Bathing, Bed mobility, Community Reintegratio n, Cooking, Dressing, Eating, Fine Motor Skills, Grooming, Homemaking, Kitchen Mobility, Laundry, Pat ient Education, Safety Awareness, Splinting - Positioning, Transfers(Toilet, Tub, Shower), and Wheel Chair Management Need for urgent care physician assistant - to improve, our occupation therapists will perform initial evaluation of pt's status upon admission and devise an individualized program for Caregiver Training Weakness - to improve, our occupation therapists will perform initial evaluation of pt's status upon admission and devise an individualized program for Aquatic Therapy, Balance, Endurance, UE ROM, and UE strengthening - Other See attached MAR (Medication Administration Record) - Anterior Hip Precaution No abduction No active extension No adduction across midline No external rotation No hip flexion >90 degrees No internal rotation - Diet - Liquid Texture Continue Regular - Tube Feed Continue N/A - Diet Type Continue Regular - Posterior Hip Precaution No adduction across midline No external rotation No hip flexion >90 degrees No internal rotation No wheel chair propulsion - Weight Bearing Precaution WBAT right LE WITH THE SHOE - Skin care per protocol - Diet - Solid Texture Continue Regular - Shower allowing shower FUNCTIONAL STATUS: UPDATED AT WEEKLY TEAM CONFERENCE - Bladder Same accident frequency: 7-Ind - No accidents in the past 7 days - Bowel Same accident frequency: 7-Ind - No accidents in the past 7 days - Walking Same score based on distance walked: 0(N/A) Same score based on distance walked: 1(<=50ft) - Wheelchair Same score based on distance traveled: 0(N/A) FUNCTIONAL STATUS: - Self-Care A. Eating Ind B. Grooming Dennis C. Bathing sup D. Dressing - Upper sup E. Dressing - Lower Terri F. Toileting sup - Sphincter Control G. Bladder control Dennis H. Bowel control Dennis - Transfers Control I. Bed/Chair/Wheelchair sup J. Toilet sup K. Tub/Shower Terri - Locomotion L. Walk/Wheelchair (B) Terri M. Stairs ADNO - Communication N. Comprehension (B) Dennis O. Expression (B) Dennis - Social Cognition P. Social Interaction Dennis Q. Problem Solving sup R. Memory Dennis - Endurance Fair - Balance Good - Safety Awareness Good QI SCORES: - Self-Care A. Eating 05-Setup or clean-up assistance B. Oral hygiene 03-Partial/moderate assistance C. Toileting hygiene 03-Partial/moderate assistance E. Shower/bathe self 03-Partial/moderate assistance F. Upper body dressing 03-Partial/moderate assistance G. Lower body dressing 03-Partial/moderate assistance H. Putting on/taking off footwear 03-Partial/moderate assistance - Mobility A. Roll left and right 03-Partial/moderate assistance B. Sit to lying 03-Partial/moderate assistance C. Lying to sitting on side of bed 03-Partial/moderate assistance D. Sit to stand 03-Partial/moderate assistance E. Chair/czp-vl-iiuvy transfer 03-Partial/moderate assistance F. Toilet transfer 03-Partial/moderate assistance G. Car transfer 88-Not attempted due to medical condition or safety concerns I. Walk 10 feet 04-Supervision or touching assistance J. Walk 50 feet with two turns 88-Not attempted due to medical condition or safety concerns K. Walk 150 feet 88-Not attempted due to medical condition or safety concerns L. Walking 10 feet on uneven surfaces 88-Not attempted due to medical condition or safety concerns N. 4 steps 88-Not attempted due to medical condition or safety concerns O. 12 steps 88-Not attempted due to medical condition or safety concerns P. Picking up object 88-Not attempted due to medical condition or safety concerns R. Wheel 50 feet with two turns 88-Not attempted due to medical condition or safety concerns S. Wheel 150 feet 88-Not attempted due to medical condition or safety concerns - Bladder and Bowel Bladder continence Bowel continence - Endurance Fair - Balance Fair - Safety Awareness Fair CURRENT COMMUNITY HEALTH. DEFICITS: Self-Care, Mobility, Endurance, Balance, and Safety Awareness SIGNATURE PANEL: (CDT)
[2021-05-03] MEDS ORDERED: METOPROLOL XL 25 MG TAB PO SCH (18:00)
[2021-05-03 18:17] LABS: Potassium 5.3 mmol/L (3.5-5.1)
[2021-05-03] MEDS: AMITRIPTYLINE 50 MG TAB PO SCH (20:36)
[2021-05-03] MEDS: ATORVASTATIN 20 MG TAB PO SCH (20:37)
[2021-05-03] MEDS: EZETIMIBE 10 MG TAB PO SCH (20:37)
[2021-05-03] MEDS: ALPRAZOLAM 1 MG TABLET PO SCH (20:38)
--- NOTE | 2021-05-03 21:33 | RAD REPORT ---
EXAM DESCRIPTION: US - Extremity Venous Uni Ltd - 05/03/2021 9:21 pm CLINICAL HISTORY: Increased pain COMPARISON: None. TECHNIQUE: Real-time sonographic evaluation of the right lower extremity deep venous system was perf ormed. FINDINGS: Normal compressibility, flow augmentation, phasic flow and spontaneous flow is identified in the right lower extremity deep venous system. No intraluminal filling defects seen. James cyst in the popliteal fossa measuring 4.5 cm. IMPRESSION: No DVT in the right lower extremity.
[2021-05-04] MEDS: NA CHLORIDE 0.9% 1,000 ML IV SCH (01:03)
[2021-05-04] MEDS: TRAMADOL HCL 50 MG TAB PO PRN ×3 (01:57→22:34)
[2021-05-04 05:57] LABS: Absolute Lymphocytes (CBC) 1.1 K/uL (0.7-4.9); Basophils % 1.1 % (0-1.3); Hematocrit 24.6 % (36.0-45.0); Lymphocytes % 9.3 % (15.3-44.8); MPV 7.6 fL (7.6-11.3); RBC Red Blood Cell Count 2.67 M/uL (3.86-4.86)
[2021-05-04 06:10] LABS: Bilirubin Total 0.5 mg/dL (0.2-1.0); Magnesium 2.3 mg/dL (1.8-2.4); Protein, Total 5.9 g/dL (6.4-8.2)
--- NOTE | 2021-05-04 06:36 | PN ---
Date of Progress Note: 05/03/2021 Subjective: The patient was seen this morning for followup. She was lying in bed, not in distress. She appeared very sleepy. She did wake up, communicated little bit with me, but appeared very sleep y this morning. No new complaints overnight reported by the patient's nurse. Physical Examination: Vital Signs: Reviewed. HEENT: Unremarkable. Lungs: Clear to auscultation. Heart: Sounds normal. Abdomen: Soft. Bowel sounds normal. No guarding, rigidity, tenderness, distention. Extremities: Right leg edema unchanged. 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 Otherwise, there are no focal neurological deficits. Laboratory Data: White count 11.2, hemoglobin 8.8, platelets 542. Sodium 130, potassium 5.5, chlori de 96, bicarb 29, BUN 54, creatinine 2.26, glucose 115. Impression: 1.Acute kidney injury. 2.Hyperkalemia. 3.Anemia due to acute blood loss. 4.Urinary tract infection. 5.Diabetes mellitus. 6.Hypertension. Plan: We will discontinue her metformin, irbesartan and also discontinue her ampicillin that current ly she is on for urinary tract infection. We will do another repeat urinalysis, urine culture, blood culture. Kayexalate 30 g p.o. x1 dose was ordered to be given this morning. We will start her on I V fluid hydration and start empiric antibiotic Levaquin. Liver function test was done, results revmon, has shown some abnormal liver enzymes and at this point our concern is the patient's acute kidne y injury is very likely due to volume depletion problem and I will also reduce her gabapentin dose fr om 600 mg twice a day down to 300 mg twice a day as it was increased recently considering her confusi on problem that we see right now. We need to keep in mind about possibility of medication side effec ts along with volume depletion and underlying infection as multiple different possibilities. I did g o back and check on her this evening again. Her condition had improved somewhat during today's day. She became little bit more awake and alert, still not back to normal, but better than this morning. Her appetite was poor today, but about 25% at lunchtime and she ate 50% at dinnertime, but overall, her condition has improved by this evening. She still had some sinus tachycardia with heart rate prisca und 110 to 120 per minute, and I have ordered Toprol 25 mg p.o. x1 dose. We will discontinue her lawanda apamil that she is supposed to take it at nighttime. Repeat blood work tomorrow morning. Renal ultr asound was done today, which came back unremarkable except small left benign renal cyst. No other ac deng finding. I have ordered CAT scan of abdomen and pelvis without contrast along with CAT scan of t he head that she will get today by Dr. Potter. I will see her tomorrow for followup. SHARONDA/MODL Voice ID: [id number] Report ID: [id number]
[2021-05-04] MEDS: PANTOPRAZOLE 40MG TABLET PO SCH (06:44)
[2021-05-04] MEDS: LEVOTHYROXINE SOD 0.1 MG TAB PO SCH (06:44)
[2021-05-04] MEDS ORDERED: GABAPENTIN 100 MG CAP ONE (07:18)
[2021-05-04] MEDS: JUVEN PACKET PO SCH ×2 (08:00→20:00)
--- NOTE | 2021-05-04 08:21 | RAD REPORT ---
EXAM DESCRIPTION: CT - Head Brain Wo Cont - 05/03/2021 10:48 pm CLINICAL HISTORY: Hallucinations/confusion COMPARISON: 2012 TECHNIQUE: Computed axial tomography of the head was obtained. IV contrast was not requested. All CT scans are performed using dose optimization technique as appropriate and may include automated exposure control or mA/KV adjustment according to patient size. FINDINGS: An intracranial bleed is not seen . The ventricles are normal in caliber. No extra-axial fluid collection is noted. Fluid within the sinuses/ mastoids is not seen. IMPRESSION: No acute intracranial abnormality is seen. If patient's symptoms persist MRI of the bra in would be recommended.
--- NOTE | 2021-05-04 08:33 | RAD REPORT ---
EXAM DESCRIPTION: CT - Abdomen Pelvis Wo Contrast - 05/03/2021 10:48 pm CLINICAL HISTORY: Abdominal pain COMPARISON: December 2020 TECHNIQUE: Computed axial tomography of the abdomen and pelvis was obtained. IV and oral contrast we re not requested. All CT scans are performed using dose optimization technique as appropriate and may include automated exposure control or mA/KV adjustment according to patient size. Findings. FINDINGS: The evaluation of solid organs, vessels and bowel is limited secondary to the lack of con trast administration. Moderate bilateral hydronephrosis and hydroureter. The bladder is markedly distended. A genitourinary calculus is not visualized. No evidence of diverticulitis. Small umbilical hernia. Moderate amount of stool Intramedullary wellington and screw affix a proximal right femoral fracture. Moderate to marked displacement of fracture fragments unchanged from x-ray earlier on the same date IMPRESSION: Moderate bilateral hydronephrosis and hydroureter presumably related to the bladder dist ention. It is recommended that the patient have a renal ultrasound after placement of a Sheth cathete r within the bladder for further evaluation. Moderate amount of stool within the colon Intramedullary wellington and screw affix a proximal right femoral fracture. Moderate to marked displacement of fracture fragments unchanged from x-ray earlier on the same date
[2021-05-04] MEDS: GABAPENTIN 300 MG CAP PO SCH ×2 (09:37→20:37)
[2021-05-04] MEDS: CRANBERRY FRUIT EXTRACT 400 MG CAP PO SCH ×2 (09:39→20:38)
[2021-05-04] MEDS: allopurinoL 300 MG TAB PO SCH (09:40)
[2021-05-04] MEDS: MONTELUKAST 10 MG TAB PO SCH (09:41)
[2021-05-04] MEDS: APIXABAN 2.5 MG TABLET PO SCH ×2 (09:41→20:37)
[2021-05-04] MEDS: FE SULF/FA/VIT B COMP & C TAB PO SCH (09:42)
[2021-05-04] MEDS: ACETAMINOPHEN 500 MG TAB PO PRN ×2 (09:48→15:21)
--- NOTE | 2021-05-04 10:23 | EKG ---
Test Date: 2021-05-03 Test Time: 19:25:15 Occupational Therapy Aides Teacher: MARIBELL MEASUREMENT RESULTS: Intervals: Rate: 112 AL: 166 QRSD: 92 QT: 332 QTc: 453 [place]: P: 49 AL: 166 QRS: 8 T: 68 INTERPRETIVE STATEMENTS: Sinus tachycardia Otherwise normal ECG Compared to ECG 05/03/2021 09:42:27 No significant changes Electronically Signed On 05-04-21 10:21:54 CDT by Sadi Fish
[2021-05-04] MEDS: FLUTICASONE 50MCG NASAL SPRAY NAS SCH (10:58)
[2021-05-04] MEDS: LIDOCAINE 4% PATCH TOP SCH (10:58)
[2021-05-04] MEDS: MAGNESIUM OXIDE 400 MG TAB PO SCH ×2 (11:01→20:38)
[2021-05-04] MEDS: MESALAMINE 500 MG CAPSULE PO SCH ×2 (11:01→20:39)
[2021-05-04] MEDS: Levofloxacin 250mg IV 250 MG/50 ML BAG IV SCH (11:02)
--- NOTE | 2021-05-04 20:04 | R.PN ---
PROGRESS NOTES ENCOUNTER DATE AND TIME: 05/04/2021 19:59 (CDT) NAME SAEID LAST DATE OF : 1935 DATE OF ADMISSION: 04/21/2021 14:51 (CDT) R Intertrochanteric Femur fxCHIEF COMPLAINT: Right femur fracture, debility SUBJECTIVE: Pt denied any depression. Pt denied any Shortness of Breath. WBC 11.7, Hgb 0.8, prealbumin 10.6, Na 134, K 4.0, Cow Tester 2.26, AST 82, ALT 102, Alk Phos 182. Ca 8.3, G lucose 113. UA shows 1+ esterase, 5-10 WBC. Bed mobility and transfers done with maximum assistance. VITAL SIGNS Temperature: 99.7 F Resp: 16 SBP/DBP: 120/56 Pulse: 80 MEDICATION ALLERGIES: CODEINE ENVIRONMENTAL ALLERGIES: - Substance Allergies None Known - Other Allergies None Known NURSING: - Shower allowing shower - Skin care per protocol PRECAUTIONS: - Weight Bearing Precaution WBAT right LE WITH THE SHOE ACTIVITIES OOB only with supervision THERAPIES: - Dietary and Nutrition Adequate Nutrition. Nutritional Education. Nutritional Supplements. - Occupational Therapy Cognitive Retraining. Evaluate and Treat. Visual Perceptual Training. Adaptive Equipment. ADL Trainin g. Transfer Training. UE Strengthening. Safety Awareness. - Speech Therapy Cognitive Training. Expressive Language Skills. Memory Strategies. Receptive Language Skills. Speech Intelligibility Training. - Physical Therapy Gait Training. Transfer Training. Balance Training. Evaluate and Treat. Mobility Training. LE Strengt hening. LE ROM. Safety Awareness. PHYSICAL EXAM - Gen Alert and awake Lying in bed No apparent distress Oriented to: person, time, and place - Skin No open wound or evidence of breakdown. Edamatous R leg, leg held in external rotation and midly shor tened Normacephalic - Eyes No abnormalities - ENMT No abnormalities - Neck No abnormalities - CVS RRR - Chest No abnormalities - Abd Soft - No abnormalities - Ext Right hip surgical site has good hemostasis. - MSK 4+/5 weakness in right lower extremity - Neuro 4/5 strength right lower extremity. - Psych No abnormalities ASSESSMENT: Pt. is a 85 yo Right-handed female.On 04/15/2021 she was admitted to [facility] with diagnosis R Inte rtrochanteric Femur fx.Her impairment category is Orthopaedic Disorders 08 - Unilateral Hip Fracture (.11).Pre-morbidly, Pt. was independent/mod-I in Locomotion, Safety Awareness, Balance, and Social Cognition; and she had good Transfers Control, Sphincter Control, Self-Care, Communication, and Endu guilherme.Currently, she has deficits of Locomotion, Safety Awareness, Transfers Control, Self-Care, Endu guilherme, Sphincter Control, and Balance.Pt. is now referred [facility] in order to maximize patient's functional independence in activities of daily living, strength, ROM, and mobility.- Rehab Goal Patient has realistic goal of being discharged at assistance level 7-Ind to reside at Home with Fami ly/Relatives. MDM/PLAN: - Physical Therapy Decreased range of motion - to improve, our physical therapists will perform initial evaluation of p t's status upon admission and devise an individualized program for increasing patient's Range of Tien on. Gait dysfunction - to improve, our physical therapists will perform initial evaluation of pt's statu s upon admission and devise an individualized program for Gait Training, and Wheel Chair mobility Having wound - to improve, our physical therapists will perform initial evaluation of pt's status up on admission and devise an individualized program for Wound Care Inability to transfer - to improve, our physical therapists will perform initial evaluation of pt's status upon admission and devise an individualized program for Bed mobility Need for home safety evaluation - to improve, our physical therapists will perform initial evaluatio n of pt's status upon admission and devise an individualized program for Home Evaluation Need in caregiver upon discharge - to improve, our physical therapists will perform initial evaluati on of pt's status upon admission and devise an individualized program for Caregiver Training New precaution - to improve, our physical therapists will perform initial evaluation of pt's status upon admission and devise an individualized program for Patient precaution education Poor balance - to improve, our physical therapists will perform initial evaluation of pt's status up on admission and devise an individualized program for Balance Training Poor endurance - to improve, our physical therapists will perform initial evaluation of pt's status upon admission and devise an individualized program for Endurance Training Weakness - to improve, our physical therapists will perform initial evaluation of pt's status upon a dmission and devise an individualized program for Aquatic Therapy, Neuromuscular Reeducation, and Str engthening Achieving independence - to improve, our physical therapists will perform initial evaluation of pt's status upon admission and devise an individualized program for Community Reintegration Activities - Occupational Therapy ADL deficits - to improve, our occupation therapists will perform initial evaluation of pt's status upon admission and devise an individualized program for Bathing, Bed mobility, Community Reintegratio n, Cooking, Dressing, Eating, Fine Motor Skills, Grooming, Homemaking, Kitchen Mobility, Laundry, Pat ient Education, Safety Awareness, Splinting - Positioning, Transfers(Toilet, Tub, Shower), and Wheel Chair Management Need for lead caregiver - to improve, our occupation therapists will perform initial evaluation of pt's status upon admission and devise an individualized program for Caregiver Training Weakness - to improve, our occupation therapists will perform initial evaluation of pt's status upon admission and devise an individualized program for Aquatic Therapy, Balance, Endurance, UE ROM, and UE strengthening - Other See attached MAR (Medication Administration Record) - Anterior Hip Precaution No abduction No active extension No adduction across midline No external rotation No hip flexion >90 degrees No internal rotation - Diet - Liquid Texture Continue Regular - Tube Feed Continue N/A - Diet Type Continue Regular - Posterior Hip Precaution No adduction across midline No external rotation No hip flexion >90 degrees No internal rotation No wheel chair propulsion - Weight Bearing Precaution WBAT right LE WITH THE SHOE - Skin care per protocol - Diet - Solid Texture Continue Regular - Shower allowing shower FUNCTIONAL STATUS: UPDATED AT WEEKLY TEAM CONFERENCE - Bladder Same accident frequency: 7-Ind - No accidents in the past 7 days - Bowel Same accident frequency: 7-Ind - No accidents in the past 7 days - Walking Same score based on distance walked: 0(N/A) Same score based on distance walked: 1(<=50ft) - Wheelchair Same score based on distance traveled: 0(N/A) FUNCTIONAL STATUS: - Self-Care A. Eating Ind B. Grooming Dennis C. Bathing sup D. Dressing - Upper sup E. Dressing - Lower Terri F. Toileting sup - Sphincter Control G. Bladder control Dennis H. Bowel control Dennis - Transfers Control I. Bed/Chair/Wheelchair sup J. Toilet sup K. Tub/Shower Terri - Locomotion L. Walk/Wheelchair (B) Terri M. Stairs ADNO - Communication N. Comprehension (B) Dennis O. Expression (B) Dennis - Social Cognition P. Social Interaction Dennis Q. Problem Solving sup R. Memory Dennis - Endurance Fair - Balance Good - Safety Awareness Good QI SCORES: - Self-Care A. Eating 05-Setup or clean-up assistance B. Oral hygiene 03-Partial/moderate assistance C. Toileting hygiene 03-Partial/moderate assistance E. Shower/bathe self 03-Partial/moderate assistance F. Upper body dressing 03-Partial/moderate assistance G. Lower body dressing 03-Partial/moderate assistance H. Putting on/taking off footwear 03-Partial/moderate assistance - Mobility A. Roll left and right 03-Partial/moderate assistance B. Sit to lying 03-Partial/moderate assistance C. Lying to sitting on side of bed 03-Partial/moderate assistance D. Sit to stand 03-Partial/moderate assistance E. Chair/rkg-kx-dytvy transfer 03-Partial/moderate assistance F. Toilet transfer 03-Partial/moderate assistance G. Car transfer 88-Not attempted due to medical condition or safety concerns I. Walk 10 feet 04-Supervision or touching assistance J. Walk 50 feet with two turns 88-Not attempted due to medical condition or safety concerns K. Walk 150 feet 88-Not attempted due to medical condition or safety concerns L. Walking 10 feet on uneven surfaces 88-Not attempted due to medical condition or safety concerns N. 4 steps 88-Not attempted due to medical condition or safety concerns O. 12 steps 88-Not attempted due to medical condition or safety concerns P. Picking up object 88-Not attempted due to medical condition or safety concerns R. Wheel 50 feet with two turns 88-Not attempted due to medical condition or safety concerns S. Wheel 150 feet 88-Not attempted due to medical condition or safety concerns - Bladder and Bowel Bladder continence Bowel continence - Endurance Fair - Balance Fair - Safety Awareness Fair [facility] DEFICITS: Self-Care, Mobility, Endurance, Balance, and Safety Awareness SIGNATURE PANEL: (CDT)
[2021-05-04] MEDS: EZETIMIBE 10 MG TAB PO SCH (20:37)
[2021-05-04] MEDS: AMITRIPTYLINE 50 MG TAB PO SCH (20:37)
[2021-05-04] MEDS: ATORVASTATIN 20 MG TAB PO SCH (20:37)
[2021-05-04] MEDS: MELATONIN 3 MG TABLET PO PRN (20:38)
[2021-05-04] MEDS: ALPRAZOLAM 1 MG TABLET PO SCH (21:00)
[2021-05-05] MEDS: ALPRAZOLAM 1 MG TABLET PO SCH ×2 (00:56→21:00)
[2021-05-05] MEDS ORDERED: NA CHLORIDE 0.9% 250 ML ONE (04:20)
[2021-05-05 05:39] LABS: Absolute Lymphocytes (CBC) 1.3 K/uL (0.7-4.9); Basophils % 0.1 % (0-1.3); Hematocrit 23.2 % (36.0-45.0); Lymphocytes % 12.9 % (15.3-44.8); MPV 7.3 fL (7.6-11.3); RBC Red Blood Cell Count 2.54 M/uL (3.86-4.86)
[2021-05-05 05:46] LABS: Potassium 3.3 mmol/L (3.5-5.1)
[2021-05-05] MEDS: LEVOTHYROXINE SOD 0.1 MG TAB PO SCH (06:37)
[2021-05-05] MEDS: FLUTICASONE 50MCG NASAL SPRAY NAS SCH (07:42)
[2021-05-05] MEDS: PANTOPRAZOLE 40MG TABLET PO SCH (07:42)
[2021-05-05] MEDS: JUVEN PACKET PO SCH ×2 (08:00→20:00)
[2021-05-05] MEDS: TRAMADOL HCL 50 MG TAB PO PRN (08:07)
[2021-05-05] MEDS: MAGNESIUM OXIDE 400 MG TAB PO SCH ×2 (08:09→20:00)
[2021-05-05] MEDS: MESALAMINE 500 MG CAPSULE PO SCH ×2 (08:09→20:00)
[2021-05-05] MEDS: MONTELUKAST 10 MG TAB PO SCH (08:09)
[2021-05-05] MEDS: GABAPENTIN 300 MG CAP PO SCH ×2 (08:09→20:47)
[2021-05-05] MEDS: allopurinoL 300 MG TAB PO SCH (08:10)
[2021-05-05] MEDS: APIXABAN 2.5 MG TABLET PO SCH ×2 (08:10→20:47)
[2021-05-05] MEDS: FE SULF/FA/VIT B COMP & C TAB PO SCH (08:10)
[2021-05-05] MEDS: levoFLOXacin 500 MG TAB PO SCH (08:11)
[2021-05-05] MEDS: CRANBERRY EXTRACT 400 MG CAPSULE PO SCH ×2 (08:53→20:00)
[2021-05-05] MEDS: LIDOCAINE 4% PATCH TOP SCH (09:14)
--- NOTE | 2021-05-05 09:43 | PN ---
Date of Progress Note: 05/04/2021 Subjective: The patient was seen this morning for followup. She is actually better today compared t o yesterday, more awake, more alert, communicates better than yesterday. Objective: Vital Signs: Reviewed. HEENT: Unremarkable. Lungs: Clear to auscultation. Heart: Sounds normal. Abdomen: Soft. Bowel sounds normal. No guarding, rigidity, tenderness, distention. Extremities: Right leg edema remains unchanged. Laboratory Data: Venous Doppler from yesterday was negative. Her CAT scan of the head was negative for any acute intracranial changes. CAT scan of abdomen and pelvis without contrast shows evidence o f bilateral hydroureter and hydronephrosis with distended bladder. Impression: 1.Right femur fracture. 2.Right leg edema. 3.Urinary tract infection. 4.Acute kidney injury. 5.Hypertension. 6.Asthma. 7.Hydronephrosis with hydroureter and urinary retention. Plan: We will go ahead and continue current empiric antibiotic. The patient's blood work shows jeffrey l function is much better today than yesterday. We will discontinue IV fluid after current IV fluid bag is over. Sheth catheter was placed today and immediately we obtained approximately 1000 cc of ur ine and the patient still had some urine output coming, so we will leave the catheter in today and re peat ultrasound of bladder and kidney tomorrow. We will discontinue oxycodone. The patient has Tyle nol and tramadol that is for p.r.n. use. She will use it. Gabapentin dose was reduced yesterday and we will go ahead and continue to work with Physical Therapy. Her verapamil was discontinued as well and irbesartan was discontinued yesterday. For diabetes, we will monitor her at this point and no n eed for any metformin, which was stopped yesterday when we noted acute kidney injury. I will see her tomorrow for followup. SHARONDA/MODL Voice ID: [id number] Report ID: [id number]
--- NOTE | 2021-05-05 12:12 | RAD REPORT ---
EXAM DESCRIPTION: US - Renal Ultrasound-Complete - 05/05/2021 11:43 am CLINICAL HISTORY: hydronephrosis, distended bladder COMPARISON: Renal Ultrasound-Complete dated 05/03/2021; Abdomen Pelvis Wo Contrast dated 05/03/2021 FINDINGS: Both kidneys are normal in size, shape and echotexture. The right kidney measures 9.2 x 4.5 x 4.3 cm. No hydronephrosis, focal mass or perinephric fluid. The left kidney measures 10.7 x 5.1 x 4.6 cm. No hydronephrosis, focal mass or perinephric fluid. The urinary bladder is incompletely distended without gross abnormality seen. IMPRESSION: Unremarkable renal sonogram.
--- NOTE | 2021-05-05 12:12 | RAD REPORT ---
EXAM DESCRIPTION: US - Urinary Bladder - 05/05/2021 11:43 am CLINICAL HISTORY: hydronephrosis, distended bladder COMPARISON: Extremity Nonvascular Limited dated 01/18/2017 TECHNIQUE: Real-time sonographic evaluation of the urinary bladder was performed. FINDINGS: The urinary bladder appears completely decompressed by Sheth catheter. No unexpected or un usual pelvic finding. IMPRESSION: Completely decompressed urinary bladder.
[2021-05-05] MEDS: ACETAMINOPHEN 500 MG TAB PO PRN (12:24)
[2021-05-05] MEDS: methocarbamoL 500 MG TAB PO SCH ×2 (13:32→20:48)
--- NOTE | 2021-05-05 16:22 | R.PN ---
PROGRESS NOTES ENCOUNTER DATE AND TIME: 05/05/2021 15:46 (CDT) NAME SAEID LAST DATE OF : 1935 DATE OF ADMISSION: 04/21/2021 14:51 (CDT) R Intertrochanteric Femur fxCHIEF COMPLAINT: Right femur fracture, debility SUBJECTIVE: Pt denied any depression. Pt denied any Shortness of Breath. WBC 9.7, Hgb 7.9, prealbumin 10.6, Na 134, K 3.3, Spa Coordinator 2.26, AST 142, ALT 132, Alk Phos 182. Ca 8.3, G lucose 113. UA shows 1+ esterase, 5-10 WBC. Ambulated 15' with minimum assistance using a rolling walker. Bilateral renal ultrasound is normal. VITAL SIGNS Temperature: 97.4 F Resp: 16 SBP/DBP: 118/49 Pulse: 83 MEDICATION ALLERGIES: CODEINE ENVIRONMENTAL ALLERGIES: - Substance Allergies None Known - Other Allergies None Known NURSING: - Shower allowing shower - Skin care per protocol PRECAUTIONS: - Weight Bearing Precaution WBAT right LE WITH THE SHOE ACTIVITIES OOB only with supervision THERAPIES: - Dietary and Nutrition Adequate Nutrition. Nutritional Education. Nutritional Supplements. - Occupational Therapy Cognitive Retraining. Evaluate and Treat. Visual Perceptual Training. Adaptive Equipment. ADL Trainin g. Transfer Training. UE Strengthening. Safety Awareness. - Speech Therapy Cognitive Training. Expressive Language Skills. Memory Strategies. Receptive Language Skills. Speech Intelligibility Training. - Physical Therapy Gait Training. Transfer Training. Balance Training. Evaluate and Treat. Mobility Training. LE Strengt hening. LE ROM. Safety Awareness. PHYSICAL EXAM - Gen Alert and awake Lying in bed No apparent distress Oriented to: person, time, and place - Skin No open wound or evidence of breakdown. Edamatous R leg, leg held in external rotation and midly shor tened Normacephalic - Eyes No abnormalities - ENMT No abnormalities - Neck No abnormalities - CVS RRR - Chest No abnormalities - Abd Soft - No abnormalities - Ext Right hip surgical site has good hemostasis. - MSK 4+/5 weakness in right lower extremity - Neuro 4/5 strength right lower extremity. - Psych No abnormalities ASSESSMENT: Pt. is a 85 yo Right-handed female.On 04/15/2021 she was admitted to [facility] with diagnosis R Inte rtrochanteric Femur fx.Her impairment category is Orthopaedic Disorders 08 - Unilateral Hip Fracture (03.24).Pre-morbidly, Pt. was independent/mod-I in Locomotion, Safety Awareness, Balance, and Social Cognition; and she had good Transfers Control, Sphincter Control, Self-Care, Communication, and Endu guilherme.Currently, she has deficits of Locomotion, Safety Awareness, Transfers Control, Self-Care, Endu guilherme, Sphincter Control, and Balance.Pt. is now referred [facility] in order to maximize patient's functional independence in activities of daily living, strength, ROM, and mobility.- Rehab Goal Patient has realistic goal of being discharged at assistance level 7-Ind to reside at Home with Fami ly/Relatives. MDM/PLAN: - Physical Therapy Decreased range of motion - to improve, our physical therapists will perform initial evaluation of p t's status upon admission and devise an individualized program for increasing patient's Range of Tien on. Gait dysfunction - to improve, our physical therapists will perform initial evaluation of pt's statu s upon admission and devise an individualized program for Gait Training, and Wheel Chair mobility Having wound - to improve, our physical therapists will perform initial evaluation of pt's status up on admission and devise an individualized program for Wound Care Inability to transfer - to improve, our physical therapists will perform initial evaluation of pt's status upon admission and devise an individualized program for Bed mobility Need for home safety evaluation - to improve, our physical therapists will perform initial evaluatio n of pt's status upon admission and devise an individualized program for Home Evaluation Need in caregiver upon discharge - to improve, our physical therapists will perform initial evaluati on of pt's status upon admission and devise an individualized program for Caregiver Training New precaution - to improve, our physical therapists will perform initial evaluation of pt's status upon admission and devise an individualized program for Patient precaution education Poor balance - to improve, our physical therapists will perform initial evaluation of pt's status up on admission and devise an individualized program for Balance Training Poor endurance - to improve, our physical therapists will perform initial evaluation of pt's status upon admission and devise an individualized program for Endurance Training Weakness - to improve, our physical therapists will perform initial evaluation of pt's status upon a dmission and devise an individualized program for Aquatic Therapy, Neuromuscular Reeducation, and Str engthening Achieving independence - to improve, our physical therapists will perform initial evaluation of pt's status upon admission and devise an individualized program for Community Reintegration Activities - Occupational Therapy ADL deficits - to improve, our occupation therapists will perform initial evaluation of pt's status upon admission and devise an individualized program for Bathing, Bed mobility, Community Reintegratio n, Cooking, Dressing, Eating, Fine Motor Skills, Grooming, Homemaking, Kitchen Mobility, Laundry, Pat ient Education, Safety Awareness, Splinting - Positioning, Transfers(Toilet, Tub, Shower), and Wheel Chair Management Need for home care music therapist - to improve, our occupation therapists will perform initial evaluation of pt's status upon admission and devise an individualized program for Caregiver Training Weakness - to improve, our occupation therapists will perform initial evaluation of pt's status upon admission and devise an individualized program for Aquatic Therapy, Balance, Endurance, UE ROM, and UE strengthening - Other See attached MAR (Medication Administration Record) - Anterior Hip Precaution No abduction No active extension No adduction across midline No external rotation No hip flexion >90 degrees No internal rotation - Diet - Liquid Texture Continue Regular - Tube Feed Continue N/A - Diet Type Continue Regular - Posterior Hip Precaution No adduction across midline No external rotation No hip flexion >90 degrees No internal rotation No wheel chair propulsion - Weight Bearing Precaution WBAT right LE WITH THE SHOE - Skin care per protocol - Diet - Solid Texture Continue Regular - Shower allowing shower FUNCTIONAL STATUS: UPDATED AT WEEKLY TEAM CONFERENCE - Bladder Same accident frequency: 7-Ind - No accidents in the past 7 days - Bowel Same accident frequency: 7-Ind - No accidents in the past 7 days - Walking Same score based on distance walked: 0(N/A) Same score based on distance walked: 1(<=50ft) - Wheelchair Same score based on distance traveled: 0(N/A) FUNCTIONAL STATUS: - Self-Care A. Eating Ind B. Grooming Dennis C. Bathing sup D. Dressing - Upper sup E. Dressing - Lower Terri F. Toileting sup - Sphincter Control G. Bladder control Dennis H. Bowel control Dennis - Transfers Control I. Bed/Chair/Wheelchair sup J. Toilet sup K. Tub/Shower Terri - Locomotion L. Walk/Wheelchair (B) Terri M. Stairs ADNO - Communication N. Comprehension (B) Dennis O. Expression (B) Dennis - Social Cognition P. Social Interaction Dennis Q. Problem Solving sup R. Memory Dennis - Endurance Fair - Balance Good - Safety Awareness Good QI SCORES: - Self-Care A. Eating 05-Setup or clean-up assistance B. Oral hygiene 03-Partial/moderate assistance C. Toileting hygiene 03-Partial/moderate assistance E. Shower/bathe self 03-Partial/moderate assistance F. Upper body dressing 03-Partial/moderate assistance G. Lower body dressing 03-Partial/moderate assistance H. Putting on/taking off footwear 03-Partial/moderate assistance - Mobility A. Roll left and right 03-Partial/moderate assistance B. Sit to lying 03-Partial/moderate assistance C. Lying to sitting on side of bed 03-Partial/moderate assistance D. Sit to stand 03-Partial/moderate assistance E. Chair/ydl-id-ddtiv transfer 03-Partial/moderate assistance F. Toilet transfer 03-Partial/moderate assistance G. Car transfer 88-Not attempted due to medical condition or safety concerns I. Walk 10 feet 04-Supervision or touching assistance J. Walk 50 feet with two turns 88-Not attempted due to medical condition or safety concerns K. Walk 150 feet 88-Not attempted due to medical condition or safety concerns L. Walking 10 feet on uneven surfaces 88-Not attempted due to medical condition or safety concerns N. 4 steps 88-Not attempted due to medical condition or safety concerns O. 12 steps 88-Not attempted due to medical condition or safety concerns P. Picking up object 88-Not attempted due to medical condition or safety concerns R. Wheel 50 feet with two turns 88-Not attempted due to medical condition or safety concerns S. Wheel 150 feet 88-Not attempted due to medical condition or safety concerns - Bladder and Bowel Bladder continence Bowel continence - Endurance Fair - Balance Fair - Safety Awareness Fair [facility] DEFICITS: Self-Care, Mobility, Endurance, Balance, and Safety Awareness SIGNATURE PANEL: (CDT)
[2021-05-05] MEDS: ATORVASTATIN 20 MG TAB PO SCH (20:47)
[2021-05-05] MEDS: AMITRIPTYLINE 50 MG TAB PO SCH (20:48)
[2021-05-05] MEDS: EZETIMIBE 10 MG TAB PO SCH (20:49)
--- NOTE | 2021-05-05 20:49 | PN ---
Date of Progress Note: 05/05/2021 Subjective: The patient was seen this morning for followup. No new complaints or problems reported. Vital signs reviewed. She was more awake and alert compared to yesterday. She is complaining of l ot of muscle spasm in her back. Objective: Vital Signs: Reviewed. HEENT: Unremarkable. Lungs: Clear to auscultation. Heart: Sounds normal. Abdomen: Soft. Bowel sounds normal. No guarding, rigidity, tenderness, distention. Extremities: No leg edema except right leg edema unchanged. Laboratory Data: White count 9.7, hemoglobin 7.9, platelets 430. Sodium 139, potassium 3.3, chlorid e 101, bicarb 31, BUN 33, creatinine 0.73, glucose 103, AST 142, ALT 132. Impression: 1.Urinary tract infection. 2.Acute kidney failure, improved. 3.Anemia, unspecified. 4.Osteoarthritis, multiple sites. 5.Hypokalemia. Plan: The patient's ultrasound of kidney and bladder was done today. It was unremarkable. After th at, order was written to discontinue Sheth catheter. We will go ahead and give her muscle relaxant R obaxin 500 mg 3 times a day and continue other current medications. I will see her tomorrow for followup. Continue physical therapy under guidance of Dr. Potter. SHARONDA/MODL Voice ID: [id number] Report ID: [id number]
[2021-05-06 06:08] LABS: Absolute Lymphocytes (CBC) 1.4 K/uL (0.7-4.9); Basophils % 0.4 % (0-1.3); Hematocrit 27.3 % (36.0-45.0); Lymphocytes % 9.5 % (15.3-44.8); MPV 7.4 fL (7.6-11.3); RBC Red Blood Cell Count 3.01 M/uL (3.86-4.86)
[2021-05-06] MEDS: LEVOTHYROXINE SOD 0.1 MG TAB PO SCH (06:24)
[2021-05-06 06:25] LABS: Magnesium 1.8 mg/dL (1.8-2.4); Potassium 3.5 mmol/L (3.5-5.1); Prealbumin 5.4 mg/dL (20-40)
[2021-05-06 06:59] LABS: Bilirubin Direct 0.1 mg/dL (0-0.2); Bilirubin Total 0.3 mg/dL (0.2-1.0)
[2021-05-06] MEDS: LIDOCAINE 4% PATCH TOP SCH (07:26)
[2021-05-06] MEDS: PANTOPRAZOLE 40MG TABLET PO SCH (07:26)
[2021-05-06] MEDS: FLUTICASONE 50MCG NASAL SPRAY NAS SCH (07:27)
[2021-05-06] MEDS: levoFLOXacin 500 MG TAB PO SCH (08:00)
[2021-05-06] MEDS ORDERED: Meropenem 1 GM/100 ML BAG IV SCH (09:00)
[2021-05-06] MEDS: CRANBERRY EXTRACT 400 MG CAPSULE PO SCH ×2 (09:12→20:00)
[2021-05-06] MEDS: MESALAMINE 500 MG CAPSULE PO SCH ×2 (09:12→20:00)
[2021-05-06] MEDS: MONTELUKAST 10 MG TAB PO SCH (09:13)
[2021-05-06] MEDS: GABAPENTIN 300 MG CAP PO SCH ×2 (09:13→20:00)
[2021-05-06] MEDS: FE SULF/FA/VIT B COMP & C TAB PO SCH (09:13)
[2021-05-06] MEDS: APIXABAN 2.5 MG TABLET PO SCH ×2 (09:14→20:00)
[2021-05-06] MEDS: MAGNESIUM OXIDE 400 MG TAB PO SCH ×2 (09:14→20:00)
[2021-05-06] MEDS: allopurinoL 300 MG TAB PO SCH (09:14)
[2021-05-06] MEDS: methocarbamoL 500 MG TAB PO SCH ×3 (09:15→20:00)
[2021-05-06] MEDS: JUVEN PACKET PO SCH ×2 (09:27→20:00)
[2021-05-06] MEDS: Meropenem 1 GM/100 ML BAG IV SCH ×2 (09:28→20:00)
[2021-05-06] MEDS: TRAMADOL HCL 50 MG TAB PO PRN (18:30)
[2021-05-06] MEDS: EZETIMIBE 10 MG TAB PO SCH (20:00)
[2021-05-06] MEDS: MELATONIN 3 MG TABLET PO PRN (20:00)
[2021-05-06] MEDS: AMITRIPTYLINE 50 MG TAB PO SCH (20:00)
[2021-05-06] MEDS: ATORVASTATIN 20 MG TAB PO SCH (20:00)
--- NOTE | 2021-05-06 20:38 | R.PN ---
PROGRESS NOTES ENCOUNTER DATE AND TIME: 05/06/2021 20:26 (CDT) NAME SAEID LAST DATE OF : 1935 DATE OF ADMISSION: 04/21/2021 14:51 (CDT) R Intertrochanteric Femur fxCHIEF COMPLAINT: Right femur fracture, debility SUBJECTIVE: Pt denied any depression. Pt denied any Shortness of Breath. WBC increased to 15.3, 81.5% neutrophils, Hgb 9.1, prealbumin 5.4, AST 146, ALT 152. Ambulated 20' with minimum assistance using a rolling walker and family helping. Bilateral renal ultrasound is normal. VITAL SIGNS Temperature: 97.2 F Resp: 16 SBP/DBP: 125/53 Pulse: 81 MEDICATION ALLERGIES: CODEINE ENVIRONMENTAL ALLERGIES: - Substance Allergies None Known - Other Allergies None Known NURSING: - Shower allowing shower - Skin care per protocol PRECAUTIONS: - Weight Bearing Precaution WBAT right LE WITH THE SHOE ACTIVITIES OOB only with supervision THERAPIES: - Dietary and Nutrition Adequate Nutrition. Nutritional Education. Nutritional Supplements. - Occupational Therapy Cognitive Retraining. Evaluate and Treat. Visual Perceptual Training. Adaptive Equipment. ADL Trainin g. Transfer Training. UE Strengthening. Safety Awareness. - Speech Therapy Cognitive Training. Expressive Language Skills. Memory Strategies. Receptive Language Skills. Speech Intelligibility Training. - Physical Therapy Gait Training. Transfer Training. Balance Training. Evaluate and Treat. Mobility Training. LE Strengt hening. LE ROM. Safety Awareness. PHYSICAL EXAM - Gen Alert and awake Lying in bed No apparent distress Oriented to: person, time, and place - Skin No open wound or evidence of breakdown. Edamatous R leg, leg held in external rotation and midly shor tened Normacephalic - Eyes No abnormalities - ENMT No abnormalities - Neck No abnormalities - CVS RRR - Chest No abnormalities - Abd Soft - No abnormalities - Ext Right hip surgical site has good hemostasis. - MSK 4+/5 weakness in right lower extremity - Neuro 4/5 strength right lower extremity. - Psych No abnormalities ASSESSMENT: Pt. is a 85 yo Right-handed female.On 04/15/2021 she was admitted to [facility] with diagnosis R Inte rtrochanteric Femur fx.Her impairment category is Orthopaedic Disorders 08 - Unilateral Hip Fracture (.11).Pre-morbidly, Pt. was independent/mod-I in Locomotion, Safety Awareness, Balance, and Social Cognition; and she had good Transfers Control, Sphincter Control, Self-Care, Communication, and Endu guilherme.Currently, she has deficits of Locomotion, Safety Awareness, Transfers Control, Self-Care, Endu guilherme, Sphincter Control, and Balance.Pt. is now referred to [facility] in order to maximize patient's functional independence in activities of daily living, strength, ROM, and mobility.- Rehab Goal Patient has realistic goal of being discharged at assistance level 7-Ind to reside at Home with Fami ly/Relatives. MDM/PLAN: - Physical Therapy Decreased range of motion - to improve, our physical therapists will perform initial evaluation of p t's status upon admission and devise an individualized program for increasing patient's Range of Tien on. Gait dysfunction - to improve, our physical therapists will perform initial evaluation of pt's statu s upon admission and devise an individualized program for Gait Training, and Wheel Chair mobility Having wound - to improve, our physical therapists will perform initial evaluation of pt's status up on admission and devise an individualized program for Wound Care Inability to transfer - to improve, our physical therapists will perform initial evaluation of pt's status upon admission and devise an individualized program for Bed mobility Need for home safety evaluation - to improve, our physical therapists will perform initial evaluatio n of pt's status upon admission and devise an individualized program for Home Evaluation Need in caregiver upon discharge - to improve, our physical therapists will perform initial evaluati on of pt's status upon admission and devise an individualized program for Caregiver Training New precaution - to improve, our physical therapists will perform initial evaluation of pt's status upon admission and devise an individualized program for Patient precaution education Poor balance - to improve, our physical therapists will perform initial evaluation of pt's status up on admission and devise an individualized program for Balance Training Poor endurance - to improve, our physical therapists will perform initial evaluation of pt's status upon admission and devise an individualized program for Endurance Training Weakness - to improve, our physical therapists will perform initial evaluation of pt's status upon a dmission and devise an individualized program for Aquatic Therapy, Neuromuscular Reeducation, and Str engthening Achieving independence - to improve, our physical therapists will perform initial evaluation of pt's status upon admission and devise an individualized program for Community Reintegration Activities - Occupational Therapy ADL deficits - to improve, our occupation therapists will perform initial evaluation of pt's status upon admission and devise an individualized program for Bathing, Bed mobility, Community Reintegratio n, Cooking, Dressing, Eating, Fine Motor Skills, Grooming, Homemaking, Kitchen Mobility, Laundry, Pat ient Education, Safety Awareness, Splinting - Positioning, Transfers(Toilet, Tub, Shower), and Wheel Chair Management Need for nursing care partner - to improve, our occupation therapists will perform initial evaluation of pt's status upon admission and devise an individualized program for Caregiver Training Weakness - to improve, our occupation therapists will perform initial evaluation of pt's status upon admission and devise an individualized program for Aquatic Therapy, Balance, Endurance, UE ROM, and UE strengthening - Other See attached MAR (Medication Administration Record) - Anterior Hip Precaution No abduction No active extension No adduction across midline No external rotation No hip flexion >90 degrees No internal rotation - Diet - Liquid Texture Continue Regular - Tube Feed Continue N/A - Diet Type Continue Regular - Posterior Hip Precaution No adduction across midline No external rotation No hip flexion >90 degrees No internal rotation No wheel chair propulsion - Weight Bearing Precaution WBAT right LE WITH THE SHOE - Skin care per protocol - Diet - Solid Texture Continue Regular - Shower allowing shower FUNCTIONAL STATUS: UPDATED AT WEEKLY TEAM CONFERENCE - Bladder Same accident frequency: 7-Ind - No accidents in the past 7 days - Bowel Same accident frequency: 7-Ind - No accidents in the past 7 days - Walking Same score based on distance walked: 0(N/A) Same score based on distance walked: 1(<=50ft) - Wheelchair Same score based on distance traveled: 0(N/A) FUNCTIONAL STATUS: - Self-Care A. Eating Ind B. Grooming Dennis C. Bathing sup D. Dressing - Upper sup E. Dressing - Lower Terri F. Toileting sup - Sphincter Control G. Bladder control Dennis H. Bowel control Dennis - Transfers Control I. Bed/Chair/Wheelchair sup J. Toilet sup K. Tub/Shower Terri - Locomotion L. Walk/Wheelchair (B) Terri M. Stairs ADNO - Communication N. Comprehension (B) Dennis O. Expression (B) Dennis - Social Cognition P. Social Interaction Dennis Q. Problem Solving sup R. Memory Dennis - Endurance Fair - Balance Good - Safety Awareness Good QI SCORES: - Self-Care A. Eating 05-Setup or clean-up assistance B. Oral hygiene 03-Partial/moderate assistance C. Toileting hygiene 03-Partial/moderate assistance E. Shower/bathe self 03-Partial/moderate assistance F. Upper body dressing 03-Partial/moderate assistance G. Lower body dressing 03-Partial/moderate assistance H. Putting on/taking off footwear 03-Partial/moderate assistance - Mobility A. Roll left and right 03-Partial/moderate assistance B. Sit to lying 03-Partial/moderate assistance C. Lying to sitting on side of bed 03-Partial/moderate assistance D. Sit to stand 03-Partial/moderate assistance E. Chair/egb-cj-gyabv transfer 03-Partial/moderate assistance F. Toilet transfer 03-Partial/moderate assistance G. Car transfer 88-Not attempted due to medical condition or safety concerns I. Walk 10 feet 04-Supervision or touching assistance J. Walk 50 feet with two turns 88-Not attempted due to medical condition or safety concerns K. Walk 150 feet 88-Not attempted due to medical condition or safety concerns L. Walking 10 feet on uneven surfaces 88-Not attempted due to medical condition or safety concerns N. 4 steps 88-Not attempted due to medical condition or safety concerns O. 12 steps 88-Not attempted due to medical condition or safety concerns P. Picking up object 88-Not attempted due to medical condition or safety concerns R. Wheel 50 feet with two turns 88-Not attempted due to medical condition or safety concerns S. Wheel 150 feet 88-Not attempted due to medical condition or safety concerns - Bladder and Bowel Bladder continence Bowel continence - Endurance Fair - Balance Fair - Safety Awareness Fair [facility] DEFICITS: Self-Care, Mobility, Endurance, Balance, and Safety Awareness SIGNATURE PANEL: (CDT)
--- NOTE | 2021-05-06 20:55 | PN ---
Date of Progress Note: 05/06/2021 Subjective: The patient was seen this morning for followup. She was lying in bed, feeling better to day than yesterday. Her sore throat is better. Neck pain and back pain are better. Muscle spasm is better. She is able to empty her bladder without much difficulty. Objective: Vital Signs: Reviewed. HEENT: Unremarkable. Lungs: Clear to auscultation. Heart: Sounds normal. Abdomen: Soft. Bowel sounds normal. No guarding, rigidity, tenderness, distention. Extremities: No edema on the left leg. Right leg, trace edema present. Laboratory Data: White count has gone up to 15.3, hemoglobin 9.1, platelets 530. Sodium 138, potass ium 3.5, chloride 101, bicarb 31, BUN 23, creatinine 0.70, glucose 140. AST 146, ALT 152, alkaline p hosphatase 204, total bilirubin 0.3. Urine culture came back growing E coli and it is ESBL. Impression: 1.Urinary tract infection, organism ESBL. 2.Anemia due to acute blood loss. 3.Right femur fracture. 4.Hypertension. 5.Asthma. Plan: We will go ahead and continue current medications. Discontinue Levaquin. Start the patient o n meropenem as per culture results. Continue physical therapy under guidance of Dr. Potter and we will see her tomorrow for followup. Continue current anticoagulation therapy, which is Eliquis. SHARONDA/MODL Voice ID: [id number] Report ID: [id number]
[2021-05-06] MEDS: ALPRAZOLAM 1 MG TABLET PO SCH (21:00)
[2021-05-07] MEDS: GABAPENTIN 300 MG CAP PO SCH ×2 (07:35→20:44)
[2021-05-07] MEDS: PANTOPRAZOLE 40MG TABLET PO SCH (07:35)
[2021-05-07] MEDS: MONTELUKAST 10 MG TAB PO SCH (07:36)
[2021-05-07] MEDS: allopurinoL 300 MG TAB PO SCH (07:36)
[2021-05-07] MEDS: LEVOTHYROXINE SOD 0.1 MG TAB PO SCH (07:36)
[2021-05-07] MEDS: MAGNESIUM OXIDE 400 MG TAB PO SCH ×2 (07:37→20:43)
[2021-05-07] MEDS: MESALAMINE 500 MG CAPSULE PO SCH ×2 (07:37→20:43)
[2021-05-07] MEDS: APIXABAN 2.5 MG TABLET PO SCH ×2 (07:38→20:44)
[2021-05-07] MEDS: FE SULF/FA/VIT B COMP & C TAB PO SCH (07:38)
[2021-05-07] MEDS: LIDOCAINE 4% PATCH TOP SCH (07:38)
[2021-05-07] MEDS: FLUTICASONE 50MCG NASAL SPRAY NAS SCH (07:39)
[2021-05-07] MEDS: Meropenem 1 GM/100 ML BAG IV SCH ×2 (07:39→20:34)
[2021-05-07] MEDS: CRANBERRY EXTRACT 400 MG CAPSULE PO SCH ×2 (07:39→20:42)
[2021-05-07] MEDS: JUVEN PACKET PO SCH ×2 (07:39→20:00)
[2021-05-07] MEDS: methocarbamoL 500 MG TAB PO SCH ×3 (08:09→20:44)
--- NOTE | 2021-05-07 09:53 | P.RH.PN ---
Estimated Length of Stay: 23 Expected Discharge Date: 05/12/21 Discharge Disposition Plan: Home Family Support: Yes Senior Living Goal: Mobility, Transfers, Self Care Vital Signs: Last Vital Signs Temp 96.8 F 05/07/21 07:20 Pulse 70 05/07/21 07:20 Resp 18 05/07/21 08:09 BP 139/62 05/07/21 07:20 Pulse Ox 94 05/07/21 08:09 Laboratory: Laboratory Last Values WBC 15.30 K/uL (4.3-10.9) H D 05/06/21 05:35 RBC 3.01 M/uL (3.86-4.86) L 05/06/21 05:35 Hgb 9.1 g/dL (12.0-15.0) L 05/06/21 05:35 Hct 27.3 % (36.0-45.0) L D 05/06/21 05:35 MCV 90.5 fL (80-100) 05/06/21 05:35 MCH 30.3 pg (27.0-35.0) 05/06/21 05:35 MCHC 33.5 g/dL (32.0-36.0) 05/06/21 05:35 RDW 15.6 % (12.1-15.2) H 05/06/21 05:35 Plt Count 534 K/uL (152-406) H D 05/06/21 05:35 MPV 7.4 fL (7.6-11.3) L 05/06/21 05:35 Neutrophils % 81.5 % (41.7-73.7) H 05/06/21 05:35 Lymphocytes % 9.5 % (15.3-44.8) L 05/06/21 05:35 Monocytes % 7.6 % (3.3-12.3) 05/06/21 05:35 Eosinophils % 1.0 % (0-4.4) 05/06/21 05:35 Basophils % 0.4 % (0-1.3) 05/06/21 05:35 Absolute Neutrophils 12.4 K/uL (1.8-8.0) H 05/06/21 05:35 Absolute Lymphocytes 1.4 K/uL (0.7-4.9) 05/06/21 05:35 Absolute Monocytes 1.2 K/uL (0.1-1.3) 05/06/21 05:35 Absolute Eosinophils 0.2 K/uL (0-0.5) 05/06/21 05:35 Absolute Basophils 0.1 K/uL (0-0.5) 05/06/21 05:35 Platelet Estimate Incr 04/29/21 05:04 Polychromasia 1+ 04/29/21 05:04 Anisocytosis 1+ 04/29/21 05:04 Morphology Comment Noted (NOT SEEN) 04/29/21 05:04 Sodium 138 mmol/L (136-145) 05/06/21 05:35 Potassium 3.5 mmol/L (3.5-5.1) 05/06/21 05:35 Chloride 101 mmol/L (98-107) 05/06/21 05:35 Carbon Dioxide 31 mmol/L (21-32) 05/06/21 05:35 BUN 23 mg/dL (7-18) H 05/06/21 05:35 Creatinine 0.70 mg/dL (0.55-1.3) 05/06/21 05:35 Estimated GFR 80 mL/min (=/>90) L 05/06/21 05:35 Glucose 140 mg/dL (74-106) H 05/06/21 05:35 POC Glucose 125 mg/dL (65-120) H 05/07/21 07:20 Calcium 8.5 mg/dL (8.5-10.1) 05/06/21 05:35 Magnesium 1.8 mg/dL (1.8-2.4) 05/06/21 05:35 Total Bilirubin 0.3 mg/dL (0.2-1.0) 05/06/21 05:35 Direct Bilirubin 0.1 mg/dL (0-0.2) 05/06/21 05:35 AST 146 U/L (15-37) H 05/06/21 05:35 ALT 152 U/L (12-78) H 05/06/21 05:35 Alkaline Phosphatase 204 U/L (45-117) H 05/06/21 05:35 Serum Total Protein 6.0 g/dL (6.4-8.2) L 05/06/21 05:35 Albumin 2.0 g/dL (3.4-5.0) L 05/06/21 05:35 Albumin 2.0 g/dL (3.4-5.0) L 05/06/21 05:35 Globulin 4.0 g/dL (2.3-3.5) H 05/06/21 05:35 Albumin/Globulin Ratio 0.5 (1.1-1.8) L 05/06/21 05:35 Prealbumin 5.4 mg/dL (20-40) L 05/06/21 05:35 Urine Color Dk yellow (Yellow) 05/03/21 10:30 Urine Appearance Cloudy (Clear) 05/03/21 10:30 Urine pH 5.0 (5.0-7.0) 05/03/21 10:30 Ur Specific [place] 1.025 (1.005-1.030) 05/03/21 10:30 Glucose (UA)(Auto) Negative (Negative) 05/03/21 10:30 Urine Ketones Negative (Negative) 05/03/21 10:30 Urine Blood Negative (Negative) 05/03/21 10:30 Urine Nitrite Negative (Negative) 05/03/21 10:30 Urine Bilirubin Negative (Negative) 05/03/21 10:30 Urine Urobilinogen 0.2 mg/dL (0.2-1.0) 05/03/21 10:30 Ur Leukocyte Esterase 1+ (Negative) H 05/03/21 10:30 Urine RBC <5 /HPF (NONE SEEN) 05/03/21 10:30 Urine WBC 5-10 /HPF (<5) H 05/03/21 10:30 Ur Squamous Epith Cells 10-20 /HPF (NONE SEEN) H 05/03/21 10:30 Urine Bacteria <20 /HPF (<20) 05/03/21 10:30 Urine Mucus 1+ /HPF (NONE SEEN) 05/03/21 10:30 Urine Culture Reflexed Not needed 05/03/21 10:30 Urine Total Protein Negative (Negative) 05/03/21 10:30 SARS-CoV-2 Rap RNA(RT-PCR) Negative (NEGATIVE) 05/05/21 16:50 Smear Scan Ok (OK) 04/29/21 05:04 Weight: 194 lb Wound Present: Yes Closed Surgical Incision Present: Yes Negative Pressure Wound Therapy Present: No Physician Update: She has elevated LFTs and electrolyte abnormalities. Walking 20' with mod assistance. Max assistance with ADLs. Will extend her stay up to next week. She will go home with her niece. Summary: Patient's care plan and long-term goals have been reviewed and revised as necessary. Please see the Rehabilitation Signature page for all necessary signatures.
[2021-05-07] MEDS ORDERED: INDOMETHACIN 25 MG CAP PO ONE (10:15)
--- NOTE | 2021-05-07 16:38 | RAD REPORT ---
EXAM DESCRIPTION: RAD - Chest Single View - 05/07/2021 4:22 pm CLINICAL HISTORY: Chest congestion COMPARISON: Chest Single View dated 05/03/2021; Chest Single View dated 04/15/2021; Chest Pa And Lat (2 Views) dated 12/24/2020; Chest Pa And Lat (2 Views) dated 05/14/2020 FINDINGS: Lines: None. Lungs: No evidence of edema or pneumonia. Pleural: No significant pleural effusions or pneumothorax. Cardiac: The heart size is within normal limits. Bones: No acute fractures. Other: IMPRESSION: No acute cardiopulmonary disease.
--- NOTE | 2021-05-07 18:45 | PN ---
Date of Progress Note: 05/07/2021 Subjective: The patient was seen this morning for followup. She looks better today than yesterday. Today, she is complaining of pain in her right wrist area due to gout. She gets gout attack every n ow and then and usually it affects her right wrist joint and she started to have this problem overnig ht and is requesting her medication that she takes at home, which is indomethacin. She is urinating well without any difficulty. Objective: Once Signs: Reviewed. HEENT: Unremarkable. Lungs: Clear to auscultation. Heart: Sounds normal. Abdomen: Soft. Bowel sounds normal. No guarding, rigidity, tenderness, distention. Extremities: Right leg edema remains unchanged. Laboratory Data: Urine culture is growing E. coli, which is ESBL reviewed. Impression: 1.Urinary tract infection, organism, E. coli, ESBL. 2.Acute gouty arthritis, right wrist. 3.Hypertension. 4.Type 2 diabetes mellitus. Plan: The patient's right wrist joint is mildly swollen and range of motion is painful. We will go ahead and give her 1 dose of indomethacin today 50 mg and I will consider repeating another dose this evening depending on how she responds to this. Continue current meropenem. Continue other current medications including her anticoagulation therapy. SHARONDA/MODL Voice ID: [id number] Report ID: [id number]
[2021-05-07] MEDS: EZETIMIBE 10 MG TAB PO SCH (20:43)
[2021-05-07] MEDS: DOCUSATE NA/SENNA CONC 1 TAB PO PRN (20:43)
[2021-05-07] MEDS: INDOMETHACIN 25 MG CAP PO SCH (20:43)
[2021-05-07] MEDS: AMITRIPTYLINE 50 MG TAB PO SCH (20:43)
[2021-05-07] MEDS: MELATONIN 3 MG TABLET PO PRN (20:44)
[2021-05-07] MEDS: ATORVASTATIN 20 MG TAB PO SCH (20:45)
[2021-05-07] MEDS: ALPRAZOLAM 1 MG TABLET PO SCH (20:51)
[2021-05-07] MEDS ORDERED: NA CHLORIDE 0.9% 250 ML ONE (20:56)
[2021-05-08 05:45] VITALS: BMI 22.9
[2021-05-08 06:51] LABS: Absolute Lymphocytes (CBC) 1.8 K/uL (0.7-4.9); Basophils % 0.6 % (0-1.3); Hematocrit 25.7 % (36.0-45.0); Lymphocytes % 21.2 % (15.3-44.8); MPV 7.2 fL (7.6-11.3); RBC Red Blood Cell Count 2.82 M/uL (3.86-4.86)
[2021-05-08] MEDS: LEVOTHYROXINE SOD 0.1 MG TAB PO SCH (06:54)
[2021-05-08] MEDS: PANTOPRAZOLE 40MG TABLET PO SCH (06:54)
[2021-05-08 07:24] LABS: ALT/SGPT 132 U/L (12-78); AST/SGOT 85 U/L (15-37); Albumin 1.7 g/dL (3.4-5.0); Alkaline Phosphatase 188 U/L (45-117); BUN Blood Urea Nitrogen 20 mg/dL (7-18); Bicarbonate 36 mmol/L (21-32); Bilirubin Direct < 0.1 mg/dL (0-0.2); Bilirubin Total 0.3 mg/dL (0.2-1.0); Glucose Level 120 mg/dL (74-106); Magnesium 1.9 mg/dL (1.8-2.4); Potassium 3.9 mmol/L (3.5-5.1); Protein, Total 5.3 g/dL (6.4-8.2); Sodium Level 143 mmol/L (136-145)
[2021-05-08] MEDS: JUVEN PACKET PO SCH ×2 (08:00→20:31)
[2021-05-08] MEDS: Meropenem 1 GM/100 ML BAG IV SCH ×2 (08:30→19:56)
[2021-05-08] MEDS: LIDOCAINE 4% PATCH TOP SCH (08:30)
[2021-05-08] MEDS: FE SULF/FA/VIT B COMP & C TAB PO SCH (08:31)
[2021-05-08] MEDS: GABAPENTIN 300 MG CAP PO SCH ×2 (08:31→20:30)
[2021-05-08] MEDS: MONTELUKAST 10 MG TAB PO SCH (08:31)
[2021-05-08] MEDS: APIXABAN 2.5 MG TABLET PO SCH ×2 (08:31→20:30)
[2021-05-08] MEDS: allopurinoL 300 MG TAB PO SCH (08:31)
[2021-05-08] MEDS: MAGNESIUM OXIDE 400 MG TAB PO SCH ×2 (08:32→20:30)
[2021-05-08] MEDS: methocarbamoL 500 MG TAB PO SCH ×3 (08:32→20:29)
[2021-05-08] MEDS: FLUTICASONE 50MCG NASAL SPRAY NAS SCH (08:34)
[2021-05-08] MEDS: INDOMETHACIN 25 MG CAP PO SCH ×2 (08:35→20:29)
[2021-05-08] MEDS: MESALAMINE 500 MG CAPSULE PO SCH ×2 (08:36→20:28)
[2021-05-08] MEDS: levoFLOXacin 500 MG TAB PO SCH (10:45)
[2021-05-08] MEDS: CRANBERRY EXTRACT 400 MG CAPSULE PO SCH ×2 (11:10→20:00)
--- NOTE | 2021-05-08 13:22 | PN ---
Date of Progress Note: 05/08/2021 Subjective: The patient was seen for followup this morning. She was in the wheelchair, feeling much better today than last few days. Denies any new complaints. No nausea, no vomiting. No constipati on problem. Her pain is under better control. Objective: Vital Signs: Reviewed. HEENT: Unremarkable. Lungs: Clear to auscultation. Heart: Sounds normal. Abdomen: Soft. Bowel sounds normal. No guarding, rigidity, tenderness, distention. Extremities: Right leg grade 1 edema. Laboratory Data: White count 8.4, hemoglobin 8.4, platelets 433. Sodium 143, potassium 3.9, chlorid e 104, bicarb 36, BUN 20, creatinine 0.65, glucose 120, AST 85, ALT 132, alkaline phosphatase 188, se rum albumin 1.7. Urine culture growing E coli which is ESBL and Enterococcus faecalis, which is the second organism that was noted today. Impression: 1.Urinary tract infection. 2.Acute kidney injury, resolved. 3.Anemia due to acute blood loss. 4.Hypertension. 5.Type 2 diabetes mellitus. 6.Malnutrition, severe. Plan: We will go ahead and continue current meropenem and according to culture sensitivity result, w e will add Levaquin to cover this second bacteria that we have. Continue physical therapy under guid chiomae of Dr. Potter, and I will see her tomorrow for followup. The patient is doing much better than before. She was encouraged to eat as much as she can to improv e her nutritional status. SHARONDA/MODL Voice ID: [id number] Report ID: [id number]
[2021-05-08] MEDS: TRAMADOL HCL 50 MG TAB PO PRN (16:03)
[2021-05-08] MEDS: EZETIMIBE 10 MG TAB PO SCH (20:29)
[2021-05-08] MEDS: ATORVASTATIN 20 MG TAB PO SCH (20:29)
[2021-05-08] MEDS: AMITRIPTYLINE 50 MG TAB PO SCH (20:30)
[2021-05-08] MEDS: MELATONIN 3 MG TABLET PO PRN (20:30)
[2021-05-08] MEDS: ALPRAZOLAM 1 MG TABLET PO SCH (20:30)
[2021-05-09] MEDS: LEVOTHYROXINE SOD 0.1 MG TAB PO SCH (07:35)
[2021-05-09] MEDS: CRANBERRY EXTRACT 400 MG CAPSULE PO SCH ×2 (09:17→19:45)
[2021-05-09] MEDS: LIDOCAINE 4% PATCH TOP SCH (10:18)
[2021-05-09] MEDS: GABAPENTIN 300 MG CAP PO SCH ×2 (10:19→19:45)
[2021-05-09] MEDS: FE SULF/FA/VIT B COMP & C TAB PO SCH (10:19)
[2021-05-09] MEDS: methocarbamoL 500 MG TAB PO SCH ×3 (10:19→19:44)
[2021-05-09] MEDS: MESALAMINE 500 MG CAPSULE PO SCH ×2 (10:20→19:44)
[2021-05-09] MEDS: MONTELUKAST 10 MG TAB PO SCH (10:22)
[2021-05-09] MEDS: PANTOPRAZOLE 40MG TABLET PO SCH (10:22)
[2021-05-09] MEDS: MAGNESIUM OXIDE 400 MG TAB PO SCH ×2 (10:23→19:45)
[2021-05-09] MEDS: APIXABAN 2.5 MG TABLET PO SCH ×2 (10:23→19:45)
[2021-05-09] MEDS: Meropenem 1 GM/100 ML BAG IV SCH ×2 (10:23→19:40)
[2021-05-09] MEDS: levoFLOXacin 500 MG TAB PO SCH (10:23)
[2021-05-09] MEDS: INDOMETHACIN 25 MG CAP PO SCH ×2 (10:24→19:46)
[2021-05-09] MEDS: FLUTICASONE 50MCG NASAL SPRAY NAS SCH (10:24)
[2021-05-09] MEDS: allopurinoL 300 MG TAB PO SCH (10:24)
[2021-05-09] MEDS: JUVEN PACKET PO SCH ×2 (10:24→19:46)
[2021-05-09] MEDS: TRAMADOL HCL 50 MG TAB PO PRN (10:26)
--- NOTE | 2021-05-09 11:58 | PN ---
Date of Progress Note: 05/09/2021 Subjective: The patient was seen this morning for followup. No new complaints or problems reported by the patient. She was noted to be walking outside in the hallway with her family member, feeling m uch better. Denies any new complaints. Her back pain, neck pain all has improved significantly. Mu scle spasm has improved as well. Objective: Vital Signs: Reviewed. HEENT: Unremarkable. Lungs: Clear to auscultation. Heart: Sounds normal. Abdomen: Soft. Bowel sounds normal. No guarding, rigidity, tenderness, distention. Extremities: No leg edema on the left leg. Right leg has trace to grade 1 edema in the lower half o f the leg. Impression: 1.Right hip fracture. 2.Right leg edema. 3.Anemia due to acute blood loss. 4.Urinary tract infection. Plan: We will continue oral Levaquin and IV meropenem for her urinary tract infection. She has 2 di fferent organisms and we will continue these antibiotics. We will continue her current pain medicati on and muscle relaxant medication per order. I would like for her to receive 1 week of IV meropenem. Details and plan of treatment discussed with her. SHARONDA/MODL Voice ID: [id number] Report ID: [id number]
[2021-05-09] MEDS: EZETIMIBE 10 MG TAB PO SCH (19:44)
[2021-05-09] MEDS: ATORVASTATIN 20 MG TAB PO SCH (19:45)
[2021-05-09] MEDS: DOCUSATE NA/SENNA CONC 1 TAB PO PRN (19:45)
[2021-05-09] MEDS: MELATONIN 3 MG TABLET PO PRN (19:46)
[2021-05-09] MEDS: AMITRIPTYLINE 50 MG TAB PO SCH (19:46)
[2021-05-09] MEDS: ALPRAZOLAM 1 MG TABLET PO SCH (19:46)
[2021-05-09] MEDS ORDERED: NA CHLORIDE 0.9% 250 ML ONE (19:47)
[2021-05-10] MEDS: LEVOTHYROXINE SOD 0.1 MG TAB PO SCH (06:33)
[2021-05-10] MEDS: PANTOPRAZOLE 40MG TABLET PO SCH (07:11)
[2021-05-10] MEDS: FLUTICASONE 50MCG NASAL SPRAY NAS SCH (07:11)
[2021-05-10] MEDS: Meropenem 1 GM/100 ML BAG IV SCH ×2 (07:13→19:34)
--- NOTE | 2021-05-10 07:49 | EEG ---
CHART: [id number] TEST ID#: [id number] DATE OF STUDY: 05/04/2021 THE EEG WAS RECORDED PORTABLE IN THE PATIENT'S ROOM ON A 17 CHANNEL MACHINE. ELECTRODES WERE APPLIED IN THE USUAL MANNER USING THE INTERNATIONAL 10-20 SYSTEM. THE WAKING BACKGROUND RHYTHM IN THIS RECORD CONSISTS OF WELL DEVELOPED AND WELL ORGANIZED WAVES OF 9 HZ., MAXIMAL IN THE POSTERIOR HEAD REGIONS WHICH ATTENUATE NORMALLY WITH EYE OPENING. LOW-VOLTAGE 18-22 HZ ACTIVITY IS EXPRESSED IN THE FRONTAL REGIONS. THERE ARE NO FOCAL OR LATERALIZING FEATURES. NO EPILEPTIFORM ACTIVITY APPEARS. SLEEP DID NOT OCCUR. HYPERVENTILATION WAS NOT PERFORMED. PHOTIC STIMULATION PRODUCED FAIR DRIVING BILATERALLY. IMPRESSION: NORMAL EEG FOR THE AGE OF THE PATIENT IN [place].
[2021-05-10] MEDS: MESALAMINE 500 MG CAPSULE PO SCH ×2 (08:00→19:33)
[2021-05-10] MEDS: INDOMETHACIN 25 MG CAP PO SCH ×2 (08:01→19:34)
[2021-05-10] MEDS: APIXABAN 2.5 MG TABLET PO SCH ×2 (08:02→19:35)
[2021-05-10] MEDS: levoFLOXacin 500 MG TAB PO SCH (08:02)
[2021-05-10] MEDS: allopurinoL 300 MG TAB PO SCH (08:02)
[2021-05-10] MEDS: FE SULF/FA/VIT B COMP & C TAB PO SCH (08:02)
[2021-05-10] MEDS: MAGNESIUM OXIDE 400 MG TAB PO SCH ×2 (08:02→19:34)
[2021-05-10] MEDS: MONTELUKAST 10 MG TAB PO SCH (08:02)
[2021-05-10] MEDS: GABAPENTIN 300 MG CAP PO SCH ×2 (08:03→19:35)
[2021-05-10] MEDS: methocarbamoL 500 MG TAB PO SCH ×3 (08:04→19:35)
[2021-05-10] MEDS: JUVEN PACKET PO SCH ×2 (08:04→19:36)
[2021-05-10] MEDS: LIDOCAINE 4% PATCH TOP SCH (09:38)
[2021-05-10] MEDS: CRANBERRY EXTRACT 400 MG CAPSULE PO SCH ×2 (10:14→19:35)
--- NOTE | 2021-05-10 18:00 | R.PN ---
PROGRESS NOTES ENCOUNTER DATE AND TIME: 05/10/2021 17:53 (CDT) NAME SAEID LAST DATE OF : 1935 DATE OF ADMISSION: 04/21/2021 14:51 (CDT) R Intertrochanteric Femur fxCHIEF COMPLAINT: Right femur fracture, debility SUBJECTIVE: Pt denied any depression. Pt denied any Shortness of Breath. WBC decreased to 8.4, 65.1% neutrophils, Hgb 8.4, prealbumin 5.4, AST 85, ALT 132. Ambulated 420' with standby assistance using a rolling walker and family helping. Wheelchair mobiliza tion 500' with standby assistance. Bilateral renal ultrasound is normal. VITAL SIGNS Temperature: 97.2 F Resp: 16 SBP/DBP: 135/62 Pulse: 76 MEDICATION ALLERGIES: CODEINE ENVIRONMENTAL ALLERGIES: - Substance Allergies None Known - Other Allergies None Known NURSING: - Shower allowing shower - Skin care per protocol PRECAUTIONS: - Weight Bearing Precaution WBAT right LE WITH THE SHOE ACTIVITIES OOB only with supervision THERAPIES: - Dietary and Nutrition Adequate Nutrition. Nutritional Education. Nutritional Supplements. - Occupational Therapy Cognitive Retraining. Evaluate and Treat. Visual Perceptual Training. Adaptive Equipment. ADL Trainin g. Transfer Training. UE Strengthening. Safety Awareness. - Speech Therapy Cognitive Training. Expressive Language Skills. Memory Strategies. Receptive Language Skills. Speech Intelligibility Training. - Physical Therapy Gait Training. Transfer Training. Balance Training. Evaluate and Treat. Mobility Training. LE Strengt hening. LE ROM. Safety Awareness. PHYSICAL EXAM - Gen Alert and awake Lying in bed No apparent distress Oriented to: person, time, and place - Skin No open wound or evidence of breakdown. Edamatous R leg, leg held in external rotation and midly shor tened Normacephalic - Eyes No abnormalities - ENMT No abnormalities - Neck No abnormalities - CVS RRR - Chest No abnormalities - Abd Soft - No abnormalities - Ext Right hip surgical site has good hemostasis. - MSK 4+/5 weakness in right lower extremity - Neuro 4/5 strength right lower extremity. - Psych No abnormalities ASSESSMENT: Pt. is a 85 yo Right-handed female.On 04/15/2021 she was admitted to with diagnosis R Inte rtrochanteric Femur fx.Her impairment category is Orthopaedic Disorders 08 - Unilateral Hip Fracture (03.24).Pre-morbidly, Pt. was independent/mod-I in Locomotion, Safety Awareness, Balance, and Social Cognition; and she had good Transfers Control, Sphincter Control, Self-Care, Communication, and Endu guilherme.Currently, she has deficits of Locomotion, Safety Awareness, Transfers Control, Self-Care, Endu guilherme, Sphincter Control, and Balance.Pt. is now referred to [facility] in-[facility] in order to maximize patient's functional independence in activities of daily living, strength, ROM, and mobility.- Rehab Goal Patient has realistic goal of being discharged at assistance level 7-Ind to reside at Home with Fami ly/Relatives. MDM/PLAN: - Physical Therapy Decreased range of motion - to improve, our physical therapists will perform initial evaluation of p t's status upon admission and devise an individualized program for increasing patient's Range of Tien on. Gait dysfunction - to improve, our physical therapists will perform initial evaluation of pt's statu s upon admission and devise an individualized program for Gait Training, and Wheel Chair mobility Having wound - to improve, our physical therapists will perform initial evaluation of pt's status up on admission and devise an individualized program for Wound Care Inability to transfer - to improve, our physical therapists will perform initial evaluation of pt's status upon admission and devise an individualized program for Bed mobility Need for home safety evaluation - to improve, our physical therapists will perform initial evaluatio n of pt's status upon admission and devise an individualized program for Home Evaluation Need in caregiver upon discharge - to improve, our physical therapists will perform initial evaluati on of pt's status upon admission and devise an individualized program for Caregiver Training New precaution - to improve, our physical therapists will perform initial evaluation of pt's status upon admission and devise an individualized program for Patient precaution education Poor balance - to improve, our physical therapists will perform initial evaluation of pt's status up on admission and devise an individualized program for Balance Training Poor endurance - to improve, our physical therapists will perform initial evaluation of pt's status upon admission and devise an individualized program for Endurance Training Weakness - to improve, our physical therapists will perform initial evaluation of pt's status upon a dmission and devise an individualized program for Aquatic Therapy, Neuromuscular Reeducation, and Str engthening Achieving independence - to improve, our physical therapists will perform initial evaluation of pt's status upon admission and devise an individualized program for Community Reintegration Activities - Occupational Therapy ADL deficits - to improve, our occupation therapists will perform initial evaluation of pt's status upon admission and devise an individualized program for Bathing, Bed mobility, Community Reintegratio n, Cooking, Dressing, Eating, Fine Motor Skills, Grooming, Homemaking, Kitchen Mobility, Laundry, Pat ient Education, Safety Awareness, Splinting - Positioning, Transfers(Toilet, Tub, Shower), and Wheel Chair Management Need for care mgr - to improve, our occupation therapists will perform initial evaluation of pt's status upon admission and devise an individualized program for Caregiver Training Weakness - to improve, our occupation therapists will perform initial evaluation of pt's status upon admission and devise an individualized program for Aquatic Therapy, Balance, Endurance, UE ROM, and UE strengthening - Other See attached MAR (Medication Administration Record) - Anterior Hip Precaution No abduction No active extension No adduction across midline No external rotation No hip flexion >90 degrees No internal rotation - Diet - Liquid Texture Continue Regular - Tube Feed Continue N/A - Diet Type Continue Regular - Posterior Hip Precaution No adduction across midline No external rotation No hip flexion >90 degrees No internal rotation No wheel chair propulsion - Weight Bearing Precaution WBAT right LE WITH THE SHOE - Skin care per protocol - Diet - Solid Texture Continue Regular - Shower allowing shower FUNCTIONAL STATUS: UPDATED AT WEEKLY TEAM CONFERENCE - Bladder Same accident frequency: 7-Ind - No accidents in the past 7 days - Bowel Same accident frequency: 7-Ind - No accidents in the past 7 days - Walking Same score based on distance walked: 0(N/A) Same score based on distance walked: 1(<=50ft) - Wheelchair Same score based on distance traveled: 0(N/A) FUNCTIONAL STATUS: - Self-Care A. Eating Ind B. Grooming Dennis C. Bathing sup D. Dressing - Upper sup E. Dressing - Lower Terri F. Toileting sup - Sphincter Control G. Bladder control Dennis H. Bowel control Dennis - Transfers Control I. Bed/Chair/Wheelchair sup J. Toilet sup K. Tub/Shower Terri - Locomotion L. Walk/Wheelchair (B) Terri M. Stairs ADNO - Communication N. Comprehension (B) Dennis O. Expression (B) Dennis - Social Cognition P. Social Interaction Dennis Q. Problem Solving sup R. Memory Dennis - Endurance Fair - Balance Good - Safety Awareness Good QI SCORES: - Self-Care A. Eating 05-Setup or clean-up assistance B. Oral hygiene 03-Partial/moderate assistance C. Toileting hygiene 03-Partial/moderate assistance E. Shower/bathe self 03-Partial/moderate assistance F. Upper body dressing 03-Partial/moderate assistance G. Lower body dressing 03-Partial/moderate assistance H. Putting on/taking off footwear 03-Partial/moderate assistance - Mobility A. Roll left and right 03-Partial/moderate assistance B. Sit to lying 03-Partial/moderate assistance C. Lying to sitting on side of bed 03-Partial/moderate assistance D. Sit to stand 03-Partial/moderate assistance E. Chair/[id number]-th-[id number] transfer 03-Partial/moderate assistance F. Toilet transfer 03-Partial/moderate assistance G. Car transfer 88-Not attempted due to medical condition or safety concerns I. Walk 10 feet 04-Supervision or touching assistance J. Walk 50 feet with two turns 88-Not attempted due to medical condition or safety concerns K. Walk 150 feet 88-Not attempted due to medical condition or safety concerns L. Walking 10 feet on uneven surfaces 88-Not attempted due to medical condition or safety concerns N. 4 steps 88-Not attempted due to medical condition or safety concerns O. 12 steps 88-Not attempted due to medical condition or safety concerns P. Picking up object 88-Not attempted due to medical condition or safety concerns R. Wheel 50 feet with two turns 88-Not attempted due to medical condition or safety concerns S. Wheel 150 feet 88-Not attempted due to medical condition or safety concerns - Bladder and Bowel Bladder continence Bowel continence - Endurance Fair - Balance Fair - Safety Awareness Fair CURRENT FUNC. DEFICITS: Self-Care, Mobility, Endurance, Balance, and Safety Awareness SIGNATURE PANEL: (CDT)
[2021-05-10] MEDS: EZETIMIBE 10 MG TAB PO SCH (19:34)
[2021-05-10] MEDS: ATORVASTATIN 20 MG TAB PO SCH (19:35)
[2021-05-10] MEDS: MELATONIN 3 MG TABLET PO PRN (19:36)
[2021-05-10] MEDS: AMITRIPTYLINE 50 MG TAB PO SCH (19:36)
[2021-05-10] MEDS: ALPRAZOLAM 1 MG TABLET PO SCH (21:24)
[2021-05-11] MEDS: TRAMADOL HCL 50 MG TAB PO PRN (03:56)
[2021-05-11] MEDS: LEVOTHYROXINE SOD 0.1 MG TAB PO SCH (06:20)
[2021-05-11] MEDS: FLUTICASONE 50MCG NASAL SPRAY NAS SCH (06:21)
[2021-05-11] MEDS: Meropenem 1 GM/100 ML BAG IV SCH ×2 (06:22→20:13)
[2021-05-11] MEDS: LIDOCAINE 4% PATCH TOP SCH (06:39)
--- NOTE | 2021-05-11 06:46 | PN ---
Date of Progress Note: 05/10/2021 Subjective: The patient was seen this morning for followup. Lying in bed, not in distress. No new complaints or problems reported by her. Objective: Vital Signs: Reviewed. HEENT: Unremarkable. Lungs: Clear to auscultation. Heart: Sounds normal. Abdomen: Soft. Bowel sounds normal. No guarding, rigidity, tenderness, or distention. Extremities: No leg edema, except right leg edema remains unchanged. Impression: 1.Femur fracture, right leg. 2.Right foot fracture. 3.Right leg edema. 4.Hypertension. 5.Insomnia. 6.Acute blood loss anemia. Plan: We will continue iron supplement, continue current antihypertensive medication, and diabetes m anagement. Her right foot pain has improved. Right leg swelling is stable. Continue current DVT pr ophylaxis. Pain medication seems to help her very well and we will continue to provide outpatient therapist apy under guidance of Dr. Potter. Continue current Levaquin and meropenem for urinary tract infect ion. I will see her tomorrow for followup. SHARONDA/MODL Voice ID: [id number] Report ID: [id number]
[2021-05-11] MEDS: PANTOPRAZOLE 40MG TABLET PO SCH (07:04)
[2021-05-11] MEDS: FE SULF/FA/VIT B COMP & C TAB PO SCH ×2 (08:00→08:10)
[2021-05-11] MEDS: MESALAMINE 500 MG CAPSULE PO SCH ×2 (08:07→20:14)
[2021-05-11] MEDS: INDOMETHACIN 25 MG CAP PO SCH ×2 (08:07→20:14)
[2021-05-11] MEDS: levoFLOXacin 500 MG TAB PO SCH (08:08)
[2021-05-11] MEDS: methocarbamoL 500 MG TAB PO SCH ×3 (08:08→20:15)
[2021-05-11] MEDS: MAGNESIUM OXIDE 400 MG TAB PO SCH ×2 (08:08→20:00)
[2021-05-11] MEDS: APIXABAN 2.5 MG TABLET PO SCH ×2 (08:09→20:16)
[2021-05-11] MEDS: MONTELUKAST 10 MG TAB PO SCH (08:09)
[2021-05-11] MEDS: JUVEN PACKET PO SCH ×2 (08:09→20:00)
[2021-05-11] MEDS: GABAPENTIN 300 MG CAP PO SCH ×2 (08:10→20:16)
[2021-05-11] MEDS: allopurinoL 300 MG TAB PO SCH (08:10)
[2021-05-11] MEDS: CRANBERRY EXTRACT 400 MG CAPSULE PO SCH ×2 (08:10→20:00)
--- NOTE | 2021-05-11 18:35 | R.PN ---
PROGRESS NOTES ENCOUNTER DATE AND TIME: 05/11/2021 18:30 (CDT) NAME SAEID LAST DATE OF : 1935 DATE OF ADMISSION: 04/21/2021 14:51 (CDT) R Intertrochanteric Femur fxCHIEF COMPLAINT: Right femur fracture, debility SUBJECTIVE: Pt denied any depression. Pt denied any Shortness of Breath. Glucose 90 to 110. WBC decreased to 8.4, 65.1% neutrophils, Hgb 8.4, prealbumin 5.4, AST 85, ALT 132. Ambulated 600' with standby assistance using a rolling walker. Wheelchair mobilization 500' with oumou dby assistance. Up and down 3 steps with minimum assistance. Bilateral renal ultrasound is normal. VITAL SIGNS Temperature: 96.9 F Resp: 16 SBP/DBP: 125/62 Pulse: 97 MEDICATION ALLERGIES: CODEINE ENVIRONMENTAL ALLERGIES: - Substance Allergies None Known - Other Allergies None Known NURSING: - Shower allowing shower - Skin care per protocol PRECAUTIONS: - Weight Bearing Precaution WBAT right LE WITH THE SHOE ACTIVITIES OOB only with supervision THERAPIES: - Dietary and Nutrition Adequate Nutrition. Nutritional Education. Nutritional Supplements. - Occupational Therapy Cognitive Retraining. Evaluate and Treat. Visual Perceptual Training. Adaptive Equipment. ADL Trainin g. Transfer Training. UE Strengthening. Safety Awareness. - Speech Therapy Cognitive Training. Expressive Language Skills. Memory Strategies. Receptive Language Skills. Speech Intelligibility Training. - Physical Therapy Gait Training. Transfer Training. Balance Training. Evaluate and Treat. Mobility Training. LE Strengt hening. LE ROM. Safety Awareness. PHYSICAL EXAM - Gen Alert and awake Lying in bed No apparent distress Oriented to: person, time, and place - Skin No open wound or evidence of breakdown. Edamatous R leg, leg held in external rotation and midly shor tened Normacephalic - Eyes No abnormalities - ENMT No abnormalities - Neck No abnormalities - CVS RRR - Chest No abnormalities - Abd Soft - No abnormalities - Ext Right hip surgical site has good hemostasis. - MSK 4+/5 weakness in right lower extremity - Neuro 4/5 strength right lower extremity. - Psych No abnormalities ASSESSMENT: Pt. is a 85 yo Right-handed female.On 04/15/2021 she was admitted to [facility] with diagnosis R Inte rtrochanteric Femur fx.Her impairment category is Orthopaedic Disorders 08 - Unilateral Hip Fracture (08.11).Pre-morbidly, Pt. was independent/mod-I in Locomotion, Safety Awareness, Balance, and Social Cognition; and she had good Transfers Control, Sphincter Control, Self-Care, Communication, and Endu guilherme.Currently, she has deficits of Locomotion, Safety Awareness, Transfers Control, Self-Care, Endu guilherme, Sphincter Control, and Balance.Pt. is now referred to [facility] for [facility] in-patient rehabilitation in order to maximize patient's functional independence in activities of daily living, strength, ROM, and mobility.- Rehab Goal Patient has realistic goal of being discharged at assistance level 7-Ind to reside at Home with Fami ly/Relatives. MDM/PLAN: - Physical Therapy Decreased range of motion - to improve, our physical therapists will perform initial evaluation of p t's status upon admission and devise an individualized program for increasing patient's Range of Tien on. Gait dysfunction - to improve, our physical therapists will perform initial evaluation of pt's statu s upon admission and devise an individualized program for Gait Training, and Wheel Chair mobility Having wound - to improve, our physical therapists will perform initial evaluation of pt's status up on admission and devise an individualized program for Wound Care Inability to transfer - to improve, our physical therapists will perform initial evaluation of pt's status upon admission and devise an individualized program for Bed mobility Need for home safety evaluation - to improve, our physical therapists will perform initial evaluatio n of pt's status upon admission and devise an individualized program for Home Evaluation Need in caregiver upon discharge - to improve, our physical therapists will perform initial evaluati on of pt's status upon admission and devise an individualized program for Caregiver Training New precaution - to improve, our physical therapists will perform initial evaluation of pt's status upon admission and devise an individualized program for Patient precaution education Poor balance - to improve, our physical therapists will perform initial evaluation of pt's status up on admission and devise an individualized program for Balance Training Poor endurance - to improve, our physical therapists will perform initial evaluation of pt's status upon admission and devise an individualized program for Endurance Training Weakness - to improve, our physical therapists will perform initial evaluation of pt's status upon a dmission and devise an individualized program for Aquatic Therapy, Neuromuscular Reeducation, and Str engthening Achieving independence - to improve, our physical therapists will perform initial evaluation of pt's status upon admission and devise an individualized program for Community Reintegration Activities - Occupational Therapy ADL deficits - to improve, our occupation therapists will perform initial evaluation of pt's status upon admission and devise an individualized program for Bathing, Bed mobility, Community Reintegratio n, Cooking, Dressing, Eating, Fine Motor Skills, Grooming, Homemaking, Kitchen Mobility, Laundry, Pat ient Education, Safety Awareness, Splinting - Positioning, Transfers(Toilet, Tub, Shower), and Wheel Chair Management Need for transitional care nurse - to improve, our occupation therapists will perform initial evaluation of pt's status upon admission and devise an individualized program for Caregiver Training Weakness - to improve, our occupation therapists will perform initial evaluation of pt's status upon admission and devise an individualized program for Aquatic Therapy, Balance, Endurance, UE ROM, and UE strengthening - Other See attached MAR (Medication Administration Record) - Anterior Hip Precaution No abduction No active extension No adduction across midline No external rotation No hip flexion >90 degrees No internal rotation - Diet - Liquid Texture Continue Regular - Tube Feed Continue N/A - Diet Type Continue Regular - Posterior Hip Precaution No adduction across midline No external rotation No hip flexion >90 degrees No internal rotation No wheel chair propulsion - Weight Bearing Precaution WBAT right LE WITH THE SHOE - Skin care per protocol - Diet - Solid Texture Continue Regular - Shower allowing shower FUNCTIONAL STATUS: UPDATED AT WEEKLY TEAM CONFERENCE - Bladder Same accident frequency: 7-Ind - No accidents in the past 7 days - Bowel Same accident frequency: 7-Ind - No accidents in the past 7 days - Walking Same score based on distance walked: 0(N/A) Same score based on distance walked: 1(<=50ft) - Wheelchair Same score based on distance traveled: 0(N/A) FUNCTIONAL STATUS: - Self-Care A. Eating Ind B. Grooming Dennis C. Bathing sup D. Dressing - Upper sup E. Dressing - Lower Terri F. Toileting sup - Sphincter Control G. Bladder control Dennis H. Bowel control Dennis - Transfers Control I. Bed/Chair/Wheelchair sup J. Toilet sup K. Tub/Shower Terri - Locomotion L. Walk/Wheelchair (B) Terri M. Stairs ADNO - Communication N. Comprehension (B) Dennis O. Expression (B) Dennis - Social Cognition P. Social Interaction Dennis Q. Problem Solving sup R. Memory Dennis - Endurance Fair - Balance Good - Safety Awareness Good QI SCORES: - Self-Care A. Eating 05-Setup or clean-up assistance B. Oral hygiene 03-Partial/moderate assistance C. Toileting hygiene 03-Partial/moderate assistance E. Shower/bathe self 03-Partial/moderate assistance F. Upper body dressing 03-Partial/moderate assistance G. Lower body dressing 03-Partial/moderate assistance H. Putting on/taking off footwear 03-Partial/moderate assistance - Mobility A. Roll left and right 03-Partial/moderate assistance B. Sit to lying 03-Partial/moderate assistance C. Lying to sitting on side of bed 03-Partial/moderate assistance D. Sit to stand 03-Partial/moderate assistance E. Chair/[id number] transfer 03-Partial/moderate assistance F. Toilet transfer 03-Partial/moderate assistance G. Car transfer 88-Not attempted due to medical condition or safety concerns I. Walk 10 feet 04-Supervision or touching assistance J. Walk 50 feet with two turns 88-Not attempted due to medical condition or safety concerns K. Walk 150 feet 88-Not attempted due to medical condition or safety concerns L. Walking 10 feet on uneven surfaces 88-Not attempted due to medical condition or safety concerns N. 4 steps 88-Not attempted due to medical condition or safety concerns O. 12 steps 88-Not attempted due to medical condition or safety concerns P. Picking up object 88-Not attempted due to medical condition or safety concerns R. Wheel 50 feet with two turns 88-Not attempted due to medical condition or safety concerns S. Wheel 150 feet 88-Not attempted due to medical condition or safety concerns - Bladder and Bowel Bladder continence Bowel continence - Endurance Fair - Balance Fair - Safety Awareness Fair [facility]RENT [facility]. DEFICITS: Self-Care, Mobility, Endurance, Balance, and Safety Awareness SIGNATURE PANEL: (CDT)
[2021-05-11] MEDS: ATORVASTATIN 20 MG TAB PO SCH (20:14)
[2021-05-11] MEDS: AMITRIPTYLINE 50 MG TAB PO SCH (20:14)
[2021-05-11] MEDS: EZETIMIBE 10 MG TAB PO SCH (20:15)
[2021-05-11] MEDS: MELATONIN 3 MG TABLET PO PRN (20:16)
--- NOTE | 2021-05-11 21:16 | PN ---
Date of Progress Note: 05/11/2021 Subjective: The patient was seen this morning for followup. No new complaints or problems reported by the patient. Lying in bed, not in any distress. Objective: Vital Signs: Reviewed. HEENT: Unremarkable. Lungs: Clear to auscultation. Heart: Sounds normal. Abdomen: Soft. Bowel sounds normal. No guarding, rigidity, tenderness, distention. Extremities: No leg edema. Impression: 1.Right hip fracture. 2.Right leg edema. 3.Hypertension. 4.Anemia due to acute blood loss. 5.Diabetes mellitus. Plan: We will continue current medications, continue current muscle relaxant pain medication, and ir on supplement therapy. Continue current antihypertensive medication. For her urinary tract infectio n, we will continue current Levaquin and meropenem. I will see her tomorrow for followup. SHARONDA/MARIELENA Voice ID: [id number] Report ID: [id number]
[2021-05-11] MEDS: ALPRAZOLAM 1 MG TABLET PO SCH (21:44)
[2021-05-12] MEDS: Meropenem 1 GM/100 ML BAG IV SCH ×2 (06:25→19:20)
[2021-05-12] MEDS: LEVOTHYROXINE SOD 0.1 MG TAB PO SCH (06:25)
[2021-05-12] MEDS: FLUTICASONE 50MCG NASAL SPRAY NAS SCH (06:27)
[2021-05-12] MEDS: PANTOPRAZOLE 40MG TABLET PO SCH (07:03)
[2021-05-12] MEDS: FE SULF/FA/VIT B COMP & C TAB PO SCH (08:00)
[2021-05-12] MEDS: MESALAMINE 500 MG CAPSULE PO SCH ×2 (08:15→19:27)
[2021-05-12] MEDS: INDOMETHACIN 25 MG CAP PO SCH ×2 (08:16→19:28)
[2021-05-12] MEDS: methocarbamoL 500 MG TAB PO SCH ×3 (08:17→19:29)
[2021-05-12] MEDS: levoFLOXacin 500 MG TAB PO SCH (08:18)
[2021-05-12] MEDS: MAGNESIUM OXIDE 400 MG TAB PO SCH ×2 (08:18→19:29)
[2021-05-12] MEDS: APIXABAN 2.5 MG TABLET PO SCH ×2 (08:18→19:29)
[2021-05-12] MEDS: JUVEN PACKET PO SCH ×2 (08:18→19:30)
[2021-05-12] MEDS: allopurinoL 300 MG TAB PO SCH (08:19)
[2021-05-12] MEDS: MONTELUKAST 10 MG TAB PO SCH (08:19)
[2021-05-12] MEDS: GABAPENTIN 300 MG CAP PO SCH ×2 (08:19→19:30)
[2021-05-12] MEDS: CRANBERRY EXTRACT 400 MG CAPSULE PO SCH ×2 (08:19→19:28)
--- NOTE | 2021-05-12 10:46 | RAD REPORT ---
EXAM DESCRIPTION: RAD - Shoulder Right 2 View - 05/12/2021 10:01 am CLINICAL HISTORY: fall COMPARISON: Shoulder Right 2 View dated 07/29/2019 FINDINGS: No acute fracture. 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 IMPRESSION: No acute osseous abnormality involving the right shoulder.
--- NOTE | 2021-05-12 10:47 | RAD REPORT ---
EXAM DESCRIPTION: RAD - Clavicle Right - 05/12/2021 10:00 am CLINICAL HISTORY: fall COMPARISON: No comparisons FINDINGS: No right clavicle fracture is identified. Right AC joint and glenohumeral joint degenerati ve changes again noted. IMPRESSION: No acute osseous abnormality involving the right clavicle.
[2021-05-12] MEDS: LIDOCAINE 4% PATCH TOP SCH (10:53)
--- NOTE | 2021-05-12 17:24 | R.PN ---
PROGRESS NOTES ENCOUNTER DATE AND TIME: 05/12/2021 17:20 (CDT) NAME SAEID LAST DATE OF : 1935 DATE OF ADMISSION: 04/21/2021 14:51 (CDT) R Intertrochanteric Femur fxCHIEF COMPLAINT: Right femur fracture, debility SUBJECTIVE: Pt denied any depression. Pt denied any Shortness of Breath. Glucose 84 to 104. WBC decreased to 8.4, 65.1% neutrophils, Hgb 8.4, prealbumin 5.4, AST 85, ALT 132. Ambulated 250' with standby assistance using a rolling walker. Wheelchair mobilization 150' with oumou dby assistance. Up and down 3 steps with minimum assistance. Bilateral renal ultrasound is normal. VITAL SIGNS Temperature: 98.0 F Resp: 16 SBP/DBP: 144/60 Pulse: 78 MEDICATION ALLERGIES: CODEINE ENVIRONMENTAL ALLERGIES: - Substance Allergies None Known - Other Allergies None Known NURSING: - Shower allowing shower - Skin care per protocol PRECAUTIONS: - Weight Bearing Precaution WBAT right LE WITH THE SHOE ACTIVITIES OOB only with supervision THERAPIES: - Dietary and Nutrition Adequate Nutrition. Nutritional Education. Nutritional Supplements. - Occupational Therapy Cognitive Retraining. Evaluate and Treat. Visual Perceptual Training. Adaptive Equipment. ADL Trainin g. Transfer Training. UE Strengthening. Safety Awareness. - Speech Therapy Cognitive Training. Expressive Language Skills. Memory Strategies. Receptive Language Skills. Speech Intelligibility Training. - Physical Therapy Gait Training. Transfer Training. Balance Training. Evaluate and Treat. Mobility Training. LE Strengt hening. LE ROM. Safety Awareness. PHYSICAL EXAM - Gen Alert and awake Lying in bed No apparent distress Oriented to: person, time, and place - Skin No open wound or evidence of breakdown. Edamatous R leg, leg held in external rotation and midly shor tened Normacephalic - Eyes No abnormalities - ENMT No abnormalities - Neck No abnormalities - CVS RRR - Chest No abnormalities - Abd Soft - No abnormalities - Ext Right hip surgical site has good hemostasis. - MSK 4+/5 weakness in right lower extremity - Neuro 4/5 strength right lower extremity. - Psych No abnormalities ASSESSMENT: Pt. is a 85 yo Right-handed female.On 04/15/2021 she was admitted to [facility] with diagnosis R Inte rtrochanteric Femur fx.Her impairment category is Orthopaedic Disorders 08 - Unilateral Hip Fracture (08.11).Pre-morbidly, Pt. was independent/mod-I in Locomotion, Safety Awareness, Balance, and Social Cognition; and she had good Transfers Control, Sphincter Control, Self-Care, Communication, and Endu guilherme.Currently, she has deficits of Locomotion, Safety Awareness, Transfers Control, Self-Care, Endu guilherme, Sphincter Control, and Balance.Pt. is now referred to [facility] in order to maximize patient's functional independence in activities of daily living, strength, ROM, and mobility.- Rehab Goal Patient has realistic goal of being discharged at assistance level 7-Ind to reside at Home with Fami ly/Relatives. MDM/PLAN: - Physical Therapy Decreased range of motion - to improve, our physical therapists will perform initial evaluation of p t's status upon admission and devise an individualized program for increasing patient's Range of Tien on. Gait dysfunction - to improve, our physical therapists will perform initial evaluation of pt's statu s upon admission and devise an individualized program for Gait Training, and Wheel Chair mobility Having wound - to improve, our physical therapists will perform initial evaluation of pt's status up on admission and devise an individualized program for Wound Care Inability to transfer - to improve, our physical therapists will perform initial evaluation of pt's status upon admission and devise an individualized program for Bed mobility Need for home safety evaluation - to improve, our physical therapists will perform initial evaluatio n of pt's status upon admission and devise an individualized program for Home Evaluation Need in caregiver upon discharge - to improve, our physical therapists will perform initial evaluati on of pt's status upon admission and devise an individualized program for Caregiver Training New precaution - to improve, our physical therapists will perform initial evaluation of pt's status upon admission and devise an individualized program for Patient precaution education Poor balance - to improve, our physical therapists will perform initial evaluation of pt's status up on admission and devise an individualized program for Balance Training Poor endurance - to improve, our physical therapists will perform initial evaluation of pt's status upon admission and devise an individualized program for Endurance Training Weakness - to improve, our physical therapists will perform initial evaluation of pt's status upon a dmission and devise an individualized program for Aquatic Therapy, Neuromuscular Reeducation, and Str engthening Achieving independence - to improve, our physical therapists will perform initial evaluation of pt's status upon admission and devise an individualized program for Community Reintegration Activities - Occupational Therapy ADL deficits - to improve, our occupation therapists will perform initial evaluation of pt's status upon admission and devise an individualized program for Bathing, Bed mobility, Community Reintegratio n, Cooking, Dressing, Eating, Fine Motor Skills, Grooming, Homemaking, Kitchen Mobility, Laundry, Pat ient Education, Safety Awareness, Splinting - Positioning, Transfers(Toilet, Tub, Shower), and Wheel Chair Management Need for child care supervisor - to improve, our occupation therapists will perform initial evaluation of pt's status upon admission and devise an individualized program for Caregiver Training Weakness - to improve, our occupation therapists will perform initial evaluation of pt's status upon admission and devise an individualized program for Aquatic Therapy, Balance, Endurance, UE ROM, and UE strengthening - Other See attached MAR (Medication Administration Record) - Anterior Hip Precaution No abduction No active extension No adduction across midline No external rotation No hip flexion >90 degrees No internal rotation - Diet - Liquid Texture Continue Regular - Tube Feed Continue N/A - Diet Type Continue Regular - Posterior Hip Precaution No adduction across midline No external rotation No hip flexion >90 degrees No internal rotation No wheel chair propulsion - Weight Bearing Precaution WBAT right LE WITH THE SHOE - Skin care per protocol - Diet - Solid Texture Continue Regular - Shower allowing shower FUNCTIONAL STATUS: UPDATED AT WEEKLY TEAM CONFERENCE - Bladder Same accident frequency: 7-Ind - No accidents in the past 7 days - Bowel Same accident frequency: 7-Ind - No accidents in the past 7 days - Walking Same score based on distance walked: 0(N/A) Same score based on distance walked: 1(<=50ft) - Wheelchair Same score based on distance traveled: 0(N/A) FUNCTIONAL STATUS: - Self-Care A. Eating Ind B. Grooming Dennis C. Bathing sup D. Dressing - Upper sup E. Dressing - Lower Terri F. Toileting sup - Sphincter Control G. Bladder control Dennis H. Bowel control Dennis - Transfers Control I. Bed/Chair/Wheelchair sup J. Toilet sup K. Tub/Shower Terri - Locomotion L. Walk/Wheelchair (B) Terri M. Stairs ADNO - Communication N. Comprehension (B) Dennis O. Expression (B) Dennis - Social Cognition P. Social Interaction Dennis Q. Problem Solving sup R. Memory Dennis - Endurance Fair - Balance Good - Safety Awareness Good QI SCORES: - Self-Care A. Eating 05-Setup or clean-up assistance B. Oral hygiene 03-Partial/moderate assistance C. Toileting hygiene 03-Partial/moderate assistance E. Shower/bathe self 03-Partial/moderate assistance F. Upper body dressing 03-Partial/moderate assistance G. Lower body dressing 03-Partial/moderate assistance H. Putting on/taking off footwear 03-Partial/moderate assistance - Mobility A. Roll left and right 03-Partial/moderate assistance B. Sit to lying 03-Partial/moderate assistance C. Lying to sitting on side of bed 03-Partial/moderate assistance D. Sit to stand 03-Partial/moderate assistance E. Chair/eak-lu-rrvbb transfer 03-Partial/moderate assistance F. Toilet transfer 03-Partial/moderate assistance G. Car transfer 88-Not attempted due to medical condition or safety concerns I. Walk 10 feet 04-Supervision or touching assistance J. Walk 50 feet with two turns 88-Not attempted due to medical condition or safety concerns K. Walk 150 feet 88-Not attempted due to medical condition or safety concerns L. Walking 10 feet on uneven surfaces 88-Not attempted due to medical condition or safety concerns N. 4 steps 88-Not attempted due to medical condition or safety concerns O. 12 steps 88-Not attempted due to medical condition or safety concerns P. Picking up object 88-Not attempted due to medical condition or safety concerns R. Wheel 50 feet with two turns 88-Not attempted due to medical condition or safety concerns S. Wheel 150 feet 88-Not attempted due to medical condition or safety concerns - Bladder and Bowel Bladder continence Bowel continence - Endurance Fair - Balance Fair - Safety Awareness Fair [facility] DEFICITS: Self-Care, Mobility, Endurance, Balance, and Safety Awareness SIGNATURE PANEL: (CDT)
[2021-05-12] MEDS: MELATONIN 3 MG TABLET PO PRN (19:29)
[2021-05-12] MEDS: EZETIMIBE 10 MG TAB PO SCH (19:29)
[2021-05-12] MEDS: ATORVASTATIN 20 MG TAB PO SCH (19:29)
[2021-05-12] MEDS: AMITRIPTYLINE 50 MG TAB PO SCH (19:30)
[2021-05-12] MEDS ORDERED: NA CHLORIDE 0.9% 250 ML ONE (19:40)
--- NOTE | 2021-05-12 19:55 | PN ---
Date of Progress Note: 05/12/2021 Subjective: The patient was seen this morning for followup. She actually fell down early this morni ng and during nighttime she needed to go to the bathroom and hospital had lost power during nighttime , so her night light that always stayed on was not on and bathroom light was also not on because of l oss of power. Her niece was in room. She went to the bathroom to turn the light on and at that time while the patient was standing next to the bed, she felt weak and all of a sudden fell down. She di d not have any head injury, but she slowly sat down and did not have a free fall. The patient report ed that she started to have pain in her left clavicle region after this fall. There is no back pain or hip pain after this fall. Objective: Vital Signs: Reviewed. HEENT: Unremarkable. Lungs: Clear to auscultation. Heart: Sounds normal. Abdomen: Soft. Bowel sounds normal. No guarding, rigidity, tenderness, distention. Extremity: No leg edema. Impression: 1.Pain, right clavicle. 2.Hypertension. 3.Type 2 diabetes mellitus. 4.Anemia. Plan: We will continue current medications. Continue current antihypertensive medication. For urin kwesi tract infection, we will continue current antibiotics. We will get x-ray of the right shoulder a nd right clavicle. Continue physical therapy per guidance of Dr. Potter. There was no deformity n oted on the clavicle and range of motion in shoulder was normal. There was no deformity of right upper extremity either. SHARONDA/MODL Voice ID: [id number] Report ID: [id number]
[2021-05-12] MEDS: TRAMADOL HCL 50 MG TAB PO PRN (20:57)
[2021-05-12] MEDS: ALPRAZOLAM 1 MG TABLET PO SCH (22:28)
[2021-05-13] MEDS: PANTOPRAZOLE 40MG TABLET PO SCH (07:13)
[2021-05-13] MEDS: LEVOTHYROXINE SOD 0.1 MG TAB PO SCH (07:13)
[2021-05-13 07:23] LABS: Basophils % 1.1 % (0-1.3); Hematocrit 26.3 % (36.0-45.0); Lymphocytes % 26.7 % (15.3-44.8); MPV 7.7 fL (7.6-11.3); RBC Red Blood Cell Count 2.87 M/uL (3.86-4.86)
[2021-05-13 07:38] LABS: Potassium 4.6 mmol/L (3.5-5.1); Prealbumin 12.2 mg/dL (20-40)
[2021-05-13] MEDS: MESALAMINE 500 MG CAPSULE PO SCH ×2 (08:00→20:03)
[2021-05-13] MEDS: GABAPENTIN 300 MG CAP PO SCH ×2 (08:51→20:04)
[2021-05-13] MEDS: methocarbamoL 500 MG TAB PO SCH ×3 (08:51→20:03)
[2021-05-13] MEDS: MAGNESIUM OXIDE 400 MG TAB PO SCH ×2 (08:52→20:04)
[2021-05-13] MEDS: levoFLOXacin 500 MG TAB PO SCH (08:54)
[2021-05-13] MEDS: FE SULF/FA/VIT B COMP & C TAB PO SCH (08:54)
[2021-05-13] MEDS: allopurinoL 300 MG TAB PO SCH (08:54)
[2021-05-13] MEDS: MONTELUKAST 10 MG TAB PO SCH (08:55)
[2021-05-13] MEDS: APIXABAN 2.5 MG TABLET PO SCH ×2 (08:55→20:04)
[2021-05-13] MEDS: CRANBERRY EXTRACT 400 MG CAPSULE PO SCH (08:56)
[2021-05-13] MEDS: INDOMETHACIN 25 MG CAP PO SCH ×2 (08:57→20:04)
[2021-05-13] MEDS: FLUTICASONE 50MCG NASAL SPRAY NAS SCH (08:58)
[2021-05-13] MEDS: LIDOCAINE 4% PATCH TOP SCH (08:58)
[2021-05-13] MEDS: JUVEN PACKET PO SCH ×2 (10:18→20:05)
[2021-05-13] MEDS: Meropenem 1 GM/100 ML BAG IV SCH ×2 (10:19→19:03)
--- NOTE | 2021-05-13 17:46 | R.PN ---
PROGRESS NOTES ENCOUNTER DATE AND TIME: 05/13/2021 17:40 (CDT) NAME SAEID LAST DATE OF : 1935 DATE OF ADMISSION: 04/21/2021 14:51 (CDT) R Intertrochanteric Femur fxCHIEF COMPLAINT: Right femur fracture, debility SUBJECTIVE: Pt denied any depression. Pt denied any Shortness of Breath. Glucose 84 to 141. WBC 7.5, Hgb 8.5, prealbumin 12.2, albumin 2.0, covid-19 negative. Ambulated 215' with standby assistance using a rolling walker. Wheelchair mobilization 250' with oumou dby assistance. Bilateral renal ultrasound is normal. VITAL SIGNS Temperature: 98.2 F Resp: 16 SBP/DBP: 112/58 Pulse: 85 MEDICATION ALLERGIES: CODEINE ENVIRONMENTAL ALLERGIES: - Substance Allergies None Known - Other Allergies None Known NURSING: - Shower allowing shower - Skin care per protocol PRECAUTIONS: - Weight Bearing Precaution WBAT right LE WITH THE SHOE ACTIVITIES OOB only with supervision THERAPIES: - Dietary and Nutrition Adequate Nutrition. Nutritional Education. Nutritional Supplements. - Occupational Therapy Cognitive Retraining. Evaluate and Treat. Visual Perceptual Training. Adaptive Equipment. ADL Trainin g. Transfer Training. UE Strengthening. Safety Awareness. - Speech Therapy Cognitive Training. Expressive Language Skills. Memory Strategies. Receptive Language Skills. Speech Intelligibility Training. - Physical Therapy Gait Training. Transfer Training. Balance Training. Evaluate and Treat. Mobility Training. LE Strengt hening. LE ROM. Safety Awareness. PHYSICAL EXAM - Gen Alert and awake Lying in bed No apparent distress Oriented to: person, time, and place - Skin No open wound or evidence of breakdown. Edamatous R leg, leg held in external rotation and midly shor tened Normacephalic - Eyes No abnormalities - ENMT No abnormalities - Neck No abnormalities - CVS RRR - Chest No abnormalities - Abd Soft - No abnormalities - Ext Right hip surgical site has good hemostasis. - MSK 4+/5 weakness in right lower extremity - Neuro 4/5 strength right lower extremity. - Psych No abnormalities ASSESSMENT: Pt. is a 85 yo Right-handed female.On 04/15/2021 she was admitted to [facility] with diagnosis R Inte rtrochanteric Femur fx.Her impairment category is Orthopaedic Disorders 08 - Unilateral Hip Fracture (.11).Pre-morbidly, Pt. was independent/mod-I in Locomotion, Safety Awareness, Balance, and Social Cognition; and she had good Transfers Control, Sphincter Control, Self-Care, Communication, and Endu guilherme.Currently, she has deficits of Locomotion, Safety Awareness, Transfers Control, Self-Care, Endu guilherme, Sphincter Control, and Balance.Pt. is now referred to [facility] for [facility]patient [facility] in order to maximize patient's functional independence in activities of daily living, strength, ROM, and mobility.- Rehab Goal Patient has realistic goal of being discharged at assistance level 7-Ind to reside at Home with Fami ly/Relatives. MDM/PLAN: - Physical Therapy Decreased range of motion - to improve, our physical therapists will perform initial evaluation of p t's status upon admission and devise an individualized program for increasing patient's Range of Tien on. Gait dysfunction - to improve, our physical therapists will perform initial evaluation of pt's statu s upon admission and devise an individualized program for Gait Training, and Wheel Chair mobility Having wound - to improve, our physical therapists will perform initial evaluation of pt's status up on admission and devise an individualized program for Wound Care Inability to transfer - to improve, our physical therapists will perform initial evaluation of pt's status upon admission and devise an individualized program for Bed mobility Need for home safety evaluation - to improve, our physical therapists will perform initial evaluatio n of pt's status upon admission and devise an individualized program for Home Evaluation Need in caregiver upon discharge - to improve, our physical therapists will perform initial evaluati on of pt's status upon admission and devise an individualized program for Caregiver Training New precaution - to improve, our physical therapists will perform initial evaluation of pt's status upon admission and devise an individualized program for Patient precaution education Poor balance - to improve, our physical therapists will perform initial evaluation of pt's status up on admission and devise an individualized program for Balance Training Poor endurance - to improve, our physical therapists will perform initial evaluation of pt's status upon admission and devise an individualized program for Endurance Training Weakness - to improve, our physical therapists will perform initial evaluation of pt's status upon a dmission and devise an individualized program for Aquatic Therapy, Neuromuscular Reeducation, and Str engthening Achieving independence - to improve, our physical therapists will perform initial evaluation of pt's status upon admission and devise an individualized program for Community Reintegration Activities - Occupational Therapy ADL deficits - to improve, our occupation therapists will perform initial evaluation of pt's status upon admission and devise an individualized program for Bathing, Bed mobility, Community Reintegratio n, Cooking, Dressing, Eating, Fine Motor Skills, Grooming, Homemaking, Kitchen Mobility, Laundry, Pat ient Education, Safety Awareness, Splinting - Positioning, Transfers(Toilet, Tub, Shower), and Wheel Chair Management Need for rn critical care - to improve, our occupation therapists will perform initial evaluation of pt's status upon admission and devise an individualized program for Caregiver Training Weakness - to improve, our occupation therapists will perform initial evaluation of pt's status upon admission and devise an individualized program for Aquatic Therapy, Balance, Endurance, UE ROM, and UE strengthening - Other See attached MAR (Medication Administration Record) - Anterior Hip Precaution No abduction No active extension No adduction across midline No external rotation No hip flexion >90 degrees No internal rotation - Diet - Liquid Texture Continue Regular - Tube Feed Continue N/A - Diet Type Continue Regular - Posterior Hip Precaution No adduction across midline No external rotation No hip flexion >90 degrees No internal rotation No wheel chair propulsion - Weight Bearing Precaution WBAT right LE WITH THE SHOE - Skin care per protocol - Diet - Solid Texture Continue Regular - Shower allowing shower FUNCTIONAL STATUS: UPDATED AT WEEKLY TEAM CONFERENCE - Bladder Same accident frequency: 7-Ind - No accidents in the past 7 days - Bowel Same accident frequency: 7-Ind - No accidents in the past 7 days - Walking Same score based on distance walked: 0(N/A) Same score based on distance walked: 1(<=50ft) - Wheelchair Same score based on distance traveled: 0(N/A) FUNCTIONAL STATUS: - Self-Care A. Eating Ind B. Grooming Dennis C. Bathing sup D. Dressing - Upper sup E. Dressing - Lower Terri F. Toileting sup - Sphincter Control G. Bladder control Dennis H. Bowel control Dennis - Transfers Control I. Bed/Chair/Wheelchair sup J. Toilet sup K. Tub/Shower Terri - Locomotion L. Walk/Wheelchair (B) Terri M. Stairs ADNO - Communication N. Comprehension (B) Dennis O. Expression (B) Dennis - Social Cognition P. Social Interaction Dennis Q. Problem Solving sup R. Memory Dennis - Endurance Fair - Balance Good - Safety Awareness Good QI SCORES: - Self-Care A. Eating 05-Setup or clean-up assistance B. Oral hygiene 03-Partial/moderate assistance C. Toileting hygiene 03-Partial/moderate assistance E. Shower/bathe self 03-Partial/moderate assistance F. Upper body dressing 03-Partial/moderate assistance G. Lower body dressing 03-Partial/moderate assistance H. Putting on/taking off footwear 03-Partial/moderate assistance - Mobility A. Roll left and right 03-Partial/moderate assistance B. Sit to lying 03-Partial/moderate assistance C. Lying to sitting on side of bed 03-Partial/moderate assistance D. Sit to stand 03-Partial/moderate assistance E. Chair/sga-ze-[id number] transfer 03-Partial/moderate assistance F. Toilet transfer 03-Partial/moderate assistance G. Car transfer 88-Not attempted due to medical condition or safety concerns I. Walk 10 feet 04-Supervision or touching assistance J. Walk 50 feet with two turns 88-Not attempted due to medical condition or safety concerns K. Walk 150 feet 88-Not attempted due to medical condition or safety concerns L. Walking 10 feet on uneven surfaces 88-Not attempted due to medical condition or safety concerns N. 4 steps 88-Not attempted due to medical condition or safety concerns O. 12 steps 88-Not attempted due to medical condition or safety concerns P. Picking up object 88-Not attempted due to medical condition or safety concerns R. Wheel 50 feet with two turns 88-Not attempted due to medical condition or safety concerns S. Wheel 150 feet 88-Not attempted due to medical condition or safety concerns - Bladder and Bowel Bladder continence Bowel continence - Endurance Fair - Balance Fair - Safety Awareness Fair [facility] DEFICITS: Self-Care, Mobility, Endurance, Balance, and Safety Awareness SIGNATURE PANEL: (CDT)
[2021-05-13] MEDS: CRANBERRY FRUIT EXTRACT 400 MG CAP PO SCH (20:00)
[2021-05-13] MEDS: ATORVASTATIN 20 MG TAB PO SCH (20:03)
[2021-05-13] MEDS: EZETIMIBE 10 MG TAB PO SCH (20:03)
[2021-05-13] MEDS: AMITRIPTYLINE 50 MG TAB PO SCH (20:04)
[2021-05-13] MEDS: MELATONIN 3 MG TABLET PO PRN (20:05)
[2021-05-13] MEDS: ALPRAZOLAM 1 MG TABLET PO SCH (21:22)
[2021-05-14] MEDS: TRAMADOL HCL 50 MG TAB PO PRN (06:28)
--- NOTE | 2021-05-14 06:37 | PN ---
Date of Progress Note: 05/13/2021 Subjective: The patient was seen this morning for followup. No new complaints or problems reported by her, lying in bed, not in any distress. Objective: Vital Signs: Reviewed. HEENT: Unremarkable. Lungs: Clear to auscultation. Heart: Heart sounds normal. Abdomen: Soft, bowel sounds normal. No guarding, rigidity, tenderness, or distention. Extremities: No leg edema. Laboratory Data: Labs reviewed. Impression: 1.Hip fracture. 2.Right foot fracture. 3.Urinary tract infection. 4.Hypertension. 5.Diabetes mellitus. Plan: We will continue current antibiotic meropenem and Levaquin. We will go ahead and continue to provide physical therapy under guidance of Dr. Potter. Continue current DVT prophylaxis and antihy pertensive medication. The patient's pain from her right clavicle region has improved. Her x-rays w ere negative. No need for further intervention. SHARONDA/MODL Voice ID: [id number] Report ID: [id number]
[2021-05-14] MEDS: PANTOPRAZOLE 40MG TABLET PO SCH (07:50)
[2021-05-14] MEDS: LEVOTHYROXINE SOD 0.1 MG TAB PO SCH (07:50)
[2021-05-14] MEDS: Meropenem 1 GM/100 ML BAG IV SCH (07:50)
[2021-05-14] MEDS: JUVEN PACKET PO SCH (08:00)
[2021-05-14] MEDS: FLUTICASONE 50MCG NASAL SPRAY NAS SCH (08:00)
[2021-05-14] MEDS: CRANBERRY FRUIT EXTRACT 400 MG CAP PO SCH (08:00)
[2021-05-14] MEDS: MESALAMINE 500 MG CAPSULE PO SCH (08:28)
[2021-05-14] MEDS: FE SULF/FA/VIT B COMP & C TAB PO SCH (08:29)
[2021-05-14] MEDS: methocarbamoL 500 MG TAB PO SCH (08:29)
[2021-05-14] MEDS: allopurinoL 300 MG TAB PO SCH (08:29)
[2021-05-14] MEDS: levoFLOXacin 500 MG TAB PO SCH (08:29)
[2021-05-14] MEDS: GABAPENTIN 300 MG CAP PO SCH (08:29)
[2021-05-14] MEDS: MAGNESIUM OXIDE 400 MG TAB PO SCH (08:29)
[2021-05-14] MEDS: LIDOCAINE 4% PATCH TOP SCH (08:29)
[2021-05-14] MEDS: INDOMETHACIN 25 MG CAP PO SCH (08:29)
[2021-05-14] MEDS: MONTELUKAST 10 MG TAB PO SCH (08:29)
[2021-05-14] MEDS: APIXABAN 2.5 MG TABLET PO SCH (08:29)
[2021-05-14 09:01] VITALS: O2SAT 95
[2021-05-14 09:14] VITALS: BP 140/62; TEMP 97.4
--- NOTE | 2021-05-14 09:44 | P.RH.PN ---
Estimated Length of Stay: 21 Expected Discharge Date: 05/14/21 Discharge Disposition Plan: Home Family Support: Yes Half-Way Goal: Mobility, Transfers, Self Care Vital Signs: Last Vital Signs Temp 97.4 F 05/14/21 09:13 Pulse 83 05/14/21 09:13 Resp 16 05/14/21 09:13 BP 140/62 05/14/21 09:13 Pulse Ox 97 05/14/21 09:13 Laboratory: Laboratory Last Values WBC 7.50 K/uL (4.3-10.9) 05/13/21 06:09 RBC 2.87 M/uL (3.86-4.86) L 05/13/21 06:09 Hgb 8.5 g/dL (12.0-15.0) L 05/13/21 06:09 Hct 26.3 % (36.0-45.0) L 05/13/21 06:09 MCV 91.6 fL (80-100) 05/13/21 06:09 MCH 29.8 pg (27.0-35.0) 05/13/21 06:09 MCHC 32.5 g/dL (32.0-36.0) 05/13/21 06:09 RDW 16.5 % (12.1-15.2) H 05/13/21 06:09 Plt Count 414 K/uL (152-406) H 05/13/21 06:09 MPV 7.7 fL (7.6-11.3) 05/13/21 06:09 Neutrophils % 57.3 % (41.7-73.7) 05/13/21 06:09 Lymphocytes % 26.7 % (15.3-44.8) 05/13/21 06:09 Monocytes % 9.7 % (3.3-12.3) 05/13/21 06:09 Eosinophils % 5.2 % (0-4.4) H 05/13/21 06:09 Basophils % 1.1 % (0-1.3) 05/13/21 06:09 Absolute Neutrophils 4.3 K/uL (1.8-8.0) 05/13/21 06:09 Absolute Lymphocytes 2.0 K/uL (0.7-4.9) 05/13/21 06:09 Absolute Monocytes 0.7 K/uL (0.1-1.3) 05/13/21 06:09 Absolute Eosinophils 0.4 K/uL (0-0.5) 05/13/21 06:09 Absolute Basophils 0.1 K/uL (0-0.5) 05/13/21 06:09 Platelet Estimate Incr 04/29/21 05:04 Polychromasia 1+ 04/29/21 05:04 Anisocytosis 1+ 04/29/21 05:04 Morphology Comment Noted (NOT SEEN) 04/29/21 05:04 Sodium 143 mmol/L (136-145) 05/13/21 06:09 Potassium 4.6 mmol/L (3.5-5.1) 05/13/21 06:09 Chloride 111 mmol/L (98-107) H 05/13/21 06:09 Carbon Dioxide 30 mmol/L (21-32) 05/13/21 06:09 BUN 24 mg/dL (7-18) H 05/13/21 06:09 Creatinine 0.68 mg/dL (0.55-1.3) 05/13/21 06:09 Estimated GFR 83 mL/min (=/>90) L 05/13/21 06:09 Glucose 112 mg/dL (74-106) H 05/13/21 06:09 POC Glucose 92 mg/dL (65-120) 05/14/21 07:16 Calcium 8.5 mg/dL (8.5-10.1) 05/13/21 06:09 Magnesium 2.0 mg/dL (1.8-2.4) 05/13/21 06:09 Total Bilirubin 0.3 mg/dL (0.2-1.0) 05/08/21 06:32 Direct Bilirubin < 0.1 mg/dL (0-0.2) 05/08/21 06:32 AST 85 U/L (15-37) H 05/08/21 06:32 ALT 132 U/L (12-78) H 05/08/21 06:32 Alkaline Phosphatase 188 U/L (45-117) H 05/08/21 06:32 Serum Total Protein 5.3 g/dL (6.4-8.2) L 05/08/21 06:32 Albumin 2.0 g/dL (3.4-5.0) L 05/13/21 06:09 Globulin 3.6 g/dL (2.3-3.5) H 05/08/21 06:32 Albumin/Globulin Ratio 0.5 (1.1-1.8) L 05/08/21 06:32 Prealbumin 12.2 mg/dL (20-40) L 05/13/21 06:09 Urine Color Dk yellow (Yellow) 05/03/21 10:30 Urine Appearance Cloudy (Clear) 05/03/21 10:30 Urine pH 5.0 (5.0-7.0) 05/03/21 10:30 Ur Specific [place] 1.025 (1.005-1.030) 05/03/21 10:30 Glucose (UA)(Auto) Negative (Negative) 05/03/21 10:30 Urine Ketones Negative (Negative) 05/03/21 10:30 Urine Blood Negative (Negative) 05/03/21 10:30 Urine Nitrite Negative (Negative) 05/03/21 10:30 Urine Bilirubin Negative (Negative) 05/03/21 10:30 Urine Urobilinogen 0.2 mg/dL (0.2-1.0) 05/03/21 10:30 Ur Leukocyte Esterase 1+ (Negative) H 05/03/21 10:30 Urine RBC <5 /HPF (NONE SEEN) 05/03/21 10:30 Urine WBC 5-10 /HPF (<5) H 05/03/21 10:30 Ur Squamous Epith Cells 10-20 /HPF (NONE SEEN) H 05/03/21 10:30 Urine Bacteria <20 /HPF (<20) 05/03/21 10:30 Urine Mucus 1+ /HPF (NONE SEEN) 05/03/21 10:30 Urine Culture Reflexed Not needed 05/03/21 10:30 Urine Total Protein Negative (Negative) 05/03/21 10:30 SARS-CoV-2 Rap RNA(RT-PCR) Negative (NEGATIVE) 05/12/21 14:05 Smear Scan Ok (OK) 04/29/21 05:04 Weight: 151 lb Wound Present: Yes Closed Surgical Incision Present: Yes Negative Pressure Wound Therapy Present: No Physician Update: Labs are stable. She did well with all ADLs, 150' SBA, 3 steps with min assistance. She has [facility] and her family will be with her. She will be discharged today. Functional Improvement: Patient experienced a set-back during her stay in Inpatient Rehab, however has progressed well w/ therapy. Patient has met all of her short-term goals at this time, and continues to make good progress toward reaching her long-term goals. Patient presents w/ good work ethic. Summary: Patient's care plan and fpc goals have been reviewed and revised as necessary. Please see the Rehabilitation Signature page for all necessary signatures.
[2021-05-14] MEDS ORDERED: CRANBERRY FRUIT EXTRACT 400 MG CAP PO SCH (10:00)
--- NOTE | 2021-05-15 02:12 | DS ---
Date of Discharge: 05/14/2021 Disposition: Discharged to go home. Physical Examination: HEENT: Unremarkable. Lungs: Clear to auscultation. Cardiac: Heart sounds normal. Abdomen: Soft, bowel sounds normal. No guarding, rigidity, tenderness, distention. Extremities: Trace slight leg edema. Right lateral thigh has very well healed surgical scar. No evidence of infection or swelling. No gapping. Laboratory Data: Last CBC from 05/13/2021: White count 7.5, hemoglobin 8.5, platelets 414. Last Chemistry Also From 05/13/2021: Sodium 143, potassium 4.6, chloride 111, bicarb 30, BUN 24, creatinine 0.68, glucose 112, albumin 2. Hospital Course: This is a very pleasant 85-year-old female patient who was admitted to the hospital to rehab floor for inpatient rehab therapy. Please see dictated consultation note for more details. The patient fell down at home and was brought in to emergency room and was taken to [place] for further evaluation and management of this hip fracture problem. After she had surgery done, she was brought to our rehab department for inpatient rehab therapy. Her medications were continued during this hospitalization. The patient was noted to have urinary tract infection. Initial urine culture grew enterococcus faecalis and she was given a culture specific antibiotic which was ampicillin. All of a sudden 1 day, patient had altered mental status and she actually had acute kidney injury and urinary retention that resulted in bilateral hydronephrosis. She did require placement of Sheth catheter for less than 24 hours and her hydronephrosis problem resolved as documented on ultrasound. No other acute or concerning changes noted on ultrasound of kidney or bladder. When she developed this acute kidney injury and hydronephrosis, we did another urine analysis and urine culture that grew E coli which was ESBL and Enterococcus faecalis. With that, once sensitivity result was available, we started her on meropenem and Levaquin. Her renal failure problem resolved. She did receive IV fluid which was subsequently discontinued. She continued to receive physical therapy and her pain improved over period of time. Venous Doppler of leg was negative for DVT. Overall, her condition has entered well enough for her to go home today and I will see her at office for followup next week. Final Diagnoses: 1. Right hip intertrochanteric fracture. 2. Acute blood loss anemia. 3. Acute kidney injury. 4. Hypertension. 5. Mild persistent asthma. 6. Type 2 diabetes mellitus. 7. Hyperlipidemia. 8. Gastroesophageal reflux disease. 9. Osteoarthritis, multiple sites. 10. Diverticulosis. 11. Urinary tract infection. Discharge Medications And Instructions: 1. Continue all prior home medications except do not take any verapamil, do not take any irbesartan and do not take metformin. 2. Take Eliquis 2.5 mg 2 times a day for 2 weeks. 3. Follow up at my office next week on Monday or . 4. Follow up with orthopedic surgeon in [place] and patient to contact his office for appointment. SHARONDA/MARIELENA Voice ID: [id number] Report ID: [id number] ALLA
== END 2021-05-14 13:29 | disposition home or self-care (01) | DRG 559 ==
LOC: 5TH 04-21 14:51
PROVIDERS: ADMIT Internal Medicine; ATTEND Internal Medicine
PROC: 0T9B70Z Drainage of Bladder with Drainage Device, Via Natural or Artificial Opening (ICD-10-PCS; principal; 2021-05-05)
DX: S72.141D Displaced intertrochanteric fracture of right femur, subsequent encounter for closed fracture with routine healing (principal); E43 Unspecified severe protein-calorie malnutrition; J96.11 Chronic respiratory failure with hypoxia; D62 Acute posthemorrhagic anemia; N39.0 Urinary tract infection, site not specified; N17.9 Acute kidney failure, unspecified; N13.30 Unspecified hydronephrosis; N13.4 Hydroureter; E11.9 Type 2 diabetes mellitus without complications; E03.9 Hypothyroidism, unspecified; I10 Essential (primary) hypertension; D64.9 Anemia, unspecified; E78.5 Hyperlipidemia, unspecified; K21.9 Gastro-esophageal reflux disease without esophagitis; K57.90 Diverticulosis of intestine, part unspecified, without perforation or abscess without bleeding; M15.9 Polyosteoarthritis, unspecified; M10.9 Gout, unspecified; J45.30 Mild persistent asthma, uncomplicated; F41.9 Anxiety disorder, unspecified; R60.0 Localized edema; R19.7 Diarrhea, unspecified; R53.81 Other malaise; E87.5 Hyperkalemia; R33.9 Retention of urine, unspecified; E87.6 Hypokalemia; B96.20 Unspecified Escherichia coli [E. coli] as the cause of diseases classified elsewhere; G47.00 Insomnia, unspecified; Z68.23 Body mass index [BMI] 23.0-23.9, adult
CPT/HCPCS: 36415; 70450; 71045; 72020; 74176; 76770; 76857; 80048; 80053; 80076; 81001; 82040; 82248; 82947; 83735; 84134; 84450; 84460; 85025; 87040; 87077; 87086; 87088; 87186; 93005; 93970; 93971; 95816; 97110; 97112; 97116; 97161; 97530; 97542; J2185; J7030; J7050; U0003

== ENCOUNTER 2023-10-05 14:40 | Inpatient (IN) | payer OTHER ==
[2023-10-05 16:09] LABS: Absolute Lymphocytes (CBC) 1.8 K/uL (0.7-4.9); Hematocrit 35.1 % (36.0-45.0); Lymphocytes % 12.5 % (15.3-44.8); MCV 94.6 fL (80-100); MPV 8.5 fL (7.6-11.3); Platelets 238 thou/uL (152-406); RBC Red Blood Cell Count 3.71 M/uL (3.86-4.86)
[2023-10-05 16:21] LABS: Protime INR 1.19
[2023-10-05 16:24] LABS: Albumin 2.7 g/dL (3.4-5.0); Bilirubin Total 0.4 mg/dL (0.2-1.0); Potassium 4.2 mEq/L (3.5-5.1); Protein, Total 6.3 g/dL (6.4-8.2)
[2023-10-05 16:27] LABS: SARS-CoV-2 Antigen Rapid Res Negative (Negative)
--- NOTE | 2023-10-05 17:10 | RAD REPORT ---
[facility] 4[facility]43 [facility] CLINICAL HISTORY: Cough;Dyspnea COMPARISON: Chest Single View dated 05/07/2021; Chest Single View dated 05/03/2021; Chest Single View dated 04/15/2021; Chest Pa And Lat (2 Views) dated 12/24/2020 TECHNIQUE: Portable AP view of the chest. FINDINGS: Hazy right lower lung airspace opacity. A smaller opacity in the right mid lung as well. S treaky left basilar opacity is well. No pneumothorax or effusion. The cardiomediastinal contours are unremarkable. IMPRESSION: Bilateral airspace opacities more apparent at the right lung base, concerning for pneumo delilah.
[2023-10-05] MEDS ORDERED: AZITHROMYCIN 500 MG INJ IVPB ONE (17:17)
[2023-10-05] MEDS ORDERED: CEFTRIAXONE 2000 MG/VIAL ONE (17:18)
[2023-10-05] MEDS ORDERED: NA CHLORIDE 0.9% 1,000 ML ONE (17:18)
--- NOTE | 2023-10-05 17:40 | EDPHYS ---
Physician Documentation [facility] Name: Trinh Severino Age: 88 yrs Sex: Female : 1935 Arrival Date: 10/05/2023 Time: 14:40 Bed 10 Private MD: ED Physician Honorio Bryant HPI: 10/05 16:37 This 88 yrs old Female presents to ER via Wheelchair with complaints of Pain. rn 16:37 The patient or guardian reports cough. Onset: The symptoms/episode began/occurred 3 rn day(s) ago. Severity of symptoms: At their worst the symptoms were mild, in the emergency department the symptoms are unchanged. Modifying factors: The symptoms are alleviated by nothing, the symptoms are aggravated by nothing. Associated signs and symptoms: Pertinent positives: fever, Cough. The patient has not experienced similar symptoms in the past. The patient has not recently seen a physician. Patient reports pain all over, reports generalized weakness, productive cough, subjective fever yesterday. No chronic lung problems. No trauma.. Historical: - Allergies: 15:21 Codeine; tl4 - PMHx: 15:21 Colitis; hiatal hernia; Hypertension; Hypothyroidism; mitral valve prolapse; tl4 - Immunization history:: Adult Immunizations unknown. - Social history:: Smoking status: Patient denies any tobacco usage or history of. - Family history:: not pertinent. - Hospitalizations: : No recent hospitalization is reported. ROS: 16:37 Constitutional: Negative for fever, chills, and weight loss, Cardiovascular: Negative rn for chest pain, palpitations, and edema, Respiratory: Positive for cough and shortness of breath Abdomen/GI: Negative for abdominal pain, nausea, vomiting, diarrhea, and constipation, Back: Negative for injury and pain, MS/Extremity: Negative for injury and deformity, Skin: Negative for injury, rash, and discoloration, Neuro: Positive for generalized weakness Exam: 16:37 Constitutional: This is a well developed, well nourished patient who is awake, alert, rn and in no acute distress. Head/Face: Normocephalic, atraumatic. Cardiovascular: Regular rate and rhythm. No pulse deficits. Respiratory: Mild tachypnea, no retractions, speaking full sentences, occasional cough, sounds wet Abdomen/GI: Soft, non-tender Skin: Warm, dry MS/ Extremity: Pulses equal, no cyanosis. Neuro: Awake and alert, GCS 15 Vital Signs: 15:15 BP 87 / 47; Pulse 92; Resp 20; Pulse Ox 76% on R/A; Pain 8/10; tl4 15:23 Temp 98.1(O); Weight 72.57 kg; Height 5 ft. 8 in. ; tl4 17:41 BP 107 / 47; Pulse 76; Resp 16; Pulse Ox 100% ; bp 20:36 BP 107 / 57; Pulse 70; Resp 16; Pulse Ox 94% ; bp 15:23 Body Mass Index 24.33 (72.57 kg, 172.72 cm) tl4 15:15 Pain Scale: Adult tl4 MDM: 15:16 Patient medically screened. rn 17:37 Differential Diagnosis: Bronchitis Influenza Pneumonia. Data reviewed: vital signs, rn nurses notes, lab test result(s), EKG, radiologic studies, plain films, and as a result, I will admit patient. Consideration of Admission/Observation Patient was admitted/placed on observation. Escalation of care including admission/observation considered. Counseling: I had a detailed discussion with the patient and/or guardian regarding the historical points, exam findings, and any diagnostic results supporting the discharge/admit diagnosis, lab results, radiology results, the need for further work-up and treatment in the hospital. Special discussion: I discussed with the patient/guardian in detail that at this point there is no indication for admission to the hospital. It is understood, however, that if the symptoms persist or worsen the patient needs to return immediately for re-evaluation. 10/05 15:23 Order name: Blood Culture Adult (2) rn 10/05 15:23 Order name: CBC with Diff; Complete Time: 16:36 rn 10/05 15:23 Order name: CMP; Complete Time: 16:36 rn 10/05 15:23 Order name: Lactate w/ 2H reflex if indic.; Complete Time: 16:36 rn 10/05 15:23 Order name: Protime (+inr); Complete Time: 16:36 rn 10/05 15:23 Order name: Ptt, Activated; Complete Time: 16:36 rn 10/05 15:23 Order name: Urinalysis w/ reflexes rn 10/05 15:23 Order name: Flu; Complete Time: 17:06 rn 10/05 15:23 Order name: SARS RAPID; Complete Time: 16:36 rn 10/05 15:23 Order name: Chest Single View XRAY; Complete Time: 17:21 rn 10/05 15:23 Order name: EKG; Complete Time: 15:24 rn 10/05 15:23 Order name: Accucheck; Complete Time: 15:55 rn 10/05 15:23 Order name: Cardiac monitoring; Complete Time: 15:55 rn 10/05 15:23 Order name: EKG - Nurse/Tech; Complete Time: 17:24 rn 10/05 15:23 Order name: IV Saline Lock - Large Bore; Complete Time: 15:55 rn 10/05 15:23 Order name: Labs collected and sent; Complete Time: 15:55 rn 10/05 15:23 Order name: O2 Per Protocol; Complete Time: 15:55 rn 10/05 15:23 Order name: O2 Sat Monitoring; Complete Time: 15:55 rn 10/05 15:23 Order name: Vital Signs; Complete Time: 15:55 rn Administered Medications: 17:00 Drug: NS 0.9% IV 1000 ml IV at 1000 ml once Route: IV; Rate: 1000 ml; Site: right bp forearm; 20:41 Follow up: IV Status: Completed infusion; IV Intake: 1000ml bp 17:00 Drug: Rocephin IV 1 grams IV at calculated rate once; Given slow IV push per pharmacy bp instructions Route: IV; Rate: calculated rate; Site: right forearm; 20:42 Follow up: IV Status: Completed infusion; IV Intake: 100ml bp 17:00 Drug: Zithromax IVPB 500 mg IVPB once over 1 hrs; mix in 250 mL NS Route: IVPB; Infused bp Over: 1 hrs; Site: right forearm; 20:41 Follow up: IV Status: Completed infusion; IV Intake: 250ml bp Disposition Summary: 10/05/23 17:39 Hospitalization Ordered Notes: Hospitalization Status: Inpatient Admission rn Provider: Chiara Dumont rn Location: Telemetry/[facility] (Inpatient) rn Condition: Stable rn Problem: new rn Symptoms: have improved rn Bed/Room Type: Standard rn Room Assignment: 205(10/05/23 20:32) jb4 Diagnosis - Pneumonia, unspecified organism rn - Hypoxemia rn Forms: - Medication Reconciliation Form rn - SBAR form rn - Leadership Thank You Letter rn Signatures: Dispatcher [employer] Honorio Borden MD MD rn Bryson, James RN RN jb4 Zeyad Hardy RN RN Herve Portillo RN RN tl4 Corrections: (The following items were deleted from the chart) 20:32 17:39 rn jb4
--- NOTE | 2023-10-05 17:40 | ER ---
Nurse's Notes [facility] Name: Trinh Severino Age: 88 yrs Sex: Female : 1935 Arrival Date: 10/05/2023 Time: 14:40 Bed 10 Private MD: Diagnosis: Pneumonia, unspecified organism;Hypoxemia Presentation: 10/05 15:15 Chief complaint: Patient states: Pt c/o progressively worsening left wrist and elbow tl4 pain due to gout x 3 days. Pt also c/o increasing chest congestion. Pt seen at PCP yesterday but prescription meds are not improving symptoms. Coronavirus screen: congestion, cough unrelated to allergies. Ebola Screen: No symptoms or risks identified at this time. Initial Sepsis Screen: Does the patient meet any 2 criteria? No. Patient's initial sepsis screen is negative. Does the patient have a suspected source of infection? No. Patient's initial sepsis screen is negative. Risk Assessment: Do you want to hurt yourself or someone else? Patient reports no desire to harm self or others. Onset of symptoms was October 01, 2023. 15:15 Method Of Arrival: Wheelchair tl4 15:15 Acuity: JONNIE 2 tl4 Triage Assessment: 15:21 General: Appears uncomfortable, Behavior is cooperative. Pain: Complains of pain in tl4 left arm. EENT: No deficits noted. No signs and/or symptoms were reported regarding the EENT system. Neuro: No deficits noted. Cardiovascular: No deficits noted. Denies chest pain, lightheadedness, palpitations. Respiratory: Reports cough that is Denies shortness of breath. GI: No deficits noted. No signs and/or symptoms were reported involving the gastrointestinal system. : No deficits noted. No signs and/or symptoms were reported regarding the genitourinary system. Derm: No deficits noted. No signs and/or symptoms reported regarding the dermatologic system. Historical: - Allergies: 15:21 Codeine; tl4 - PMHx: 15:21 Colitis; hiatal hernia; Hypertension; Hypothyroidism; mitral valve prolapse; tl4 - Immunization history:: Adult Immunizations unknown. - Social history:: Smoking status: Patient denies any tobacco usage or history of. - Family history:: not pertinent. - Hospitalizations: : No recent hospitalization is reported. Screenin:30 [facility] ED Fall Risk Assessment (Adult) History of falling in the last 3 months, bp including since admission No falls in past 3 months (0 pts). Abuse screen: Denies threats or abuse. Denies injuries from another. Nutritional screening: No deficits noted. Tuberculosis screening: No symptoms or risk factors identified. Assessment: 15:30 General: SEE TRIAGE NOTE. bp 17:30 Reassessment: No changes from previously documented assessment. Patient is alert, bp oriented x 3, equal unlabored respirations, skin warm/dry/pink. 20:48 Reassessment: TRANSPORT ON HOLD FOR ROOM CLEAN. ADMIT COMPLETED. bp 21:23 Reassessment: PT NATHANIEL WITH TRANSPORT. bp Vital Signs: 15:15 BP 87 / 47; Pulse 92; Resp 20; Pulse Ox 76% on R/A; Pain 8/10; tl4 15:23 Temp 98.1(O); Weight 72.57 kg; Height 5 ft. 8 in. ; tl4 17:41 BP 107 / 47; Pulse 76; Resp 16; Pulse Ox 100% ; bp 20:36 BP 107 / 57; Pulse 70; Resp 16; Pulse Ox 94% ; bp 15:23 Body Mass Index 24.33 (72.57 kg, 172.72 cm) tl4 15:15 Pain Scale: Adult tl4 ED Course: 14:45 Patient arrived in ED. mg5 15:16 Honorio Bryant MD is Attending Physician. rn 15:20 Triage completed. tl4 15:22 Zeyad Hardy, NICHOL is Primary Nurse. bp 15:23 Arm band placed on right wrist. tl4 15:30 Patient has correct armband on for positive identification. bp 15:30 No provider procedures requiring assistance completed. Inserted saline lock: 22 gauge bp in right forearm, using aseptic technique. Blood collected. 16:45 Chest Single View XRAY In Process Unspecified. EDMS 17:39 Chiara Dumont MD is Hospitalizing Provider. rn 20:40 Provided Education on: N/A. bp 20:40 Patient admitted, IV remains in place. bp Administered Medications: 17:00 Drug: NS 0.9% IV 1000 ml IV at 1000 ml once Route: IV; Rate: 1000 ml; Site: right bp forearm; 20:41 Follow up: IV Status: Completed infusion; IV Intake: 1000ml bp 17:00 Drug: Rocephin IV 1 grams IV at calculated rate once; Given slow IV push per pharmacy bp instructions Route: IV; Rate: calculated rate; Site: right forearm; 20:42 Follow up: IV Status: Completed infusion; IV Intake: 100ml bp 17:00 Drug: Zithromax IVPB 500 mg IVPB once over 1 hrs; mix in 250 mL NS Route: IVPB; Infused bp Over: 1 hrs; Site: right forearm; 20:41 Follow up: IV Status: Completed infusion; IV Intake: 250ml bp Medication: 20:41 VIS not applicable for this client. bp Intake: 20:41 IV: 1000ml; Total: 1000ml. bp 20:41 IV: 250ml; Total: 1250ml. bp 20:42 IV: 100ml; Total: 1350ml. bp Outcome: 17:39 Decision to Hospitalize by Provider. rn 20:37 Condition: stable bp 20:37 Instructed on the need for admit, 20:40 Admitted to Med/surg accompanied by nurse, via wheelchair, room 205, with oxygen, with bp chart, Report called to SUE GANDARA 21:24 Patient left the ED. bp Signatures: Dispatcher [employer] EDMS Honorio Bryant MD MD rn Peltier, Brian RN RN bp Pili Canales mg5 Herve De RN RN tl4 Corrections: (The following items were deleted from the chart) 20:39 20:36 BP 107 / 57; Pulse 90bpm; Resp 16bpm; Pulse Ox 94%; bp bp
[2023-10-05] MEDS ORDERED: ONDANSETRON 4 MG/2 ML VIAL IV PRN (21:12)
[2023-10-05] MEDS ORDERED: ACETAMINOPHEN 500 MG TAB PO PRN (21:12)
[2023-10-05] MEDS ORDERED: IPRATROPIUM BROM 0.5MG/2.5ML NEB PRN (21:12)
[2023-10-05] MEDS ORDERED: ALBUTEROL 2.5 MG/3 ML NEB SOL NEB PRN (21:12)
[2023-10-05 21:52] VITALS: BMI 23.7
[2023-10-05] MEDS: NA CHLORIDE 0.9% 1,000 ML IV SCH (22:25)
[2023-10-05] MEDS: METHYLPREDNISOLONE 40 MG INJ IV SCH (22:39)
--- NOTE | 2023-10-05 23:20 | HP ---
Date of Admission: 10/05/2023 Chief Complaint: Cough, congestion, shortness of breath, and left wrist pain. History Of Present Illness: Ms. Severino is a pleasant 88-year-old female patient, who came into office on 10/03/2023 with 3 to 4 days' history of cough, congestion, coughing up yellow-colored mucus, sore throat, chills, nausea, and diarrhea. Recently, some of her family members were ill with similar type of problems. The patient also started to have flare-up of her gout involving left wrist with pain, swelling, without any fall or injury. Day before, she came in to see me at office. The patient was started on Augmentin and colchicine for acute bronchitis and gout flare-up. She is on allopurinol for maintenance therapy and she was advised to continue that. Today, the patient called office this morning and reported that colchicine has not helped her gouty arthritis problem and at that time, prednisone prescription was called in and she started taking it and subsequently she ended up coming to the emergency room because of above-mentioned complaints. Her oxygen saturation was 76%. Chest x-ray showing bilateral pneumonia in the lung bases and I was contacted and the patient was admitted to the hospital. She received her first dose of antibiotic in the emergency room and IV fluid. By the time I arrived, she was finishing her first liter of IV fluid bag. I saw her in the emergency room. Allergies: TO CODEINE CAUSING HALLUCINATION AND HYDRALAZINE CAUSING RASH. Medications: Augmentin 875 mg 2 times a day, colchicine 0.6 mg 2 times a day, acetaminophen/butalbital/caffeine 1 tablet 2 times a day as needed for headache, albuterol inhaler 2 puffs 4 times a day as needed, allopurinol 300 mg daily, alprazolam 1 mg at bedtime as needed for sleep, amlodipine 5 mg 2 times a day, carvedilol 12.5 mg 2 times a day, clonidine 0.1 mg 2 times a day as needed for systolic blood pressure more than 150, Dexilant 60 mg daily, simvastatin/ezetimibe 40/10 mg takes 1 tablet daily, Trelegy inhaler 1 puff daily, fluticasone nasal spray 2 times a day in each nostril as needed, Xyzal 5 mg daily, levothyroxine 100 mcg daily, Pentasa 1 capsule 2 times a day, methocarbamol 500 mg 2 times a day as needed, mirtazapine 7.5 mg daily at bedtime, irbesartan 300 mg daily. Review of Systems: Respiratory: As mentioned above. Musculoskeletal: As mentioned above. All other systems reviewed and negative. Past Surgical History: Cataract surgery, hysterectomy. Family History: Father , had emphysema. Mother , had myocardial infarction, hypertension, and breast cancer. Sister had myocardial infarction and aneurysm. Social History: Negative for smoking, alcohol use. Past Medical History: Significant for headache, hypothyroidism, type 2 diabetes mellitus, asthma, hypertension, hyperlipidemia, gastroesophageal reflux disease, diverticulosis, osteoarthritis at multiple sites, gout, and anemia. Physical Examination: Vital Signs: Height 5 feet 8 inches, weight 156 pounds, temperature 98.1, pulse 92, respiratory rate 20, oxygen saturation 76%, blood pressure 87/47. General: Awake, alert, oriented, not in distress. HEENT: Head atraumatic, normocephalic. Conjunctivae nonerythematous. Sclerae white. Mouth, no thrush or edema noted. Ears/Nose, no mass, lesion, discharge noted. Neck: Supple. No JVD, lymph nodes, bruit, thyromegaly noted. Lungs: Presence of crackles noted in lung bases, not using any accessory muscles of respiration, and no wheezing. Heart: Normal heart sounds, no murmur or gallop. Abdomen: Soft, bowel sounds normal. No guarding, rigidity, tenderness, mass, hepatosplenomegaly, distention, or bruit noted. Extremities: No leg edema. No calf tenderness. Skin: No rash, ulcer, cellulitis. Lymphatics: No lymph node enlargement in neck, supraclavicular, infraclavicular region. Neuro: No focal neurological deficit. Chest: Unremarkable. External Genitalia: Deferred. Rectal: Deferred. Musculoskeletal: Shows evidence of mild swelling of the left dorsum wrist. Tender to touch and painful range of motion. Laboratory Data: Chest x-ray shows bilateral basal lung infiltrate. WBC count 14.1, hemoglobin 11.5, platelets 238. Sodium 134, potassium 4.2, chloride 101, bicarb 27, BUN 48, creatinine 1.78, glucose 171. Lactic acid 1.2. Liver function tests unremarkable. COVID-19 test negative. Impression: 1. Pneumonia. 2. Acute respiratory failure with hypoxia. 3. Acute exacerbation of mild persistent asthma. 4. Acute kidney injury. 5. Hypertension. 6. Hyperlipidemia. 7. Gastroesophageal reflux disease. 8. Acute gouty arthritis, left wrist. 9. Hypothyroidism. 10. Type 2 diabetes mellitus. Plan: We will go ahead and admit the patient to hospital for further evaluation and management of this problem. The patient is appropriate for inpatient and is expected to spend 2 midnights in hospital. We will continue IV fluid for acute kidney injury. Monitor the patient's renal function with blood work tomorrow morning. For pneumonia, we will go ahead and give IV antibiotics as per order. For asthma exacerbation and acute respiratory failure with hypoxia, we will go ahead and give oxygen replacement therapy nebulizer treatment per order. We will also give IV steroid which will help with acute exacerbation of asthma along with her acute gouty arthritis problem. DVT prophylaxis will be given using Lovenox per order. Diabetes will be managed with sliding scale insulin. The patient was advised to keep her left upper extremity elevated and we will see her tomorrow morning for followup. Plan of treatment discussed with her. SHARONDA/MODL Voice ID: [id number] ALLA
[2023-10-06] MEDS: ALBUTEROL 2.5 MG/3 ML NEB SOL NEB SCH (00:29)
[2023-10-06 00:53] LABS: Specific Gravity 1.019 (1.005-1.030); Urine Bacteria None Seen /HPF (<20); Urine Bilirubin NEGATIVE (Negative); Urine Blood Negative (Negative); Urine Clarity Turbid (Clear); Urine Color Yellow (Yellow); Urine Glucose NEGATIVE (Negative); Urine Mucus Slight /HPF (None Seen); Urine Protein TRACE (Negative); Urine RBC <5 /HPF (None Seen); Urine Urobilinogen Normal (Normal); Urine pH 5.5 (5.0-7.0)
[2023-10-06 04:17] LABS: Absolute Lymphocytes (CBC) 0.7 K/uL (0.7-4.9); Hematocrit 33.3 % (36.0-45.0); Lymphocytes % 6.7 % (15.3-44.8); MCV 93.3 fL (80-100); MPV 8.8 fL (7.6-11.3); Platelets 192 thou/uL (152-406); RBC Red Blood Cell Count 3.57 M/uL (3.86-4.86)
[2023-10-06 04:47] LABS: Potassium 4.7 mEq/L (3.5-5.1)
[2023-10-06] MEDS: CEFTRIAXONE 1,000 MG in NA CHLORIDE 0.9% 50 ML IVPB SCH (05:12)
[2023-10-06 08:05] LABS: Blood Morphology Comment NOT SEEN (NOT SEEN); Platelet Estimate ADEQ
[2023-10-06] MEDS: ENOXAPARIN 40 MG/0.4 ML SQ SCH (09:56)
[2023-10-06] MEDS: AZITHROMYCIN IV 250 MG in NA CHLORIDE 0.9% 250 ML IVPB SCH (09:57)
[2023-10-06] MEDS: DULERA 200/5 (MOMETASONE/FORMOTEROL) INHALER IH SCH (10:17)
--- NOTE | 2023-10-06 10:25 | RAD REPORT ---
EXAM DESCRIPTION: RAD - Chest Single View - 10/06/2023 10:05 am CLINICAL HISTORY: pneumonia Chest pain. COMPARISON: Chest Single View dated 10/05/2023; Chest Single View dated 05/07/2021; Chest Single View dated 05/03/2021; Chest Single View dated 04/15/2021 FINDINGS: Portable technique limits examination quality. There has been moderate improvement in right-sided pneumonia pattern since the 10/05/2023 prior study . The heart is upper limit of normal in size. No displaced fractures. IMPRESSION: Moderate improvement in right-sided infiltrate/pneumonia pattern since yesterday.
[2023-10-06] MEDS: NA CHLORIDE 0.9% 1,000 ML IV SCH (14:13)
[2023-10-06] MEDS ORDERED: ACETAMIN/CAFFEINE/BUTALB TAB PO PRN (14:14)
[2023-10-06] MEDS ORDERED: ALPRAZOLAM 0.5 MG TABLET PO PRN (14:15)
--- NOTE | 2023-10-06 15:06 | PN ---
Date of Progress Note: 10/06/2023 Subjective: The patient was seen this morning for followup. Overall, she feels better. Her pain in the left wrist area is slightly better. This morning when I saw her she was on 5 L nasal cannula ox ygen, which is better than last night and she was on 8 L nasal cannula oxygen last night. Objective: Vital Signs: Reviewed. HEENT: Unremarkable. Lungs: Bilateral good equal air entry. Presence of crackles in lung bases, overall better than befo re. Not using accessory muscles of respiration. Heart: Sounds normal. Abdomen: Soft. Bowel sounds normal. No guarding, rigidity, tenderness, distention. Extremities: No leg edema. Musculoskeletal: Swelling of the left wrist, is slightly less today compared to yesterday. The [place] ent also reports that her range of motion is slightly less painful today compared to yesterday. Laboratory Data: White count 11.1, hemoglobin 11.3, platelets 192. Sodium 139, potassium 4.7, chlor mundo 107, bicarb 27, BUN 40, creatinine 1.05, glucose 213. ProBNP 2040. Impression: 1.Pneumonia. 2.Acute respiratory failure with hypoxia. 3.Acute exacerbation of mild persistent asthma. 4.Acute kidney injury, improved. 5.Volume depletion, improved. Plan: We will go ahead and continue current IV fluid. Continue current antibiotics and IV steroid, which is Solu-Medrol. Continue DVT prophylaxis using Lovenox. Home medications will be continued pe r order and we will continue oxygen replacement therapy. Get a chest x-ray done today. I will see h er tomorrow for followup. Possible discharge to go home either Monday or Monday depending on her condition and details were discussed wi th her. SHARONDA/MODL Voice ID: [id number] Report ID: [id number]
[2023-10-06] MEDS ORDERED: D50W 25 GM/50 ML SYRINGE IV PRN (20:11)
[2023-10-06] MEDS ORDERED: GLUCAGON 1 MG/VIAL IM PRN (20:11)
[2023-10-06] MEDS ORDERED: D10W 125 ML IV PRN (20:25)
[2023-10-06] MEDS: INSULIN REGULAR (HUMAN) 100 UNIT/ML SQ SCH (20:57)
[2023-10-06] MEDS: MESALAMINE 500 MG CAPSULE.ER PO SCH (20:57)
[2023-10-06] MEDS: carvediloL 6.25 MG TAB PO SCH (20:57)
[2023-10-06] MEDS ORDERED: MESALAMINE 250 MG PO SCH (21:00)
[2023-10-06] MEDS ORDERED: METHYLPREDNISOLONE 40 MG INJ IV SCH (22:01)
[2023-10-07] MEDS: LEVOTHYROXINE SOD 0.1 MG TAB PO SCH (05:56)
[2023-10-07] MEDS ORDERED: HOME MED 1 EA UNK (Levothyroxine Sodium [Levothyroxine Sodium] 100 MCG Capsule) PO SCH (06:30)
[2023-10-07] MEDS: PANTOPRAZOLE 40MG TABLET PO SCH (08:30)
[2023-10-07] MEDS: allopurinoL 300 MG TAB PO SCH (08:45)
[2023-10-07] MEDS: AMLODIPINE 5 MG TAB PO SCH (08:46)
--- NOTE | 2023-10-07 10:30 | PN ---
Date of Progress Note: 10/07/2023 Subjective: The patient was seen this morning for followup. She was lying in bed. Overall feels be tter compared to yesterday. She is requiring less oxygen now compared to yesterday. This morning jonatan wong I saw her, she was on 2-1/2 L per minute nasal cannula oxygen compared to 5 L yesterday morning jonatan wong I saw her. Objective: Vital Signs: Reviewed. HEENT: Unremarkable. Lungs: Bilateral good equal air entry. Clear to auscultation except presence of rales noted in righ t lung base. Heart: Sounds normal. Abdomen: Soft. Bowel sounds normal. No guarding, rigidity, tenderness, distention. Extremities: No leg edema. Impression: 1.Pneumonia. 2.Acute exacerbation of mild persistent asthma. 3.Acute respiratory failure with hypoxia. 4.Hypertension. 5.Type 2 diabetes mellitus. 6.Acute gouty arthritis. Plan: The patient's left wrist pain and swelling has improved. Swelling has almost completely resol tiffanie. The pain is still there, but much better to the extent that the patient is not guarding in her left hand and left wrist all the time and she is moving it. We will go ahead and continue current an tibiotic, continue current IV steroid to help with asthma exacerbation as well as this acute gouty ar thritis. Continue current DVT prophylaxis. Ambulation was encouraged and I will see her tomorrow fo r followup. We will repeat blood work tomorrow. Plan is to discharge her to go home tomorrow depend ing on her condition. Details were discussed with the patient. We will continue to try to wean off oxygen as long as her oxygen saturation remains more than 90%. SHARONDA/MODL Voice ID: [id number] Report ID: [id number]
[2023-10-08 06:59] LABS: Absolute Lymphocytes (CBC) 0.9 K/uL (0.7-4.9); Hematocrit 30.7 % (36.0-45.0); Lymphocytes % 8.4 % (15.3-44.8); MCV 92.9 fL (80-100); MPV 8.4 fL (7.6-11.3); Platelets 236 thou/uL (152-406)
[2023-10-08 07:19] LABS: Magnesium 2.1 mg/dL (1.6-2.4); Potassium 4.2 mEq/L (3.5-5.1)
[2023-10-08] MEDS: predniSONE 20 MG TAB PO SCH (08:57)
--- NOTE | 2023-10-08 09:39 | PN ---
Date of Progress Note: 10/08/2023 Subjective: The patient was seen this morning for followup. She was lying in bed not in any distres s. Last night, she had episode of some night sweats and then felt better. This morning when I saw h er, she was on oxygen only 0.5 L per nasal cannula, which is much lower than yesterday morning. Her pain in the left wrist is better than before. Still has pain, but overall much better and swelling h as almost completely resolved from the left wrist. She is ambulating well in the room. Objective: Vital Signs: Reviewed. HEENT: Unremarkable. Lungs: Bilateral good equal air entry. Clear to auscultation except minimal right basal rales. Not using accessory muscles of respiration. Cardiac: Heart sounds normal. Abdomen: Soft. Bowel sounds normal. No guarding, rigidity, tenderness, distention. Extremities: No leg edema. Laboratory Data: Sodium 140, potassium 4.2, chloride 110, bicarb 25, BUN 32, creatinine 0.87, glucos e 232, magnesium 2.1. White count 10.3, hemoglobin 10.4, platelets 236. Impression: 1.Pneumonia. 2.Acute respiratory failure with hypoxia. 3.Acute gouty arthritis, left wrist. 4.Hypertension. 5.Type 2 diabetes mellitus. Plan: We will go ahead and continue current medication, continue current antibiotic. We will try to wean off oxygen today and stop IV steroids and start oral prednisone 30 mg daily starting this taylor cheng. I will see her tomorrow for followup, possible discharge to go home tomorrow. Details were discussed with the patient. SHARONDA/MODL Voice ID: [id number] Report ID: [id number]
[2023-10-09 06:29] VITALS: TEMP 97.7
[2023-10-09 08:26] VITALS: BP 137/63
[2023-10-09 08:55] VITALS: O2SAT 96
--- NOTE | 2023-10-09 14:43 | EKG ---
Test Date: 2023-10-05 Test Time: 17:26:39 Condemnation Engineer: DARIO MEASUREMENT RESULTS: Intervals: Rate: 71 [place]: 162 QRSD: 94 QT: 412 QTc: 447 [place]: P: 72 [place]: 162 QRS: 40 T: 60 INTERPRETIVE STATEMENTS: Sinus rhythm with occasional premature ventricular complexes Otherwise normal ECG Compared to ECG 05/03/2021 19:25:15 Ventricular premature complex(es) now present Sinus tachycardia no longer present Electronically Signed On 10-09-23 14:31:41 GLOBAL MARKETING COORDINATOR by Michael Cole
--- NOTE | 2023-10-10 06:47 | DS ---
Date of Discharge: 10/09/2023 Disposition: Discharged to go home. Physical Examination: HEENT: Unremarkable. Lungs: Clear to auscultation. No wheezing. No rales. Heart: Sounds normal. Abdomen: Soft. Bowel sounds normal. No guarding, rigidity, tenderness, distention. Extremities: No leg edema. Discharge Medications And Instructions: Continue all prior home medication except following changes: 1.Stop Augmentin. 2.Start Levaquin 500 mg 1 tablet by mouth daily for 7 days. 3.Start prednisone 10 mg 3 tablets daily for 2 days, then 2 tablets daily for 3 days, then 1 tablet daily for 3 days, then stop. 4.Follow up at my office next week. Laboratory Data: Upon admission, white count was 14.1, hemoglobin 11.5, platelets 230. Last CBC fro m yesterday, white count 10.3, hemoglobin 10.4, platelets 236. Hospital Course: An 88-year-old pleasant female patient, who was admitted to the hospital after she came into emergency room with cough, congestion, shortness of breath, and coughing up colored mucus. Please see dictated H and P for more information. After the patient was evaluated in the emergency room, she was admitted to the hospital with pneumonia as well as acute respiratory failure with hypox ia, acute kidney injury with volume depletion. The patient was admitted to the hospital. She was st arted on IV fluid, IV antibiotics were started, which were ceftriaxone and azithromycin. She did hav e bilateral pneumonia and antibiotic therapy. Her pneumonia has improved, has IV Solu-Medrol for acu te exacerbation of her asthma along with acute gouty arthritis which was affecting her left wrist sydni nt. Overall, her pain and swelling on the left wrist have significantly improved. She is ambulating very well. Initially, she required oxygen replacement therapy with nasal cannula oxygen and over a period of this hospitalization, we were able to discontinue her oxygen and now she is maintaining louise quate oxygenation on room air. The patient was discharged to go home in stable condition with above- mentioned medication and instruction. She was prescribed colchicine about 2 days prior to this [facility] admission for acute gouty arthritis and I have advised her to stop taking it because she started to have diarrhea type of side effect with cultures sent prior to admission to the hospital. Final Diagnoses: 1.Pneumonia. 2.Acute respiratory failure with hypoxia. 3.Acute gouty arthritis, left wrist. 4.Volume depletion. 5.Acute kidney injury. 6.Hypothyroidism. 7.Type 2 diabetes mellitus. 8.Hyperlipidemia. 9.Gastroesophageal reflux disease. 10.Diverticulosis. SHARONDA/MODL Voice ID: [id number] Report ID: [id number]
== END 2023-10-09 08:58 | disposition home or self-care (01) | DRG 193 ==
LOC: ER 14:40 → ERHOLD 17:41 → 2ND 20:43
PROVIDERS: ADMIT Internal Medicine; ATTEND Internal Medicine
DX: J18.9 Pneumonia, unspecified organism (principal); J96.01 Acute respiratory failure with hypoxia; J45.31 Mild persistent asthma with (acute) exacerbation; N17.9 Acute kidney failure, unspecified; I10 Essential (primary) hypertension; E03.9 Hypothyroidism, unspecified; J20.9 Acute bronchitis, unspecified; E86.9 Volume depletion, unspecified; E11.9 Type 2 diabetes mellitus without complications; M19.09 Primary osteoarthritis, other specified site; E78.5 Hyperlipidemia, unspecified; K21.9 Gastro-esophageal reflux disease without esophagitis; K57.90 Diverticulosis of intestine, part unspecified, without perforation or abscess without bleeding; M10.432 Other secondary gout, left wrist; Z88.5 Allergy status to narcotic agent; Z11.52 Encounter for screening for COVID-19; Z79.890 Hormone replacement therapy; Z79.899 Other long term (current) drug therapy; Z90.710 Acquired absence of both cervix and uterus
CPT/HCPCS: 36415; 71045; 80048; 80053; 81001; 82947; 83605; 83735; 83880; 85025; 85610; 85730; 87040; 87804; 87811; 93005; 94640; 94760; 96365; 96366; 96368; 99285; J0696; J1650; J1815; J2920; J3535; J7030; J7050; J7512; J7613

== ENCOUNTER 2024-12-13 16:53 | Emergency (ER) | payer OTHER ==
[2024-12-13] MEDS ORDERED: NA CHLORIDE 0.9% 1,000 ML ONE (17:10)
[2024-12-13 17:50] LABS: PT Prothrombin Time 11.8 SECONDS (10-13.0); Protime INR 1.04
[2024-12-13 17:55] LABS: Absolute Basophils 0.1 K/uL (0-0.5); Absolute Eosinophils 0.1 K/uL (0-0.5); Absolute Lymphocytes (CBC) 1.5 K/uL (0.7-4.9); Absolute Monocytes 0.6 K/uL (0.1-1.3); Absolute Neutrophil 7.7 K/uL (1.8-8.0); Basophils % 0.7 % (0-1.3); Hemoglobin 13.1 g/dL (12.0-15.0); Lymphocytes % 14.9 % (15.3-44.8); MCH 30.5 pg (27.0-35.0); MCHC 33.6 g/dL (32.0-36.0); MCV 90.7 fL (80-100); MPV 8.2 fL (7.6-11.3); Monocytes % 5.9 % (3.3-12.3); Neutrophils % 77.5 % (41.7-73.7); Platelets 204 thou/uL (152-406); Red Cell Distribution Width 14.6 % (12.1-15.2)
[2024-12-13 18:11] LABS: Albumin 3.3 g/dL (3.4-5.0); Bilirubin Total 0.4 mg/dL (0.2-1.0); Globulin 3.2 g/dL (2.3-3.5); Protein, Total 6.5 g/dL (6.4-8.2)
--- NOTE | 2024-12-13 19:16 | RAD REPORT ---
EXAM:Pelvis Angio CLINICAL HISTORY: Gastrointestinal bleeding. Abdominal pain TECHNIQUE: Computed tomography angiography of the pelvis obtained. MIPS reconstruction performed.. 100 cc Isovue -370 administered intravenously. Axial, sagittal and coronal reconstructions were obtained. One or more of the following dose reduction techniques were used: Automated exposure control, adjustment of the mA and kV according to patient size, and iterative reconstruction. Unless otherwise specified, incidental findings do not require dedicated imaging follow-up. COMPARISON: 2023 FINDINGS: 6 mm enhancement peripheral aspect anterior segment right lobe liver. Spleen, pancreas, adrenals and kidneys unremarkable No extravasation of contrast within bowel to confirm active bleeding. Mild atherosclerosis. Celiac, SMA and KRISTI demonstrate no significant abnormality. The wall of the distal transverse colon, descending colon and sigmoid colon is moderately to markedly thickened. Stranding within the adjacent fat seen. Pneumatosis intestinalis not noted. IMPRESSION: Moderate to marked predominantly left colitis No evidence of extravasation of contrast within bowel to confirm active bleeding. 6 mm area of enhancement within the liver is nonspecific. Follow-up imaging in 3 months could be obta ined to assess stability
--- NOTE | 2024-12-13 19:16 | RAD REPORT ---
EXAM:Abdomen Angio CLINICAL HISTORY: Gastrointestinal bleeding. Abdominal pain. Diarrhea. TECHNIQUE: Computed tomography angiography of the abdomen obtained. MIPS reconstruction performed.. 100 cc Isovu e-370 administered intravenously. Axial, sagittal and coronal reconstructions were obtained. One or more of the following dose reduction techniques were used: Automated exposure control, adjustment of the mA and kV according to patient size, and iterative reconstruction. Unless otherwise specified, incidental findings do not require dedicated imaging follow-up. COMPARISON: 2023 FINDINGS: 6 mm enhancement peripheral aspect anterior segment right lobe liver. Spleen, pancreas, adrenals and kidneys unremarkable No extravasation of contrast within bowel to confirm active bleeding. Mild atherosclerosis. Celiac, SMA and KRISTI demonstrate no significant abnormality. The wall of the distal transverse colon, descending colon and sigmoid colon is moderately to markedly thickened. Stranding within the adjacent fat seen. Pneumatosis intestinalis not noted. IMPRESSION: Moderate to marked predominantly left colitis No evidence of extravasation of contrast within bowel to confirm active bleeding. 6 mm area of enhancement within the liver is nonspecific. Follow-up imaging in 3 months could be obta ined to assess stability
--- NOTE | 2024-12-13 19:36 | ER ---
Nurse's Notes [facility] Name: Trinh Severino Age: 89 yrs Sex: Female : 1935 Arrival Date: 12/13/2024 Time: 16:53 Bed 14 Private MD: Diagnosis: Left sided colitis with rectal bleeding Presentation: 12/13 17:06 Chief complaint: Patient states: she woke up this morning with abdominal pain, and then ap3 she had diarrhea. patient reports the next time she went to the bathroom was nothing but blood. patient reports this has happened in the past. Coronavirus screen: At this time, the client does not indicate any symptoms associated with coronavirus-19. Ebola Screen: No symptoms or risks identified at this time. Initial Sepsis Screen: Does the patient meet any 2 criteria? No. Patient's initial sepsis screen is negative. Does the patient have a suspected source of infection? No. Patient's initial sepsis screen is negative. Risk Assessment: Do you want to hurt yourself or someone else? Patient reports no desire to harm self or others. Onset of symptoms was December 13, 2024. 17:06 Method Of Arrival: Ambulatory ap3 17:06 Acuity: JONNIE 3 ap3 Triage Assessment: 17:08 General: Appears in no apparent distress. Behavior is calm, cooperative, appropriate ap3 for age. Pain: Complains of pain in abdomen Pain currently is 3 out of 10 on a pain scale. Quality of pain is described as aching. Neuro: Level of Consciousness is awake, alert, obeys commands, Oriented to person, place, time, situation, Appropriate for age. Cardiovascular: Patient's skin is warm and dry. Respiratory: Airway is patent Respiratory effort is even, unlabored, Respiratory pattern is regular, symmetrical. GI: Reports rectal bleeding. Historical: - Allergies: 17:08 Codeine; ap3 - PMHx: 17:08 Colitis; hiatal hernia; Hypertension; Hypothyroidism; mitral valve prolapse; ap3 - Immunization history:: Client reports receiving the 2nd dose of the Covid vaccine, Flu vaccine is up to date. - Infectious Disease History:: Denies. - Social history:: Smoking status: Patient denies any tobacco usage or history of. Screenin:09 Abuse screen: Denies threats or abuse. Nutritional screening: No deficits noted. ap3 Tuberculosis screening: No symptoms or risk factors identified. 18:19 [facility] ED Fall Risk Assessment (Adult) History of falling in the last 3 months, cm10 including since admission No falls in past 3 months (0 pts) Confusion or Disorientation No (0 pts) Intoxicated or Sedated No (0 pts) Impaired Gait No (0 pts) Mobility Assist Device Used No (0 pt) Altered Elimination No (0 pt) Score/Fall Risk Level 0 - 2 = Low Risk Oriented to surroundings, Maintained a safe environment, Hourly rounding (assess needs \T\ fall precautionary measures) done. Assessment: 17:30 General: Appears in no apparent distress. comfortable, Behavior is calm, cooperative. cm10 Pain: Complains of pain in abdomen Pain currently is 3 out of 10 on a pain scale. Neuro: No deficits noted. Level of Consciousness is awake, alert, obeys commands, Oriented to person, place, time, situation, Appropriate for age. Respiratory: No deficits noted. Airway is patent Respiratory effort is even, unlabored, Respiratory pattern is regular, symmetrical. GI: Reports rectal bleeding. 19:18 Reassessment: Patient appears in no apparent distress at this time. Patient and/or cm10 family updated on plan of care and expected duration. Pain level reassessed. Patient is alert, oriented x 3, equal unlabored respirations, skin warm/dry/pink. Vital Signs: 17:06 BP 138 / 70; Pulse 82; Resp 17; Temp 98.1; Pulse Ox 100% ; Weight 81.65 kg; Height 5 ap3 ft. 8 in. ; Pain 3/10; 18:00 BP 156 / 63; Pulse 63; Resp 18; Pulse Ox 100% on R/A; cm10 18:30 BP 152 / 62; Pulse 56; Resp 16; Pulse Ox 96% on R/A; cm10 19:17 BP 157 / 63; Pulse 60; Resp 15; Pulse Ox 98% ; cm10 20:30 BP 138 / 65; Pulse 64; Resp 16; Pulse Ox 96% ; cm10 21:30 BP 134 / 55; Pulse 61; Resp 15; Pulse Ox 95% ; cm10 17:06 Body Mass Index 27.37 (81.65 kg, 172.72 cm) ap3 17:06 Pain Scale: Adult ap3 ED Course: 16:57 Patient arrived in ED. al6 17:03 Lian Vasquez MD is Attending Physician. gb1 17:08 Triage completed. ap3 17:09 Arm band placed on right wrist. ap3 17:18 Kasia Waller, NICHOL is Primary Nurse. cm10 17:33 Initial lab(s) drawn, by me, sent to lab. T\T\S collected, blood band applied to patient. cm10 Inserted saline lock: 20 gauge in left forearm, using aseptic technique. Blood collected. Flushed with 10 mL NS. 17:49 Radiology exam delayed due to lab results not completed at this time. (BUN/Creatinine) vm2 IV insertion attempt and/or patient not having appropriate IV at this time. 18:19 Patient has correct armband on for positive identification. Bed in low position. Call cm10 light in reach. Side rails up X2. Pulse ox on. NIBP on. 18:51 Abdomen Angio In Process Unspecified. EDMS 18:52 CT Pelvis Angio In Process Unspecified. EDMS 19:37 initiated transfer with Simran Frances \\ [facility]. kmf 21:09 pt was accepted to [facility] \T\ 2004 by Aman Trinidad Accepting admin Simran Frances [facility] \\[id number]. Pt will go to room 909. Number for nurse to nurse report [phone]. [facility] to transfer pt. 21:22 Provided Education on: Need for transfer. Report given to NICHOL Mixon at [facility]. cm10 21:51 Report given to [facility]. cm10 21:52 No provider procedures requiring assistance completed. Patient transferred, IV remains cm10 in place. Administered Medications: 17:32 Drug: NS 0.9% IV 1000 ml IV at 1 bolus Per protocol; to be given as a bolus over 60 cm10 minutes Route: IV; Rate: 1 bolus; Site: left forearm; 18:36 Follow up: Response: No adverse reaction; IV Status: Completed infusion; IV Intake: cm10 1000ml Medication: 18:21 VIS not applicable for this client. cm10 Intake: 18:36 IV: 1000ml; Total: 1000ml. cm10 Outcome: 19:35 ER care complete, transfer ordered by . gb1 21:52 Transferred by ground EMS [facility]. cm10 21:52 Condition: good 21:52 Instructed on the need for transfer, 21:52 Patient left the ED. cm10 Signatures: Dispatcher [employer] Yeimi Brandt 2 Michelle Hernandez RN RN ap3 Kasia Waller RN RN cm10 Lian Vasquez MD MD gb1 Cora Chandler [facility] Dorys Monson6
--- NOTE | 2024-12-13 19:36 | EDPHYS ---
Physician Documentation [facility] Name: Trinh Severino Age: 89 yrs Sex: Female : 1935 Arrival Date: 12/13/2024 Time: 16:53 Bed 14 Private MD: ED Physician Lian Vasquez HPI: 12/13 19:04 This 89 yrs old Female presents to ER via Ambulatory with complaints of gb1 Rectal Bleeding. 19:04 89-year-old female has been having bright red blood per rectum since noon today. gb1 Patient had a bout of diarrhea and then the bright red blood started. She denies any lightheadedness or syncope. She has a history of colitis, hiatal hernia, hypertension, hypothyroidism and mitral valve prolapse. Patient denies any nausea vomiting or any fever. She has history of diverticulitis as well.. Historical: - Allergies: 17:08 Codeine; ap3 - PMHx: 17:08 Colitis; hiatal hernia; Hypertension; Hypothyroidism; mitral valve prolapse; ap3 - Immunization history:: Client reports receiving the 2nd dose of the Covid vaccine, Flu vaccine is up to date. - Infectious Disease History:: Denies. - Social history:: Smoking status: Patient denies any tobacco usage or history of. Exam: 19:04 Constitutional: This is a well developed, well nourished patient who is awake, alert, gb1 and in no acute distress. Head/Face: Normocephalic, atraumatic. Eyes: Pupils equal round and reactive to light, extra-ocular motions intact. Lids and lashes normal. Conjunctiva and sclera are non-icteric and not injected. Cornea within normal limits. Periorbital areas with no swelling, redness, or edema. ENT: Nares patent. No nasal discharge, no septal abnormalities noted. Tympanic membranes are normal and external auditory canals are clear. Oropharynx with no redness, swelling, or masses, exudates, or evidence of obstruction, uvula midline. Mucous membranes moist. Neck: Trachea midline, no thyromegaly or masses palpated, and no cervical lymphadenopathy. Supple, full range of motion without nuchal rigidity, or vertebral point tenderness. No Meningismus. Chest/axilla: Normal chest wall appearance and motion. Nontender with no deformity. No lesions are appreciated. Cardiovascular: Regular rate and rhythm with a normal S1 and S2. No gallops, murmurs, or rubs. Normal PMI, no JVD. No pulse deficits. Respiratory: Lungs have equal breath sounds bilaterally, clear to auscultation and percussion. No rales, rhonchi or wheezes noted. No increased work of breathing, no retractions or nasal flaring. Abdomen/GI: Soft, mildly tender to the left lower quadrant, with normal bowel sounds. No distension or tympany. No guarding or rebound. Back: No spinal tenderness. No costovertebral tenderness. Full range of motion. Skin: Warm, dry with normal turgor. Normal color with no rashes, no lesions, and no evidence of cellulitis. MS/ Extremity: Pulses equal, no cyanosis. Neurovascular intact. Full, normal range of motion. Psych: Awake, alert, with orientation to person, place and time. Behavior, mood, and affect are within normal limits. Vital Signs: 17:06 BP 138 / 70; Pulse 82; Resp 17; Temp 98.1; Pulse Ox 100% ; Weight 81.65 kg; Height 5 ap3 ft. 8 in. ; Pain 3/10; 18:00 BP 156 / 63; Pulse 63; Resp 18; Pulse Ox 100% on R/A; cm10 18:30 BP 152 / 62; Pulse 56; Resp 16; Pulse Ox 96% on R/A; cm10 19:17 BP 157 / 63; Pulse 60; Resp 15; Pulse Ox 98% ; cm10 20:30 BP 138 / 65; Pulse 64; Resp 16; Pulse Ox 96% ; cm10 21:30 BP 134 / 55; Pulse 61; Resp 15; Pulse Ox 95% ; cm10 17:06 Body Mass Index 27.37 (81.65 kg, 172.72 cm) ap3 17:06 Pain Scale: Adult ap3 MDM: 17:12 Medical Screening Exam initiated gb1 19:36 Data reviewed: vital signs, nurses notes, radiologic studies, CT scan. ED course: gb1 89-year-old female with history of collagenous colitis is here for bright red blood per rectum starting today 12 at noon. CTA shows no active extravasation however the patient does have a prominent left-sided colitis with active bright red blood per rectum. I discussed the case with Dr. Krause who is on-call for general surgery and he recommends transfer to a higher level of care to a facility that has gastroenterology on-call patient will likely need a colonoscopy/endoscopy. At this time her H\T\H is stable and she is not actively hemorrhaging. I will try to transfer her to [facility] at first pass.. 12/13 17:04 Order name: CBC with Diff; Complete Time: 18:45 gb1 12/13 17:04 Order name: CMP; Complete Time: 18:45 gb1 12/13 17:04 Order name: Lipase; Complete Time: 18:45 gb1 12/13 17:25 Order name: Type And Screen; Complete Time: 18:45 gb1 12/13 17:25 Order name: PT-INR; Complete Time: 18:07 gb1 12/13 17:25 Order name: CT Pelvis Angio; Complete Time: 19:29 gb1 12/13 18:50 Order name: Abdomen Angio; Complete Time: 19:29 EDME 12/13 17:04 Order name: IV Saline Lock; Complete Time: 17:32 gb1 12/13 17:04 Order name: Labs collected and sent; Complete Time: 17:32 gb1 Administered Medications: 17:32 Drug: NS 0.9% IV 1000 ml IV at 1 bolus Per protocol; to be given as a bolus over 60 cm10 minutes Route: IV; Rate: 1 bolus; Site: left forearm; 18:36 Follow up: Response: No adverse reaction; IV Status: Completed infusion; IV Intake: cm10 1000ml Disposition Summary: 12/13/24 19:35 Transfer Ordered Notes: Transfer Location: Other [facility] gb1 Reason: Higher level of care gb1 Condition: Stable gb1 Problem: an ongoing problem gb1 Symptoms: have worsened gb1 Accepting Physician: Dr. Kristan Blake(12/13/24 21:52) cm10 Diagnosis - Left sided colitis with rectal bleeding gb1 Forms: - Medication Reconciliation Form gb1 - SBAR form gb1 Signatures: Dispatcher [employer] Michelle Steele RN RN [email or web address] Kasia Waller RN RN cm10 Lian Vasquez MD MD gb1 Corrections: (The following items were deleted from the chart) 20:05 19:35 [facility] gb1 gb1 21:52 20:05 Dr. Kristan Blake gb1 cm10
[2024-12-13 22:13] VITALS: TEMP 98.1
[2024-12-13 22:20] VITALS: BP 134/55; O2SAT 95
== END 2024-12-13 21:52 | disposition short-term general hospital (02) ==
LOC: ER 16:53
DX: K51.511 Left sided colitis with rectal bleeding (principal); I10 Essential (primary) hypertension; E03.9 Hypothyroidism, unspecified
CPT/HCPCS: 85025; 36415; 86900; 86850; 85610; 86901; 83690; 80053; 72191; 74175; 96360; 99285; Q9967; J7030